=== PATIENT | female | born 1945 | race Caucasian/White ===

== ENCOUNTER 2016-12-31 11:33 | Inpatient (IN) | payer BC, OTHER ==
[2016-12-31] VITALS (7 sets, daily range): BP systolic 145–178; BP diastolic 75–91; PULSE 64–86; TEMP 36.9–37; O2SAT 92–96; Ht 147.3 cm; Wt 50.0 kg
[~2016-12-31] VITALS: Ht 147.3 cm; Wt 50.0 kg
[~2016-12-31 11:33] MED LIST: ACET-1256 PO; ALUMCHW2 PO; ATEN50TA8 PO; CALC-440 PO; CALC1CHW47 PO; CRAN500C2 PO; HYD10 PO; HYDR20TA PO; KRIL1CAP18 PO; LEVO75TA PO; LORA-741 PO; LOSA1TAB38 PO; MOME50SP5; MULT-506 PO; PANT40TA PO; POTA20TA16 PO; PROM12.57 PO; VTMD1000 PO
[2016-12-31 12:16] LABS: HEMATOCRIT 35.1 % (37-47); MEAN CELL VOLUME 89.3 fL (80-100); MEAN CORPUSCULAR HEMOGLOBIN 30.3 pg (25-34); MEAN CORPUSCULAR HGB CONC 33.9 g/dl (32-36); MEAN PLATELET VOLUME 8.6 fL (7.4-10.4); PLATELET COUNT 198 K/uL (130-400); RED BLOOD COUNT 3.93 M/uL (4.2-5.4); WHITE BLOOD COUNT 13.77 K/uL (4.8-10.8)
[2016-12-31 12:37] LABS: BUN/CREATININE RATIO 31.8 (10-20); CALCIUM 8.5 mg/dl (8.5-10.1); CREATININE 0.69 mg/dl (0.60-1.20); POTASSIUM 3.1 mmol/L (3.5-5.1)
[2016-12-31 12:39] LABS: ALB/GLOB RATIO 1.3 (0.9-2); PARTIAL THROMBOPLASTIN RATIO 0.9; PROTHROMBIN TIME (PATIENT) 10.6 SECONDS (9.0-12.0)
[2016-12-31] MEDS ORDERED: POTASSIUM CHLORIDE 10 MEQ / 100ML WTR IV ONE (13:15)
[2016-12-31] MEDS ORDERED: POTASSIUM CHLORIDE 10 MEQ / 100ML WTR IV STA (13:16)
--- NOTE | 2016-12-31 13:37 | EMERGENCY ROOM VISIT NOTE ---
History Report prepared by Juni: Veronica Espinal Under the Supervision of: Dr. Tosha Musa D.O. First contact with patient: 13:07 Chief Complaint: RECTAL BLEEDING Stated Complaint: RECTAL BLEEDING Nursing Triage Summary: Pt reports she woke up early this AM with bright red bloody diarrhea Hx hemorrhoids History of Present Illness The patient is a 71 year old female who presents to the Emergency Room with complaints of persistent rectal bleeding that began this morning. The patient states that at 0300 this morning she woke feeling that she needed to have a bowel movement. She states that she was unable to have a bowel movement and felt constipated for several hours following. The patient states that this morning she finally had a bowel movement and noted a lot of blood. She states that this morning she has had several bowel movements that were bloody and watery in consistency. The patient denies any history of rectal bleeding in the past. She notes that she has had hemorrhoids in the past. The patient states that her last colonoscopy was in 2007 or 2008 and states that she had some polyps removed. She states that she had an endoscopy done at this time as well. The patient states that she is feeling lightheaded at this time, but denies any breathing difficulties. She denies having a pacemaker. The patient states that she has no wishes to be placed on a ventilator or have CPR done. Source of History: patient Onset: this morning Position: other (Rectal) Quality: other (bleeding) Timing: other (persistent) Associated Symptoms: No SOB Note: Associated Symptoms: lightheaded Review of Systems See HPI for pertinent positives & negatives. A total of 10 systems reviewed and were otherwise negative. Past Medical & Surgical Medical Problems: (1) ESOPHAGEAL REFLUX (2) GI bleed (3) HYPERTENSION NOS (4) Thyroidectomy (5) Tonsillectomy (6) V tach and rectal bleeding Family History Diabetes mellitus Hypertension Social History Smoking Status: Never Smoker Alcohol Use: none Drug Use: none Marital Status: single Housing Status: lives with family Occupation Status: unemployed, retired Current/Historical Medications Scheduled Atenolol (Tenormin), 50 MG PO AMPM Calcium & Phosphorus W/ Vitami (Calcium Gummies), 1 TAB PO AMPM Calcium Citrate-Vitamin D (Calcium Citrate + D3), 630 MG PO QAM Cholecalciferol (Vitamin D3), 1 TAB PO QAM Cranberry (Vaccinium Macrocarp (Cranberry), 500 MG PO QAM Hydrocortisone (Cortef), 20 MG PO QAM Hydrocortisone (Cortef), 10 MG PO QPM Krill Oil (M[place]ared [place]-3 Krill Oil 500 mg), 1 CAP PO QAM Levothyroxine Sodium (Synthroid), 75 MCG PO QAM Losartan Potassium (Cozaar), 100 MG PO QAM Multivitamin (Multivitamin), 1 TAB PO DAILY Pantoprazole (Protonix), 40 MG PO QAM Potassium Ext Rel (Klor-Con), 20 MEQ PO AMPM Scheduled PRN Acetaminophen (Tylenol), 500 MG PO UD PRN for Pain Aluminum Hydroxide-Mag Trisil (Gaviscon), 1 TAB PO DAILY PRN for ACID Lorazepam (Ativan), 0.5 TAB PO DAILY PRN for Anxiety Promethazine (Phenergan ), 12.5 MG PO Q4H PRN for Nausea Allergies Coded Allergies: Amoxicillin (Verified Allergy, Mild, ITCHY, 12/31/16) Ondansetron (Verified Allergy, Mild, ITCHY, 12/31/16) Oxycodone (Verified Allergy, Mild, ITCH, 12/31/16) Hydrocodone (Unverified Adverse Reaction, Intermediate, NAUSEA, 12/31/16) Ibuprofen (Unverified Adverse Reaction, Intermediate, NAUSEA, 12/31/16) Quinolones (Verified Adverse Reaction, Intermediate, HEADACHE, 12/31/16) Cephalosporins (Verified Adverse Reaction, Unknown, CEFTIN: ABDOMINAL PAIN /NAUSEA, 12/31/16) Escitalopram (Verified Adverse Reaction, Unknown, ABD PAIN;NAUSEA, 12/31/16) Penicillins (Verified Adverse Reaction, Unknown, ABD PAIN;NAUSEA, 12/31/16) Physical Exam Vital Signs Date Time Temp Pulse Resp B/P Pulse Ox O2 Delivery O2 Flow Rate FiO2 12/31/16 15:20 36.9 86 15 178/84 96 Room Air 12/31/16 14:11 89 18 172/75 12/31/16 13:25 81 18 161/87 96 Room Air 12/31/16 13:15 85 12/31/16 13:12 82 12/31/16 13:12 102 12/31/16 12:20 79 12/31/16 11:37 36.6 79 20 187/73 96 Room Air Physical Exam HEENT: Head - normocephalic and atraumatic Pupils are equal, round, and reactive to light. Extraocular eye muscles are intact, and sclera are anicteric. Nose - moist nasal mucosa without discharge. Mouth - moist buccal mucosa. Oropharynx is nonerythematous and there is no tonsillar exudate or edema noted. Neck: Supple; no JVD, nuchal rigidity, cervical lymphadenopathy, or auscultated bruits. Heart: Regular rate and rhythm. There is a normal S1 and S2 with no murmurs, clicks, or gallops appreciated. Lungs: Clear to auscultation bilaterally with no wheezes, rales, or rhonchi. Abdomen: Soft, completely nontender, nondistended, with good bowel sounds. There are no palpable pulsatile masses or hepatosplenomegaly. There is no guarding, rigidity, or rebound noted. Extremities: No evidence of cyanosis, clubbing, or edema. There are easily palpable peripheral pulses. Skin: warm and dry with good turgor and no rashes. Medical Decision & Procedures ER Provider Diagnostic Interpretation: X-ray results as stated below per interpretation by me and the radiologist: CHEST ONE VIEW PORTABLE CLINICAL HISTORY: Rectal bleeding COMPARISON STUDY: 11/14/2008 FINDINGS: The cardiac images all contours remain stable. There are extensive calcified mediastinal and hilar lymph nodes. There is a left lower lobe calcified granuloma. There is a thoracolumbar scoliosis. There is no overt failure. There are no pleural effusions. There is no lobar consolidation. There are left hemithorax electrode pads. There is a catheter projected over the right neck, possibly representing a right internal jugular central venous line. No pneumothorax is visualized. IMPRESSION: Old granulomatous changes. No active disease in the chest. Electronically signed by: Peyman Barrera M.D. 12/31/2016 3:27 PM Dictated Date/Time: 12/31/2016 3:25 PM Laboratory Results 12/31/16 12:05 12/31/16 14:20 12/31/16 12:05 Test 12/31/16 12:05 12/31/16 14:20 12/31/16 15:30 Red Blood Count 3.93 M/uL (4.2-5.4) Mean Corpuscular Volume 89.3 fL (80-100) Mean Corpuscular Hemoglobin 30.3 pg (25-34) Mean Corpuscular Hemoglobin Concent 33.9 g/dl (32-36) RDW Standard Deviation 47.7 fL (36.4-46.3) RDW Coefficient of Variation 14.4 % (11.5-14.5) Mean Platelet Volume 8.6 fL (7.4-10.4) Prothrombin Time 10.6 SECONDS (9.0-12.0) Prothromb Time International Ratio 1.0 (0.9-1.1) Activated Partial Thromboplast Time 24.5 SECONDS (21.0-31.0) Partial Thromboplastin Ratio 0.9 Anion Gap 9.0 mmol/L (3-11) Est Creatinine Clear Calc Drug Dose 47.6 ml/min Estimated GFR () 100.8 Estimated GFR (Non- 87.0 BUN/Creatinine Ratio 31.8 (10-20) Calcium Level 8.5 mg/dl (8.5-10.1) Magnesium Level 1.9 mg/dl (1.8-2.4) Total Bilirubin 0.9 mg/dl (0.2-1) Aspartate Amino Transf (AST/SGOT) 18 U/L (15-37) Alanine Aminotransferase (ALT/SGPT) 20 U/L (12-78) Alkaline Phosphatase 54 U/L (45-117) Total Creatine Kinase 64 U/L (26-192) Creatine Kinase MB 2.1 ng/ml (0.5-3.6) Creatine Kinase MB Ratio 3.3 (0-3.0) Pro-B-Type Natriuretic Peptide 4051 pg/ml (0-900) Total Protein 6.4 gm/dl (6.4-8.2) Albumin 3.6 gm/dl (3.4-5.0) Globulin 2.8 gm/dl (2.5-4.0) Albumin/Globulin Ratio 1.3 (0.9-2) Thyroid Stimulating Hormone (TSH) 1.510 uIu/ml (0.300-4.500) Random Cortisol 12.42 mcg/dl Phosphorus Level 3.0 mg/dl (2.5-4.9) Troponin I 0.024 ng/ml (0-0.045) Urine Color YELLOW Urine Appearance CLEAR (CLEAR) Urine pH 6.5 (4.5-7.5) Urine Specific [place] 1.007 (1.000-1.030) Urine Protein NEG (NEG) Urine Glucose (UA) NEG (NEG) Urine Ketones NEG (NEG) Urine Occult Blood 1+ (NEG) Urine Nitrite NEG (NEG) Urine Bilirubin NEG (NEG) Urine Urobilinogen NEG (NEG) Urine Leukocyte Esterase NEG (NEG) Urine WBC (Auto) 0 /hpf (0-5) Urine RBC (Auto) 0-4 /hpf (0-4) Urine Hyaline Casts (Auto) 1-5 /lpf (0-5) Urine Epithelial Cells (Auto) 0-5 /lpf (0-5) Urine Bacteria (Auto) NEG (NEG) Date/Time Source Procedure Growth Status 12/31/16 14:38 Nasal MRSA DNA Surveillance Screen - Final Specimen Negative for MRSA by DNA Probe Complete Laboratory results per my review. Medications Administered Medications (Trade) Dose Ordered Sig/Dariusz Route Start Time Stop Time Status Last Admin Dose Admin Potassium Chloride (Kcl 10 Meq / Wtr) 10 meq NOW STAT IV 12/31/16 13:16 12/31/16 13:17 DC 12/31/16 13:16 10 MEQ Magnesium Sulfate (Magnesium Sulfate) 2 gm NOW STAT IV 12/31/16 14:00 12/31/16 14:04 DC 12/31/16 14:11 2 GM Morphine Sulfate 2 mg 2 mg Q2H PRN IV 12/31/16 14:00 01/14/17 13:59 12/31/16 16:37 2 MG Pantoprazole Sodium/Syringe (Protonix Inj/ Syringe) 10 ml @ 5 mls/min NOW ONCE IV 12/31/16 15:00 12/31/16 15:01 DC 12/31/16 15:50 5 MLS/MIN Procedure The patient was treated with Potassium Chloride 10 meq IV and NSS 500 bolus. ECG Indication: other (ventricular tachycardia) Rate (beats per minute): 78 Rhythm: normal sinus Findings: ST depression (Lateral), no ectopy Change: Repeat EKG: Normal Sinus Rhythm, 82 beats per minute, deeper ST segment depressions laterally, no ectopy. ED Course 1310: Past medical records reviewed. The patient was evaluated in room C11B. A complete history and physical exam was performed. A twelve-lead EKG was obtained. A chest x-ray was performed. 1313: The patient had a run of v-tach at this time. The patient stated that she felt somewhat lightheaded during this event. She maintained a radial pulse. 1316: The patient had a second run of V. tach. Ordered Potassium Chloride 10 meq IV and NSS 500 bolus. 1326: I reevaluated the patient and told the patient that her friend is on her way. The patient states that she did not take her blood pressure medications this morning. The patient understands that she will be evaluated for further treatment. 1329: I discussed the patients case with Dr. Lorenzo, Intensive Care. He is going to evaluate the patient in the ICU for further treatment. 1332: I discussed the patients case with SHARA Sidhu. He is going to evaluate the patient for further treatment. Medical Decision The patient is a 71 year old female who presents to the ED with rectal bleeding. Differential diagnosis includes electrolyte imbalance, cardiac dysrhythmia, anemia, lower GI bleed Lab interpretation: white count 13.7, hemoglobin 11.3, potassium 3.1, BUN 22, creatinine 0.69, LFTs and cardiac enzymes are negative, BNP 4,051, total CK 64, CK-MB 3.3, troponin 0.017, coagulation studies were normal, urine was normal The patient presents to the emergency department with new-onset GI bleeding While I was evaluated in the patient, she had a run of V. tach of his proximal he 6 seconds long. She did complain of some lightheadedness. She then had a second run of V. tach which is about 10 seconds long. Her potassium was replaced. She did not have any further episodes while here in the emergency department. She remained hemodynamically stable. I discussed the case with the [facility] hospitalist as well as the liquefaction plant operator. Consults Time Called: 1327 Consulting Physician: Dr. Lorenzo, Intensive Care Returned Call: [phone] I discussed the patients case with Dr. Lorenzo, Intensive Care. He is going to evaluate the patient in the ICU for further treatment. Additional Consults: Time Called: 1327 Consulted Physician: SHARA Sidhu Returned Call: [phone] Additional Comments: I discussed the patients case with SHARA Sidhu. He is going to evaluate the patient for further treatment. Impression Primary Impression: Lower GI bleed Additional Impressions: V-tach Hypokalemia Scribe Attestation The scribe's documentation has been prepared under my direction and personally reviewed by me in its entirety. I confirm that the note above accurately reflects all work, treatment, procedures, and medical decision making performed by me. Departure Information Dispostion Being Evaluated By Hospitalist Referrals Arthur Brown M.D. (PCP) Problem Qualifiers
[2016-12-31 14:00] LABS: CKMB/CK RATIO 3.3 (0-3.0); THYROID STIMULATING HORMONE 1.51 uIu/ml (0.300-4.500)
[2016-12-31] MEDS ORDERED: MAGNESIUM SULFATE 1GM / D5W 1 GM BAG IV STA (14:00)
[2016-12-31 14:32] LABS: HEMATOCRIT 32.3 % (37-47)
--- NOTE | 2016-12-31 14:34 | History and Physical ---
History & Physical Date of Service Dec 31, 2016. History & Physical V tach and rectal bleeding [id number]
[2016-12-31] MEDS ORDERED: HydrALAZINE HCL 20 MG/ML VIAL IV. PRN (14:45)
[2016-12-31] MEDS ORDERED: PANTOprazole INJ 40 MG in SYRINGE 0 ML IV ONE (15:00)
[2016-12-31] MEDS ORDERED: HYDROCORTISONE SOD SUCCINATE 100 MG/2 ML VIAL IM SCH (15:15)
[2016-12-31] MEDS ORDERED: LAVAGE SOLUTION 4000ML PO SCH (15:15)
--- NOTE | 2016-12-31 15:22 | HISTORY & PHYSICAL EXAMINATION ---
DATE OF ADMISSION: 12/31/2016 This is a level 3 inpatient admission, 35 minutes. CHIEF COMPLAINT: Rectal bleeding and V-tach. HISTORY OF PRESENT ILLNESS: The patient is a 71-year-old white female with a significant past medical history of GERD, hypertension, adrenal insufficiency, vitamin D deficiency, hypothyroidism, dyslipidemia, diverticulitis, comes to the hospital Emergency Department because of the above chief complaint. The patient reported she used to be healthy. She taking care of her mom who is 90-year-old. She developed a feeling cramping abdominal pain in the lower abdomen and feeling she needs to have bowel movement. She was feeling constipated for several hours. This morning she finally has bowel movement. She noticed a lot of blood coming out in the stool. The blood was watery in consistency. Report had history of hemorrhoids and history of colonoscopy done many years ago and her son reported to me she has history of diverticulitis. In the Emergency Room, she developed possible V-tach lasting about 10 seconds. There was 3 episodes per report. When I interviewed with her, she was awake, alert and orientated in no acute distress, pleasant, competent and talk. Denied chest pain, palpitation, lower extremity swelling. Denied cough, sputum, shortness of breath. Denied hemoptysis; denied dysuria, urgency and frequencies, denied abdominal pain, diarrhea, constipation for now. Denied facial droop, slurry speeches or local weakness. PAST MEDICAL HISTORY: Like I mentioned in the above include GERD, esophagitis, hypertension, adrenal insufficiency, vitamin D deficiency, hypothyroidism and dyslipidemia. ALLERGIES: ALLERGIC TO ZOFRAN, OXYCODONE, QUINOLONE, CEPHALOSPORINS, CITALOPRAM, AND PENICILLIN. PAST SURGICAL HISTORY: Include thyroidectomy, tonsillectomy. FAMILY HISTORY: Include diabetic, hypertension. SOCIAL HISTORY: Never smoked. Denied alcohol abuse disorder, denied illicit drug abuse. MEDICATIONS: Include atenolol 50 mg p.o. a.m. and p.m., calcium pills 1 tab p.o. b.i.d., calcium citrate, vitamin D 30 mg p.o. q.a.m., vitamin D3 one tab p.o. q.a.m., cranberry 500 mg p.o. q.a.m., Cortef 20 mg p.o. q.a.m. and 10 mg p.o. q.p.m. Krill oil 1 tab p.o. q.a.m., levothyroxine 75 mcg p.o. q.a.m., losartan 100 mg p.o. q.a.m., multiple vitamin 1 tab p.o. daily, Protonix 40 mg p.o. q.a.m., Klor-Con 20 mEq p.o. b.i.d. Scheduled as needed medications include Tylenol, Ativan and Phenergan. PHYSICAL EXAMINATION: VITAL SIGNS: Temperature is 36.6, pulse 79, respiration rate 20, blood pressure was 187/73, pulse ox was 96% in room air. GENERAL: The patient is a white female, awake, alert and orientated, conversational, no acute distress. HEAD: Normocephalic. EYES: Pupils equal, round responds to light. EARS: Ear was normal. NOSE: Normal. NECK: Supple. Thyroid no enlargement. Trachea midline. HEART: Regular rhythm. S1, S2. LUNGS: Decreased breathing sounds. There was no wheezing, rhonchi or crackles. ABDOMEN: Soft, nontender. Bowel sound was positive. There were no pulsatile masses or hepatosplenomegaly. There was no guarding, rigidity or rebound tenderness. LOWER EXTREMITIES: No cyanosis, clubbing. No lower extremity edema. SKIN: Has no rashes. LABORATORY STUDIES: WBC 13, hemoglobin 11, platelet 198. Sodium 134, potassium 3.1, BUN 22, creatinine 0.6. Blood glucose 82. No other imaging studies was done. ASSESSMENT AND PLAN: A 71-year-old white female with the conditions below: 1. Three episodes of possible V-tach lasting about 10 seconds resolved for now. there was no documented EKG 2. Rectal bleeding with history of diverticulitis. 3. History of adrenal insufficiency. 4. History of hypertension. 5. Hypothyroidism. 6. Chronic hypokalemia. 7. Dyslipidemia. Discussed with ED physicians, patient and patient's son. The patient agreed ICU admission, tele monitoring, crash cart in bedside, like I defined the patient okay to cardiac shock/pressor support but DNR, do not intubation. I confirmed this with the patient's son whose name is Mehrdad. Will replace potassium. She got 10 mEq in the Emergency Room. We will give 20 mEq more and magnesium level was normal. V-tach likely because hypokalemic. She has history of hypothyroidism and adrenal insufficiency. TSH level was sent. Will check the random cortisol levels to see. We will continue home dose of Cortef. We will have cardiology consultation. Continue beta blockers, atenolol p.o. b.i.d. at home. We will give GI prophylaxis. Will have GI consultation, hemoglobin and hematocrits q. 8 hours and transfuse if needed. The patient did not have abdominal CT done in the Emergency Room. If she continued to be more stabilized, will need to consider abdominal CT studies to rule out acute disease or malignancy or mass in the colon. I switched levothyroxine to IV. Continue some other IV medication. Gastrointestinal prophylaxis is covered. DVT prophylaxis will be SCD, no heparin product because of contraindicated with current GI bleeding. I called to the patient's son who works in [employer], updated him the patient's conditions and care plan. I answered all the questions. NINFA
--- NOTE | 2016-12-31 15:28 | DIAGNOSTIC IMAGING REPORT ---
CHEST ONE VIEW PORTABLE CLINICAL HISTORY: Rectal bleeding COMPARISON STUDY: 11/14/2008 FINDINGS: The cardiac images all contours remain stable. There are extensive calcified mediastinal and hilar lymph nodes. There is a left lower lobe calcified granuloma. There is a thoracolumbar scoliosis. There is no overt failure. There are no pleural effusions. There is no lobar consolidation. There are left hemithorax electrode pads. There is a catheter projected over the right neck, possibly representing a right internal jugular central venous line. No pneumothorax is visualized. IMPRESSION: Old granulomatous changes. No active disease in the chest. Electronically signed by: Peyman Barrera M.D. 12/31/2016 3:27 PM Dictated Date/Time: 12/31/2016 3:25 PM
[2016-12-31 15:50] LABS: MANUAL MICROSCOPIC REQUIRED? NO; REVIEW REQ? NO; URINE APPEARANCE CLEAR (CLEAR); URINE BILIRUBIN NEG (NEG); URINE COLOR YELLOW; URINE EPITHELIAL CELL AUTO 0-5 /lpf (0-5); URINE NITRITE NEG (NEG); URINE PH 6.5 (4.5-7.5); URINE SPECIFIC GRAVITY 1.007 (1.000-1.030); UROBILINOGEN NEG (NEG)
[2016-12-31] MEDS ORDERED: OPTIRAY 320 IV PRN (16:00)
--- NOTE | 2016-12-31 16:03 | Critical Care Consultation ---
Critical Care Consultation Date of Consultation: Dec 31, 2016. Attending Physician: Dr Ryan Pang Reason for Consultation: arrhythmia in the presence of acute hemorrhage History of Present Illness This is a 71 yo f that is presenting to us after an arrhythmia questionable for VT which occurred in the ED along with acute LGI hemorrhage. The patient is coming to us after an acute episode of bright red blood per rectum which occurred this morning. She came to the ED and after having another BM in the ED of bright red blood she was noted to have an arrhythmia concerning for VT on the monitor. She was asymptomatic during these episodes and spontaneously returned to NSR. ICU was called after these findings. Patient was resting comfortably during the interview. She states she has never had this kind of stool in the past however does have a history of hemorrhoids. She denies any sort of black stool. She does not take any ASA or NSAIDs but does take oral steroids daily for adrenal insufficiency. She has not had any recent antibiotics. She does note some mild epigastric pain which she felt started earlier in the morning. Non radiating and a 4/10. She does have a hgb which ranges from 10.5-12 and has never received a transfusion in the past. She has no history or colon cancer/ polyps. She has no h/o arrhythmia or MO She does note that she takes care of her 95 yo f at home. She also confirmed multiple times that she is a DNR/DNI. Her son is her POA and his name is Mehrdad. He works at [employer] as a physical therapist. After discussing the case with the ED and concern for VT vs Torsades the patient was admitted to the ICU for further monitoring. Past Medical/Surgical History GERD HTN Adrenal insuff Sarcoidosis Hypothyroidism Dyslipidemia Parkinson Family History Diabetes mellitus Hypertension Social History Smoking Status: Never Smoker Smokeless Tobacco Use: No Alcohol Use: none Drug Use: none Marital Status: single Housing Status: lives with family Occupation Status: unemployed, retired Allergies Coded Allergies: Amoxicillin (Verified Allergy, Mild, ITCHY, 12/31/16) Ondansetron (Verified Allergy, Mild, ITCHY, 12/31/16) Oxycodone (Verified Allergy, Mild, ITCH, 12/31/16) Hydrocodone (Unverified Adverse Reaction, Intermediate, NAUSEA, 12/31/16) Ibuprofen (Unverified Adverse Reaction, Intermediate, NAUSEA, 12/31/16) Quinolones (Verified Adverse Reaction, Intermediate, HEADACHE, 3/3/17) Cephalosporins (Verified Adverse Reaction, Unknown, CEFTIN: ABDOMINAL PAIN /NAUSEA, 12/31/16) Escitalopram (Verified Adverse Reaction, Unknown, ABD PAIN;NAUSEA, 12/31/16) Penicillins (Verified Adverse Reaction, Unknown, ABD PAIN;NAUSEA, 12/31/16) Home Medications Scheduled Atenolol (Tenormin), 50 MG PO AMPM Calcium & Phosphorus W/ Vitami (Calcium Gummies), 1 TAB PO AMPM Calcium Citrate-Vitamin D (Calcium Citrate + D3), 630 MG PO QAM Cholecalciferol (Vitamin D3), 1 TAB PO QAM Cranberry (Vaccinium Macrocarp (Cranberry), 500 MG PO QAM Hydrocortisone (Cortef), 20 MG PO QAM Hydrocortisone (Cortef), 10 MG PO QPM Krill Oil ([place]-3 Krill Oil 500 mg), 1 CAP PO QAM Levothyroxine Sodium (Synthroid), 75 MCG PO QAM Losartan Potassium (Cozaar), 100 MG PO QAM Multivitamin (Multivitamin), 1 TAB PO DAILY Pantoprazole (Protonix), 40 MG PO QAM Potassium Ext Rel (Klor-Con), 20 MEQ PO AMPM Scheduled PRN Acetaminophen (Tylenol), 500 MG PO UD PRN for Pain Aluminum Hydroxide-Mag Trisil (Gaviscon), 1 TAB PO DAILY PRN for ACID Lorazepam (Ativan), 0.5 TAB PO DAILY PRN for Anxiety Promethazine (Phenergan ), 12.5 MG PO Q4H PRN for Nausea Current Inpatient Medications Current Inpatient Medications Medications (Trade) Dose Ordered Sig/Dariusz Route Start Time Stop Time Status Last Admin Dose Admin Potassium Chloride 20 meq/ Prmx 100 ml @ 50 mls/hr NOW STAT IV 12/31/16 13:33 12/31/16 15:32 UNV Potassium Chloride/Sodium Chloride (Nss + 20meq KCl 1000ml) 1,000 ml @ 80 mls/hr [id number] IV 12/31/16 13:53 01/30/17 13:52 UNV Acetaminophen (Tylenol Tab) 650 mg Q4H PRN PO 12/31/16 14:00 01/30/17 13:59 Morphine Sulfate (MoRPHine SULFATE INJ) 2 mg Q2H PRN IV 12/31/16 14:00 01/14/17 13:59 Hydrocortisone (Cortef Tab) 10 mg QPM PO 12/31/16 21:00 01/30/17 20:59 Hydrocortisone (Cortef Tab) 20 mg QAM PO 01/01/17 09:00 01/31/17 08:59 Losartan Potassium (coZAAR TAB) 100 mg QAM PO 01/01/17 09:00 01/31/17 08:59 Potassium Chloride (Klor-Con Tab) 20 meq QAM PO 01/01/17 09:00 01/31/17 08:59 Levothyroxine Sodium 37.5 mcg 37.5 mcg QAM IM 01/01/17 09:00 01/31/17 08:59 UNV Pantoprazole Sodium/Syringe (Protonix Inj/ Syringe) 10 ml @ 5 mls/min DAILY@,21 IV 12/31/16 21:00 01/30/17 20:59 UNV Atenolol (Tenormin Tab) 50 mg BID PO 12/31/16 21:00 01/30/17 20:59 Hydralazine HCl (HydrALAZINE INJ) 20 mg Q8 PRN IV. 12/31/16 14:45 01/30/17 14:44 Polyethylene Glycol/ Electrolytes (Golytely Soln) 1 dose UD PO 12/31/16 15:15 01/30/17 15:14 UNV Hydrocortisone Sodium Succinate (Solu-Cortef IV) 50 mg TODAY@1515 IM 12/31/16 15:15 12/31/16 17:00 Ioversol (Optiray 320) 125 ml UD PRN IV 12/31/16 16:00 01/04/17 15:59 UNV Review of Systems Constitutional: No fever Eyes: No worsening of vision ENT: No hearing loss Respiratory: No cough, No shortness of breath, No sputum, No wheezing Cardiovascular: No chest pain Abdomen: + GI bleeding, + diarrhea, + nausea, + pain, No constipation, No vomiting Musculoskeletal: No joint pain, No muscle pain Genitourinary - Female: No dysuria, No hematuria Neurologic: + balance problems, + problem reported (tremor from parkinson), + weakness, No memory loss, No numbness/tingling Endocrine: + fatigue Integumentary: No rash Physical Exam Date Time Temp Pulse Resp B/P Pulse Ox O2 Delivery O2 Flow Rate FiO2 12/31/16 15:20 36.9 86 15 178/84 96 Room Air 12/31/16 14:11 89 18 172/75 12/31/16 13:25 81 18 161/87 96 Room Air 12/31/16 13:15 85 12/31/16 13:12 82 12/31/16 13:12 102 12/31/16 12:20 79 12/31/16 11:37 36.6 79 20 187/73 96 Room Air General Appearance: well-appearing, no apparent distress Head: normocephalic Eyes: sclerae normal, conjunctivae pale ENT: other (inspection WNL) Neck: normal range of motion, no tenderness, trachea midline, supple Respiratory: breath sounds normal, clear to auscultation, clear to percussion, no respiratory distress Cardiovasular: regular rate/rhythm, normal S1S2, no murmur Abdomen: normal bowel sounds, no rebound, other (tender in epigastric region) Back: normal inspection Upper Extremities: no edema, normal ROM Lower Extremities: no edema, normal ROM Neuro: alert, oriented x 3, normal sensation Psychiatric: flat affect Laboratory Results Last 24 Hours Test 12/31/16 12:05 12/31/16 14:20 12/31/16 15:30 White Blood Count 13.77 K/uL Red Blood Count 3.93 M/uL Hemoglobin 11.9 g/dL 11.3 g/dL Hematocrit 35.1 % 32.3 % Mean Corpuscular Volume 89.3 fL Mean Corpuscular Hemoglobin 30.3 pg Mean Corpuscular Hemoglobin Concent 33.9 g/dl RDW Standard Deviation 47.7 fL RDW Coefficient of Variation 14.4 % Platelet Count 198 K/uL Mean Platelet Volume 8.6 fL Prothrombin Time 10.6 SECONDS Prothromb Time International Ratio 1.0 Activated Partial Thromboplast Time 24.5 SECONDS Partial Thromboplastin Ratio 0.9 Sodium Level 134 mmol/L Potassium Level 3.1 mmol/L Chloride Level 95 mmol/L Carbon Dioxide Level 30 mmol/L Anion Gap 9.0 mmol/L Blood Urea Nitrogen 22 mg/dl Creatinine 0.69 mg/dl Est Creatinine Clear Calc Drug Dose 47.6 ml/min Estimated GFR () 100.8 Estimated GFR (Non- 87.0 BUN/Creatinine Ratio 31.8 Random Glucose 82 mg/dl Calcium Level 8.5 mg/dl Magnesium Level 1.9 mg/dl Total Bilirubin 0.9 mg/dl Aspartate Amino Transf (AST/SGOT) 18 U/L Alanine Aminotransferase (ALT/SGPT) 20 U/L Alkaline Phosphatase 54 U/L Total Creatine Kinase 64 U/L Creatine Kinase MB 2.1 ng/ml Creatine Kinase MB Ratio 3.3 Troponin I 0.017 ng/ml 0.024 ng/ml Pro-B-Type Natriuretic Peptide 4051 pg/ml Total Protein 6.4 gm/dl Albumin 3.6 gm/dl Globulin 2.8 gm/dl Albumin/Globulin Ratio 1.3 Thyroid Stimulating Hormone (TSH) 1.510 uIu/ml Random Cortisol 12.42 mcg/dl Phosphorus Level 3.0 mg/dl Urine Color YELLOW Urine Appearance CLEAR Urine pH 6.5 Urine Specific [place] 1.007 Urine Protein NEG Urine Glucose (UA) NEG Urine Ketones NEG Urine Occult Blood 1+ Urine Nitrite NEG Urine Bilirubin NEG Urine Urobilinogen NEG Urine Leukocyte Esterase NEG Urine WBC (Auto) 0 /hpf Urine RBC (Auto) 0-4 /hpf Urine Hyaline Casts (Auto) 1-5 /lpf Urine Epithelial Cells (Auto) 0-5 /lpf Urine Bacteria (Auto) NEG Assessment & Plan 1. Arrhythmia - new onset VT vs Torsades vs artifact 2. Acute lower GI bleed of unknown etiology 3. Hypokalemia; hyponatremia 4. Adrenal insuff 5. HTN 6. GERD 7. Hypothyroidism 8. Dyslipidemia 9. Parkinson NVS - alert and oriented - monitor mentation- at risk for delirium CVS - monitor on tele - central line placement - right IJ - Consult CVS RVS - O2 per nursing protocol GI - Consult GI - protonix 40 mg bid IV - CT abd with Iv contrast as per GI - discussed endoscopy with GI and would prefer to observe instead of urgent scope at this time RENAL - follow I&O - NSS with 20 KCL - 2 Gm of Mg given in ED FEN - repeat BMP in the am - replete K prn ENDO - continue home dose of steroids and thyroid - additional hydrocortisone 50 mg in anticipation of stress response HEME - follow HH q 8 - type and cross- 2 pRBC held - DVT- SCD CODE STATUS: DO NOT RESUSCITATE in event of cardiac arrest, patient wouldn't be amenable to vasoactive medications and electrical therapy. Patient's medical decision maker would be her son, Mehrdad Bennett who is an hop strainer in [place]. Resident Physician Supervision Note: Dr. Bacon was resident physician during care of patient. I separately evaluated patient and did history and exam. I discussed the case with the resident and generally agree with the findings and plan. Trend CBC, right IJ for rapid infusion, patient had 2; 20-gauge IVs upon arrival to the ICU, cardiology and GI both consulted I have personally spent 35 minutes of critical care time in the direct management of this patient. This is a life/limb threatening event. This includes time spent evaluating patient, direct bedside care, chart review, placing orders, interpretation of diagnostic studies, discussion with consultants, patient, and family members, as well as other required patient management activities. This time is exclusive of all separately billable procedures, and teaching time and separate from and in addition to any other critical care service time. Documented By: Iron Lorenzo DO
--- NOTE | 2016-12-31 16:04 | Gastrointestinal Consultation ---
Gastrointestinal Consultation Date of Consultation: Dec 31, 2016 Attending Physician: Tavon Pang Consulting Physician: Wen Chery Reason for Consultation: Rectal bleeding History of Present Illness Patient is a 71 year old female w PMHx of GERD, HTN who presented to ED w c/o rectal bleeding since this AM. Pt report around 3AM, she woke up feeling the urge to defecate. She felt it was hard to strain but finally managed to defecate. When she looked into the commode, she had seen just all bright red blood, and not much stools. She reports for the next few hours till around 6am, she had multiple BMs w mostly just blood. She has associated LLQ abd pain, mild nausea, no vomiting. She denies any fever, chills, recent sick contact, antibx use, ASA or NSAIDs. She does takes Tylenol for back pain, scoliosis. She then went to ED for evaluation. She reports feeling light headed in ED. EKG showed multiple runs of V-tach ? Torsades. She was given Mg and this converted her back on NSR HR of 90s. She is also continued on her Atenolol. H/H was 09/02/32. Leukocytosis WBC 13.7 . Baseline Hgb 12. Mild BUN elevation of 22, normal Cr of 0.69. BNP was 4051. Pt had Hx of diverticulosis, last colonoscopy by Dr. Tejeda on 09/19/2009. Last EGD by Dr. Doss 11/01/2012 gastric polyp, gastritis, intestinal metaplasia but no tumors. Past Medical/Surgical History Medical Problems: (1) Lumbar back pain Status: Acute Past Medical History: See HPI above Past Surgical History: Tonsillectomy, Thyroidectomy Family History Diabetes mellitus Hypertension Social History Smoking Status: Never Smoker Alcohol Use: none Drug Use: none Marital Status: single Housing Status: lives with family Occupation Status: unemployed, retired Allergies Coded Allergies: Amoxicillin (Verified Allergy, Mild, ITCHY, 12/31/16) Ondansetron (Verified Allergy, Mild, ITCHY, 12/31/16) Oxycodone (Verified Allergy, Mild, ITCH, 12/31/16) Hydrocodone (Unverified Adverse Reaction, Intermediate, NAUSEA, 12/31/16) Ibuprofen (Unverified Adverse Reaction, Intermediate, NAUSEA, 12/31/16) Quinolones (Verified Adverse Reaction, Intermediate, HEADACHE, 12/31/16) Cephalosporins (Verified Adverse Reaction, Unknown, CEFTIN: ABDOMINAL PAIN /NAUSEA, 12/31/16) Escitalopram (Verified Adverse Reaction, Unknown, ABD PAIN;NAUSEA, 12/31/16) Penicillins (Verified Adverse Reaction, Unknown, ABD PAIN;NAUSEA, 12/31/16) Current Medications Home Meds and Scripts Medications Dose Route/Sig Max Daily Dose Days Date Category Dose Instructions Phenergan (Promethazine HCl) 12.5 Mg Tab 12.5 Mg PO Q4H PRN 06/13/16 Reported Gaviscon (Aluminum Hydroxide-Mag Trisil) 1 Chw Chw 1 Tab PO DAILY PRN 06/13/16 Reported Tylenol (Acetaminophen) 500 Mg Tab 500 Mg PO UD PRN 06/13/16 Reported UP TO 1,500MG DAILY PER PATIENT LIST. Multivitamin (Multivitamins) Tab 1 Tab PO DAILY 06/13/16 Reported [place]-3 Krill Oil 500 mg (Krill Oil) 1 Cap Cap 1 Cap PO QAM 06/13/16 Reported Vitamin D3 (Cholecalciferol) 1,000 Inter.unit Tab 1 Tab PO QAM 06/13/16 Reported Cranberry (Cranberry (Vaccinium Macrocarp) 500 Mg Cap 500 Mg PO QAM 06/13/16 Reported Calcium Gummies (Calcium & Phosphorus W/ Vitami) 1 Chw Chw 1 Tab PO AMPM 06/13/16 Reported Calcium Citrate + D3 (Calcium Citrate-Vitamin D) 1 Tab Tab 630 Mg PO QAM 06/13/16 Reported Klor-Con (Potassium Chloride) 20 Meq Tabcr 20 Meq PO AMPM 06/13/16 Reported Protonix (Pantoprazole Sodium) 40 Mg Tab 40 Mg PO QAM 06/13/16 Reported Synthroid (Levothyroxine Sodium) 75 Mcg Tab 75 Mcg PO QAM 06/13/16 Reported Cozaar (Losartan Potassium) 100 Mg Tab 100 Mg PO QAM 06/13/16 Reported Ativan (Lorazepam) 0.5 Mg Tab 0.5 Tab PO DAILY PRN 06/13/16 Reported Cortef (Hydrocortisone) 10 Mg Tab 10 Mg PO QPM 06/13/16 Reported Cortef (Hydrocortisone) 20 Mg Tab 20 Mg PO QAM 06/13/16 Reported Tenormin (Atenolol) 50 Mg Tab 50 Mg PO AMPM 07/01/15 Reported Review of Systems Constitutional: No chills, No fever Respiratory: No cough, No shortness of breath Cardiac: No chest pain Abdomen: + GI bleeding, + nausea, + pain (LLQ), + see HPI, No vomiting Musculoskeletal: + problem reported (back pain) Physical Exam Date Time Temp Pulse Resp B/P Pulse Ox O2 Delivery O2 Flow Rate FiO2 12/31/16 15:20 36.9 86 15 178/84 96 Room Air 12/31/16 14:11 89 18 172/75 12/31/16 13:25 81 18 161/87 96 Room Air 12/31/16 13:15 85 12/31/16 13:12 82 12/31/16 13:12 102 12/31/16 12:20 79 12/31/16 11:37 36.6 79 20 187/73 96 Room Air General Appearance: no apparent distress, + thin Eyes: normal inspection, PERRL, EOMI Neck: supple, no JVD, trachea midline, + pertinent finding (Central line to R neck area recently placed) Respiratory/Chest: no respiratory distress, no accessory muscle use, + decreased breath sounds Cardiovascular: regular rate, rhythm, no gallop, no murmur Abdomen: normal bowel sounds, soft, + tenderness Extremities: normal inspection, no pedal edema, no calf tenderness Neurologic/Psych: alert, normal mood/affect, oriented x 3 Skin: normal color, no jaundice, no rash Laboratory Results Last 24 Hours Test 12/31/16 12:05 12/31/16 14:20 12/31/16 15:30 White Blood Count 13.77 K/uL Red Blood Count 3.93 M/uL Hemoglobin 11.9 g/dL 11.3 g/dL Hematocrit 35.1 % 32.3 % Mean Corpuscular Volume 89.3 fL Mean Corpuscular Hemoglobin 30.3 pg Mean Corpuscular Hemoglobin Concent 33.9 g/dl RDW Standard Deviation 47.7 fL RDW Coefficient of Variation 14.4 % Platelet Count 198 K/uL Mean Platelet Volume 8.6 fL Prothrombin Time 10.6 SECONDS Prothromb Time International Ratio 1.0 Activated Partial Thromboplast Time 24.5 SECONDS Partial Thromboplastin Ratio 0.9 Sodium Level 134 mmol/L Potassium Level 3.1 mmol/L Chloride Level 95 mmol/L Carbon Dioxide Level 30 mmol/L Anion Gap 9.0 mmol/L Blood Urea Nitrogen 22 mg/dl Creatinine 0.69 mg/dl Est Creatinine Clear Calc Drug Dose 47.6 ml/min Estimated GFR () 100.8 Estimated GFR (Non- 87.0 BUN/Creatinine Ratio 31.8 Random Glucose 82 mg/dl Calcium Level 8.5 mg/dl Magnesium Level 1.9 mg/dl Total Bilirubin 0.9 mg/dl Aspartate Amino Transf (AST/SGOT) 18 U/L Alanine Aminotransferase (ALT/SGPT) 20 U/L Alkaline Phosphatase 54 U/L Total Creatine Kinase 64 U/L Creatine Kinase MB 2.1 ng/ml Creatine Kinase MB Ratio 3.3 Troponin I 0.017 ng/ml 0.024 ng/ml Pro-B-Type Natriuretic Peptide 4051 pg/ml Total Protein 6.4 gm/dl Albumin 3.6 gm/dl Globulin 2.8 gm/dl Albumin/Globulin Ratio 1.3 Thyroid Stimulating Hormone (TSH) 1.510 uIu/ml Random Cortisol 12.42 mcg/dl Phosphorus Level 3.0 mg/dl Urine Color YELLOW Urine Appearance CLEAR Urine pH 6.5 Urine Specific [place] 1.007 Urine Protein NEG Urine Glucose (UA) NEG Urine Ketones NEG Urine Occult Blood 1+ Urine Nitrite NEG Urine Bilirubin NEG Urine Urobilinogen NEG Urine Leukocyte Esterase NEG Urine WBC (Auto) 0 /hpf Urine RBC (Auto) 0-4 /hpf Urine Hyaline Casts (Auto) 1-5 /lpf Urine Epithelial Cells (Auto) 0-5 /lpf Urine Bacteria (Auto) NEG Impression Patient is a 71 year old female seen for rectal bleeding between 3a-6a. She has associated L sided abd pain on exam, also nausea w/o vomiting. She did report some straining with initial BM, but otherwise stools & blood came out loose. She was found to have runs of Vtach vs Torsades in ED, currently converted to NSR after Mg IV. Differential diagnoses include diverticular/hemorrhoidal bleeding, ischemic colitis, infectious colitis. Plan - Obtain CT abd/pelvis w IV contrast only; pt has nausea, likely won't be able to tolerate PO contrast - OK for CL diet - Protonix 40mg IV BID - Monitor H/H and transfuse prn. - Hgb at baseline, no more signs of bleeding since admission; also getting workup for Vtach. Will defer endoscopic evals for now. Will ask education administrator GI physician to watch over weekend and re-evaluate for need of endoscopic procedures. I saw and evaluated the patient with Ms. Parra. She presented with sudden onset small volume hematochezia and left sided abdominal pain, no recurrence of bleeding since admission. Her admission was complicated by V tach for which she is being monitored in the ICU. PE: elderly appearing female, mild LLQ tenderness. Impression: patient presents with hematochezia and abdominal cramping. given her cardiac history I would wonder about ischemic colitis as the most likely etiology (other possible etiologies include diverticular hemorrhage). Given the recent cardiac issues and her lack of persistent bleeding I would hold on endoscopic evaluation at the present time. I would suggest IV hydration, screening for C diff / stool culture. If rebleeding occurs perhaps a Tagged RBC study would be the best initial option. Recomendations CT abdomen to screen for ischemic colitis Stool for C diff and culture Monitor CBC if rebleeding occurs consider Tagged RBC study Will re-evaluate with regard to need of colonoscopy during this admission.
--- NOTE | 2016-12-31 16:28 | Procedure Note: [facility] Only ---
Procedure Note Date of Service Dec 31, 2016. Procedure The R/B/A of a central line was discussed with the patient. Patient was agreeable to have line placed and consent was signed. The patient was placed in Trendelenburg position and cleansed x2 with chlorhexidine. Patient was draped using sterile technique. 1% lidocaine was administered subcutaneously for local anesthesia. The right IJ was accessed under ultrasound guidance with an 18 gauge thin wall needle. A double lumen was inserted via the seldinger technique. Blood was withdrawn from all lumens and flushed with normal saline. The catheter was sutured in place and a sterile dressing was applied over the site prior to removal of drapes. The patient tolerated the procedure well and there were no complications. Chest x ray is pending at this time. EBL: 1 cc Complication: None I was present during the entire procedure and assisted Dr. Bacon. Postprocedure chest x-ray was reviewed revealing no pneumothorax and line in adequate position. I previously discussed the risks benefits and reasons for the procedure as well as risks of not having the procedure done.
[2016-12-31] MEDS: NSS + 20MEQ KCL 1000ML 1,000 ML IV SCH (16:33)
[2016-12-31] MEDS: MoRPHine SULFATE 2 MG/ML CARP IV PRN (16:37)
[2016-12-31] MEDS ORDERED: HYDROCORTISONE IV 50 MG in SYRINGE 0 ML IV ONE (16:45)
[2016-12-31] MEDS ORDERED: POTASSIUM CHLR 20 MEQ / WTR 20 MEQ in PREMIXED WATER 100 ML IV ONE (17:00)
--- NOTE | 2016-12-31 17:24 | DIAGNOSTIC IMAGING REPORT ---
ABDOMEN AND PELVIS CT WITH IV CONTRAST CT DOSE: 222.62 mGy.cm HISTORY: Pain. Nausea. rectal bleeding LLQ abd pain TECHNIQUE: Multiaxial CT images of the abdomen and pelvis were performed following the use of intravenous contrast. COMPARISON STUDY: 07/01/2015 FINDINGS: Minimal dependent basilar atelectasis. Calcified periesophageal lymph nodes. Fixed lateral hernia. Liver is uniform. Spleen is unremarkable. Imaged kidneys demonstrate mild cortical scarring with several small low density cortical cysts. No evidence for hydronephrosis. There is a rather marked wall edema of components of the transverse, a sending, and proximal descending colonic region. This is also seen to a much lesser extent involving the sigmoid region where chronic diverticulosis is noted. No evidence for pneumatosis at the current time. No free air is identified. Mild pericolonic infiltrative change. IMPRESSION: 1. Marked wall edema of the a sending, transverse, and proximal descending colon. 2. Appearance consistent with a nonspecific colitis and/or ischemic change. 3. Chronic sigmoid diverticulosis. 4. No evidence for pneumatosis or free air. 5. No evidence for abscess collection or obstruction. 6. Hiatal hernia. Electronically signed by: Christopher Kurtz M.D. 12/31/2016 5:23 PM Dictated Date/Time: 12/31/2016 5:18 PM
[2016-12-31] MEDS: PANTOprazole INJ 40 MG in SYRINGE 0 ML IV SCH (20:27)
[2016-12-31] MEDS: HYDROCORTISONE 10 MG TAB PO SCH (20:28)
[2016-12-31 22:33] LABS: CKMB/CK RATIO 2.9 (0-3.0)
[2017-01-01] VITALS (21 sets, daily range): BP systolic 130–186; BP diastolic 64–97; PULSE 64–95; TEMP 36.5–37.2; O2SAT 92–98
[2017-01-01] MEDS: HydrALAZINE HCL 20 MG/ML VIAL IV. PRN ×2 (03:15→22:25)
[2017-01-01] MEDS: MoRPHine SULFATE 2 MG/ML CARP IV PRN ×3 (03:47→22:04)
[2017-01-01] MEDS: PROMETHAZINE HCL INJ 12.5 MG in SODIUM CHLORIDE 0.9% 50ML 50 ML IV PRN (03:48)
[2017-01-01 06:10] LABS: BASO % 0.2 %; BASO ABS # 0.02 K/uL (0-0.2); COMPLETE YES; HEMATOCRIT 33.6 % (37-47); IG% 0.3 %; LYMPH % 4.8 %; LYMPH ABS # 0.61 K/uL (1.2-3.4); MEAN CELL VOLUME 90.3 fL (80-100); MEAN CORPUSCULAR HEMOGLOBIN 30.4 pg (25-34); MEAN CORPUSCULAR HGB CONC 33.6 g/dl (32-36); MONO % 7.4 %; NEUT % 87.3 %; PLATELET COUNT 198 K/uL (130-400); RED BLOOD COUNT 3.72 M/uL (4.2-5.4); WHITE BLOOD COUNT 12.67 K/uL (4.8-10.8)
[2017-01-01 06:20] LABS: INR 1.1 (0.9-1.1); PROTHROMBIN TIME (PATIENT) 11.5 SECONDS (9.0-12.0)
[2017-01-01 07:03] LABS: BUN/CREATININE RATIO 23.4 (10-20); CALCIUM 7.3 mg/dl (8.5-10.1); CKMB/CK RATIO 2.6 (0-3.0); CREATININE 0.56 mg/dl (0.60-1.20); MAGNESIUM 2.2 mg/dl (1.8-2.4); POTASSIUM 3.5 mmol/L (3.5-5.1)
[2017-01-01] MEDS: LEVOTHYROXINE SODIUM INJ 37.5 MCG in SYRINGE 0 ML IV SCH (08:30)
[2017-01-01] MEDS: HYDROCORTISONE 10 MG TAB PO SCH ×2 (08:30→20:13)
[2017-01-01] MEDS: POTASSIUM CHLORIDE 20 MEQ TABCR PO SCH (08:31)
[2017-01-01] MEDS: LOSARTAN POTASSIUM 50 MG TAB PO SCH (08:31)
[2017-01-01] MEDS: PANTOprazole INJ 40 MG in SYRINGE 0 ML IV SCH ×2 (08:34→20:13)
[2017-01-01] MEDS ORDERED: LEVOTHYROXINE SODIUM 20 MCG/1 ML IM SCH (09:00)
[2017-01-01] MEDS ORDERED: HEPARIN SOD 5000 UNIT/0.5 ML CARP SQ STA (09:43)
--- NOTE | 2017-01-01 09:44 | Critical Care Progress Note ---
Critical Care Progress Note Date of Service Jan 01, 2017. ICU Day ICU Day Number: [address] Lorenzo Subjective Patient exhibited a episode of chest heaviness overnight, EKG reviewed unchanged from previous nonspecific T-wave abnormalities. This resolved without intervention. Patient has not had any continued gastrointestinal bleeding overnight. Feel significantly better with introducer removed. Objective General Appearance: well-appearing, no apparent distress Head: normocephalic Eyes: sclerae normal, conjunctivae pale Neck: normal range of motion, no tenderness, trachea midline, supple, bandage over prior Right CVL. Respiratory: breath sounds normal, clear to auscultation, clear to percussion, no respiratory distress Cardiovasular: regular rate/rhythm, normal S1S2, no murmur Abdomen: normal bowel sounds, no rebound, other (tender in epigastric region) Back: normal inspection Upper Extremities: no edema, normal ROM Lower Extremities: no edema, normal ROM Neuro: alert, oriented x 3, normal sensation Assessment & Plan 1. Arrhythmia - new onset VT vs Torsades vs artifact 2. Acute lower GI bleed of unknown etiology 3. Hypokalemia; hyponatremia 4. Adrenal insuff 5. HTN 6. GERD 7. Hypothyroidism 8. Dyslipidemia 9. Parkinson NVS - alert and oriented - monitor mentation CVS - monitor on tele - central line placement - right IJ discontinued today Trop slowly uptrending, continue serial enzymes q8hx2, may need cardiac evaluation RVS - O2 per nursing protocol GI - Consult GI - protonix 40 mg bid IV - CT abd with Iv contrast as per GI H and H stable RENAL - follow I&O - NSS with 20 KCL - 2 Gm of Mg given in ED FEN - repeat BMP in the am - replete K prn ENDO - continue home dose of steroids and thyroid - additional hydrocortisone 50 mg in anticipation of stress response HEME discontinue serial H/H - type and cross- 2 pRBC held - DVT heparin given H/H stable CODE STATUS: DO NOT RESUSCITATE in event of cardiac arrest, patient wouldn't be amenable to vasoactive medications and electrical therapy. Patient's medical decision maker would be her son, Mehrdad Bennett who is an athletic coordinator in [place]. Medically complex, however, improved, stable for downgrade from ICU status Data Medications: Current Inpatient Medications Medications (Trade) Dose Ordered Sig/Dariusz Route Start Time Stop Time Status Last Admin Dose Admin Potassium Chloride/Sodium Chloride (Nss + 20meq KCl 1000ml) 1,000 ml @ 80 mls/hr [id number] IV 12/31/16 16:45 01/30/17 13:52 12/31/16 16:33 80 MLS/HR Acetaminophen (Tylenol Tab) 650 mg Q4H PRN PO 12/31/16 14:00 01/30/17 13:59 Morphine Sulfate (MoRPHine SULFATE INJ) 2 mg Q2H PRN IV 12/31/16 14:00 01/14/17 13:59 01/01/17 09:02 2 MG Hydrocortisone (Cortef Tab) 10 mg QPM PO 12/31/16 21:00 01/30/17 20:59 12/31/16 20:28 10 MG Hydrocortisone (Cortef Tab) 20 mg QAM PO 01/01/17 09:00 01/31/17 08:59 01/01/17 08:30 20 MG Losartan Potassium (coZAAR TAB) 100 mg QAM PO 01/01/17 09:00 01/31/17 08:59 01/01/17 08:31 100 MG Potassium Chloride 20 meq 20 meq QAM PO 01/01/17 09:00 01/31/17 08:59 01/01/17 08:31 20 MEQ Pantoprazole Sodium/Syringe (Protonix Inj/ Syringe) 10 ml @ 5 mls/min BID@0900,2100 IV 12/31/16 21:00 01/30/17 20:59 01/01/17 08:34 5 MLS/MIN Atenolol (Tenormin Tab) 50 mg BID PO 12/31/16 21:00 01/30/17 20:59 01/01/17 08:32 50 MG Ioversol 125 ml 125 ml UD PRN IV 12/31/16 16:00 01/04/17 15:59 Levothyroxine Sodium 37.5 mcg/ Syringe 1.875 ml @ 2 mls/min DAILY@09 IV 01/01/17 09:00 01/31/17 08:59 01/01/17 08:30 2 MLS/MIN Promethazine HCl/ Sodium Chloride (Phenergan Inj/ Nss 50ml) 50.5 ml @ 204 mls/hr Q6H PRN IV 12/31/16 17:30 01/30/17 17:29 3/4/17 03:48 204 MLS/HR Hydralazine HCl (HydrALAZINE INJ) 5 mg Q8H PRN IV. 01/01/17 01:00 01/31/17 00:59 01/01/17 03:15 5 MG I & O: 24-Hour Column 01/01/17 08:00 Intake Total 1650 ml Output Total 1750 ml Balance -100 ml Vital Signs: Date Time Temp Pulse Resp B/P Pulse Ox O2 Delivery O2 Flow Rate FiO2 01/01/17 06:00 77 11 166/70 98 01/01/17 05:00 79 10 146/66 97 01/01/17 04:22 92 Room Air 01/01/17 04:00 36.5 91 14 141/69 98 01/01/17 03:00 65 13 186/79 94 01/01/17 02:00 64 12 168/73 95 01/01/17 00:47 92 Room Air 01/01/17 00:27 73 17 173/86 96 01/01/17 00:00 36.7 74 22 182/82 96 12/31/16 23:00 64 12 145/75 94 12/31/16 22:00 69 18 160/81 95 12/31/16 21:00 69 16 169/91 94 12/31/16 20:00 37.0 76 16 177/81 95 12/31/16 20:00 92 Room Air 12/31/16 19:00 78 16 157/81 94 12/31/16 18:00 36.9 76 12 171/79 92 Room Air 12/31/16 15:20 36.9 86 15 178/84 96 Room Air 12/31/16 14:11 89 18 172/75 12/31/16 13:25 81 18 161/87 96 Room Air 12/31/16 13:15 85 12/31/16 13:12 82 12/31/16 13:12 102 12/31/16 12:20 79 12/31/16 11:37 36.6 79 20 187/73 96 Room Air Laboratory Results: Last 24 Hours Test 12/31/16 12:05 12/31/16 14:20 12/31/16 15:30 12/31/16 22:01 White Blood Count 13.77 K/uL Red Blood Count 3.93 M/uL Hemoglobin 11.9 g/dL 11.3 g/dL 11.1 g/dL Hematocrit 35.1 % 32.3 % 32.0 % Mean Corpuscular Volume 89.3 fL Mean Corpuscular Hemoglobin 30.3 pg Mean Corpuscular Hemoglobin Concent 33.9 g/dl RDW Standard Deviation 47.7 fL RDW Coefficient of Variation 14.4 % Platelet Count 198 K/uL Mean Platelet Volume 8.6 fL Prothrombin Time 10.6 SECONDS Prothromb Time International Ratio 1.0 Activated Partial Thromboplast Time 24.5 SECONDS Partial Thromboplastin Ratio 0.9 Sodium Level 134 mmol/L Potassium Level 3.1 mmol/L Chloride Level 95 mmol/L Carbon Dioxide Level 30 mmol/L Anion Gap 9.0 mmol/L Blood Urea Nitrogen 22 mg/dl Creatinine 0.69 mg/dl Est Creatinine Clear Calc Drug Dose 47.6 ml/min Estimated GFR () 100.8 Estimated GFR (Non- 87.0 BUN/Creatinine Ratio 31.8 Random Glucose 82 mg/dl Calcium Level 8.5 mg/dl Magnesium Level 1.9 mg/dl Total Bilirubin 0.9 mg/dl Aspartate Amino Transf (AST/SGOT) 18 U/L Alanine Aminotransferase (ALT/SGPT) 20 U/L Alkaline Phosphatase 54 U/L Total Creatine Kinase 64 U/L 56 U/L Creatine Kinase MB 2.1 ng/ml 1.6 ng/ml Creatine Kinase MB Ratio 3.3 2.9 Troponin I 0.017 ng/ml 0.024 ng/ml 0.030 ng/ml Pro-B-Type Natriuretic Peptide 4051 pg/ml Total Protein 6.4 gm/dl Albumin 3.6 gm/dl Globulin 2.8 gm/dl Albumin/Globulin Ratio 1.3 Thyroid Stimulating Hormone (TSH) 1.510 uIu/ml Random Cortisol 12.42 mcg/dl Phosphorus Level 3.0 mg/dl Urine Color YELLOW Urine Appearance CLEAR Urine pH 6.5 Urine Specific Saxton 1.007 Urine Protein NEG Urine Glucose (UA) NEG Urine Ketones NEG Urine Occult Blood 1+ Urine Nitrite NEG Urine Bilirubin NEG Urine Urobilinogen NEG Urine Leukocyte Esterase NEG Urine WBC (Auto) 0 /hpf Urine RBC (Auto) 0-4 /hpf Urine Hyaline Casts (Auto) 1-5 /lpf Urine Epithelial Cells (Auto) 0-5 /lpf Urine Bacteria (Auto) NEG Test 01/01/17 05:43 White Blood Count 12.67 K/uL Red Blood Count 3.72 M/uL Hemoglobin 11.3 g/dL Hematocrit 33.6 % Mean Corpuscular Volume 90.3 fL Mean Corpuscular Hemoglobin 30.4 pg Mean Corpuscular Hemoglobin Concent 33.6 g/dl Platelet Count 198 K/uL Mean Platelet Volume 9.0 fL Neutrophils (%) (Auto) 87.3 % Lymphocytes (%) (Auto) 4.8 % Monocytes (%) (Auto) 7.4 % Eosinophils (%) (Auto) 0.0 % Basophils (%) (Auto) 0.2 % Neutrophils # (Auto) 11.06 K/uL Lymphocytes # (Auto) 0.61 K/uL Monocytes # (Auto) 0.94 K/uL Eosinophils # (Auto) 0.00 K/uL Basophils # (Auto) 0.02 K/uL RDW Standard Deviation 48.5 fL RDW Coefficient of Variation 14.7 % Immature Granulocyte % (Auto) 0.3 % Immature Granulocyte # (Auto) 0.04 K/uL Prothrombin Time 11.5 SECONDS Prothromb Time International Ratio 1.1 Sodium Level 137 mmol/L Potassium Level 3.5 mmol/L Chloride Level 101 mmol/L Carbon Dioxide Level 26 mmol/L Anion Gap 10.0 mmol/L Blood Urea Nitrogen 13 mg/dl Creatinine 0.56 mg/dl Est Creatinine Clear Calc Drug Dose 58.6 ml/min Estimated GFR () 108.0 Estimated GFR (Non- 93.2 BUN/Creatinine Ratio 23.4 Random Glucose 93 mg/dl Calcium Level 7.3 mg/dl Phosphorus Level 3.0 mg/dl Magnesium Level 2.2 mg/dl Total Bilirubin 0.8 mg/dl Direct Bilirubin 0.2 mg/dl Aspartate Amino Transf (AST/SGOT) 16 U/L Alanine Aminotransferase (ALT/SGPT) 16 U/L Alkaline Phosphatase 43 U/L Total Creatine Kinase 54 U/L Creatine Kinase MB 1.4 ng/ml Creatine Kinase MB Ratio 2.6 Troponin I 0.046 ng/ml Total Protein 5.7 gm/dl Albumin 2.9 gm/dl
--- NOTE | 2017-01-01 13:36 | ECHOCARDIOGRAM REPORT ---
*NOTICE TO RECEIVING LIBERTARIAN AGENCY This information is strictly Confidential and protected under [place] law. [place] law prohibits you from making any further disclosure of this information unless further disclosure is expressly permitted by the written consent of the person to whom it pertains or is authorized by law. A general authorization for the release of medical or other information is not sufficient for this purpose. Hospital accepts no responsibility if the information is made available to any other person, INCLUDING THE PATIENT. Interpretation Summary * Name: ERNESTINA ALAN Study Date: 01/01/2017 10:55 AM BP: 137/72 mmHg * [facility] HR: 76 * : 1945 (M/d/yyy) Gender: Female Height: 58 in * Age: 71 yrs Ethnicity: [place] Weight: 105 lb * Ordering Physician: Pedro Gonzales * Referring Physician: PEDRO GONZALES MD * Performed By: Veronica Orourke RDCS * * Reason For Study: CHEST PAIN * BSA: 1.4 m2 * History: CHEST PAIN * Hyperdynamic left ventricular systolic function. * Severe left ventricular hypertrophy. * Left ventricular diastolic dysfunction. * Hyperdynamic right ventricular systolic function. * Mild right ventricular hypertrophy. * Mild left atrial dilatation. * Trace - mild mitral and mild tricuspid regurgitation. * Trace pulmonic regurgitation. * Low central venous pressure. * -- Conclusions -- * Aortic valve sclerosis moderate, without significant aortic valvular stenosis. Procedure Details * A complete two-dimensional transthoracic echocardiogram was performed (2D, M-mode, Doppler and color flow Doppler). Left Ventricle * The left ventricular cavity is small. * There is severe concentric left ventricular hypertrophy. * Ejection Fraction = >70 %. * The left ventricle is hyperdynamic. * A full diastolic examination was done with clinical findings of Class I diastolic dysfunction. * Near LV cavity obliteration at end systole. * No regional wall motion abnormalities noted. Right Ventricle * The right ventricle is normal size. * There is mild right ventricular hypertrophy. * The right ventricle is hyperdynamic. Atria * The left atrium is mildly dilated. * Right atrial size is normal. * No ASD detected; PFO is not assessed. Mitral Valve * There is moderate to severe mitral annular calcification. * There is no mitral valve stenosis. * Trace - mild mitral regurgitation. Tricuspid Valve * The tricuspid valve is normal. * There is no tricuspid stenosis. * There is mild tricuspid regurgitation. * Right ventricular systolic pressure is normal. Aortic Valve * The aortic valve is trileaflet. * The aortic valve opens well. * Aortic valve sclerosis moderate, without significant aortic valvular stenosis. * No aortic regurgitation is present. Pulmonic Valve * The pulmonic valve is not well seen, but is grossly normal. * There is no pulmonic valvular stenosis. * Trace pulmonic valvular regurgitation. Great Vessels * The aortic root is normal size. Pericardium/Pleural * There is no pericardial effusion. Right Ventricle * No regional wall motion abnormalities are noted. Great Vessels * Normal inferior vena cava size and collapsability with sniff indicates a normal right atrial pressure of 3 mmHg MMode 2D Measurements and Calculations IVSd 1.8 cm IVSs 2.4 cm LVIDd 3.1 cm LVIDs 1.9 cm LVPWd 1.9 cm LVPWs 2.0 cm IVS/LVPW 0.95 FS 38.3 % EDV(Teich) 36.9 ml ESV(Teich) 11.0 ml EF(Teich) 70.1 % EDV(cubed) 28.8 ml ESV(cubed) 6.8 ml EF(cubed) 76.5 % % IVS thick 36.1 % % LVPW thick 6.9 % LV mass(C)d 225.6 grams LV mass(C)dI 162.9 grams/m\S\2 LV mass(C)s 201.2 grams LV mass(C)sI 145.3 grams/m\S\2 SV(Teich) 25.8 ml SI(Teich) 18.7 ml/m\S\2 SV(cubed) 22.0 ml SI(cubed) 15.9 ml/m\S\2 Ao root diam 2.9 cm Ao root area 6.6 cm\S\2 LA dimension 4.6 cm LA/Ao 1.6 LVAd ap4 23.6 cm\S\2 LVLd ap4 7.1 cm EDV(MOD-sp4) 64.3 ml LVAs ap4 9.0 cm\S\2 LVLs ap4 5.4 cm ESV(MOD-sp4) 14.3 ml EF(MOD-sp4) 77.8 % LVAd ap2 22.7 cm\S\2 LVLd ap2 7.2 cm EDV(MOD-sp2) 59.7 ml LVAs ap2 10.3 cm\S\2 LVLs ap2 5.8 cm ESV(MOD-sp2) 16.6 ml EF(MOD-sp2) 72.2 % SV(MOD-sp4) 50.0 ml SI(MOD-sp4) 36.1 ml/m\S\2 SV(MOD-sp2) 43.1 ml SI(MOD-sp2) 31.1 ml/m\S\2 Doppler Measurements and Calculations MV E max angi 102.2 cm/sec MV A max angi 142.0 cm/sec MV E/A 0.72 MV dec time 0.41 sec Ao V2 max 187.0 cm/sec Ao max PG 14.0 mmHg Ao max PG (full) 7.3 mmHg LV V1 max PG 6.7 mmHg LV V1 max 129.2 cm/sec TR max angi 262.0 cm/sec
--- NOTE | 2017-01-01 13:45 | CARDIOLOGY CONSULTATION ---
DATE OF CONSULTATION: 01/01/2017 DATE OF CONSULTATION: 01/01/2017. REFERRING PHYSICIAN: Tavon Pang M.D. ATTENDING PHYSICIAN: Tavon Pang M.D. PRIMARY PHYSICIAN: Arthur Brown M.D. CONSULTATION: Pedro Henao M.D. HISTORY OF PRESENT ILLNESS: The patient is a 71-year-old white female with a longstanding history of sarcoidosis, adrenal insufficiency secondary to prolonged steroid use, hypertension, esophageal reflux and gastritis, diabetes mellitus, osteoporosis, hypothyroidism status post thyroidectomy, osteoarthritis, diverticulosis and diverticulitis, and Parkinson's disease. She has had multiple admissions to [facility] over the past several years for dehydration as well as diverticulitis. She has also had episodes of lower GI bleeding which has been felt to be secondary to hemorrhoids as well as diverticulosis. She states that her hypertension history is longstanding. It is currently being treated with atenolol and losartan. Other than electrocardiography she denies having had any other type of cardiac testing in the past. Review of all scripts in [facility] showed that she has not had any prior echocardiograms performed in either the hospital or the [facility] offices. On the night prior to the morning of 12/31/2016 she developed a sensation that she needed to defecate. She states she thereafter had at least 7 bowel moments at home of a bloody stool. She also had lower abdominal discomfort. She had no increase in her baseline postural lightheadedness. She states that she frequently gets lightheaded if she arises quickly from a supine or sitting position, also if she bends over. No syncope. At home, she had no complaints of any chest tightness or chest pain. No dyspnea. She does have stable dyspnea with walking approximately 20-30 feet or walking up one flight of stairs. She denies any dyspnea at rest. She does have 2 pillow orthopnea. No PND. Occasional peripheral edema. No complaints of any palpitations. While in the Emergency Department yesterday and while on a monitor, she was felt to have episodes of nonsustained ventricular tachycardia. These monitor strips are available for review on her EHR. I have reviewed them. They show sinus rhythm with artifact. There are clear R-waves marching throughout the artifact. The artifact had been interpreted as showing ventricular tachycardia. This is not ventricular tachycardia. It is clearly artifact. Since admission to the intensive care unit, she has had no arrhythmias noted. She was admitted to the intensive care unit because it was felt that she may have had a significant GI bleed prior to admission. Since admission to the ICU, she has had no further bowel movements. She has had close monitoring of her hemoglobin. Her hemoglobin in the Emergency Department was 11.9. Last evening it was 11.1. This morning it is 11.3. On her initial arrival to the intensive care unit, she did have a right IJ venous central line placed. This has since been removed. The patient states she had difficulty in sleeping last night secondary to pain in her neck from the IJ. Also, she felt that the SCDs on her legs were very tight. Also, she had difficulty sleeping secondary to the blood pressure cuff. She states that she developed a sensation while lying in bed of upper retrosternal tightness. No radiation. She did have associated nausea and dyspnea. The discomfort resolved after receiving intravenous morphine. She states the total episode lasted approximately 1.5 hour. She has had no further such discomfort since then. She denies having had any of this type of discomfort at home at rest or with exertion. PAST MEDICAL HISTORY: 1. Longstanding hypertension. 2. Her problem list states that she has a history of diabetes mellitus. Her highest reported hemoglobin A1c since 2011 was 6.8. Most recently available hemoglobin A1c from December 2015 was 5.7. 3. Hypothyroidism status post thyroidectomy. 4. Adrenal insufficiency secondary to chronic steroid use. 5. Sarcoidosis. 6. Parkinson's disease. 7. Gastroesophageal reflux disease. 8. Diverticulosis and history of diverticulitis. 9. History of bright red blood per rectum. 10. History of rib fracture. 11. History of gastritis. 12. History of renal cyst. 13. History of urinary tract infection. 14. Sciatica. 15. History of microhematuria. 16. Status post fracture of transverse process of lumbar vertebra. 17. Scoliosis. 18. Chronic back pain. PAST SURGICAL HISTORY: 1. Status post thyroidectomy. This was a total thyroidectomy. 2. Status post tonsillectomy with adenoidectomy. 3. Status post tubal ligation. 4. History of colonoscopies. 5. Status post cataract surgery. SOCIAL HISTORY: The patient lives in her house. Her 95-year-old mother lives with her. She does not smoke cigarettes. She does not drink alcohol. She is single. She does have a son. ALLERGIES AND ADVERSE DRUG REACTIONS: AMOXICILLIN, CEPHALOSPORINS, HYDROCODONE, IBUPROFEN, ONDANSETRON, OXYCODONE, PENICILLINS, QUINOLONES, ESCITALOPRAM. CURRENT MEDICATIONS: SubQ heparin 5000 units q. 8 hours, hydrocortisone 20 mg daily, losartan 100 mg daily, potassium 20 mEq daily, levothyroxine 37.5 mcg IV daily (her outpatient oral dose was was 75 mcg daily), hydrocortisone 10 mg q.p.m., pantoprazole 40 mg IV b.i.d., atenolol 50 mg p.o. b.i.d. REVIEW OF SYSTEMS: 1. As above. 2. Lower abdominal cramping pain. 3. No current or recent pulmonary complaints other than her dyspnea on exertion. 4. She complains of a dry mouth since admission. No other HEENT complaints. 5. Chronic low back pain. 6. Occasional dependent lower extremity edema. 7. Resting tremors of left arm and hand. 8. Nocturia 2-3 times at night. 9. Urinary frequency and urgency. No dysuria. 10. No focal motor weakness. 11. No fevers or chills. PHYSICAL EXAMINATION: GENERAL: Monitor history since admission to ICU reviewed by me. No evidence of ventricular arrhythmias. VITAL SIGNS: Intake and output yesterday in the ICU was 362/750. Today 1288/1000. Today's weight 48 kg. Yesterday's weight 48 kg. Vital signs this morning with oral temperature 36.7, pulse 76, blood pressure 137/72, pulse oximetry 95% on room air. Her blood pressure in the Emergency Department on arrival yesterday was 187/73. Until this morning all of her recorded blood pressures on this hospitalization have had elevated systolic readings. Her heart rate yesterday was reported to be as high as 102. Most of her heart rates have been in the 70s. GENERAL APPEARANCE: Showed her to be in no distress. HEAD: Normal. EYES: Pupils equal and round. Anicteric. Conjunctivae normal. No xanthelasma. MOUTH: Dry mucous membranes. NECK: No jugular venous distension. Carotids 2/2 bilaterally. Normal upstroke. No bruits. LUNGS: Normal respiratory effort. Clear. No rales or wheezes. HEART: PMI normal. No lifts or heaves. Regular rate and rhythm. 2/6 systolic murmur second right intercostal space and left sternal border. An S4 is present. No diastolic murmur, S3, or rub. ABDOMEN: Soft. Lower quadrant tenderness. No palpable masses or organomegaly. No bruits. EXTREMITIES: No pretibial edema. No calf tenderness. No cyanosis or clubbing. PULSES: Distal pulses strongly palpable in all extremities. NEUROLOGICAL: Alert and oriented x3. Motor grossly intact. PSYCHIATRIC: Affect is normal. DATA: Monitor strips from the Emergency Department from yesterday reviewed by me. They show sinus rhythm. Artifact with prominent R-waves similar to her sinus beats marching through them. The RR interval of these R-waves marching through the artifact is similar to her baseline sinus rhythm tracings. There is no evidence of ventricular tachycardia. Her electrocardiogram performed in the Emergency Department yesterday revealed sinus rhythm, possible left atrial enlargement, borderline voltage for left ventricular hypertrophy, inferolateral ST depressions consistent with ischemia and/or secondary repolarization abnormalities from LVH. Electrocardiogram performed this morning reveals sinus rhythm, possible left atrial enlargement, voltage for LVH, inferolateral ST and T-wave changes consistent with ischemia and/or LVH. The ST-T wave abnormalities are more prominent on this electrocardiogram compared to the admission electrocardiogram. The electrocardiogram this morning was performed at 3:42 a.m. This was when she had complained of chest discomfort. Her vital signs at 3:00 a.m. were reported to be 186/79 with pulse is 65. At 4 a.m. pulse 91 and blood pressure 141/69. Hemoglobin this morning 11.3. WBC 12.67, hematocrit 33.6, platelet count 198. INR 1.1. PTT yesterday was 24.5. Troponin I at 5:43 a.m. 0.046. Last night at 10:01 p.m. was 0.020. Yesterday afternoon the troponin I was 0.024. CK total this morning 54, MB of 1.4. CK totals during this admission have been 64, 56, and 54 with respective MBs of 2.1, 1.6, and 1.4. Metabolic profile this morning was sodium 137, potassium 3.5, chloride 101, carbon dioxide 26, BUN 13, creatinine 0.56, random glucose 93. Her magnesium yesterday was 1.9. Today 2.2. TSH yesterday 1.510. ProB natriuretic peptide yesterday 4,051. AST today 16. ALT 16. Total bilirubin 0.8. An echocardiogram was performed this morning. I was at the patient's bedside while the echocardiogram was performed. The images were reviewed by me. She has marked concentric left ventricular hypertrophy. She has hyperdynamic LV systolic function with almost near cavity obliteration during systole. Mild left atrial dilatation. Left ventricular diastolic dysfunction. No valvular stenosis noted. No pericardial effusion. ASSESSMENT: 1. Artifact on monitor of her heart rhythm in the Emergency Department yesterday. These strips were reviewed by me. They show sinus rhythm. There is artifact with the R-waves marching through them. This is not a ventricular arrhythmia. 2. No history of ischemic heart disease. 3. Episode of chest discomfort last night. Certainly by her description, cannot exclude myocardial ischemia. The electrocardiogram performed at that time did reveal worsening of her inferolateral ST depressions compared to the admission electrocardiogram. Her troponin I at 5:43 a.m. is mildly increased above normal. She certainly could have underlying obstructive coronary artery disease. She has longstanding hypertension. Her long-term steroid use would also be a risk factor. She does not have a history of dyslipidemia. Lipid profile performed in January 2016 revealed an LDL of 72 and HDL of 104. The total cholesterol was 203. Triglycerides were 133. The patient does take fish oil chronically. This may help her achieved the high HDL. She did not have any anginal type chest discomfort prior to admission. She does have stable dyspnea on exertion, which could be secondary to a combination of her sarcoidosis as well as her hypertensive heart disease with subsequent left ventricular diastolic dysfunction. 4. Her elevated blood pressure and occasional elevated heart rate yesterday could cause increased myocardial oxygen demand. This is in the presence of her significant LVH could cause demand myocardial ischemia. 5. History of recurrent lower GI bleeding. He states that this has usually been attributed to her hemorrhoids. Prompting this admission was more significant GI bleeding. Her hemoglobin, thus far has been stable. On exam today, she does appear hypovolemic. She has dry mucous membranes. Her jugular venous waveform on exam is not observable. Despite clinical evidence of volume depletion her BUN and creatinine and carbon dioxide level should not indicate intravascular volume depletion. RECOMMENDATIONS: 1. Increase atenolol to 75 mg b.i.d. 2. Continue losartan. 3. From a cardiac standpoint, she would benefit from being on Aspirin 81 mg daily. 4. Repeat cardiac enzymes and electrocardiograms. 5. The patient does not have any indication for any urgent cardiac catheterization at this time. She actually stated that she would be very hesitant to have such a procedure performed unless she was having life threatening myocardial ischemia or infarction. If she did have any coronary intervention performed such as a coronary artery stent she would need to be on dual antiplatelet therapy. With her history of diverticulosis and GI bleeding. This could increase her risk of significant bleeding. At this time, would favor treating any presumed underlying coronary artery disease with medical therapy. She concurs with this recommendation. Of note, is that the patient has DNR status through her wishes. She does not want CPR or intubation if it were ever indicated. 6.Keep well hydrated in light of severe LVH and hyperdynamic LV systolic function. Volume depletion could increase LV outflow tract obstruction. 7. Continue to follow hemoglobin. Thank you for asking me to see this patient in cardiology consultation. NINFA
[2017-01-01 14:05] LABS: HEMATOCRIT 31.6 % (37-47)
--- NOTE | 2017-01-01 14:34 | Progress Note ---
Subjective Date of Service: Jan 01, 2017. Subjective Pt evaluation today including: conversation w/ patient, conversation w/ family , physical exam, chart review, lab review, review of studies, conversation w/ strategic consultant (Dr. Gonzales and Dr. Silva), review of inpatient medication list No further BRBPR overnight She reports her last diverticulitis flare was >6 months ago. She also reports a h/o hemorrhoids which she intermittently gets some blood streaks when she wipes herself. However, this time, the blood was more than just streaks. She reports a crampy LLQ abd discomfort especially with palpation. Overnight, she did experience chest pressure/discomfort but currently no chest pain. No sob, no lightheadedness. No urinary symptoms, although she report incontinence which sounds like urge incontinence. Problem List Medical Problems: (1) Hypokalemia Status: Acute (2) Lower GI bleed Status: Acute (3) Lumbar back pain Status: Acute (4) V-tach Status: Acute Review of Systems All Other Systems: Reviewed and Negative Medications Acetaminophen (Tylenol Tab) 650 mg Q4H PRN PO; Start 12/31/16 at 14:00; Stop at 13:59 Atenolol (Tenormin Tab) 50 mg BID PO Last administered on 01/01/17 08:32; Admin Dose 50 MG; Start 12/31/16 at 21:00; Stop 01/30/17 at 20:59 Heparin Sodium (Porcine) (Heparin Sq 5000 Unit/0.5ml) 5,000 unit Q8 SQ; Start at 14:00; Stop 01/31/17 at 13:59 Hydralazine HCl (HydrALAZINE INJ) 5 mg Q8H PRN IV. Last administered on 03:15; Admin Dose 5 MG; Start 01/01/17 at 01:00; Stop 01/31/17 at 00:59 Hydrocortisone (Cortef Tab) 10 mg QPM PO Last administered on 12/31/16 20:28; Admin Dose 10 MG; Start 12/31/16 at 21:00; Stop 01/30/17 at 20:59 Hydrocortisone (Cortef Tab) 20 mg QAM PO Last administered on 01/01/17 08:30; Admin Dose 20 MG; Start 01/01/17 at 09:00; Stop 01/31/17 at 08:59 Ioversol 125 ml 125 ml UD PRN IV; Start 12/31/16 at 16:00; Stop 01/04/17 at 15:59 Levothyroxine Sodium 37.5 mcg/ Syringe 1.875 ml @ 2 mls/min DAILY@09 IV Last administered on 01/01/17 08:30; Admin Dose 2 MLS/MIN; Start 01/01/17 at 09:00; Stop 01/31/17 at 08:59 Losartan Potassium (coZAAR TAB) 100 mg QAM PO Last administered on 01/01/17 08: 31; Admin Dose 100 MG; Start 01/01/17 at 09:00; Stop 01/31/17 at 08:59 Morphine Sulfate (MoRPHine SULFATE INJ) 2 mg Q2H PRN IV Last administered on 09:02; Admin Dose 2 MG; Start 12/31/16 at 14:00; Stop 01/14/17 at 13:59 Pantoprazole Sodium/Syringe (Protonix Inj/ Syringe) 10 ml @ 5 mls/min BID@0900, 2100 IV Last administered on 01/01/17 08:34; Admin Dose 5 MLS/MIN; Start at 21:00; Stop 01/30/17 at 20:59 Potassium Chloride 20 meq 20 meq QAM PO Last administered on 01/01/17 08:31; Admin Dose 20 MEQ; Start 01/01/17 at 09:00; Stop 01/31/17 at 08:59 Potassium Chloride/Sodium Chloride (Nss + 20meq KCl 1000ml) 1,000 ml @ 80 mls/ hr [id number] IV Last administered on 12/31/16 16:33; Admin Dose 80 MLS/HR; Start 12/31/16 at 16:45; Stop 01/30/17 at 13:52 Promethazine HCl/ Sodium Chloride (Phenergan Inj/ Nss 50ml) 50.5 ml @ 204 mls/ hr Q6H PRN IV Last administered on 01/01/17 03:48; Admin Dose 204 MLS/HR; Start 12/31/16 at 17:30; Stop 01/30/17 at 17:29 Objective Vital Signs Date Time Temp Pulse Resp B/P Pulse Ox O2 Delivery O2 Flow Rate FiO2 01/01/17 14:00 76 18 158/77 97 Room Air 01/01/17 12:00 95 Room Air 01/01/17 12:00 36.7 82 16 139/76 95 Room Air 01/01/17 10:00 78 18 143/66 96 Room Air 01/01/17 08:00 36.7 76 16 137/72 95 Room Air 01/01/17 08:00 95 Nasal Cannula 01/01/17 06:00 77 11 166/70 98 01/01/17 05:00 79 10 146/66 97 01/01/17 04:22 92 Room Air 01/01/17 04:00 36.5 91 14 141/69 98 01/01/17 03:00 65 13 186/79 94 01/01/17 02:00 64 12 168/73 95 01/01/17 00:47 92 Room Air 01/01/17 00:27 73 17 173/86 96 01/01/17 00:00 36.7 74 22 182/82 96 12/31/16 23:00 64 12 145/75 94 12/31/16 22:00 69 18 160/81 95 12/31/16 21:00 69 16 169/91 94 12/31/16 20:00 37.0 76 16 177/81 95 12/31/16 20:00 92 Room Air 12/31/16 19:00 78 16 157/81 94 12/31/16 18:00 36.9 76 12 171/79 92 Room Air 12/31/16 15:20 36.9 86 15 178/84 96 Room Air Physical Exam Comments: nad, aox2 eomi, perrl s1 s2 rrr, no 2/6 systolic murmur ctab no w/r/r abd soft, LLQ tend with deep palpation, non-distended, +BS no LE edema cn 2-12 grossly intact without facial drooping Laboratory Results Last 24 Hours Test 12/31/16 15:30 12/31/16 22:01 01/01/17 05:43 01/01/17 13:19 Urine Color YELLOW Urine Appearance CLEAR Urine pH 6.5 Urine Specific Webster 1.007 Urine Protein NEG Urine Glucose (UA) NEG Urine Ketones NEG Urine Occult Blood 1+ Urine Nitrite NEG Urine Bilirubin NEG Urine Urobilinogen NEG Urine Leukocyte Esterase NEG Urine WBC (Auto) 0 /hpf Urine RBC (Auto) 0-4 /hpf Urine Hyaline Casts (Auto) 1-5 /lpf Urine Epithelial Cells (Auto) 0-5 /lpf Urine Bacteria (Auto) NEG Hemoglobin 11.1 g/dL 11.3 g/dL Hematocrit 32.0 % 33.6 % Total Creatine Kinase 56 U/L 54 U/L Creatine Kinase MB 1.6 ng/ml 1.4 ng/ml Creatine Kinase MB Ratio 2.9 2.6 Troponin I 0.030 ng/ml 0.046 ng/ml White Blood Count 12.67 K/uL Red Blood Count 3.72 M/uL Mean Corpuscular Volume 90.3 fL Mean Corpuscular Hemoglobin 30.4 pg Mean Corpuscular Hemoglobin Concent 33.6 g/dl Platelet Count 198 K/uL Mean Platelet Volume 9.0 fL Neutrophils (%) (Auto) 87.3 % Lymphocytes (%) (Auto) 4.8 % Monocytes (%) (Auto) 7.4 % Eosinophils (%) (Auto) 0.0 % Basophils (%) (Auto) 0.2 % Neutrophils # (Auto) 11.06 K/uL Lymphocytes # (Auto) 0.61 K/uL Monocytes # (Auto) 0.94 K/uL Eosinophils # (Auto) 0.00 K/uL Basophils # (Auto) 0.02 K/uL RDW Standard Deviation 48.5 fL RDW Coefficient of Variation 14.7 % Immature Granulocyte % (Auto) 0.3 % Immature Granulocyte # (Auto) 0.04 K/uL Prothrombin Time 11.5 SECONDS Prothromb Time International Ratio 1.1 Sodium Level 137 mmol/L Potassium Level 3.5 mmol/L Chloride Level 101 mmol/L Carbon Dioxide Level 26 mmol/L Anion Gap 10.0 mmol/L Blood Urea Nitrogen 13 mg/dl Creatinine 0.56 mg/dl Est Creatinine Clear Calc Drug Dose 58.6 ml/min Estimated GFR () 108.0 Estimated GFR (Non- 93.2 BUN/Creatinine Ratio 23.4 Random Glucose 93 mg/dl Calcium Level 7.3 mg/dl Phosphorus Level 3.0 mg/dl Magnesium Level 2.2 mg/dl Total Bilirubin 0.8 mg/dl Direct Bilirubin 0.2 mg/dl Aspartate Amino Transf (AST/SGOT) 16 U/L Alanine Aminotransferase (ALT/SGPT) 16 U/L Alkaline Phosphatase 43 U/L Total Protein 5.7 gm/dl Albumin 2.9 gm/dl Bedside Glucose 175 mg/dl Test 01/01/17 14:00 Hemoglobin 10.9 g/dL Hematocrit 31.6 % ABDOMEN AND PELVIS CT WITH IV CONTRAST CT DOSE: 222.62 mGy.cm HISTORY: Pain. Nausea. rectal bleeding LLQ abd pain TECHNIQUE: Multiaxial CT images of the abdomen and pelvis were performed following the use of intravenous contrast. COMPARISON STUDY: 07/01/2015 FINDINGS: Minimal dependent basilar atelectasis. Calcified periesophageal lymph nodes. Fixed lateral hernia. Liver is uniform. Spleen is unremarkable. Imaged kidneys demonstrate mild cortical scarring with several small low density cortical cysts. No evidence for hydronephrosis. There is a rather marked wall edema of components of the transverse, a sending, and proximal descending colonic region. This is also seen to a much lesser extent involving the sigmoid region where chronic diverticulosis is noted. No evidence for pneumatosis at the current time. No free air is identified. Mild pericolonic infiltrative change. IMPRESSION: 1. Marked wall edema of the a sending, transverse, and proximal descending colon. 2. Appearance consistent with a nonspecific colitis and/or ischemic change. 3. Chronic sigmoid diverticulosis. 4. No evidence for pneumatosis or free air. 5. No evidence for abscess collection or obstruction. 6. Hiatal hernia. Electronically signed by: Christopher Kurtz M.D. 12/31/2016 5:23 PM CHEST ONE VIEW PORTABLE CLINICAL HISTORY: Rectal bleeding COMPARISON STUDY: 11/14/2008 FINDINGS: The cardiac images all contours remain stable. There are extensive calcified mediastinal and hilar lymph nodes. There is a left lower lobe calcified granuloma. There is a thoracolumbar scoliosis. There is no overt failure. There are no pleural effusions. There is no lobar consolidation. There are left hemithorax electrode pads. There is a catheter projected over the right neck, possibly representing a right internal jugular central venous line. No pneumothorax is visualized. IMPRESSION: Old granulomatous changes. No active disease in the chest. Electronically signed by: Peyman Barrera M.D. 12/31/2016 3:27 PM Interpretation Summary * Name: ERNESTINA ALAN Study Date: 01/01/2017 10:55 AM BP: 137/72 mmHg * Patient Location: [facility] [place]\S\E103\S\1 HR: 76 * : 1945 (M/d/yyyy) Gender: Female Height: 58 in * Age: 71 yrs Ethnicity: [place] Weight: 105 lb * Ordering Physician: Pedro Gonzales * Referring Physician: PEDRO GONZALES MD * Performed By: Veronica Orourke RDCS * * Reason For Study: CHEST PAIN * BSA: 1.4 m2 * History: CHEST PAIN * Hyperdynamic left ventricular systolic function. * Severe left ventricular hypertrophy. * Left ventricular diastolic dysfunction. * Hyperdynamic right ventricular systolic function. * Mild right ventricular hypertrophy. * Mild left atrial dilatation. * Trace - mild mitral and mild tricuspid regurgitation. * Trace pulmonic regurgitation. * Low central venous pressure. * -- Conclusions -- * Aortic valve sclerosis moderate, without significant aortic valvular stenosis. Procedure Details * A complete two-dimensional transthoracic echocardiogram was performed (2D, M- mode, Doppler and color flow Doppler). Left Ventricle * The left ventricular cavity is small. * There is severe concentric left ventricular hypertrophy. * Ejection Fraction = >70 %. * The left ventricle is hyperdynamic. * A full diastolic examination was done with clinical findings of Class I diastolic dysfunction. * Near LV cavity obliteration at end systole. * No regional wall motion abnormalities noted. * * * ABDOMEN AND PELVIS CT WITH IV CONTRAST CT DOSE: 222.62 mGy.cm HISTORY: Pain. Nausea. rectal bleeding LLQ abd pain TECHNIQUE: Multiaxial CT images of the abdomen and pelvis were performed following the use of intravenous contrast. COMPARISON STUDY: 07/01/2015 FINDINGS: Minimal dependent basilar atelectasis. Calcified periesophageal lymph nodes. Fixed lateral hernia. Liver is uniform. Spleen is unremarkable. Imaged kidneys demonstrate mild cortical scarring with several small low density cortical cysts. No evidence for hydronephrosis. There is a rather marked wall edema of components of the transverse, a sending, and proximal descending colonic region. This is also seen to a much lesser extent involving the sigmoid region where chronic diverticulosis is noted. No evidence for pneumatosis at the current time. No free air is identified. Mild pericolonic infiltrative change. IMPRESSION: 1. Marked wall edema of the a sending, transverse, and proximal descending colon. 2. Appearance consistent with a nonspecific colitis and/or ischemic change. 3. Chronic sigmoid diverticulosis. 4. No evidence for pneumatosis or free air. 5. No evidence for abscess collection or obstruction. 6. Hiatal hernia. Electronically signed by: Christopher Kurtz M.D. 12/31/2016 5:23 PM Assessment and Plan 1. Arrhythmia - on review of strip, appears to be artifact 2. BRBPR - unclear etiology at this point - no e/o acute diverticulitis on CT - possibly ischemic colitis especially with extensive involvement of colon - C diff and stool cultures ordered - awaiting furthe rGI recs - h/h stable 3. CHest pressure - EKG changes noted - cardio on board - aware of slightly elevated tni - cont to trend, however, patient has mentioned she prefers conservative management - will cont to manage medically for now - hold off anticoagulation in light of BRBPR 4. dvt ppx with hsq
[2017-01-01] MEDS: HEPARIN SOD 5000 UNIT/0.5 ML CARP SQ SCH ×2 (18:34→22:53)
[2017-01-01] MEDS: NSS + 20MEQ KCL 1000ML 1,000 ML IV SCH (18:34)
[2017-01-01 22:29] LABS: HEMATOCRIT 30.9 % (37-47)
[2017-01-02] VITALS (18 sets, daily range): BP systolic 123–182; BP diastolic 58–88; PULSE 71–106; TEMP 36.8–37.2; O2SAT 94–99
[2017-01-02 05:43] LABS: BASO % 0.1 %; BASO ABS # 0.02 K/uL (0-0.2); COMPLETE YES; EOS % 0.1 %; IG% 0.2 %; LYMPH % 9.1 %; LYMPH ABS # 1.35 K/uL (1.2-3.4); MEAN CELL VOLUME 92.2 fL (80-100); MEAN CORPUSCULAR HEMOGLOBIN 31.1 pg (25-34); MEAN CORPUSCULAR HGB CONC 33.8 g/dl (32-36); MEAN PLATELET VOLUME 9.1 fL (7.4-10.4); NEUT % 81.5 %; PLATELET COUNT 180 K/uL (130-400); RED BLOOD COUNT 3.47 M/uL (4.2-5.4); WHITE BLOOD COUNT 14.86 K/uL (4.8-10.8)
[2017-01-02] MEDS: HEPARIN SOD 5000 UNIT/0.5 ML CARP SQ SCH ×3 (05:54→21:20)
[2017-01-02 06:01] LABS: INR 1.1 (0.9-1.1); PROTHROMBIN TIME (PATIENT) 11.3 SECONDS (9.0-12.0)
[2017-01-02] MEDS: NSS + 20MEQ KCL 1000ML 1,000 ML IV SCH ×2 (06:09→06:11)
[2017-01-02] MEDS: HydrALAZINE HCL 20 MG/ML VIAL IV. PRN (06:09)
[2017-01-02 06:11] LABS: CREATININE 0.49 mg/dl (0.60-1.20)
[2017-01-02 06:12] LABS: BUN/CREATININE RATIO 25.6 (10-20); CALCIUM 7.1 mg/dl (8.5-10.1); MAGNESIUM 2.1 mg/dl (1.8-2.4); POTASSIUM 3.9 mmol/L (3.5-5.1)
[2017-01-02 06:16] LABS: CKMB/CK RATIO 2.5 (0-3.0)
[2017-01-02] MEDS ORDERED: NITROGLYCERIN 0.4 MG SL PER TAB CHARGE SL STA (08:01)
[2017-01-02] MEDS: LEVOTHYROXINE SODIUM INJ 37.5 MCG in SYRINGE 0 ML IV SCH (09:49)
[2017-01-02] MEDS: HYDROCORTISONE 10 MG TAB PO SCH ×2 (09:50→21:38)
[2017-01-02] MEDS: POTASSIUM CHLORIDE 20 MEQ TABCR PO SCH (09:50)
[2017-01-02] MEDS: LOSARTAN POTASSIUM 50 MG TAB PO SCH (09:51)
[2017-01-02] MEDS: PANTOprazole INJ 40 MG in SYRINGE 0 ML IV SCH ×2 (09:51→21:16)
[2017-01-02] MEDS ORDERED: ASPIRIN 81 MG ECTAB PO STA (10:30)
[2017-01-02] MEDS ORDERED: LABETALOL HCL IV 5 MG/ML 20ML IV STA (10:38)
--- NOTE | 2017-01-02 12:06 | PROGRESS NOTE ---
DATE: 01/02/2017 SUBJECTIVE: The patient was seen in her room in the intensive care unit. She was sleeping overnight. Her blood pressure was noted to be elevated. Reported that she then received intravenous hydralazine. She then awoke thereafter with chest tightness. This lasted for approximately 1 hour. She also had felt short of breath. Currently, no complaints of chest tightness. No dyspnea at rest. She did have dyspnea walking from her bed to the commode. She denies any lightheadedness or palpitations. She does have nausea this morning. No abdominal pain. No leg pain. She does complain of increased tremors in her hands this morning compared to usual. MEDICATIONS: Atenolol had been changed by me to 75 mg b.i.d.; however, the pharmacy apparently was still sending 50 mg b.i.d. SubQ heparin 5000 units q. 8 hours, hydrocortisone 10 mg q.a.m., losartan 100 mg q.a.m., potassium 20 mEq daily, levothyroxine 37.5 mcg IV daily, hydralazine 5 mg IV q. 8 hours as needed for systolic blood pressure greater than 175, pantoprazole 40 mg IV b.i.d., normal saline with potassium chloride 80 mL per hour. PHYSICAL EXAMINATION: GENERAL: The patient is lying in bed. She does not appear to be in any distress. VITAL SIGNS: Current blood pressure 174/83, heart rate in the 90s. Monitor reveals sinus rhythm. Review of monitor history over the past 24 hours shows sinus rhythm, sinus tachycardia. Rare premature ventricular beats. Oxygen saturation 99%. NECK: No jugular venous distention. Jugular venous pressure not elevated. It appears to be less than 7 cm. LUNGS: Clear. Normal respiratory effort. No rales or wheezes. HEART: Regular rate and rhythm. S1, S2 normal. An S4 is present. A 2/6 systolic murmur second right intercostal space and left lower sternal border. No diastolic murmur or rub. ABDOMEN: Soft. Nontender. No palpable masses or organomegaly. No bruits. EXTREMITIES: No pretibial edema. No calf tenderness. NEUROLOGIC: Alert and oriented x3. Motor grossly intact. PSYCHIATRIC: Affect is normal. DATA: Electrocardiogram at 6:18 a.m. this morning shows sinus rhythm, possible left atrial enlargement, ST depressions in leads 2, 3, aVF, V4 through V6. Repeat electrocardiogram at 7:07 a.m. with sinus tachycardia, rate of 101 beats per minute. Increased ST depressions in the inferior and anterolateral leads compared to the earlier electrocardiogram. LABORATORY DATA: Today with WBC 14.86, hemoglobin 10.8, hematocrit 32.0, platelet count 180. INR 1.1. Metabolic profile -- sodium 141, potassium 3.9, chloride 108, carbon dioxide 26, BUN 13, creatinine 0.49, random glucose 95. Magnesium 2.1. Troponin I this morning 0.167. ASSESSMENT: 1. Presentation with complaints of rectal bleeding. Hemoglobin stable. No further bleeding since admission. History of bleeding from diverticulosis. History of diverticulitis. 2. Longstanding history of hypertension. 3. Severe hypertrophic cardiomyopathy. Echocardiogram yesterday revealed severe LVH. Hyperdynamic LV systolic function with almost complete obliteration of the LV cavity and end systole. 4. Chest pain this morning after receiving hydralazine. Hydralazine is a vasodilator. This would increase myocardial contractility. She already has markedly hyperdynamic LV function. This would further increase the contractility. It would cause her to have increased myocardial oxygen demand. This would then cause myocardial ischemia. Suspect that the episode of anginal type chest discomfort this morning was secondary to the administration of the hydralazine. 5. No evidence of congestive heart failure on exam. Good oxygen saturation. PLAN: 1. I have added hydralazine to her adverse medication list. This was a severe reaction. The patient should not receive any pure vasodilator type medications. 2. Intravenous labetalol for control of her blood pressure if it becomes elevated. I have ordered p.r.n. labetalol for hypertension with systolic pressures 160 or greater. We will give a dose of 20 mg intravenous labetalol now. 3. Her atenolol dose was increased by me yesterday from 50 to 75 mg b.i.d. However, it appears that she has only been receiving 50 mg b.i.d. The nursing staff will correct this with the pharmacy. 4. Continue to titrate atenolol dose upwards if necessary. 5. If she continues to have elevations in her blood pressure despite the increase in atenolol dose, would add diltiazem or verapamil to her medical regimen.
--- NOTE | 2017-01-02 12:11 | Progress Note ---
Subjective Date of Service: Jan 02, 2017. Subjective Pt evaluation today including: conversation w/ patient, physical exam, lab review, review of studies, review of inpatient medication list Patient not feeling well today. She report intermittent chest pressure, no SOB associated with it. No abd pain. No further BRBPR. Some nausea but able to tolerate lunch. Problem List Medical Problems: (1) Hypokalemia Status: Acute (2) Lower GI bleed Status: Acute (3) Lumbar back pain Status: Acute (4) V-tach Status: Acute Review of Systems All Other Systems: Reviewed and Negative Medications Acetaminophen (Tylenol Tab) 650 mg Q4H PRN PO; Start 12/31/16 at 14:00; Stop at 13:59 Aspirin (Ecotrin Tab) 81 mg QAM PO; Start 01/03/17 at 09:00; Stop 02/02/17 at 08: 59 Atenolol (Tenormin Tab) 75 mg BID PO; Start 01/02/17 at 21:00; Stop 02/01/17 at 20 :59 Heparin Sodium (Porcine) (Heparin Sq 5000 Unit/0.5ml) 5,000 unit Q8 SQ Last administered on 01/02/17 05:54; Admin Dose 5,000 UNIT; Start 01/01/17 at 14:00; Stop 01/31/17 at 13:59 Hydrocortisone (Cortef Tab) 10 mg QPM PO Last administered on 01/01/17 20:13; Admin Dose 10 MG; Start 12/31/16 at 21:00; Stop 01/30/17 at 20:59 Hydrocortisone (Cortef Tab) 20 mg QAM PO Last administered on 01/02/17 09:50; Admin Dose 20 MG; Start 01/01/17 at 09:00; Stop 01/31/17 at 08:59 Ioversol 125 ml 125 ml UD PRN IV; Start 12/31/16 at 16:00; Stop 01/04/17 at 15:59 Labetalol HCl (Normodyne IV) 20 mg Q4 PRN IV; Start 01/02/17 at 10:45; Stop 02/01 at 10:44 Levothyroxine Sodium 37.5 mcg/ Syringe 1.875 ml @ 2 mls/min DAILY@09 IV Last administered on 01/02/17 09:49; Admin Dose 2 MLS/MIN; Start 01/01/17 at 09:00; Stop 01/31/17 at 08:59 Losartan Potassium (coZAAR TAB) 100 mg QAM PO Last administered on 01/02/17 09: 51; Admin Dose 100 MG; Start 01/01/17 at 09:00; Stop 01/31/17 at 08:59 Morphine Sulfate (MoRPHine SULFATE INJ) 2 mg Q2H PRN IV Last administered on 22:04; Admin Dose 2 MG; Start 12/31/16 at 14:00; Stop 01/14/17 at 13:59 Pantoprazole Sodium/Syringe (Protonix Inj/ Syringe) 10 ml @ 5 mls/min BID@0900, 2100 IV Last administered on 01/02/17 09:51; Admin Dose 5 MLS/MIN; Start at 21:00; Stop 01/30/17 at 20:59 Potassium Chloride 20 meq 20 meq QAM PO Last administered on 01/02/17 09:50; Admin Dose 20 MEQ; Start 01/01/17 at 09:00; Stop 01/31/17 at 08:59 Potassium Chloride/Sodium Chloride (Nss + 20meq KCl 1000ml) 1,000 ml @ 80 mls/ hr [id number] IV Last administered on 01/02/17 06:11; Admin Dose 80 MLS/HR; Start 12/31/16 at 16:45; Stop 01/30/17 at 13:52 Promethazine HCl/ Sodium Chloride (Phenergan Inj/ Nss 50ml) 50.5 ml @ 204 mls/ hr Q6H PRN IV Last administered on 01/01/17 03:48; Admin Dose 204 MLS/HR; Start 12/31/16 at 17:30; Stop 01/30/17 at 17:29 Objective Vital Signs Date Time Temp Pulse Resp B/P Pulse Ox O2 Delivery O2 Flow Rate FiO2 01/02/17 06:18 91 16 182/88 97 01/02/17 04:04 94 Room Air 01/02/17 04:00 71 10 152/64 98 01/02/17 03:00 79 10 150/71 98 01/02/17 02:00 74 14 137/64 98 01/02/17 01:00 82 10 138/58 97 01/02/17 00:09 94 Room Air 01/02/17 00:00 37.0 87 13 139/68 98 01/01/17 23:01 95 21 130/64 94 01/01/17 23:00 94 14 93 01/01/17 22:00 73 16 183/81 95 01/01/17 21:00 71 14 165/82 94 01/01/17 20:00 37.2 71 15 169/97 94 01/01/17 20:00 94 Room Air 01/01/17 19:00 77 15 167/81 96 01/01/17 18:00 82 15 142/79 96 01/01/17 16:00 36.8 88 18 145/81 95 Room Air 01/01/17 16:00 95 Room Air 01/01/17 14:00 76 18 158/77 97 Room Air 01/01/17 12:00 95 Room Air 01/01/17 12:00 36.7 82 16 139/76 95 Room Air Physical Exam Comments: nad, aox3, eomi, perrl, anicteric tachycardic, regular, +systolic murmur ctab no w/r/r abd soft ,nt nd +BS no LE edema cn 2-12 grossly intact without facial drooping Laboratory Results Last 24 Hours Test 01/01/17 13:19 01/01/17 14:00 01/01/17 16:28 01/01/17 21:19 Bedside Glucose 175 mg/dl 109 mg/dl 97 mg/dl Hemoglobin 10.9 g/dL Hematocrit 31.6 % Troponin I 0.097 ng/ml Test 01/01/17 22:20 01/02/17 05:34 Hemoglobin 10.6 g/dL 10.8 g/dL Hematocrit 30.9 % 32.0 % Troponin I 0.094 ng/ml 0.167 ng/ml White Blood Count 14.86 K/uL Red Blood Count 3.47 M/uL Mean Corpuscular Volume 92.2 fL Mean Corpuscular Hemoglobin 31.1 pg Mean Corpuscular Hemoglobin Concent 33.8 g/dl Platelet Count 180 K/uL Mean Platelet Volume 9.1 fL Neutrophils (%) (Auto) 81.5 % Lymphocytes (%) (Auto) 9.1 % Monocytes (%) (Auto) 9.0 % Eosinophils (%) (Auto) 0.1 % Basophils (%) (Auto) 0.1 % Neutrophils # (Auto) 12.11 K/uL Lymphocytes # (Auto) 1.35 K/uL Monocytes # (Auto) 1.34 K/uL Eosinophils # (Auto) 0.01 K/uL Basophils # (Auto) 0.02 K/uL RDW Standard Deviation 50.9 fL RDW Coefficient of Variation 15.0 % Immature Granulocyte % (Auto) 0.2 % Immature Granulocyte # (Auto) 0.03 K/uL Prothrombin Time 11.3 SECONDS Prothromb Time International Ratio 1.1 Sodium Level 141 mmol/L Potassium Level 3.9 mmol/L Chloride Level 108 mmol/L Carbon Dioxide Level 26 mmol/L Anion Gap 7.0 mmol/L Blood Urea Nitrogen 13 mg/dl Creatinine 0.49 mg/dl Est Creatinine Clear Calc Drug Dose 67.0 ml/min Estimated GFR () 112.8 Estimated GFR (Non- 97.3 BUN/Creatinine Ratio 25.6 Random Glucose 95 mg/dl Calcium Level 7.1 mg/dl Phosphorus Level 2.0 mg/dl Magnesium Level 2.1 mg/dl Total Bilirubin 0.7 mg/dl Direct Bilirubin 0.2 mg/dl Aspartate Amino Transf (AST/SGOT) 12 U/L Alanine Aminotransferase (ALT/SGPT) 14 U/L Alkaline Phosphatase 36 U/L Total Creatine Kinase 64 U/L Creatine Kinase MB 1.6 ng/ml Creatine Kinase MB Ratio 2.5 Total Protein 5.1 gm/dl Albumin 2.6 gm/dl Assessment and Plan 1. ELevated tni - cont to trend tni - patient prefers conservative medical management at this point unless life- saving LHC is needed - atenolol increased for optimal BP and HR control - prn labetalol ordered - cont asa, atenolol, losartan 2. BRBPR - unclear etiology at this point - no e/o acute diverticulitis on CT - possibly ischemic colitis especially with extensive involvement of colon - C diff and stool cultures ordered but no further BM after admission - h/h stable - stop ivf, tolerating diet well 3. CHest pressure - EKG changes noted - cardio on board - aware of slightly elevated tni - cont to trend, however, patient has mentioned she prefers conservative management - will cont to manage medically for now - hold off anticoagulation in light of BRBPR 4. HTN - cont losartan, atenolol, prn labetalol 5. dvt ppx with hsq
[2017-01-02] MEDS: PROMETHAZINE HCL INJ 12.5 MG in SODIUM CHLORIDE 0.9% 50ML 50 ML IV PRN (12:22)
[2017-01-02] MEDS: MoRPHine SULFATE 2 MG/ML CARP IV PRN (12:26)
[2017-01-02 14:53] LABS: HEMATOCRIT 31.8 % (37-47)
[2017-01-02 22:41] LABS: HEMATOCRIT 29.5 % (37-47)
[2017-01-03] VITALS (11 sets, daily range): BP systolic 127–213; BP diastolic 65–116; PULSE 62–102; TEMP 36.5–36.9; O2SAT 94–98
[2017-01-03] MEDS: LABETALOL HCL IV 5 MG/ML 20ML IV PRN ×2 (04:50→11:13)
[2017-01-03] MEDS ORDERED: LEVALBUTEROL 1.25MG/3ML NEB INH STA (05:40)
[2017-01-03] MEDS ORDERED: MoRPHine SULFATE 2 MG/ML CARP IV STA (05:46)
--- NOTE | 2017-01-03 06:25 | Progress Note ---
Progress Note Date of Service Jan 03, 2017. Progress Note Messaged by RN regarding patient as having chest tightness and wheezing. EKG stat requested. Patient seen and is visibly short of breath but not having increasing oxygen requirement. She feels like something is sitting on her chest but it is less pain and more tightness. She feels this is similar to what she had the previous night after hydralazine. Objective: A: patent B: RR 22 , sats 98% 2L (stable), wheezing throughout on auscultation, increased respiratory effort using accessory muscles C: T36.8, HR 89, BP 196/82m UO good, peripheral cap refill < 2 s, HS quiet 1+2+ soft systolic murmur, no JVD D: Alert, BS E: No calf pain, chest heaviness not reproducible on examination Assessment: Given previous history and the fact she is describing this as the same with recent troponin rises her wheezing and chest tightness are most likely cardiac in origin. EKG however shows improving T waves in lateral leads from previous ( tremor noted) and she appears to have become worse after labetalol given at 4: 50am (this may be coincidental). Possibly pulmonary component given sarcoid (?mediastinal mass/lung scarring) and worsening with labetalol. No previous Hx of asthma or COPD as per patient. No outpatient inhalers but she has had previous inhaler treatment during PFTs which reportedly have helped her breath better. She has been given heparin 5000 units Q8H making PE less likely. Plan Stat EKG as above Stat CXR Discussed with Dr Frank regarding further treatments given unclear etiology ( see above), hypertrophic cardiomyopathy and need to avoid pure vasodilators as per Dr Henao's last note. Will give levalbuterol neb + morphine 1mg IV and reassess. Dr Frank also separately reviewed and examined the patient. Resident Tracking Resident Involvement: Resident Care Provided Care Provided: Adult [facility]
--- NOTE | 2017-01-03 06:28 | DIAGNOSTIC IMAGING REPORT ---
CHEST ONE VIEW PORTABLE CLINICAL HISTORY: short of breath COMPARISON STUDY: 12/31/2016 FINDINGS: The cardiac and mediastinal contours remain stable. There are extensive calcified mediastinal and hilar lymph nodes. There is a small right pleural effusion. Since the prior study, the patient has developed an asymmetric interstitial edema pattern on the right. There is no lobar consolidation.[ IMPRESSION: Interval development of asymmetric pulmonary edema on the right. Small right pleural effusion. Electronically signed by: Peyman Barrera M.D. 01/03/2017 6:26 AM Dictated Date/Time: 01/03/2017 6:25 AM
[2017-01-03 06:34] LABS: BASO % 0.2 %; BASO ABS # 0.03 K/uL (0-0.2); COMPLETE YES; EOS % 0.6 %; HEMATOCRIT 31.4 % (37-47); IG% 0.2 %; LYMPH % 8.3 %; LYMPH ABS # 1.05 K/uL (1.2-3.4); MEAN CELL VOLUME 91.5 fL (80-100); MEAN CORPUSCULAR HEMOGLOBIN 30.9 pg (25-34); MEAN CORPUSCULAR HGB CONC 33.8 g/dl (32-36); MEAN PLATELET VOLUME 9.1 fL (7.4-10.4); MONO % 7.3 %; NEUT % 83.4 %; PLATELET COUNT 193 K/uL (130-400); RED BLOOD COUNT 3.43 M/uL (4.2-5.4); WHITE BLOOD COUNT 12.72 K/uL (4.8-10.8)
[2017-01-03 06:39] LABS: PROTHROMBIN TIME (PATIENT) 10.7 SECONDS (9.0-12.0)
[2017-01-03 07:07] LABS: ALT/SGPT 15 U/L (12-78); AST/SGOT 19 U/L (15-37); BLOOD UREA NITROGEN 16 mg/dl (7-18); BUN/CREATININE RATIO 24.4 (10-20); CALCIUM 7.6 mg/dl (8.5-10.1); CARBON DIOXIDE 24 mmol/L (21-32); CHLORIDE 107 mmol/L (98-107); CREATININE 0.65 mg/dl (0.60-1.20); GLUCOSE 107 mg/dl (70-99); POTASSIUM 4.1 mmol/L (3.5-5.1); SODIUM 141 mmol/L (136-145)
[2017-01-03 07:14] LABS: ALKALINE PHOSPHATASE 40 U/L (45-117); CKMB/CK RATIO 2.6 (0-3.0); PHOSPHORUS 2.2 mg/dl (2.5-4.9)
[2017-01-03] MEDS ORDERED: DILTIAZEM HCL 30 MG TAB PO ONE (09:30)
[2017-01-03] MEDS: PANTOprazole INJ 40 MG in SYRINGE 0 ML IV SCH (09:38)
[2017-01-03] MEDS: LOSARTAN POTASSIUM 50 MG TAB PO SCH (09:38)
[2017-01-03] MEDS: LEVOTHYROXINE SODIUM INJ 37.5 MCG in SYRINGE 0 ML IV SCH (09:38)
[2017-01-03] MEDS: ASPIRIN 81 MG ECTAB PO SCH (09:39)
[2017-01-03] MEDS: HYDROCORTISONE 10 MG TAB PO SCH (09:39)
[2017-01-03] MEDS: POTASSIUM CHLORIDE 20 MEQ TABCR PO SCH (09:39)
[2017-01-03] MEDS: HEPARIN SOD 5000 UNIT/0.5 ML CARP SQ SCH ×3 (09:40→21:29)
--- NOTE | 2017-01-03 10:31 | CARDIOLOGY PROGRESS NOTE ---
DATE: 01/03/2017 The patient was seen by me this morning in her medical telemetry unit bed. Overnight she again had hypertension. At 4:34 a.m. she was documented to have a blood pressure of 196/82. She was given intravenous labetalol. Associated with the hypertension was sensation of dyspnea and chest tightness. She had wheezing noted on exam. The wheezing improved after a nebulizer treatment. She states that the chest tightness lasted approximately 30-60 minutes. Since the night before she had had no other episodes of chest discomfort. Since I last saw her yesterday morning no episodes of chest discomfort until the episode this morning. She now has no complaints of any chest discomfort. No complaints of dyspnea. She states that when she first arises she can have brief postural lightheadedness. No palpitations. No syncope. She continues to have left lower quadrant abdominal discomfort. She is tolerating clear liquids well. No complaints of any leg pain. Her only neurologic complaint is continued and persistent tremors of both arms and hands. No fevers or chills. No cough. No urinary complaints. She denies any further rectal bleeding. CURRENT MEDICATIONS: Aspirin 81 mg daily, atenolol 75 mg b.i.d., subQ heparin 5000 units q. 8 hours, hydrocortisone 20 mg q.a.m. and 10 mg q.p.m., potassium chloride 20 mEq daily, levothyroxine 37.5 mcg daily, pantoprazole 40 mg IV b.i.d. ALLERGIES AND ADVERSE DRUG REACTIONS: MULTIPLE. Pertinent cardiac type medication adverse reaction is hydralazine. This was administered her 2 nights ago. She did was sleeping. She was given the hydralazine because of an elevate blood pressure. She thereafter awoke with severe chest discomfort. The use of a pure vasodilator in her is contraindicated because of her hypertrophic cardiomyopathy and markedly hyperdynamic LV systolic function. PHYSICAL EXAMINATION: VITAL SIGNS: Pulse is 92 beats per minute. Monitor reveals sinus rhythm. Review of monitor history shows that she has frequent episodes of artifact secondary to her tremors. These type of artifacts have been misinterpreted as representing ventricular tachycardia during this hospital stay. Most recently recorded blood pressure was the reading from 4:34 a.m. this morning when it was 196/82. Pulse oximetry on 2 liters per minute nasal cannula oxygen 98%. Blood pressure last evening was 139/65 and 126/69. GENERAL: She in no distress, sitting in a chair by her bedside. NECK: No jugular venous distention. LUNGS: Normal respiratory effort. Clear. No rales or wheezes. HEART: Regular rate and rhythm. S1, S2 normal. An S4 is present. A 2/6 systolic murmur second intercostal space and left sternal border. ABDOMEN: Soft. Mild left lower quadrant tenderness. Normal bowel sounds. EXTREMITIES: No pretibial edema. No calf tenderness. NEUROLOGIC: Alert and oriented x3. Resting tremors of both hands. She can move all extremities. DATA: Electrocardiogram performed at 5:23 a.m. this morning shows normal sinus rhythm, possible left atrial enlargement, nonspecific inferolateral ST and T wave abnormalities. Compared to yesterday's electrocardiogram the ST segment depression and T-wave inversions in the inferolateral leads has improved. LABS TODAY: WBC 12.72, hemoglobin 10.6, hematocrit 31.4, platelet count 193. INR 1.0. Metabolic profile was sodium 141, potassium 4.1, chloride 107, carbon dioxide 24, BUN 16, creatinine 0.65, random glucose 107. CK totals 119 with MB of 3.1. Troponin I this morning 0.177. Peak troponin I on 5th was 0.167. ASSESSMENT: 1. Hypertrophic cardiomyopathy. Markedly hyperdynamic left ventricular systolic function. 2. Severe hypertension. 3. Acute diastolic heart failure secondary to the hypertrophic cardiomyopathy and hyperdynamic LV systolic function. 4. Anginal symptoms secondary to increased myocardial oxygen demand secondary to her hyperdynamic wall motion and severe LVH. 5. Wheezing overnight, likely secondary to heart failure. No current evidence on exam of congestive heart failure. 6. Troponin I is mildly elevated. Secondary to demand ischemia. 7. Electrocardiogram today actually significantly improved from yesterday's electrocardiogram. RECOMMENDATIONS: 1. Increase atenolol to 100 mg b.i.d. 2. Start calcium channel pratima therapy with diltiazem 60 mg q. 8 hours. Titrate dose upwards to help control blood pressure. At the time of discharge, can switch to a long-acting form of diltiazem. 3. Would switch her intravenous medications to oral forms. She is still receiving intravenous levothyroxine and pantoprazole. She is taking fluids and other oral medications very well. I will be away until 01/10/2017. One of my fellow [facility] colleagues will be seeing the patient in the interim. Please contact the covering physician for [facility] for any urgent cardiology questions or issues.
[2017-01-03] MEDS ORDERED: LEVALBUTEROL/IPRATROPIUM NEB INH PRN (11:00)
[2017-01-03] MEDS ORDERED: OPTIRAY 320 IV PRN (11:45)
[2017-01-03] MEDS: PROMETHAZINE HCL INJ 12.5 MG in SODIUM CHLORIDE 0.9% 50ML 50 ML IV PRN (11:50)
[2017-01-03] MEDS ORDERED: IPRATROPIUM BROMIDE NEB SOLN 0.02% 2.5 ML VIAL INH PRN (12:00)
[2017-01-03] MEDS ORDERED: LEVALBUTEROL 1.25MG/0.5ML NEB INH PRN (12:00)
--- NOTE | 2017-01-03 12:29 | DIAGNOSTIC IMAGING REPORT ---
CT ANGIOGRAM OF THE CHEST CLINICAL HISTORY: Shortness of breath COMPARISON STUDY: Chest x-ray dated 01/03/2017 TECHNIQUE: Following the IV administration of 102 mL of [id number]-320, CT angiogram of the thorax was performed from the thoracic inlet to the lung bases utilizing the pulmonary embolus protocol. Images are reviewed in the axial, sagittal, and coronal planes. IV contrast was administered without complication. MIP imaging was performed. CT DOSE: 294.91 mGycm FINDINGS: There are extensive calcified mediastinal and hilar lymph nodes. There was no evidence of thoracic aortic dilatation. There were no pulmonary artery filling defects to indicate acute pulmonary embolism. There are moderate bilateral pleural effusions There are by basilar compressive atelectatic changes. There are right upper lobe airspace opacities, likely represent focal edema or pneumonia. There is a 3.5 cm lobulated left upper lobe pulmonary mass. Nodular airspace opacities are also visualized within the left upper lobe. There is a 6 mm left lower lobe pulmonary nodule. There is mild septal edema. There is tracheomalacia. The AP diameter of the trachea measures 3.3 mm. IMPRESSION: 1. Densely calcified mediastinal and hilar lymph nodes 2. No CT evidence of acute pulmonary embolism 3. Tracheomalacia. 4. Bilateral ill-defined pulmonary nodular airspace opacities, likely representing focal edema although a bilateral pneumonia could appear similar 5. Bilateral compressive atelectasis 6. Indeterminate lobulated 3.5 cm left upper lobe pulmonary mass. Pulmonary consultation is recommended. 7. 6 mm left lower lobe pulmonary nodule 8. Moderate bilateral pleural effusions Electronically signed by: Peyman Barrera M.D. 01/03/2017 12:28 PM Dictated Date/Time: 01/03/2017 12:15 PM
[2017-01-03] MEDS ORDERED: METHYLPREDNISOLONE IV 125 MG in SYRINGE 0 ML IV SCH (12:30)
[2017-01-03] MEDS ORDERED: LORAZEPAM INJ 0.5 MG in SYRINGE 0.75 ML IV PRN (13:00)
[2017-01-03] MEDS: DILTIAZEM HCL 60 MG TAB PO SCH ×2 (13:05→19:45)
[2017-01-03] MEDS: LORAZEPAM 2 MG/ML 1 ML VIAL IV PRN (13:07)
[2017-01-03] MEDS ORDERED: FUROSEMIDE INJ 80 MG in SYRINGE 0 ML IV ONE (13:30)
[2017-01-03] MEDS: ERTAPENEM IV 1 GM in SODIUM CHLOR 0.9% AD-VAN 50ML 50 ML IV SCH (13:53)
[2017-01-03] MEDS: AZITHROMYCIN IV 500 MG in DEXTROSE 5% 250ML 250 ML IV SCH (13:53)
--- NOTE | 2017-01-03 16:21 | PULMONARY CONSULTATION ---
DATE OF CONSULTATION: 01/03/2017 TIME: 2:05 p.m. HISTORY OF PRESENT ILLNESS: The patient was seen in room 202. She is a 71-year-old female who has a chief complaint of shortness of breath. Her history is that she presented to the emergency room December 31 because of bright red blood per rectum. She has a history of hemorrhoids, but she states this felt different to her. She felt that there was quite a bit of blood that she had passed. Her last colonoscopy was about 2008. When the patient was being evaluated there was suspicion she may have had a run of ventricular tachycardia. Apparently there was some question as to whether that was true V-tach or not. She was admitted. Beginning today she has been much more short of breath than normal. She has been wheezing. She has a dry cough. There has been no sputum production or hemoptysis. She denies any chills or fevers or sweats. She has a history of sarcoidosis. This was diagnosed many years ago, perhaps as long as 15. She has been following up with Dr. Brown. She states she had a skin lesion on her face and the biopsy suggested sarcoid. She then had followup which has shown calcifications in her lymph nodes. She was on prednisone for a long time. Subsequently, she was switched to hydrocortisone. She tells me it was in place of prednisone. Her chart suggests a history of adrenal insufficiency, but the patient did not seem to be aware of that term. I believe she was on prednisone for an extended period of time. Consult in part was ordered because of CAT scan findings. She had a CAT scan of the chest done today. This showed extensive calcified mediastinal and hilar lymph nodes. There was no evidence of pulmonary embolism. Moderate pleural effusions were noted. Bibasilar compressive atelectatic changes were seen. There is some right upper lobe airspace opacities which could suggest focal edema. There was a 3.5 cm lobulated density in the left upper lobe medially. There was other nodular airspace opacities also in the left upper lobe. A 6 mm left lower lobe nodule was seen. The trachea appeared to have some tracheomalacia, although this could be related to having the pleural effusion as well. I attempted to find old x-rays of the chest or CAT scans on the patient. The most recent x-ray of the chest that I could find was back in about 2009. Thus it does not really help much. She did have a lumbar spine CAT scan earlier this year that showed osteoporosis, sigmoid diverticulosis, but no fracture. PAST SURGICAL HISTORY: 1. Thyroidectomy. 2. Tonsillectomy. 3. Tubal ligation. 4. Colonoscopy 2008. PAST MEDICAL HISTORY: 1. Sarcoid 2. Hemorrhoids. 3. Reflux. 4. Hypertension. 5. Hyperlipidemia. 6. Adrenal insufficiency. 7. Parkinson's disease. 8. Diverticulitis. 9. Degenerative joint disease of the spine. 10. Scoliosis. SOCIAL HISTORY: Tobacco never. ETOH -- None. ALLERGIES: LISTED ALLERGIES TO AMOXICILLIN, ONDANSETRON, OXYCODONE, HYDROCODONE, IBUPROFEN, QUINOLONES INCLUDING CIPRO, CEPHALOSPORINS, PENICILLIN, AND ESCITALOPRAM. The patient does not believe any of these reactions were producing hives or acute shortness of breath and none are likely true allergies but rather reflects side effects. FAMILY HISTORY: Mother living, age 95, dementia. Father age 72 of congestive heart failure. 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 REVIEW OF SYSTEMS: GENERAL: The patient's energy level has been low. She lives at home and takes care of her mother. She describes having a lot of stress. NEUROLOGIC: She has some mild tremors. This would be the only manifestation of Parkinson apparently. OPHTHALMIC: Denies visual complaints. She has had cataract surgery. ENT: Denies nasal congestion or coryza. CARDIAC: She is short of breath. She denies palpitations or chest pain. PULMONARY: As noted above. GASTROINTESTINAL: She has not had a bowel movement since she came. Thus, the active bleeding seemed to have stopped. GENITOURINARY: Denies frequency, urgency or dysuria. MUSCULOSKELETAL: She had some degree of chronic pains in the back. DERMATOLOGIC: No rash. ENDOCRINE: No lymphadenopathy. PHYSICAL EXAMINATION: GENERAL: The patient is a 71-year-old female who looks older than her chronologic age. Her son was present during this evaluation. VITAL SIGNS: Temperature is 36.8. HEENT: Eye exam suggested implants. Nares were clear. Mouth exam showed no significant injection or exudate. She has some ecchymosis in the area of the right side of her neck where central line had been placed the other day. Neck veins were faintly distended with the patient sitting upright. CHEST: Normal expansion. Posteriorly, one could visualize her scoliosis. Heart rate is 100 per minute. Blood pressure 161/73. Wheezing could be heard without a stethoscope. She seems quite tight. Respiratory rate was 28 breaths per minute. Saturations were 96% on 2 liters. ABDOMEN: Soft. Bowel sounds were diminished, but present. She was tender in the left upper quadrant and left lower quadrant. No definite mass was palpable. EXTREMITIES: Showed no cyanosis, clubbing or edema. LABORATORY DATA: White count is 12.72. Hemoglobin 10.6. Platelets 193,000. There has not been much change compared with the prior study done yesterday. White count yesterday was 14.86. INR today is 1. Urinalysis on admission showed +1 occult blood. Electrolytes show sodium 141, potassium 4.1, chloride 107, bicarbonate 24. BUN 16 with a creatinine of 0.65. Blood sugar today was 113. Phosphorus was 2.2 and calcium was 7.6. AST, ALT and alkaline phosphatase were within the limits of normal except for a slight decrease in the alkaline phosphatase to 40. Troponins have been mildly elevated. Yesterday was 0.165 and today 0.117. BNP on the 3rd was severely elevated at 4051. Nasal swab was negative for MRSA. Chest x-ray on admission showed old granulomatous changes. One can see visually the left upper lobe mass noted on CAT scan. Scoliosis was noted. CAT scan of the abdomen and pelvis done on December 31 showed marked wall edema of the ascending, transverse, and proximal descending colon consistent with a nonspecific colitis or ischemic change. CT of the chest is as noted. IMPRESSION: 1. Acute respiratory failure. 2. Congestive heart failure. 3. Sarcoidosis. 4. Bilateral pleural effusions. 5. Scoliosis. COMMENTS AND RECOMMENDATIONS: The patient is quite short of breath. She has received a dose of Lasix within the past hour. She also received methylprednisolone 125 mg. She received neb treatment with albuterol and ipratropium. She also received her usual medicines. I believe the most likely diagnosis is that of congestive heart failure. We will have to see if she diureses or not. If she persists with shortness of breath consideration would be given to putting on BiPAP as a therapeutic trial. I will check a repeat BNP to see if that has gone up substantially since she was admitted. She is on azithromycin which thus far she has tolerated. I would assume that the left upper lobe mass is probably part of the sarcoid. I cannot prove that definitively from an old x-ray or CAT scan. Right now the acute process is whatever is causing her to be short of breath and with the wheezing. Thank you for asking me to assist in her care.
[2017-01-03] MEDS: METHYLPREDNISOLONE IV 80 MG in SYRINGE 0 ML IV SCH (19:45)
[2017-01-03] MEDS: PANTOprazole SOD 40 MG TAB PO SCH (19:45)
--- NOTE | 2017-01-03 19:49 | Hospitalist Progress Note ---
Hospitalist Progress Note Date of Service Jan 03, 2017. Subjective Pt evaluation today including: conversation w/ patient, physical exam, chart review, lab review, review of studies, conversation w/ management consultant, review of inpatient medication list Early this am the patient became SOB and had noticeable wheezing. At one point , nursing asked me to evaluate the patient. She was indeed wheezing diffusely and b/l. She had associated nausea as well. I ordered a nebulizer and had the patient acquire a CT chest. This did find that she had b/l pleural effusions, ? pneumonia vs. atelectasis, lymphadenopathy, and mass left upper lobe. I asked pulmonology and CT surgery to evaluate the patient. She did then get relief when I gave her both IV Lasix and IV Solumedrol. Additional Comments: A 10 system review was performed and all were negative. Positives were placed in the subjective section. Objective Vital Signs Date Time Temp Pulse Resp B/P Pulse Ox O2 Delivery O2 Flow Rate FiO2 01/03/17 19:28 36.9 73 20 131/68 96 Nasal Cannula 2.0 01/03/17 16:00 Nasal Cannula 2.0 01/03/17 15:39 36.8 74 20 127/65 95 Nasal Cannula 2.0 01/03/17 13:04 161/73 01/03/17 12:00 Nasal Cannula 2.0 01/03/17 11:36 95 28 96 Nasal Cannula 2.0 01/03/17 11:16 213/116 01/03/17 11:05 36.8 102 20 213/116 94 2.0 01/03/17 08:00 Nasal Cannula 2.0 01/03/17 07:30 36.7 94 20 182/82 97 Nasal Cannula 2.0 01/03/17 06:16 91 22 98 Nasal Cannula 2.0 01/03/17 04:34 36.8 89 22 196/82 98 Nasal Cannula 2.0 01/03/17 04:00 96 Nasal Cannula 2.0 01/02/17 23:59 96 Nasal Cannula 2.0 01/02/17 23:16 37.0 84 16 157/70 98 Nasal Cannula 2.0 01/02/17 20:00 96 Nasal Cannula 2.0 Physical Exam Notes: GEN: Awake, alert, and oriented x 3. Was in moderated distress this am. could barely speak due to air hunger. HEENT: Tm's intact, no inflammation, EOMI, PERRLA, MMM Neck: Soft, supple Lungs: + expiratory wheezes diffuse, b/l. Heart: REG, nrl S1S2 without murmurs, rubs or gallops Abdomen: Soft, NT, ND, + BS EXT: No C/C/E NEURO: CN's II-XII grossly intact, non-focal Skin: warm, dry, no rashes PSYCH: pleasant. Laboratory Results Last 24 Hours Test 01/02/17 22:17 01/03/17 06:14 01/03/17 06:15 01/03/17 14:42 Hemoglobin 10.0 g/dL 10.6 g/dL Hematocrit 29.5 % 31.4 % Bedside Glucose 113 mg/dl White Blood Count 12.72 K/uL Red Blood Count 3.43 M/uL Mean Corpuscular Volume 91.5 fL Mean Corpuscular Hemoglobin 30.9 pg Mean Corpuscular Hemoglobin Concent 33.8 g/dl Platelet Count 193 K/uL Mean Platelet Volume 9.1 fL Neutrophils (%) (Auto) 83.4 % Lymphocytes (%) (Auto) 8.3 % Monocytes (%) (Auto) 7.3 % Eosinophils (%) (Auto) 0.6 % Basophils (%) (Auto) 0.2 % Neutrophils # (Auto) 10.61 K/uL Lymphocytes # (Auto) 1.05 K/uL Monocytes # (Auto) 0.93 K/uL Eosinophils # (Auto) 0.08 K/uL Basophils # (Auto) 0.03 K/uL RDW Standard Deviation 51.1 fL RDW Coefficient of Variation 15.2 % Immature Granulocyte % (Auto) 0.2 % Immature Granulocyte # (Auto) 0.02 K/uL Prothrombin Time 10.7 SECONDS Prothromb Time International Ratio 1.0 Sodium Level 141 mmol/L Potassium Level 4.1 mmol/L Chloride Level 107 mmol/L Carbon Dioxide Level 24 mmol/L Anion Gap 10.0 mmol/L Blood Urea Nitrogen 16 mg/dl Creatinine 0.65 mg/dl Est Creatinine Clear Calc Drug Dose 55.9 ml/min Estimated GFR () 102.8 Estimated GFR (Non- 88.7 BUN/Creatinine Ratio 24.4 Random Glucose 107 mg/dl Calcium Level 7.6 mg/dl Phosphorus Level 2.2 mg/dl Magnesium Level 2.0 mg/dl Total Bilirubin 0.8 mg/dl Direct Bilirubin mg/dl Aspartate Amino Transf (AST/SGOT) 19 U/L Alanine Aminotransferase (ALT/SGPT) 15 U/L Alkaline Phosphatase 40 U/L Total Creatine Kinase 119 U/L Creatine Kinase MB 3.1 ng/ml Creatine Kinase MB Ratio 2.6 Troponin I 0.117 ng/ml Total Protein 5.5 gm/dl Albumin 2.6 gm/dl Chemistry Specimen Hemolysis Pro-B-Type Natriuretic Peptide 5917 pg/ml Test 01/03/17 17:40 Troponin I 0.103 ng/ml Assessment and Plan 1) Bronchospasm - felt to be combination of fluid overload and perhaps degree of asthma exacerbation. 2) Pleural effusions b/l. - Pulmonology and CT surgery consulted. Single dose of IV lasix was given. 3) ? pneumonia vs. atelectasis on CT scan - I covered with Zithromax and Ertapenem respecting her multiple antibiotic allergies. 4) History of Sarcoidosis - which may explain the lymph nodes and the mass. 5) Blood per rectum - H&H stable.
--- NOTE | 2017-01-03 20:21 | SURGICAL CONSULTATION ---
DATE OF CONSULTATION: 01/03/2017 REASON FOR CONSULTATION: Pleural effusions and tracheomalacia. HISTORY OF PRESENT ILLNESS: This is a 71-year-old who is actually fairly feeble, who presented with rectal bleeding. She was short of breath, and when she was brought to the Emergency Room, it was felt that she may have had an episode of ventricular tachycardia. She also had some wheezing, although this is improved. She has had no fevers, no chills, and denies hemoptysis. She does have a history of sarcoidosis and was noted to have mediastinal lymphadenopathy with marked calcifications. She was treated with long-term steroids. The patient does have moderate pleural effusions, right greater than left, and also has a left upper lobe density which may well be a mass. It could also be localized infiltrative process or even fluid. She also has some tracheomalacia. I was asked to evaluate her from a thoracic surgery standpoint. She apparently has responded to Lasix today. Her son, who is s a physical therapist, was at the bedside and stated that he thought her breathing was much improved compared to this morning. PAST MEDICAL HISTORY: 1. Lifetime nonsmoker. 2. Osteoporosis. 3. Apparent sarcoidosis. 4. Gastroesophageal reflux disease. 5. Hemorrhoids. 6. Hypertension. 7. Hyperlipidemia. 8. Parkinson's disease. 9. Apparent adrenal insufficiency. 10. Diverticulitis. 11. Diffuse joint disease. PAST SURGICAL HISTORY: 1. Colonoscopy. 2. Thyroidectomy. 3. Bilateral tubal ligation. 4. 1, para 1. 5. Tonsillectomy. MEDICATIONS (AT HOME): 1. Gaviscon. 2. Tenormin. 3. Calcium supplements. 4. Hydrocortisone. 5. Synthroid. 6. Ativan. 7. Cozaar. 8. Protonix. ALLERGIES: 1. AMOXICILLIN. 2. CEPHALOSPORINS. 3. ZOFRAN. 4. OXYCODONE. 5. IBUPROFEN. 6. HYDROCODONE. 7. HYDRALAZINE. 8. PENICILLIN. SOCIAL HISTORY: The patient actually lives at home with her 95-year-old mother. She lives down in [place]. She suffered some ankle fractures a few years ago and has not done as much physically according to her son. Her son lives near [place]. The patient has never smoked cigarettes, does not use alcohol. She was fairly independent in her activities of daily living until recently. 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 FAMILY MEDICAL HISTORY: The patient has 1 son who is in good health. She has no grandchildren. She had 1 brother who from complications of diabetes. Her father at 72 of congestive heart failure but apparently was quite a heavy smoker and had emphysema. Mother is still alive at age 95 and physically does fairly well but she is demented. REVIEW OF SYSTEMS: The patient lives at home and she and her mother apparently take care of each other. She states she has been more fatigued. She also has some tremors from her Parkinson's disease. She denies any new neurologic or hearing problems. She has no nasal congestion. She is short of breath when she pushes herself. She denies any new changes in this until just a few days prior to admission. She has had no palpitations. She does suffer from constipation. She also had the hematochezia as noted. She denies any urinary symptoms. She has had no new neurologic events. PHYSICAL EXAMINATION: GENERAL: This is an elderly appearing white female who is in bed and difficult to arouse. She stands 4 feet 10 inches tall and weighs 114 pounds. HEENT: Her sclerae are pale but anicteric. She has no nasolabial flattening. Her oral mucosa is quite dry. NECK: Supple. I do not hear carotid bruits. She has some ecchymosis on the right side of her neck and apparently a line was placed. She does not have one now. She has no obvious lymphadenopathy. LUNGS: She has no wheezing, although she apparently was wheezing earlier today. She has rhonchi bilaterally with decreased breath sounds bilaterally and they are about equal. HEART: Her heart rate is about 90 beats per minute. ABDOMEN: Soft. She had some mild tenderness to palpation in both lower quadrants. I was unable to palpate an abdominal aortic aneurysm. EXTREMITIES: Upon evaluation of her lower extremities, she has trace edema with palpable posterior tibialis pulses. NEUROLOGIC: She moves all extremities but is very slow to answer and to move. ASSESSMENT AND PLAN: Acute respiratory insufficiency. I believe that the bilateral pleural effusions and the tracheomalacia play a role. This may be related to her calcified lymph nodes which may play a role and could be due to prior sarcoidosis. I had a long discussion with the patient's son. I think performing a thoracentesis tomorrow if her x-ray is not changed can be reasonable. I do not think I would consider placing a stent or offering her anything more aggressive for her tracheomalacia. Thank you very much.
[2017-01-04] VITALS (7 sets, daily range): BP systolic 125–172; BP diastolic 59–98; PULSE 60–73; TEMP 36.6–36.9; O2SAT 94–97
[2017-01-04] MEDS: METHYLPREDNISOLONE IV 80 MG in SYRINGE 0 ML IV SCH (03:32)
[2017-01-04] MEDS: LABETALOL HCL IV 5 MG/ML 20ML IV PRN (04:26)
[2017-01-04] MEDS: HEPARIN SOD 5000 UNIT/0.5 ML CARP SQ SCH ×3 (05:27→20:58)
[2017-01-04] MEDS: LEVOTHYROXINE 75 MCG TAB PO SCH (05:30)
[2017-01-04 06:20] LABS: COMPLETE YES; HEMATOCRIT 31.8 % (37-47); IG% 0.2 %; LYMPH ABS # 0.26 K/uL (1.2-3.4); MEAN CELL VOLUME 91.9 fL (80-100); MEAN CORPUSCULAR HEMOGLOBIN 30.9 pg (25-34); MEAN CORPUSCULAR HGB CONC 33.6 g/dl (32-36); MEAN PLATELET VOLUME 9.1 fL (7.4-10.4); MONO % 0.8 %; PLATELET COUNT 217 K/uL (130-400); RED BLOOD COUNT 3.46 M/uL (4.2-5.4); WHITE BLOOD COUNT 6.52 K/uL (4.8-10.8)
[2017-01-04 06:44] LABS: PROTHROMBIN TIME (PATIENT) 11.2 SECONDS (9.0-12.0)
[2017-01-04 06:51] LABS: BUN/CREATININE RATIO 22.6 (10-20); CREATININE 0.69 mg/dl (0.60-1.20); MAGNESIUM 1.8 mg/dl (1.8-2.4); PHOSPHORUS 3.2 mg/dl (2.5-4.9); POTASSIUM 3.3 mmol/L (3.5-5.1)
[2017-01-04] MEDS: DILTIAZEM HCL 60 MG TAB PO SCH ×4 (07:47→20:15)
[2017-01-04] MEDS: PANTOprazole SOD 40 MG TAB PO SCH ×2 (07:48→20:15)
[2017-01-04] MEDS: LOSARTAN POTASSIUM 50 MG TAB PO SCH (07:49)
[2017-01-04] MEDS: POTASSIUM CHLORIDE 20 MEQ TABCR PO SCH (07:50)
[2017-01-04] MEDS: ASPIRIN 81 MG ECTAB PO SCH (07:50)
--- NOTE | 2017-01-04 08:42 | DIAGNOSTIC IMAGING REPORT ---
CHEST ONE VIEW PORTABLE CLINICAL HISTORY: pleural effusion COMPARISON STUDY: 01/03/2017 FINDINGS: The cardiac and mediastinal contours remain stable. Multiple calcified mediastinal and hilar lymph nodes are visualized. There is improving pulmonary vascular congestion. There are small bilateral pleural effusions with bibasal airspace opacities.[ IMPRESSION: Improving congestive failure. Persistent bilateral pleural effusions with bibasal airspace opacities Electronically signed by: Peyman Barrera M.D. 01/04/2017 8:40 AM Dictated Date/Time: 01/04/2017 8:39 AM
--- NOTE | 2017-01-04 08:56 | SURGERY PROGRESS NOTE ---
DATE: 01/04/2017 DATE: 01/04/2017. I had a long talk with Ms. Bennett today. She is awake and sitting up in a chair and eating breakfast. Her lungs sound better to me than they did yesterday. She has no wheezing whatsoever. Her x-ray looks a bit better. She is on 2 liters with 95% saturations, but she is not labored at all with her breathing. At this point, I think I would probably hold off tapping this as I do not feel that she would benefit much from this. I will discuss this with Dr. Carcamo.
--- NOTE | 2017-01-04 09:11 | PULMONARY PROGRESS NOTE ---
DATE: 01/04/2017 DATE: 01/04/2017. TIME: 8:40 a.m. SUBJECTIVE: The patient's breathing is much improved. She is significantly less short of breath. She is not coughing. She has not noticed any wheezing. She slept fairly well overnight without difficulty. She is sitting in a chair this morning. OBJECTIVE: GENERAL: The patient appears comfortable. HEAD, EYES, EARS, NOSE, AND THROAT: Eye exam showed implants bilaterally. Mouth exam again showed a large amount of redness related to her having jello. NECK: Palpation of the neck reveals no lymph nodes. Some residual ecchymosis is noted on the right side of the neck. HEART: The heart rate is 78 per minute. The rhythm is regular and appears to be normal sinus on telemetry. Blood pressure this morning elevated at 172/98. LUNGS: Respiratory rate is 16 breaths per minute. Auscultation revealed no wheezes today. Breath sounds are diminished at both bases. Oxygen saturation was 95% on 2 liters. Review of the intake and output from yesterday shows 3600 mL output and she had a negative balance of -2410. ABDOMEN: The abdomen is soft. Bowel sounds were normal. She still has not had a bowel movement since admission. She states she had a little abdominal pain this morning from trying to go. Her abdomen seems less tender this morning. EXTREMITIES: Showed no cyanosis, clubbing or edema. LABORATORY DATA: BNP yesterday was severely elevated at 5,917. Electrolytes today show sodium 138, potassium 3.3, chloride 100, bicarbonate 26. BUN was 16 with a creatinine of 0.69 and this is relatively unchanged. Random blood sugar this morning is 135. She had a portable chest x-ray just done. I reviewed it on the machine used to take the x-rays. She still has what appears to be blunting in both costophrenic angles from some pleural effusions. IMPRESSIONS: 1. Acute respiratory insufficiency likely secondary to congestive heart failure. 2. Bilateral pleural effusions. 3. Sarcoidosis. 4. Scoliosis. 5. Possible tracheomalacia. RECOMMENDATIONS: The patient is clinically much improved. I believe this is because of all of the interventions but most likely because of diuresis. Her BNP is very high. She now has a decreased potassium as a result of the diuresis and will need some potassium replacement. I believe the methylprednisolone can be decreased now that she is clinically much improved and it seems more likely this was related to CHF.
[2017-01-04] MEDS ORDERED: FUROSEMIDE INJ 40 MG in SYRINGE 0 ML IV SCH (10:45)
--- NOTE | 2017-01-04 11:06 | Hospitalist Progress Note ---
Hospitalist Progress Note Date of Service Jan 04, 2017. Subjective Pt evaluation today including: conversation w/ patient, physical exam, chart review, lab review, review of studies, review of inpatient medication list I am pleased that Ms. Bennett is doing much better today. She tells me that she does feel "that heaviness and wheezing" as she had the morning prior. She has received IV steroid, IV antibiotics, and IV Lasix yesterday as a result of her clinical exam and based on the CT scan results. She is concerned that she is constipated as she has not had a bm in a few days. However, she did have diarrhea and lower GI bleeding on admit. Additional Comments: A 10 system review was performed and all were negative. Positives were placed in the subjective section. Objective Vital Signs Date Time Temp Pulse Resp B/P Pulse Ox O2 Delivery O2 Flow Rate FiO2 01/04/17 08:00 Nasal Cannula 2.0 01/04/17 07:58 36.8 71 16 172/98 95 2.0 01/04/17 05:28 155/83 01/04/17 04:26 65 168/85 01/04/17 04:00 Nasal Cannula 2.0 01/04/17 03:16 36.6 73 20 166/74 94 Nasal Cannula 2.0 01/04/17 00:00 Nasal Cannula 2.0 01/03/17 23:38 36.5 62 18 139/66 95 Nasal Cannula 2.0 01/03/17 20:00 Nasal Cannula 2.0 01/03/17 19:28 36.9 73 20 131/68 96 Nasal Cannula 2.0 01/03/17 16:00 Nasal Cannula 2.0 01/03/17 15:39 36.8 74 20 127/65 95 Nasal Cannula 2.0 01/03/17 13:04 161/73 01/03/17 12:00 Nasal Cannula 2.0 01/03/17 11:36 95 28 96 Nasal Cannula 2.0 01/03/17 11:16 213/116 01/03/17 11:05 36.8 102 20 213/116 94 2.0 Physical Exam Notes: GEN: Awake, alert, and oriented x 3. Not in acute distress HEENT: Tm's intact, no inflammation, EOMI, PERRLA, MMM Neck: Soft, supple Lungs: Much improved exam today. I did hear expiratory wheeze in the mid Left lung field. Bases are decreased b/l. Heart: REG, nrl S1S2 without murmurs, rubs or gallops Abdomen: Soft, NT, ND, + BS EXT: No C/C/E NEURO: CN's II-XII grossly intact, non-focal Skin: warm, dry, no rashes PSYCH: pleasant, cooperative. Laboratory Results Last 24 Hours Test 01/03/17 14:42 01/03/17 17:40 01/04/17 05:47 Pro-B-Type Natriuretic Peptide 5917 pg/ml Troponin I 0.103 ng/ml White Blood Count 6.52 K/uL Red Blood Count 3.46 M/uL Hemoglobin 10.7 g/dL Hematocrit 31.8 % Mean Corpuscular Volume 91.9 fL Mean Corpuscular Hemoglobin 30.9 pg Mean Corpuscular Hemoglobin Concent 33.6 g/dl Platelet Count 217 K/uL Mean Platelet Volume 9.1 fL Neutrophils (%) (Auto) 95.0 % Lymphocytes (%) (Auto) 4.0 % Monocytes (%) (Auto) 0.8 % Eosinophils (%) (Auto) 0.0 % Basophils (%) (Auto) 0.0 % Neutrophils # (Auto) 6.20 K/uL Lymphocytes # (Auto) 0.26 K/uL Monocytes # (Auto) 0.05 K/uL Eosinophils # (Auto) 0.00 K/uL Basophils # (Auto) 0.00 K/uL RDW Standard Deviation 50.2 fL RDW Coefficient of Variation 14.8 % Immature Granulocyte % (Auto) 0.2 % Immature Granulocyte # (Auto) 0.01 K/uL Prothrombin Time 11.2 SECONDS Prothromb Time International Ratio 1.0 Sodium Level 138 mmol/L Potassium Level 3.3 mmol/L Chloride Level 100 mmol/L Carbon Dioxide Level 26 mmol/L Anion Gap 12.0 mmol/L Blood Urea Nitrogen 16 mg/dl Creatinine 0.69 mg/dl Est Creatinine Clear Calc Drug Dose 51.9 ml/min Estimated GFR () 100.8 Estimated GFR (Non- 87.0 BUN/Creatinine Ratio 22.6 Random Glucose 135 mg/dl Calcium Level 8.0 mg/dl Phosphorus Level 3.2 mg/dl Magnesium Level 1.8 mg/dl Total Bilirubin 0.6 mg/dl Direct Bilirubin 0.2 mg/dl Aspartate Amino Transf (AST/SGOT) 17 U/L Alanine Aminotransferase (ALT/SGPT) 16 U/L Alkaline Phosphatase 42 U/L Total Protein 6.0 gm/dl Albumin 2.8 gm/dl Assessment and Plan 1) Acute respiratory failure - resolved. Multiple factors contributing. Steroids have been reduced, I plan to give single dose of 40mg Lasix today. She normally does not use oxygen at home - will await to see her need for this in the next 24-48 hours. 2) Pleural effusions b/l. - I read notes by Dr. Gee and Dr. Carcamo. No thoracentesis required at this time. 3) Pneumonia vs. atelectasis on CT scan - At this point, I am favoring atelectasis, however as she is tolerating the IV antibiotics I plan to continue into tomorrow and if she has no further sequela to suggest infectious source I will D/C. 4) History of Sarcoidosis 5) Blood per rectum - H&H stable. No further issues with this. 6) HTN - cardiology increased Cardizem to 60mg QID (could discharge on CD 240mg) 7) Hypertrophic cardiomyopathy. Continued [facility] stay due to: multiple IV medications needed Discharge planning: other (Patient lives with and cares for her mother. PT, OT ordered. disposition pending on further improvements and assessments. )
[2017-01-04] MEDS: METHYLPREDNISOLONE IV 40 MG in SYRINGE 0 ML IV SCH ×2 (11:14→20:13)
[2017-01-04] MEDS ORDERED: POTASSIUM CHLORIDE 20 MEQ TABCR PO ONE (11:30)
--- NOTE | 2017-01-04 11:33 | CARDIOLOGY PROGRESS NOTE ---
DATE: 01/04/2017 DATE: 01/04/2017. SUBJECTIVE: Mrs. Bennett is resting comfortably in bedside chair without complaints of chest pain or dyspnea. OBJECTIVE: VITAL SIGNS: Blood pressure is 170/90 with a regular pulse of 70. Respiratory rate is 16. The patient is afebrile at 36.8 degrees Celsius. Saturation 95% on 2 liters nasal cannula. NECK: Supple with full carotid upstrokes. There are no carotid bruits. Jugular venous pressure is flat at 90 degrees. There is no thyromegaly. CARDIOVASCULAR EXAMINATION: Reveals a regular rhythm with normal S1 and S2. A 2/6 systolic murmur is heard along the left sternal border. An S4 is noted. LUNGS: Clear without rales, rhonchi, or wheezes. ABDOMEN: Soft without bruits. EXTREMITIES: Reveal intact radial artery pulses bilaterally. No pretibial edema. LABORATORY DATA: CBC notes hemoglobin of 10.7, hematocrit 31.8, white count 6.5, platelet count 217,000. Electrolytes note a sodium of 138, potassium 3.3, chloride 100, bicarb 26, BUN 16, creatinine 0.69, glucose 135. quality assurance monitor is benign. EKG this morning notes normal sinus rhythm with an inferolateral ST and T-wave abnormality. This is unchanged from the tracing done yesterday. IMPRESSION AND PLAN: 1. Hypertrophic cardiomyopathy -- patient has been stable over the last 24 hours. Has tolerated the addition of low dose diltiazem. Will increase diltiazem dose hoping to better control her systolic hypertension. 2. Hypertension -- as above, increase Diltiazem. 3. Acute on chronic diastolic congestive heart failure -- compensated at this time. 4. Gastroesophageal reflux disease.
[2017-01-04] MEDS: ERTAPENEM IV 1 GM in SODIUM CHLOR 0.9% AD-VAN 50ML 50 ML IV SCH (14:00)
[2017-01-04] MEDS: AZITHROMYCIN IV 500 MG in DEXTROSE 5% 250ML 250 ML IV SCH (15:32)
[2017-01-04] MEDS: LORAZEPAM 2 MG/ML 1 ML VIAL IV PRN (20:16)
[2017-01-05] VITALS (8 sets, daily range): BP systolic 130–168; BP diastolic 69–82; PULSE 66–80; TEMP 36.4–37; O2SAT 94–98
[2017-01-05] MEDS: METHYLPREDNISOLONE IV 40 MG in SYRINGE 0 ML IV SCH ×2 (04:36→12:51)
[2017-01-05] MEDS: LABETALOL HCL IV 5 MG/ML 20ML IV PRN (04:38)
[2017-01-05] MEDS: LEVOTHYROXINE 75 MCG TAB PO SCH (05:28)
[2017-01-05] MEDS: HEPARIN SOD 5000 UNIT/0.5 ML CARP SQ SCH ×3 (05:30→21:50)
[2017-01-05 06:06] LABS: COMPLETE YES; HEMATOCRIT 30.5 % (37-47); IG% 0.2 %; LYMPH % 2.4 %; LYMPH ABS # 0.25 K/uL (1.2-3.4); MEAN CELL VOLUME 89.2 fL (80-100); MEAN CORPUSCULAR HGB CONC 34.8 g/dl (32-36); MEAN PLATELET VOLUME 9.1 fL (7.4-10.4); MONO % 3.2 %; NEUT % 94.2 %; PLATELET COUNT 245 K/uL (130-400); RED BLOOD COUNT 3.42 M/uL (4.2-5.4); WHITE BLOOD COUNT 10.53 K/uL (4.8-10.8)
[2017-01-05 06:40] LABS: BUN/CREATININE RATIO 22.9 (10-20); CALCIUM 8.2 mg/dl (8.5-10.1); CREATININE 0.85 mg/dl (0.60-1.20); MAGNESIUM 2.1 mg/dl (1.8-2.4); POTASSIUM 3.2 mmol/L (3.5-5.1)
[2017-01-05 06:43] LABS: PHOSPHORUS 2.7 mg/dl (2.5-4.9)
[2017-01-05] MEDS: PANTOprazole SOD 40 MG TAB PO SCH (08:09)
[2017-01-05] MEDS: DILTIAZEM HCL 60 MG TAB PO SCH ×5 (08:10→21:47)
--- NOTE | 2017-01-05 08:35 | SURGERY PROGRESS NOTE ---
DATE: 01/05/2017 Ms. Bennett was seen today. She looks better. She moved her bowels and feels better. Her lungs sound better, although she has decreased breath sounds at the bases. She has no wheezing and no rhonchi. Saturations were 93% after and I have had her off of oxygen for several minutes at rest. At this point, I do not think I would intervene with the fluid. We will continue to follow at a distance.
--- NOTE | 2017-01-05 09:49 | PULMONARY PROGRESS NOTE ---
DATE: 01/05/2017 TIME: 8:40 a.m. SUBJECTIVE: The patient is feeling much better. Her breathing is almost back to normal. She has very little cough. She is not having any chest pains. She has had no chills, fevers or sweats. She is feeling a little more tired than normal. OBJECTIVE: GENERAL: The patient looks well. She was comfortable at rest. Temperature is 37 degrees. ENT: Exam is otherwise unchanged. VITAL SIGNS: Heart rate is 78 per minute. The rhythm is regular. Telemetry shows sinus rhythm. Blood pressure is 144/82. Respiratory rate is 18 breaths per minute. Oxygen saturation on room air done by myself was 96%. LUNGS: Lung morales revealed no wheezing, rales or rhonchi. There are slightly decreased breath sounds at both lung bases. ABDOMEN: Soft. She is nontender. She states that she was given some prune juice and finally had a bowel movement, but it was very watery. She noticed some bright red blood when she was wiping. EXTREMITIES: Showed trace edema of both lower extremities noted mostly at the sock line. LABORATORY DATA: White count today is 10.53. Hemoglobin is 10.6. Platelets are 245,000. IMAGING DATA: The patient's chest x-ray done yesterday showed improving CHF with still persistent effusions. The previously noted density in the left apex seen best on CAT scan can be visualized on the plain x-ray as well in the left upper lobe medially. IMPRESSIONS: 1. Respiratory failure -- improved. 2. Congestive heart failure -- improved. 3. Sarcoidosis. 4. Left upper lobe mass -- likely secondary to the sarcoid, but needs followup. 5. Bilateral pleural effusions. 6. Scoliosis. COMMENTS AND RECOMMENDATIONS: I believe the methylprednisolone can be stopped and given a tapering course of prednisone. I believe the antibiotics likely could be stopped. I do not think she has a lung infection. Whether she would need any antibiotics for her bowel situation, I will defer to the hospitalist team. Following discharge, the patient should follow up with Dr. Brown who she has been seeing. He will likely need to follow up on the left upper lobe masses as time goes on.
[2017-01-05] MEDS: ASPIRIN 81 MG ECTAB PO SCH (10:08)
[2017-01-05] MEDS: LOSARTAN POTASSIUM 50 MG TAB PO SCH (10:08)
[2017-01-05] MEDS: POTASSIUM CHLORIDE 20 MEQ TABCR PO SCH (10:09)
--- NOTE | 2017-01-05 10:21 | CARDIOLOGY PROGRESS NOTE ---
DATE: 01/05/2017 DATE: 01/05/2017. SUBJECTIVE: Mrs. Bennett is resting comfortably in bed without complaints of chest pain, dyspnea, or palpitations. OBJECTIVE: VITAL SIGNS: Blood pressure 140/80 with a regular pulse of 80. Respiratory rate is 18 and the patient is afebrile at 37.0 degrees Celsius. Saturations 94% on 2 liters nasal cannula. NECK: Supple with full carotid upstrokes. There are no carotid bruits. Jugular venous pressure is flat at 90 degrees. There is no thyromegaly. CARDIOVASCULAR EXAMINATION: Reveals a regular rhythm with normal S1 and S2. A 2/6 systolic murmur is heard along the left sternal border and at the base. An S4 is noted. LUNGS: Clear without rales, rhonchi, or wheezes. ABDOMEN: Soft, nontender without bruits. EXTREMITIES: Reveal intact radial artery pulses bilaterally. There is no pretibial edema. LABORATORY DATA: CBC notes a hemoglobin of 10.6, hematocrit 30.5, white count 10.5, platelet count 245,000. Electrolytes note a sodium of 137, potassium 3.2, chloride 100, bicarbonate 29, BUN 19, creatinine 0.5, and a glucose of 138. EKG notes normal sinus rhythm with an inferolateral ST and T-wave abnormality. Voltage criteria for LVH. mixing engineer is benign. IMPRESSION AND PLAN: 1. Hypertrophic cardiomyopathy - the patient now stable. Has tolerated dose increase in diltiazem. Could consider changing to once daily diltiazem CD at 240 mg. 2. Hypertension -- controlled. 3. Acute on chronic diastolic congestive heart failure -- compensated. 4. Gastroesophageal reflux disease. 5. Rectal bleeding.
[2017-01-05] MEDS: ERTAPENEM IV 1 GM in SODIUM CHLOR 0.9% AD-VAN 50ML 50 ML IV SCH (12:51)
[2017-01-05] MEDS: AZITHROMYCIN IV 500 MG in DEXTROSE 5% 250ML 250 ML IV SCH (13:59)
[2017-01-05] MEDS ORDERED: VANCOMYCIN HCL 125 MG/2.5ML SOLN PO ONE (14:22)
[2017-01-05] MEDS ORDERED: RASPBERRY SYRUP 5 ML UDP PO ONE (14:22)
[2017-01-05] MEDS ORDERED: POTASSIUM CHLORIDE 10 MEQ TABCR PO ONE (15:00)
[2017-01-05] MEDS: VANCOMYCIN HCL 125 MG/2.5ML SOLN PO SCH ×2 (17:16→21:45)
[2017-01-05] MEDS: RASPBERRY SYRUP 5 ML UDP PO SCH ×2 (17:16→21:46)
--- NOTE | 2017-01-05 19:41 | Hospitalist Progress Note ---
Hospitalist Progress Note Date of Service Jan 05, 2017. Subjective Pt evaluation today including: conversation w/ patient, conversation w/ family , physical exam, chart review, lab review, review of studies, review of inpatient medication list After not having a bm in days she had loose stools today and from an order placed days ago a C. diff was performed and was positive. I do suspect this is new even from the antibiotic coverage over the past 48 hours. I stopped the antibiotics and ordered oral vanco. She does have a history of C.diff on one other occasion. Her son was present with us today. Additional Comments: A 10 system review was performed and all were negative. Positives were placed in the subjective section. Objective Vital Signs Date Time Temp Pulse Resp B/P Pulse Ox O2 Delivery O2 Flow Rate FiO2 01/05/17 17:28 36.4 72 18 168/78 96 Nasal Cannula 2.0 01/05/17 17:00 Nasal Cannula 2.0 01/05/17 16:30 37.0 68 18 96 2.0 01/05/17 16:00 Nasal Cannula 2.0 01/05/17 15:43 37.0 68 18 130/69 96 01/05/17 12:00 Nasal Cannula 2.0 01/05/17 11:13 75 98 01/05/17 08:00 Nasal Cannula 2.0 01/05/17 07:55 37.0 80 18 144/82 94 Room Air 01/05/17 05:41 148/73 01/05/17 04:38 Nasal Cannula 2.0 01/05/17 04:31 36.6 71 17 167/80 96 Nasal Cannula 2.0 01/05/17 00:13 36.7 66 15 144/70 96 Nasal Cannula 2.0 01/05/17 00:00 Nasal Cannula 2.0 01/04/17 20:15 Nasal Cannula 2.0 01/04/17 19:34 36.7 61 17 125/59 95 Nasal Cannula 2.0 Physical Exam Notes: GEN: Awake, alert, and oriented x 3. Not in acute distress HEENT: Tm's intact, no inflammation, EOMI, PERRLA, MMM Neck: Soft, supple Lungs: CTA b/l no r/r/w Heart: REG, nrl S1S2 without murmurs, rubs or gallops Abdomen: Soft, NT, ND, + BS EXT: No C/C/E NEURO: CN's II-XII grossly intact, non-focal Skin: warm, dry, no rashes PSYCH: pleasant, cooperative. Laboratory Results Last 24 Hours Test 01/05/17 05:50 01/05/17 06:55 White Blood Count 10.53 K/uL Red Blood Count 3.42 M/uL Hemoglobin 10.6 g/dL Hematocrit 30.5 % Mean Corpuscular Volume 89.2 fL Mean Corpuscular Hemoglobin 31.0 pg Mean Corpuscular Hemoglobin Concent 34.8 g/dl Platelet Count 245 K/uL Mean Platelet Volume 9.1 fL Neutrophils (%) (Auto) 94.2 % Lymphocytes (%) (Auto) 2.4 % Monocytes (%) (Auto) 3.2 % Eosinophils (%) (Auto) 0.0 % Basophils (%) (Auto) 0.0 % Neutrophils # (Auto) 9.92 K/uL Lymphocytes # (Auto) 0.25 K/uL Monocytes # (Auto) 0.34 K/uL Eosinophils # (Auto) 0.00 K/uL Basophils # (Auto) 0.00 K/uL RDW Standard Deviation 48.1 fL RDW Coefficient of Variation 14.7 % Immature Granulocyte % (Auto) 0.2 % Immature Granulocyte # (Auto) 0.02 K/uL Sodium Level 137 mmol/L Potassium Level 3.2 mmol/L Chloride Level 100 mmol/L Carbon Dioxide Level 29 mmol/L Anion Gap 8.0 mmol/L Blood Urea Nitrogen 19 mg/dl Creatinine 0.85 mg/dl Est Creatinine Clear Calc Drug Dose 42.1 ml/min Estimated GFR () 79.3 Estimated GFR (Non- 68.5 BUN/Creatinine Ratio 22.9 Random Glucose 138 mg/dl Calcium Level 8.2 mg/dl Phosphorus Level 2.7 mg/dl Magnesium Level 2.1 mg/dl Total Bilirubin 0.6 mg/dl Direct Bilirubin 0.2 mg/dl Aspartate Amino Transf (AST/SGOT) 18 U/L Alanine Aminotransferase (ALT/SGPT) 21 U/L Alkaline Phosphatase 42 U/L Total Protein 6.1 gm/dl Albumin 3.1 gm/dl Stool Occult Blood POSITIVE Assessment and Plan 1) Acute respiratory failure - resolved. 2) Pleural effusions b/l. - stable. 3) C. diff colitis - I feel this is inadvertently a very early diagnosis to which I feel she will do well without the usual debilitating course of this disease. Oral vanco started today with my recommendation for treatment to be 10 -14 days. 4) History of Sarcoidosis 5) Blood per rectum - no further although she is heme pos. 6) HTN - changed to Cardizem CD 240mg daily 7) Hypertrophic cardiomyopathy. DVT prophylaxis - sub-q heparin. May transition to medical floor. PT/OT is already ordered.
[2017-01-06] VITALS: O2SAT 94
[2017-01-06 00:24] VITALS: BP 149/62; PULSE 66; TEMP 36.6; O2SAT 94
[2017-01-06] MEDS: ACETAMINOPHEN 325 MG TAB PO PRN (06:04)
[2017-01-06] MEDS: LEVOTHYROXINE 75 MCG TAB PO SCH (06:04)
[2017-01-06] MEDS: HEPARIN SOD 5000 UNIT/0.5 ML CARP SQ SCH ×3 (06:14→21:25)
[2017-01-06 07:29] VITALS: BP 186/78; PULSE 73; TEMP 36.8; O2SAT 90
[2017-01-06 07:32] LABS: BUN/CREATININE RATIO 23.8 (10-20); CALCIUM 8.4 mg/dl (8.5-10.1); CREATININE 0.78 mg/dl (0.60-1.20); POTASSIUM 4.3 mmol/L (3.5-5.1)
[2017-01-06] MEDS: DILTIAZEM HCL 240 MG CAPCR PO SCH (08:26)
[2017-01-06] MEDS: RASPBERRY SYRUP 5 ML UDP PO SCH ×4 (08:26→21:21)
[2017-01-06] MEDS: PANTOprazole SOD 40 MG TAB PO SCH (08:26)
[2017-01-06] MEDS: ASPIRIN 81 MG ECTAB PO SCH (08:26)
[2017-01-06] MEDS: VANCOMYCIN HCL 125 MG/2.5ML SOLN PO SCH ×4 (08:26→21:21)
[2017-01-06] MEDS: LOSARTAN POTASSIUM 50 MG TAB PO SCH (08:27)
[2017-01-06] MEDS: POTASSIUM CHLORIDE 20 MEQ TABCR PO SCH (08:27)
--- NOTE | 2017-01-06 09:17 | Hospitalist Progress Note ---
Hospitalist Progress Note Date of Service Jan 06, 2017. Subjective Pt evaluation today including: conversation w/ patient, physical exam, chart review, lab review, review of studies, review of inpatient medication list Patient is doing well. She just got finished with physical therapy treatment and is a bit "shaky" but she does not feel SOB. She had 1 or 2 bms overnight and 1 loose stool this am. I told her that I felt the C.Diff was caught earlier than usual such that I hope she will not have to deal with symptoms for more than few days. She feels that, if going to a rehab situation, she is ok with discharge tomorrow. Additional Comments: A 10 system review was performed and all were negative. Positives were placed in the subjective section. Objective Vital Signs Date Time Temp Pulse Resp B/P Pulse Ox O2 Delivery O2 Flow Rate FiO2 01/06/17 07:29 36.8 73 18 186/78 90 Room Air 01/06/17 00:24 36.6 66 18 149/62 94 Nasal Cannula 2.0 01/06/17 00:00 94 Nasal Cannula 2.0 01/05/17 20:00 Nasal Cannula 2.0 01/05/17 17:28 36.4 72 18 168/78 96 Nasal Cannula 2.0 01/05/17 17:00 Nasal Cannula 2.0 01/05/17 16:30 37.0 68 18 96 2.0 01/05/17 16:00 Nasal Cannula 2.0 01/05/17 15:43 37.0 68 18 130/69 96 01/05/17 12:00 Nasal Cannula 2.0 01/05/17 11:13 75 98 Physical Exam Notes: GEN: Awake, alert, and oriented x 3. Not in acute distress HEENT: Tm's intact, no inflammation, EOMI, PERRLA, MMM Neck: Soft, supple Lungs: CTA b/l, no r/r/w Heart: REG, nrl S1S2 without murmurs, rubs or gallops Abdomen: Soft, NT, ND, + BS EXT: No C/C/E NEURO: CN's II-XII grossly intact, non-focal Skin: warm, dry, no rashes PSYCH: pleasant, cooperative. Laboratory Results Last 24 Hours Test 01/06/17 06:34 01/06/17 07:39 Sodium Level 137 mmol/L Potassium Level 4.3 mmol/L Chloride Level 100 mmol/L Carbon Dioxide Level 28 mmol/L Anion Gap 9.0 mmol/L Blood Urea Nitrogen 19 mg/dl Creatinine 0.78 mg/dl Est Creatinine Clear Calc Drug Dose 45.8 ml/min Estimated GFR () 88.0 Estimated GFR (Non- 76.0 BUN/Creatinine Ratio 23.8 Random Glucose 112 mg/dl Calcium Level 8.4 mg/dl Bedside Glucose 115 mg/dl Assessment and Plan 1) Acute respiratory failure - resolved. 2) Pleural effusions b/l. - As we are considering discharge by tomorrow, I will check a PA and LAT chest to confirm stability. 3) C. diff colitis - roughly 3 loose bms since last evening. She would have had just 1 dose of oral vanco last night so I will consider today as day 1 of 10 days to treatment. 4) History of Sarcoidosis 5) Blood per rectum - This was her admitting issue, which had resolved. I did not feel that she had an active C.Diff on admission. It is reasonable that she had carrier state which became opportunistic when I ordered antibiotics to cover for pneumonia based on lung CT. 6) HTN - Was elevated this am, but this was prior to cardizem dosing. 7) Hypertrophic cardiomyopathy. DVT prophylaxis - sub-q heparin. Possible discharge for tomorrow. Will ask discharge planning to look into rehab options. She will eventually want to return home where she lives with her mother. Alda told me that her 92y/o mother is in better health than she.
--- NOTE | 2017-01-06 09:50 | DIAGNOSTIC IMAGING REPORT ---
CHEST 2 VIEWS ROUTINE CLINICAL HISTORY: pleural effusions dyspnea COMPARISON STUDY: 01/04/2017 FINDINGS: Improved bilateral pleural effusions. Minimal residual. Small fixed lateral hernia. Improved aeration both lung bases. Diminished prominence of the pulmonary vasculature. Unchanging chronic granulomatous change of the hilar and mediastinal regions. IMPRESSION: Improving congestive heart failure. Improving bilateral pleural effusions with minimal residual Electronically signed by: Christopher Kurtz M.D. 01/06/2017 9:49 AM Dictated Date/Time: 01/06/2017 9:47 AM
--- NOTE | 2017-01-06 11:22 | PULMONARY PROGRESS NOTE ---
DATE: 01/06/2017 DATE: 01/06/2017. TIME: 10:50 a.m. SUBJECTIVE: The patient is not complaining of any significant shortness of breath. Her oxygen saturations have been very good even on room air. She is having frequent bowel movements. She is C. diff positive as of yesterday. She states she has had 5 bowel movements today. She is not coughing to any substantial degree. OBJECTIVE: GENERAL: The patient appears comfortable. VITAL SIGNS: Temperature is 36.8. Blood pressure is 186/78. Heart rate is 73 per minute. The rhythm is regular. CHEST: Respiratory rate was 18 breaths per minute. Good breath sounds were heard bilaterally. No wheezing was heard. Oxygen saturation on room air was 90%. ABDOMEN: Soft. Bowel sounds were present. She has less tenderness than prior. EXTREMITIES: Showed no cyanosis, clubbing or edema. She does have tremors. Electrolytes show sodium 137, potassium 4.3, chloride 100, bicarbonate 28. BUN was 19 with a creatinine of 0.78. Blood sugar was 115. The patient had a chest x-ray done today. This suggests improving effusions and improving congestive heart failure. I reviewed the x-ray myself and I agree with this. She has numerous calcified lymph nodes. The density in the left upper lobe medially can be seen. IMPRESSIONS: 1. Respiratory failure -- resolved. 2. Congestive heart failure. 3. Sarcoidosis. 4. Bilateral pleural effusions. 5. Scoliosis. 6. Left upper lobe mass -- questionably related to sarcoid versus neoplastic. COMMENTS AND RECOMMENDATIONS: The patient seems stable from a respiratory perspective. Her issue now is more the C. diff. I told the patient she should follow up with Dr. Brown after discharge with regard to both her breathing and the abnormal CAT scan findings. I will sign off for now, but will be happy to see her again if requested.
--- NOTE | 2017-01-06 12:01 | CARDIOLOGY PROGRESS NOTE ---
DATE: 01/06/2017 SUBJECTIVE: Mrs. Bennett is resting comfortably in the bedside chair without complaints of chest pain or dyspnea. OBJECTIVE: VITAL SIGNS: Blood pressure is 150/60 with a regular pulse of 72. Respiratory rate is 18. The patient is afebrile at 36.8 degrees Celsius. Saturation is 90% on 2 liters nasal cannula. NECK: Supple with full carotid upstrokes. There are no obvious bruits. Jugular venous pressure is flat at 90 degrees. There is no thyromegaly. CARDIOVASCULAR: Reveals a regular rhythm with normal S1 and S2. A 2/6 systolic murmur is noted along the left sternal border. LUNGS: Clear without rales, rhonchi, or wheezes. ABDOMEN: Soft and nontender without bruits. EXTREMITIES: Reveal intact radial artery pulses bilaterally. There is no peripheral edema. DATA: CBC notes hemoglobin of 10.6, hematocrit 30.5, white count 10.5, platelet count 245,000. Electrolytes note a sodium of 137, potassium 4.3, chloride 100, bicarb 28, BUN 19, creatinine 0.7, glucose 112. IMPRESSION AND PLAN: 1. Hypertrophic cardiomyopathy -- stable on diltiazem and atenolol. 2. Hypertension -- adequately controlled, occasionally notes some elevated pressures. We could increase the dose of diltiazem to 300 mg daily if necessary. 3. Acute on chronic diastolic congestive heart failure -- compensated. 4. Gastroesophageal reflux disease. 5. Rectal bleeding.
[2017-01-06 15:20] VITALS: BP 183/85; PULSE 69; TEMP 36.9; O2SAT 99
[2017-01-06] MEDS ORDERED: AMLODIPINE BESYLATE 5 MG TAB PO ONE (16:45)
[2017-01-06 21:19] VITALS: BP 167/74; PULSE 71
[2017-01-06 23:37] VITALS: BP 172/78; PULSE 73; TEMP 36.4; O2SAT 98
[2017-01-07] VITALS (8 sets, daily range): BP systolic 156–186; BP diastolic 67–82; PULSE 57–64; TEMP 36.7–37.1; O2SAT 93–100
[2017-01-07] MEDS: HEPARIN SOD 5000 UNIT/0.5 ML CARP SQ SCH ×3 (06:12→22:02)
[2017-01-07] MEDS: LEVOTHYROXINE 75 MCG TAB PO SCH (06:13)
[2017-01-07] MEDS: PANTOprazole SOD 40 MG TAB PO SCH (09:02)
[2017-01-07] MEDS: LOSARTAN POTASSIUM 50 MG TAB PO SCH (09:02)
[2017-01-07] MEDS: ASPIRIN 81 MG ECTAB PO SCH (09:02)
[2017-01-07] MEDS: DILTIAZEM HCL 240 MG CAPCR PO SCH (09:02)
[2017-01-07] MEDS: RASPBERRY SYRUP 5 ML UDP PO SCH ×4 (09:03→20:46)
[2017-01-07] MEDS: VANCOMYCIN HCL 125 MG/2.5ML SOLN PO SCH ×4 (09:03→20:46)
[2017-01-07] MEDS: POTASSIUM CHLORIDE 20 MEQ TABCR PO SCH (09:03)
[2017-01-07] MEDS: ACETAMINOPHEN 325 MG TAB PO PRN (11:13)
--- NOTE | 2017-01-07 17:46 | Hospitalist Progress Note ---
Hospitalist Progress Note Date of Service Jan 07, 2017. Subjective Pt evaluation today including: conversation w/ patient, physical exam, chart review, lab review, review of studies, review of inpatient medication list Patient noted swelling in her legs below the knee today. She had 2 bms today - loose, but is forming up. No chest pain or SOB. Additional Comments: A 10 system review was performed and all were negative. Positives were placed in the subjective section. Objective Vital Signs Date Time Temp Pulse Resp B/P Pulse Ox O2 Delivery O2 Flow Rate FiO2 01/07/17 16:00 Room Air 01/07/17 14:54 37.1 59 17 156/80 95 Room Air 01/07/17 14:50 63 95 01/07/17 10:36 36.7 64 17 157/82 100 Nasal Cannula 2.0 01/07/17 09:27 99 2.0 01/07/17 08:00 99 Nasal Cannula 2.0 01/07/17 07:58 36.7 62 20 186/74 99 Nasal Cannula 2.0 01/07/17 00:00 Room Air 01/06/17 23:37 36.4 73 18 172/78 98 Nasal Cannula 2.0 01/06/17 21:19 71 167/74 Physical Exam Notes: GEN: Awake, alert, and oriented x 3. Not in acute distress HEENT: Tm's intact, no inflammation, EOMI, PERRLA, MMM Neck: Soft, supple Lungs: CTA b/l, no r/r/w Heart: REG, nrl S1S2 without murmurs, rubs or gallops Abdomen: Soft, NT, ND, + BS EXT: No C/C +1 pitting edema ankles to mid calf b/l. NEURO: CN's II-XII grossly intact, non-focal Skin: warm, dry, no rashes PSYCH: pleasant, cooperative. Laboratory Results Last 24 Hours Test 01/07/17 07:48 01/07/17 11:34 Bedside Glucose 89 mg/dl 90 mg/dl Assessment and Plan 1) Acute respiratory failure - resolved. 2) Pleural effusions b/l. - Stable. 3) C. diff colitis - symptoms improving. Day 2 of 10 oral Vancomycin. 4) History of Sarcoidosis 5) Blood per rectum - This was her admitting issue, which had resolved. 6) HTN - continue antihypertensives. 7) Hypertrophic cardiomyopathy. 8) Lower extremity edema - no calf tenderness. Will order compressive stockings. DVT prophylaxis - sub-q heparin. I spoke with physician for peer to peer review for SNF. I was unsuccessful to get approval. The patient is doing too well.
[2017-01-08] MEDS: LEVOTHYROXINE 75 MCG TAB PO SCH (06:05)
[2017-01-08] MEDS: HEPARIN SOD 5000 UNIT/0.5 ML CARP SQ SCH ×2 (06:07→12:47)
[2017-01-08 07:30] VITALS: BP_SYST 186; BP_SYST 192; BP_DIAS 76; BP_DIAS 82; PULSE 60; TEMP 36.7; O2SAT 92
[2017-01-08 08:00] VITALS: O2SAT 92
[2017-01-08] MEDS: DILTIAZEM HCL 240 MG CAPCR PO SCH (08:02)
[2017-01-08] MEDS: ASPIRIN 81 MG ECTAB PO SCH (08:03)
[2017-01-08] MEDS: RASPBERRY SYRUP 5 ML UDP PO SCH ×2 (08:03→12:56)
[2017-01-08] MEDS: VANCOMYCIN HCL 125 MG/2.5ML SOLN PO SCH ×2 (08:03→12:56)
[2017-01-08] MEDS: LOSARTAN POTASSIUM 50 MG TAB PO SCH (08:03)
[2017-01-08] MEDS: PANTOprazole SOD 40 MG TAB PO SCH (08:03)
[2017-01-08] MEDS: POTASSIUM CHLORIDE 20 MEQ TABCR PO SCH (08:03)
[2017-01-08 08:18] LABS: BASO % 0.1 %; BASO ABS # 0.01 K/uL (0-0.2); COMPLETE YES; EOS % 1.2 %; HEMATOCRIT 35.7 % (37-47); IG% 0.9 %; LYMPH % 9.7 %; LYMPH ABS # 1.08 K/uL (1.2-3.4); MEAN CELL VOLUME 89.3 fL (80-100); MEAN CORPUSCULAR HEMOGLOBIN 29.8 pg (25-34); MEAN CORPUSCULAR HGB CONC 33.3 g/dl (32-36); MEAN PLATELET VOLUME 9.1 fL (7.4-10.4); MONO % 8.3 %; NEUT % 79.8 %; PLATELET COUNT 308 K/uL (130-400); WHITE BLOOD COUNT 11.16 K/uL (4.8-10.8)
[2017-01-08 08:45] LABS: BUN/CREATININE RATIO 21.3 (10-20); CALCIUM 8.2 mg/dl (8.5-10.1); CREATININE 0.6 mg/dl (0.60-1.20); POTASSIUM 3.2 mmol/L (3.5-5.1)
[2017-01-08 09:00] VITALS: BP 186/82; PULSE 60; TEMP 36.7; O2SAT 92
[2017-01-08] MEDS ORDERED: NURSING VERBAL MED ORDER ONE ×3 (09:15→11:50)
[2017-01-08] MEDS ORDERED: POTASSIUM CHLORIDE 20 MEQ TABCR PO ONE (09:30)
[2017-01-08 10:00] VITALS: BP 189/79
[2017-01-08] MEDS ORDERED: CRDCD240 PO (10:07)
[2017-01-08] MEDS ORDERED: ASPEC81 PO (10:07)
[2017-01-08] MEDS ORDERED: VANC5CAP PO (10:16)
--- NOTE | 2017-01-08 10:23 | Discharge Instructions ---
Discharge Instructions Date of Service Jan 08, 2017. Admission Reason for Admission: Rectal Bleeding Discharge Discharge Diagnosis / Problem: rectal bleed, and cdiff coliltis Discharge Goals Goal(s): Improve function, Improve disease control Activity Recommendations Activity Level: Ambulates in room Therapies: Physical Therapy Lifting Limitations: none Exercise/Sports Limitations: as tolerated Shower/Bathe: no limitations . Additional Information Patient informed of condition: Yes Advance Directives: Yes DNR: Yes Level of Care: Skilled Communicable Disease: No Prognosis: Improving Belcher Catheter: No Instructions / Follow-Up Instructions / Follow-Up follow up with physician at [facility] Diet Patient's current hospital diet: AHA Diet (Heart Healthy) Discharge Diet Recommended Diet: AHA Diet (Heart Healthy) Pending Studies Studies pending at discharge: no Physician Orders On Transfer [facility] Discussion: Not Applicable Medical Emergencies . Who to Call and When: Medical Emergencies: If at any time you feel your situation is an emergency, please call 911 immediately. . Non-Emergent Contact Non-Emergency issues call your: Primary Care Provider Call Non-Emergent contact if: you have a fever . . "Provider Documentation" section prepared by Morgan Rasmussen. Core Measure Problem Core Measures: None [place] Drug Monitoring Program Search Results: no issues identified
[2017-01-08] MEDS ORDERED: DILTIAZEM HCL 60 MG TAB PO ONE (10:30)
[2017-01-08 10:49] VITALS: O2SAT 92
[2017-01-08 11:40] VITALS: BP_SYST 170; BP_SYST 176; BP_DIAS 75; BP_DIAS 78; PULSE 62; TEMP 37; O2SAT 96
[2017-01-08] MEDS ORDERED: LORAZEPAM 0.5 MG TAB ONE (11:50)
--- NOTE | 2017-01-08 18:53 | DISCHARGE SUMMARY ---
This is a 71-year-old female with past medical history of GERD, hypertension, adrenal insufficiency, vitamin D deficiency, hypothyroidism, dyslipidemia, diverticulitis comes to the hospital because of rectal bleed and V -tach. The patient developed feeling cramping abdominal pain in the lower abdomen. Patient was feeling constipated for several hours before she arrived at the ED. The patient noticed a lot of blood in the stool. During hospitalization, the patient has a GI consult obtained. Per GI recommendation CT scan need to be done, which showed marked wall edema of ascending, transverse, and proximal descending colon, appearance consistent with nonspecific colitis or ischemic changes and chronic sigmoid diverticulosis. There was no air and pneumatosis or free air. stool for C-diff was ordered and came back positive.Because of pt can not tolerate the Flagyl vancomycin was initiated in oral doses.Pt diarrhea improved and no rectal bleed improved. The patient's hemoglobin trended down during the hospital stay and received packed red blood cells. The patient H/H was stable at the time of discharge 11.9 with hematocrit of 3.7. The patient also has a CT of the chest, which shows densely calcified mediastinal and hilar lymph nodes, no CT evidence of acute pulmonary embolism, bilateral ill-defined pulmonary nodular opacity, likely representing focal edema , although bilateral pneumonia could appear similar, indeterminate lobulated 3.5 cm left upper lobe pulmonary mass, and 6 mm left lower lobe pulmonary nodule. The pt also has respiratory failure multifactorial because of bilateral pleural effusions, left upper lobe mass as seen in CT chest questionably related to sarcoid versus neoplastic. per pulmonary should follow with Dr. Brown after discharge with regard to both her breathing and the abnormal CAT scan findings.Pt also has Pleural effusion which was followed by thoracic surgery, w/o any intervention.The patient has a hypertrophic cardiomyopathy, which is stable, continue on diltiazem and atenolol. Hypertension, well controlled; however, the patient was switched on Cardizem 300 mg daily along with Cozaar. The patient's blood pressure was slightly elevated at the time of discharge; however, that could be secondary to being anxious. The patient was discharged to [facility] facility. Rectal bleeding resolved completely at time of discharge , follow up with GI as out patient. pt was given Rx for vancomycin for 2 week for on going C-diff treatment. Thank you for allowing me to participate in patient care, We have seen pt for a weekend coverage. NINFA
[2017-03-03] MEDS ORDERED: CRDCD300 PO (10:33)
[2017-03-12] MEDS ORDERED: SDMC1 PO (12:40)
[2017-03-12] MEDS ORDERED: LSX20 PO (12:40)
== END 2017-01-08 13:35 | DRG 371 ==
LOC: ENRESERVTM → ENRESERVDT → EDBD 11:33 → C.EDC 11:34 → C.MSICU 13:57 → UNDOADMIN 13:57 → C.MSICU 16:09 → UNDOADMIN 16:09 → C.2E 01-02 14:27 → C.MSICU 01-02 14:27 → C.MS2W 01-05 16:46 → C.2E 01-05 16:46
PROVIDERS: ADMIT Hospitalist; ATTEND Hospitalist
DX: A04.7 Enterocolitis due to Clostridium difficile (principal); I47.2 Ventricular tachycardia; Z83.3 Family history of diabetes mellitus; J96.00 Acute respiratory failure, unspecified whether with hypoxia or hypercapnia; Z88.0 Allergy status to penicillin; J90 Pleural effusion, not elsewhere classified; E27.40 Unspecified adrenocortical insufficiency; I42.2 Other hypertrophic cardiomyopathy; E27.3 Drug-induced adrenocortical insufficiency; E78.5 Hyperlipidemia, unspecified; I10 Essential (primary) hypertension; E03.9 Hypothyroidism, unspecified; E87.6 Hypokalemia; Z66 Do not resuscitate; E55.9 Vitamin D deficiency, unspecified; K21.9 Gastro-esophageal reflux disease without esophagitis; G20 Parkinson's disease; D86.9 Sarcoidosis, unspecified; T38.0X5A Adverse effect of glucocorticoids and synthetic analogues, initial encounter; Y92.009 Unspecified place in unspecified non-institutional (private) residence as the place of occurrence of the external cause; E11.9 Type 2 diabetes mellitus without complications; M81.0 Age-related osteoporosis without current pathological fracture; I50.9 Heart failure, unspecified; M41.9 Scoliosis, unspecified; J39.8 Other specified diseases of upper respiratory tract; R91.8 Other nonspecific abnormal finding of lung field

== ENCOUNTER → 2017-01-28 | Outpatient (CLI) | payer BC ==
[~2017-01-28] MED LIST changes: +ASPEC81 PO; +ASPI81TA28 PO; +CRDCD240 PO; +DILT300C64 PO; +LSX20 PO; -MOME50SP5; +SDMC1 PO; +SPIR25TA PO; +TRAM-10 PO; +VANC5CAP PO
[2017-01-28 13:23] LABS: BLOOD UREA NITROGEN 16 mg/dl (7-18); BUN/CREATININE RATIO 23.6 (10-20); CALCIUM 9.1 mg/dl (8.5-10.1); CARBON DIOXIDE 28 mmol/L (21-32); CHLORIDE 96 mmol/L (98-107); CREATININE 0.67 mg/dl (0.60-1.20); GLUCOSE 102 mg/dl (70-99); SODIUM 133 mmol/L (136-145)
== END | disposition home or self-care (01) ==
LOC: C.LAB1850 11:47
PROVIDERS: ATTEND Physician Assistant Medical
DX: E27.40 Unspecified adrenocortical insufficiency (principal)

== ENCOUNTER → 2017-02-28 | Outpatient (CLI) | payer BC ==
--- NOTE | 2017-03-01 13:08 | MAMMOGRAPHY REPORT ---
BILATERAL DIGITAL SCREENING MAMMOGRAM WITH CAD: 02/28/2017 CLINICAL HISTORY: Routine screening. TECHNIQUE: Bilateral CC, MLO, repeat right MLO and right XCCL views were obtained. Current study w as also evaluated with a Computer Aided Detection (CAD) system. COMPARISON: Comparison is made to exams dated: 03/01/2016 mammogram, 03/01/2016 ultrasound, 02/23/2016 m ammogram, 02/19/2015 mammogram, 02/18/2014 mammogram, and 02/16/2013 mammogram - [facility]. BREAST COMPOSITION: There are scattered areas of fibroglandular density in both breasts. FINDINGS: There is a 5 mm asymmetry in the lateral, middle to anterior right breast on the exaggera anay lateral cc view. Although this could represent normal overlapping fibrolinear glandular tissue, as it is not seen on the standard right cc view, additional spot compression tomosynthesis views an d possibly ultrasound are recommended. There are benign rim calcifications in the breasts. No other suspicious mass, architectural distorti on or cluster of microcalcifications is seen. IMPRESSION: ACR BI-RADS CATEGORY 0: INCOMPLETE EVALUATION: NEED ADDITIONAL IMAGING EVALUATION The 5 mm asymmetry in the lateral right breast needs additional evaluation. The patient will be called to schedule an appointment. Approximately 10% of breast cancers are not detected with mammography. A negative mammographic repor t should not delay biopsy if a clinically suggestive mass is present. Genie Parkinson M.D. ay/:02/28/2017 16:14:30 Folder Stitcher Operator: Jalil TALLEY(Sue)(Alison), [facility] letter sent: Addl Imaging 0 BI-RADS Code: ACR BI-RADS Category 0: Incomplete Evaluation: Need Additional Imaging Evaluation
== END | disposition home or self-care (01) ==
LOC: C.MAMM 11:05
PROVIDERS: ATTEND Internal Medicine Pulmonary Disease
DX: Z12.31 Encounter for screening mammogram for malignant neoplasm of breast (principal); N64.89 Other specified disorders of breast

== ENCOUNTER 2017-03-03 09:14 | Inpatient (IN) | payer BC, OTHER ==
[2017-03-03] VITALS (7 sets, daily range): BP systolic 154–186; BP diastolic 70–83; PULSE 55–71; TEMP 36.4–36.6; O2SAT 95–97; Ht 147.3 cm; Wt 47.5 kg
[~2017-03-03] VITALS: Ht 147.3 cm; Wt 47.5 kg
[~2017-03-03 09:14] MED LIST changes: -ASPI81TA28 PO; -DILT300C64 PO; -LSX20 PO; -SDMC1 PO; -SPIR25TA PO; -TRAM-10 PO
[2017-03-03] MEDS ORDERED: TRAMADOL HCL 50 MG TAB PO STA (09:27)
[2017-03-03 10:07] LABS: BASO % 0.3 %; BASO ABS # 0.02 K/uL (0-0.2); COMPLETE YES; EOS % 0.4 %; HEMATOCRIT 32.1 % (37-47); IG% 0.3 %; LYMPH % 13.3 %; LYMPH ABS # 1.05 K/uL (1.2-3.4); MEAN CELL VOLUME 90.7 fL (80-100); MEAN CORPUSCULAR HEMOGLOBIN 31.4 pg (25-34); MEAN CORPUSCULAR HGB CONC 34.6 g/dl (32-36); MEAN PLATELET VOLUME 8.3 fL (7.4-10.4); MONO % 13.5 %; NEUT % 72.2 %; PLATELET COUNT 244 K/uL (130-400); RED BLOOD COUNT 3.54 M/uL (4.2-5.4); WHITE BLOOD COUNT 7.92 K/uL (4.8-10.8)
[2017-03-03 10:24] LABS: BUN/CREATININE RATIO 19.1 (10-20); CREATININE 0.7 mg/dl (0.60-1.20); POTASSIUM 4.1 mmol/L (3.5-5.1)
[2017-03-03 10:27] LABS: ALB/GLOB RATIO 1.2 (0.9-2)
[2017-03-03] MEDS ORDERED: ASPI81TA28 PO (10:33)
[2017-03-03] MEDS ORDERED: DILT300C64 PO (10:33)
[2017-03-03 10:38] LABS: URINE APPEARANCE CLEAR (CLEAR); URINE BILIRUBIN NEG (NEG); URINE COLOR YELLOW; URINE NITRITE NEG (NEG); URINE SPECIFIC GRAVITY 1.009 (1.000-1.030); UROBILINOGEN NEG (NEG)
[2017-03-03] MEDS ORDERED: SPIR25TA PO (10:38)
[2017-03-03 10:40] LABS: MANUAL MICROSCOPIC REQUIRED? NO; REVIEW REQ? NO
--- NOTE | 2017-03-03 11:12 | DIAGNOSTIC IMAGING REPORT ---
CT SCAN OF THE LUMBAR SPINE WITHOUT IV CONTRAST CLINICAL HISTORY: Acute on chronic low back pain. COMPARISON STUDY: CT scans of lumbar spine dated 06/13/2016 and 07/01/2015. TECHNIQUE: CT scan of lumbar spine is performed from the lower thoracic spine to the sacrum. Images are reviewed in the axial, sagittal, and coronal planes. IV contrast was not administered for this examination. CT DOSE: 305.57 mGycm FINDINGS: The skeletal structures are osteopenic. There is a mild acute superior endplate compression fracture of L2. This is new from the 06/13/2016 examination. No retropulsed fragments are identified. There is also an acute right transverse process fracture of L1 seen on image #44. No additional acute fracture is suggested. Vertebral body height is otherwise maintained throughout the lumbar spine. There is 7 mm anterolisthesis at L5-S1. Alignment is otherwise preserved throughout the lumbar spine. There is moderate to severe lumbar levoscoliosis centered at L3-L4. There are anterior and lateral marginal osteophytes. No spondylolysis is seen. There is a healed fractures of the left L1-L3 transverse processes, as well as the left posterior 12th rib. The spinous processes are intact. There is moderate to advanced degenerative disc space narrowing seen at L3-L4, L4-L5, and L5-S1. Mild degenerative narrowing seen at the remaining lumbar levels. Large posterior disc osteophyte complexes at L2-L3, L3-L4, and L4-L5 likely contribute to acquired compromise of the central canal. Significant facet arthropathy is seen lower lumbar region. The visualized sacrum and bony pelvis appear intact. Degenerative changes are seen involving the sacroiliac joints. No lytic or blastic bony lesions are suspected. There is fatty atrophy of the paraspinous musculature, asymmetrically greater on the right. Advanced sigmoid diverticulosis is partially visualized. Mild atherosclerotic calcification is noted in the abdominal aorta. Calcified lymph nodes are present in the right retroperitoneal region, similar in appearance to previous. IMPRESSION: 1. There is a mild acute superior endplate compression fracture of L2. No retropulsed fragments are identified. 2. There is an acute fracture of the right transverse process of L1. 3. Osteopenia with advanced lumbosacral spondylosis and scoliosis as detailed above. These findings are similar to prior examinations. Electronically signed by: Hemal Meza M.D. 03/03/2017 11:10 AM Dictated Date/Time: 03/03/2017 11:03 AM
[2017-03-03] MEDS ORDERED: CALCITONIN SALMON NA 200 IU/AC 3.7 ML BTL ONE (13:20)
[2017-03-03] MEDS ORDERED: LIDODERM (LIDOCAINE) PATCH 5% TD ONE (13:20)
[2017-03-03] MEDS ORDERED: CALCITONIN SALMON NA 200 IU/AC 3.7 ML BTL SCH (13:30)
[2017-03-03] MEDS ORDERED: POLYETHYLENE (MIRALAX) 17 GM PACK PO PRN (13:30)
[2017-03-03] MEDS ORDERED: MAGNESIUM HYDROXIDE SUSP 30 ML UDC PO PRN (13:30)
[2017-03-03] MEDS ORDERED: ALUMINUM/MAGNESIUM/SIMETH (MAALOX MAX) 30 ML UDC PO PRN (13:30)
[2017-03-03] MEDS ORDERED: IV FLUIDS COMPLETED PRN (14:15)
[2017-03-03] MEDS ORDERED: MoRPHine SULFATE 4 MG/ML 1 ML CARP\\VIAL IV PRN (14:45)
--- NOTE | 2017-03-03 14:45 | History and Physical ---
History & Physical Date & Time of Service: March 03, 2017 at 14:44 Chief Complaint: Back Pain Primary Care Physician: Arthur Brown M.D. Past Medical/Surgical History Medical Problems: (1) Diverticulitis Status: Resolved (2) ESOPHAGEAL REFLUX Status: Resolved (3) HYPERTENSION NOS Status: Resolved (4) Sarcoidosis Status: Chronic (5) Thyroidectomy Status: Chronic (6) V tach and rectal bleeding Status: Resolved Surgical Problems: (1) Hx of tonsillectomy Status: Resolved Family History Diabetes mellitus Hypertension Social History Smoking Status: Never Smoker Drug Use: none Marital Status: single Occupational Status: unemployed, retired Immunizations History of Influenza Vaccine: Yes Influenza Vaccine Date: Jan 15, 2013 History of Tetanus Vaccine?: Unknown History of Pneumococcal: Yes Pneumococcal Date: Jan 15, 2013 History of Hepatitis B Vaccine: Unknown Multi-Drug Resistant Organisms History of MDRO: No Allergies Coded Allergies: Amoxicillin (Verified Allergy, Mild, ITCHY, 03/03/17) Ondansetron (Verified Allergy, Mild, ITCHY, 03/03/17) Oxycodone (Verified Allergy, Mild, ITCH, 03/03/17) Hydralazine (Verified Adverse Reaction, Severe, Severe angina, 03/03/17) Patient has a severe hypertrophic cardiomyopathy. Hydralazine is contraindicated. Hydrocodone (Unverified Adverse Reaction, Intermediate, NAUSEA, 03/03/17) Ibuprofen (Unverified Adverse Reaction, Intermediate, NAUSEA, 03/03/17) Quinolones (Verified Adverse Reaction, Intermediate, HEADACHE, 03/03/17) Cephalosporins (Verified Adverse Reaction, Unknown, CEFTIN: ABDOMINAL PAIN /NAUSEA, 03/03/17) Escitalopram (Verified Adverse Reaction, Unknown, ABD PAIN;NAUSEA, 03/03/17) Penicillins (Verified Adverse Reaction, Unknown, ABD PAIN;NAUSEA, 03/03/17) Home Medications Scheduled Aspirin (Aspirin Ec), 81 MG PO DAILY Atenolol (Tenormin), 50 MG PO AMPM Calcium & Phosphorus W/ Vitami (Calcium Gummies), 2 TAB PO DAILY Cholecalciferol (Vitamin D3), 1 TAB PO QAM Cranberry (Vaccinium Macrocarp (Cranberry), 500 MG PO QAM Diltiazem HCl (Diltiazem Cd), 300 MG PO QAM Hydrocortisone (Cortef), 20 MG PO QAM Hydrocortisone (Cortef), 10 MG PO QPM Krill Oil (Megared [place]-3 Krill Oil 500 mg), 1 CAP PO QAM Levothyroxine Sodium (Synthroid), 75 MCG PO QAM Losartan Potassium (Cozaar), 100 MG PO QAM Multivitamin (Multivitamin), 1 TAB PO DAILY Pantoprazole (Protonix), 40 MG PO QAM Potassium Ext Rel (Klor-Con), 20 MEQ PO AMPM Spironolactone (Aldactone), 12.5 MG PO QAM Scheduled PRN Lorazepam (Ativan), 0.5 TAB PO DAILY PRN for Anxiety Physical Exam Vital Signs Date Time Temp Pulse Resp B/P Pulse Ox O2 Delivery O2 Flow Rate FiO2 03/03/17 13:30 Room Air 03/03/17 12:43 67 18 172/71 98 Room Air 03/03/17 11:08 66 18 161/78 96 Room Air 03/03/17 10:30 62 03/03/17 09:23 36.6 61 12 183/97 98 Room Air Diagnostics Laboratory Results Results Past 24 Hours Test 03/03/17 09:48 03/03/17 10:21 03/03/17 14:26 03/03/17 14:29 Range/Units White Blood Count 7.92 4.8-10.8 K/uL Red Blood Count 3.54 4.2-5.4 M/uL Hemoglobin 11.1 12.0-16.0 g/dL Hematocrit 32.1 37-47 % Mean Corpuscular Volume 90.7 80-100 fL Mean Corpuscular Hemoglobin 31.4 25-34 pg Mean Corpuscular Hemoglobin Concent 34.6 32-36 g/dl Platelet Count 244 130-400 K/uL Mean Platelet Volume 8.3 7.4-10.4 fL Neutrophils (%) (Auto) 72.2 % Lymphocytes (%) (Auto) 13.3 % Monocytes (%) (Auto) 13.5 % Eosinophils (%) (Auto) 0.4 % Basophils (%) (Auto) 0.3 % Neutrophils # (Auto) 5.73 1.4-6.5 K/uL Lymphocytes # (Auto) 1.05 1.2-3.4 K/uL Monocytes # (Auto) 1.07 0.11-0.59 K/uL Eosinophils # (Auto) 0.03 0-0.5 K/uL Basophils # (Auto) 0.02 0-0.2 K/uL RDW Standard Deviation 48.4 36.4-46.3 fL RDW Coefficient of Variation 14.5 11.5-14.5 % Immature Granulocyte % (Auto) 0.3 % Immature Granulocyte # (Auto) 0.02 0.00-0.02 K/uL Sodium Level 124 136-145 mmol/L Potassium Level 4.1 3.5-5.1 mmol/L Chloride Level 90 98-107 mmol/L Carbon Dioxide Level 26 21-32 mmol/L Anion Gap 8.0 3-11 mmol/L Blood Urea Nitrogen 13 7-18 mg/dl Creatinine 0.70 0.60-1.20 mg/dl Est Creatinine Clear Calc Drug Dose 46.9 ml/min Estimated GFR () 100.3 Estimated GFR (Non- 86.6 BUN/Creatinine Ratio 19.1 10-20 Random Glucose 85 70-99 mg/dl Calcium Level 9.0 8.5-10.1 mg/dl Total Bilirubin 0.7 0.2-1 mg/dl Aspartate Amino Transf (AST/SGOT) 17 15-37 U/L Alanine Aminotransferase (ALT/SGPT) 16 12-78 U/L Alkaline Phosphatase 64 45-117 U/L Total Protein 7.1 6.4-8.2 gm/dl Albumin 3.9 3.4-5.0 gm/dl Globulin 3.2 2.5-4.0 gm/dl Albumin/Globulin Ratio 1.2 0.9-2 Urine Color YELLOW Urine Appearance CLEAR CLEAR Urine pH 7.0 4.5-7.5 Urine Specific [place] 1.009 1.000-1.030 Urine Protein NEG NEG Urine Glucose (UA) NEG NEG Urine Ketones NEG NEG Urine Occult Blood TRACE NEG Urine Nitrite NEG NEG Urine Bilirubin NEG NEG Urine Urobilinogen NEG NEG Urine Leukocyte Esterase NEG NEG Urine WBC (Auto) 0 0-5 /hpf Urine RBC (Auto) 0-4 0-4 /hpf Urine Hyaline Casts (Auto) 0 0-5 /lpf Urine Epithelial Cells (Auto) 5-10 0-5 /lpf Urine Bacteria (Auto) NEG NEG Impression Assessment and Plan obs #[id number] in addition to dictation somatic dysfunction [facility] region - OMT as above directed at alleviating the muscle spasticity surrounding her fractures Advanced Directives Existing Living Will: Yes Existing Power of Rope Tier: Yes VTE Prophylaxis VTE Risk Assessment Done? Y/N: Yes Risk Level: Moderate Given or contraindicated: Unfractionated heparin SQ
--- NOTE | 2017-03-03 15:11 | HISTORY & PHYSICAL EXAMINATION ---
DATE OF ADMISSION: 03/03/2017 ADMISSION HISTORY AND PHYSICAL CHIEF COMPLAINT: Back pain. HISTORY OF PRESENT ILLNESS: The patient is a very pleasant 71-year-old female who notes about 5 days of worsening back pain, it is kind of in the upper part of her lower back. She does not really remember anything that caused that, but she is hurting so much she cannot really get up and around much, she has not really been able to get up to have much to eat and really just has been fairly immobile. She has no bowel or bladder issues, no saddle anesthesia. The pain does not radiate, but it is very severe. Because of this, she came to the ER for further evaluation. Incidentally, she was noted to be fairly hyponatremic. She does note that she has not been eating very well, but has still been trying to take her medications. REVIEW OF SYSTEMS: Otherwise negative, except for as above. PAST MEDICAL HISTORY: Includes osteoporosis, for which she is on calcium and D and had been on a longstanding course of a bisphosphonate until being taken off it for a very appropriate bisphosphonate holiday; chronic adrenal insufficiency, on hydrocortisone; depression, diabetes, GERD, hypertension, hypertrophic cardiomyopathy, hypothyroidism, sarcoidosis and scoliosis. MEDICATIONS: Aspirin 81 mg daily, atenolol 50 mg 1 tab b.i.d., calcium plus D 2 tabs daily, cranberry 500 mg daily, diltiazem CD 300 mg daily, hydrocortisone 20 mg in the morning and 10 in the afternoon, potassium chloride 20 mEq b.i.d., Synthroid 75 mcg daily, losartan 100 mg daily, Krill oil tabs daily, Protonix 40 mg daily, promethazine 12.5 q. 4-6 hours p.r.n. nausea, Zoloft 50 mg daily, spironolactone 12.5 mg daily. PAST SURGICAL HISTORY: Includes cataracts, colonoscopy, cystoscopy, thyroid surgery, tonsillectomy, adenoidectomy, tubal. FAMILY HISTORY: Includes CHF and diabetes. SOCIAL HISTORY: She is a never smoker. She is retired and lives alone seems to normally gets around pretty well, but recently has not been able to obviously since the pain. PHYSICAL EXAMINATION: VITAL SIGNS: Temp 36.6, pulse 61, respiratory rate 12, blood pressure 183/97, 98% on room air. GENERAL: She is awake, alert, oriented x3, pleasant, but appears fatigued and in mild distress with movement, appears to be in pain. HEENT: Normocephalic, atraumatic. Mucous membranes are moist. CARDIOVASCULAR: Regular without rubs, murmurs, or gallops. LUNGS: Clear to auscultation bilaterally. No rales, rhonchi, or wheezes. Good effort. ABDOMEN: Soft, nondistended, nontender, no masses or organomegaly. EXTREMITIES: Without cyanosis, clubbing or edema. No calf tenderness. SKIN: Shows no rashes, no pallor or icterus. NEUROLOGIC: Shows cranial nerves II-XII to be grossly intact. Gross motor and sensory are intact. She has a left hand pill-rolling type tremor. MUSCULOSKELETAL: Shows tenderness on the vertebral bodies and also on the paraspinals in her upper lumbar region. The right-sided paraspinals are more hypertonic, tender and decreased range of motion compared to the left. Gentle direct myofascial was done bilaterally with some improvement in the tissue texture and the patient tolerated well. MENTAL STATUS: Shows good recent and remote recall. Normal mood and affect. Good judgment and insight. LABORATORIES AND DIAGNOSTICS: CBC shows a white count of 7.92, hemoglobin 11.1, platelets 244. Complete metabolic panel with sodium 124, potassium 4.1, chloride 90, CO2 26, BUN 13, creatinine 0.7. Calcium 9, glucose 85, total bilirubin 0.7, AST 17, ALT 16, alkaline phosphatase 64, total protein 7.1, albumin 3.9. Urinalysis - yellow, clear, specific gravity 1.09, trace blood with 5-10 epithelial cells, 0-[address] shows mild acute superior endplate compression fracture of L2, acute fracture of the right transverse process of L1, osteopenia with advanced lumbosacral spondylosis and scoliosis, similar to prior but the fractures obviously are new. ASSESSMENT AND PLAN: 1. Intractable back pain. This appears to be due to her osteoporotic fractures. Will start a lidocaine patch, Miacalcin nasal spray as well as Tylenol, tramadol and morphine for mild, moderate and severe pain respectively, have physical therapy, occupational therapy evaluate and treat and she may need rehabilitation stay. 2. Osteoporosis with compression fractures. It appears that she has been adequately treated in the past, she is on calcium vitamin and D. Her last vitamin D level a year ago was in the mid 50s, will repeat a level now to ensure she is maintaining adequate levels. She had been on a bisphosphonate, it is not entirely clear when it was discontinued, but talking with her, she was on it for years and years and so it sounds like she has been treated appropriately according to guidelines. Given this, certainly we want to get her in with endocrinology, after discharge for next level osteoporosis treatments. 3. Hyponatremia. She shows essentially on the dry side of euvolemia, certainly not dry enough to look like she warrants IV fluids currently, but given that she looks a little dry to euvolemic given that she has not been eating or drinking well and while spironolactone is not notoriously for sodium wasting, she is on a diuretic with potassium supplements. It seems most probable the hyponatremia is really just an acute issue from poor p.o. intake combined with her home medications. Certainly on review of old labs, it appears to be relatively acute too. If it does not correct just with p.o. intake, then certainly a workup towards syndrome of inappropriate antidiuretic hormone secretion would be warranted. 4. Hypertension. Continue her home medications, but more marked elevation is probably from pain, treat pain. If her blood pressure does not improve, then will need to make adjustments. 5. Hypothyroidism. Her most recent TSH about 2 months ago was 1.5. 6. Adrenal insufficiency. Continue her hydrocortisone. 7. Deep venous thrombosis prophylaxis, heparin subQ. MTDD
--- NOTE | 2017-03-03 15:52 | EMERGENCY ROOM VISIT NOTE ---
History Report prepared by Juni: Krupa Norton Under the Supervision of: Dr. Arthur Shay M.D. First contact with patient: 09:20 Chief Complaint: BACK PAIN Stated Complaint: BACK PAIN History of Present Illness The patient is a 71 year old female who presents to the Emergency Room with complaints of constant lower back pain that worsened a few days ago. The patient came to the ED via ambulance from home. The patient has a history of chronic back pain due to scoliosis and arthritis. She rates her discomfort as a 10/10 in severity when it is there. The patient did not experience any relief of her pain when she took 1000 mg of Tylenol over the last few days. She has not taken any Tylenol today. The patient states that it is hard to find a comfortable sleeping position at night secondary to the pain. She also states that the pain is worse with movement, especially when getting up from bed. The patient adds that she has been experiencing a decreased appetite recently. Pt denies LOC, headache, fevers, chills, diaphoresis, visual changes, neck pain, chest pain, breathing difficulties, nausea, vomiting, abdominal pain, melena, hematochezia, urinary symptoms including urinary incontinence, trouble moving her bowels or bowel incontinence, numbness, weakness, lymphadenopathy, rash, or other complaints. The patient also denies any recent injuries to her back. The patient states that she last saw her PCP in January and was not experiencing any significant problems with her back at that time so she did not discuss her symptoms with them. The patient states that she has followed with orthopedics for her back problems, but they told her that she is not a candidate for surgery. The patient adds that Dr. Anna - Orthopedic Surgery gave her a shot of something in her back last May or July, which relieved her pain. She states that her pain today feels similar in severity to when she got that shot. The patient states that she was diagnosed with C. Diff when she was in the hospital 2 months ago. The patient adds that she was supposed to have a CT scan done of her heart today. She also adds that she has not eaten breakfast yet this morning, so she is hesitant about taking any pain medicine until after she eats. Source of History: patient Onset: a few days ago Position: back (lower) Symptom Intensity: 10/10 Quality: other (back pain) Timing: worsening Modifying Factors (Worsening): movement Modifying Factors (Relieving): other (None) Note: decreased appetite Review of Systems See HPI for pertinent positives and negatives. A total of ten systems were reviewed and were otherwise negative. Past Medical & Surgical Medical Problems: (1) Diverticulitis (2) ESOPHAGEAL REFLUX (3) GI bleed (4) HYPERTENSION NOS (5) Osteoporotic compression fracture of spine (6) Sarcoidosis (7) Thyroidectomy (8) Tonsillectomy (9) V tach and rectal bleeding Surgical Problems: (1) Hx of tonsillectomy Family History Diabetes mellitus Hypertension Social History Smoking Status: Never Smoker Alcohol Use: none Drug Use: none Marital Status: single Housing Status: lives with family Occupation Status: unemployed, retired Current/Historical Medications Scheduled Aspirin (Aspirin Ec), 81 MG PO DAILY Atenolol (Tenormin), 50 MG PO AMPM Calcium & Phosphorus W/ Vitami (Calcium Gummies), 2 TAB PO DAILY Cholecalciferol (Vitamin D3), 1 TAB PO QAM Cranberry (Vaccinium Macrocarp (Cranberry), 500 MG PO QAM Diltiazem HCl (Diltiazem Cd), 300 MG PO QAM Hydrocortisone (Cortef), 20 MG PO QAM Hydrocortisone (Cortef), 10 MG PO QPM Krill Oil ([place]-3 Krill Oil 500 mg), 1 CAP PO QAM Levothyroxine Sodium (Synthroid), 75 MCG PO QAM Losartan Potassium (Cozaar), 100 MG PO QAM Multivitamin (Multivitamin), 1 TAB PO DAILY Pantoprazole (Protonix), 40 MG PO QAM Potassium Ext Rel (Klor-Con), 20 MEQ PO AMPM Spironolactone (Aldactone), 12.5 MG PO QAM Scheduled PRN Lorazepam (Ativan), 0.5 TAB PO DAILY PRN for Anxiety Allergies Coded Allergies: Amoxicillin (Verified Allergy, Mild, ITCHY, 03/03/17) Ondansetron (Verified Allergy, Mild, ITCHY, 03/03/17) Oxycodone (Verified Allergy, Mild, ITCH, 03/03/17) Hydralazine (Verified Adverse Reaction, Severe, Severe angina, 03/03/17) Patient has a severe hypertrophic cardiomyopathy. Hydralazine is contraindicated. Hydrocodone (Unverified Adverse Reaction, Intermediate, NAUSEA, 03/03/17) Ibuprofen (Unverified Adverse Reaction, Intermediate, NAUSEA, 03/03/17) Quinolones (Verified Adverse Reaction, Intermediate, HEADACHE, 03/03/17) Cephalosporins (Verified Adverse Reaction, Unknown, CEFTIN: ABDOMINAL PAIN /NAUSEA, 03/03/17) Escitalopram (Verified Adverse Reaction, Unknown, ABD PAIN;NAUSEA, 03/03/17) Penicillins (Verified Adverse Reaction, Unknown, ABD PAIN;NAUSEA, 03/03/17) Physical Exam Vital Signs Date Time Temp Pulse Resp B/P Pulse Ox O2 Delivery O2 Flow Rate FiO2 03/03/17 13:30 Room Air 03/03/17 12:43 67 18 172/71 98 Room Air 03/03/17 11:08 66 18 161/78 96 Room Air 03/03/17 10:30 62 03/03/17 09:23 36.6 61 12 183/97 98 Room Air Physical Exam GENERAL: Awake, alert, uncomfortable-appearing, in no distress, baseline resting tremor. HENT: Normocephalic, atraumatic. Oropharynx unremarkable. EYES: Normal conjunctiva. Sclera non-icteric. NECK: Supple. No nuchal rigidity. FROM. No JVD. RESPIRATORY: Clear to auscultation. CARDIAC: Regular rate, normal rhythm. Extremities warm and well perfused. Pulses equal. ABDOMEN: Soft, non-distended. No tenderness to palpation. No rebound or guarding. No masses. RECTAL: Deferred. MUSCULOSKELETAL: Chest examination reveals no tenderness. The back is scoliotic on inspection. Mild midline lumbar tenderness. There is no CVA tenderness to palpation. No joint edema. LOWER EXTREMITIES: Calves are equal size bilaterally and non-tender. No edema. No discoloration. NEURO: Normal sensorium. No sensory or motor deficits noted. SKIN: No rash or jaundice noted. Medical Decision & Procedures ER Provider Diagnostic Interpretation: Radiology results as stated below per my review and radiologist interpretation CT SCAN OF THE LUMBAR SPINE WITHOUT IV CONTRAST FINDINGS: The skeletal structures are osteopenic. There is a mild acute superior endplate compression fracture of L2. This is new from the 06/13/2016 examination. No retropulsed fragments are identified. There is also an acute right transverse process fracture of L1 seen on image #44. No additional acute fracture is suggested. Vertebral body height is otherwise maintained throughout the lumbar spine. There is 7 mm anterolisthesis at L5-S1. Alignment is otherwise preserved throughout the lumbar spine. There is moderate to severe lumbar levoscoliosis centered at L3-L4. There are anterior and lateral marginal osteophytes. No spondylolysis is seen. There is a healed fractures of the left L1-L3 transverse processes, as well as the left posterior 12th rib. The spinous processes are intact. There is moderate to advanced degenerative disc space narrowing seen at L3-L4, L4-L5, and L5-S1. Mild degenerative narrowing seen at the remaining lumbar levels. Large posterior disc osteophyte complexes at L2-L3, L3-L4, and L4-L5 likely contribute to acquired compromise of the central canal. Significant facet arthropathy is seen lower lumbar region. The visualized sacrum and bony pelvis appear intact. Degenerative changes are seen involving the sacroiliac joints. No lytic or blastic bony lesions are suspected. There is fatty atrophy of the paraspinous musculature, asymmetrically greater on the right. Advanced sigmoid diverticulosis is partially visualized. Mild atherosclerotic calcification is noted in the abdominal aorta. Calcified lymph nodes are present in the right retroperitoneal region, similar in appearance to previous. IMPRESSION: 1. There is a mild acute superior endplate compression fracture of L2. No retropulsed fragments are identified. 2. There is an acute fracture of the right transverse process of L1. 3. Osteopenia with advanced lumbosacral spondylosis and scoliosis as detailed above. These findings are similar to prior examinations. Electronically signed by: Hemal Meza M.D. 03/03/2017 11:10 AM Dictated Date/Time: 03/03/2017 11:03 AM Laboratory Results 03/03/17 09:48 Red Blood Count 3.54, Mean Corpuscular Volume 90.7, Mean Corpuscular Hemoglobin 31.4, Mean Corpuscular Hemoglobin Concent 34.6, Mean Platelet Volume 8.3, Neutrophils (%) (Auto) 72.2, Lymphocytes (%) (Auto) 13.3, Monocytes (%) (Auto) 13.5, Eosinophils (%) (Auto) 0.4, Basophils (%) (Auto) 0.3, Neutrophils # (Auto ) 5.73, Lymphocytes # (Auto) 1.05, Monocytes # (Auto) 1.07, Eosinophils # (Auto ) 0.03, Basophils # (Auto) 0.02 03/03/17 09:48 Test 03/03/17 09:48 03/03/17 10:21 White Blood Count 7.92 K/uL (4.8-10.8) Red Blood Count 3.54 M/uL (4.2-5.4) Hemoglobin 11.1 g/dL (12.0-16.0) Hematocrit 32.1 % (37-47) Mean Corpuscular Volume 90.7 fL (80-100) Mean Corpuscular Hemoglobin 31.4 pg (25-34) Mean Corpuscular Hemoglobin Concent 34.6 g/dl (32-36) Platelet Count 244 K/uL (130-400) Mean Platelet Volume 8.3 fL (7.4-10.4) Neutrophils (%) (Auto) 72.2 % Lymphocytes (%) (Auto) 13.3 % Monocytes (%) (Auto) 13.5 % Eosinophils (%) (Auto) 0.4 % Basophils (%) (Auto) 0.3 % Neutrophils # (Auto) 5.73 K/uL (1.4-6.5) Lymphocytes # (Auto) 1.05 K/uL (1.2-3.4) Monocytes # (Auto) 1.07 K/uL (0.11-0.59) Eosinophils # (Auto) 0.03 K/uL (0-0.5) Basophils # (Auto) 0.02 K/uL (0-0.2) RDW Standard Deviation 48.4 fL (36.4-46.3) RDW Coefficient of Variation 14.5 % (11.5-14.5) Immature Granulocyte % (Auto) 0.3 % Immature Granulocyte # (Auto) 0.02 K/uL (0.00-0.02) Anion Gap 8.0 mmol/L (3-11) Est Creatinine Clear Calc Drug Dose 46.9 ml/min Estimated GFR () 100.3 Estimated GFR (Non- 86.6 BUN/Creatinine Ratio 19.1 (10-20) Calcium Level 9.0 mg/dl (8.5-10.1) Total Bilirubin 0.7 mg/dl (0.2-1) Aspartate Amino Transf (AST/SGOT) 17 U/L (15-37) Alanine Aminotransferase (ALT/SGPT) 16 U/L (12-78) Alkaline Phosphatase 64 U/L (45-117) Total Protein 7.1 gm/dl (6.4-8.2) Albumin 3.9 gm/dl (3.4-5.0) Globulin 3.2 gm/dl (2.5-4.0) Albumin/Globulin Ratio 1.2 (0.9-2) Urine Color YELLOW Urine Appearance CLEAR (CLEAR) Urine pH 7.0 (4.5-7.5) Urine Specific [place] 1.009 (1.000-1.030) Urine Protein NEG (NEG) Urine Glucose (UA) NEG (NEG) Urine Ketones NEG (NEG) Urine Occult Blood TRACE (NEG) Urine Nitrite NEG (NEG) Urine Bilirubin NEG (NEG) Urine Urobilinogen NEG (NEG) Urine Leukocyte Esterase NEG (NEG) Urine WBC (Auto) 0 /hpf (0-5) Urine RBC (Auto) 0-4 /hpf (0-4) Urine Hyaline Casts (Auto) 0 /lpf (0-5) Urine Epithelial Cells (Auto) 5-10 /lpf (0-5) Urine Bacteria (Auto) NEG (NEG) Laboratory results reviewed by me Medications Administered Medications (Trade) Dose Ordered Sig/Dariusz Route Start Time Stop Time Status Last Admin Dose Admin Tramadol HCl (Ultram Tab) 50 mg NOW STAT PO 03/03/17 09:27 03/03/17 09:32 DC 03/03/17 11:07 50 MG Lidocaine (Lidoderm Patch 5%) 1 patch 1320 ONCE TD 03/03/17 13:20 03/03/17 14:08 DC 03/03/17 14:27 1 PATCH ECG Indication: back/shoulder pain Rate (beats per minute): 57 Rhythm: sinus bradycardia Findings: no acute ischemic change, no ectopy ED Course 0925: The patient was evaluated in room B7. A complete history and physical exam was performed. 0927: Ordered Ultram Tab 50 mg PO 1242: Discussed the patient's case with Edwina OLMEDO. The patient will be evaluated for further treatment and disposition. 1245: Upon reexamination, the patient was resting comfortably. I discussed the test results and treatment plan with her. The patient will be evaluated for further management. Medical Decision Triage Nursing notes reviewed. The patient's presentation and history were concerning for back pain. Etiologies such as lumbago, sciatica, cauda equina, epidural abscess, osteomyelitis, fracture, aortic disease, metastatic disease, infection, renal colic, gastrointestinal, as well as others were entertained. Patient was evaluated. She was uncomfortable. She was somewhat reluctant to take medication as she has had nausea with oxycodone and hydrocodone in the past. She did try tramadol. She did not have any neurologic findings in the lower extremities. The remainder of physical examination was unremarkable. She underwent imaging and blood work. The patient was found to be hyponatremic. Remainder of her blood work was unremarkable. The patient was found to have a transverse process fracture as well as a compression fracture of L1 and L2 respectively. The patient was reevaluated. Given her pain, fractures, hyponatremia and feeling generally weak further evaluation and management in the hospital was felt to be appropriate. Internal medicine was consulted. The patient was evaluated in the Emergency Room for further management. The chart was completed utilizing [employer] Speech voice recognition software. Grammatical errors, random word insertions, pronoun errors, and incomplete sentences are an occasional consequence of this system due to software limitations, ambient noise, and hardware issues. Any formal questions or concerns about the content, text, or information contained within the body of this dictation should be directly addressed to the physician for clarification. Consults Time Called: -- Consulting Physician: Edwina OLMEDO Returned Call: [phone] Discussed the patient's case with Edwina OLMEDO. The patient will be evaluated for further treatment and disposition. Impression Primary Impression: Lumbar compression fracture Additional Impressions: Lumbar transverse process fracture Hyponatremia Scribe Attestation The scribe's documentation has been prepared under my direction and personally reviewed by me in its entirety. I confirm that the note above accurately reflects all work, treatment, procedures, and medical decision making performed by me. Departure Information Dispostion Being Evaluated By Hospitalist Arthur Parr M.D. (PCP) Patient Instructions My [facility] Problem Qualifiers Primary Impression: Lumbar compression fracture Encounter type: initial encounter Fracture type: closed Qualified Codes: S32.000A - Wedge compression fracture of unspecified lumbar vertebra, initial encounter for closed fracture Additional Impressions: Lumbar transverse process fracture Encounter type: initial encounter Fracture type: closed Qualified Codes: S32.008A - Other fracture of unspecified lumbar vertebra, initial encounter for closed fracture
[2017-03-03 16:04] LABS: PARTIAL THROMBOPLASTIN RATIO 1.1; PROTHROMBIN TIME (PATIENT) 10.4 SECONDS (9.0-12.0)
[2017-03-03] MEDS ORDERED: DILTIAZEM HCL 300 MG CAPCR PO ONE (17:01)
[2017-03-03] MEDS ORDERED: LOSARTAN POTASSIUM 50 MG TAB PO ONE (17:01)
[2017-03-03] MEDS: TRAMADOL HCL 50 MG TAB PO PRN (17:36)
[2017-03-03] MEDS: HYDROCORTISONE 10 MG TAB PO SCH (20:53)
[2017-03-03] MEDS: POTASSIUM CHLORIDE 20 MEQ TABCR PO SCH (20:54)
[2017-03-03] MEDS: HEPARIN SOD 5000 UNIT/0.5 ML CARP SQ SCH (20:57)
[2017-03-04] MEDS: TRAMADOL HCL 50 MG TAB PO PRN ×3 (01:06→15:26)
[2017-03-04] MEDS: LEVOTHYROXINE 75 MCG TAB PO SCH (07:12)
[2017-03-04 07:20] LABS: BASO % 0.4 %; BASO ABS # 0.02 K/uL (0-0.2); COMPLETE YES; EOS % 0.7 %; HEMATOCRIT 33.5 % (37-47); IG% 0.4 %; LYMPH % 18.6 %; LYMPH ABS # 1.03 K/uL (1.2-3.4); MEAN CELL VOLUME 91.3 fL (80-100); MEAN CORPUSCULAR HEMOGLOBIN 31.1 pg (25-34); MEAN PLATELET VOLUME 7.9 fL (7.4-10.4); MONO % 10.3 %; NEUT % 69.6 %; PLATELET COUNT 236 K/uL (130-400); RED BLOOD COUNT 3.67 M/uL (4.2-5.4); WHITE BLOOD COUNT 5.54 K/uL (4.8-10.8)
[2017-03-04 07:52] LABS: BUN/CREATININE RATIO 16.3 (10-20); CALCIUM 8.9 mg/dl (8.5-10.1); CREATININE 0.77 mg/dl (0.60-1.20); POTASSIUM 4.5 mmol/L (3.5-5.1)
[2017-03-04 07:59] VITALS: BP 188/82; PULSE 56; TEMP 36.6; O2SAT 98
[2017-03-04] MEDS: PANTOprazole SOD 40 MG TAB PO SCH (08:32)
[2017-03-04] MEDS: MULTIVITAMIN TAB PO SCH (08:32)
[2017-03-04] MEDS: CHOLECALCIFEROL 1000 INTER.UNIT TAB PO SCH (08:33)
[2017-03-04] MEDS: LIDODERM (LIDOCAINE) PATCH 5% TD SCH (08:34)
[2017-03-04] MEDS: HYDROCORTISONE 10 MG TAB PO SCH ×2 (08:34→21:20)
[2017-03-04] MEDS: POTASSIUM CHLORIDE 20 MEQ TABCR PO SCH ×2 (08:36→21:20)
[2017-03-04] MEDS: ASPIRIN 81 MG ECTAB PO SCH (08:36)
[2017-03-04 08:37] VITALS: BP 177/68; PULSE 62
[2017-03-04] MEDS: SPIRONOLACTONE 25 MG TAB PO SCH (08:41)
[2017-03-04] MEDS: LOSARTAN POTASSIUM 50 MG TAB PO SCH (08:42)
[2017-03-04] MEDS: DILTIAZEM HCL 300 MG CAPCR PO SCH (08:42)
[2017-03-04] MEDS: HEPARIN SOD 5000 UNIT/0.5 ML CARP SQ SCH ×2 (08:46→21:21)
[2017-03-04] MEDS ORDERED: NON-FORMULARY MEDICATION (Cranberry (Vaccinium Macrocarp (Cranberry) 500 MG) PO SCH (09:00)
[2017-03-04] MEDS ORDERED: VITAMI PO SCH (09:00)
[2017-03-04] MEDS ORDERED: PHOSPHORUS PO SCH (09:00)
[2017-03-04] MEDS ORDERED: CALCIUM PO SCH (09:00)
[2017-03-04] MEDS ORDERED: KRILL OIL PO SCH (09:00)
[2017-03-04 10:30] VITALS: BP 159/68; PULSE 65; O2SAT 99
[2017-03-04 12:21] VITALS: BP 162/70
[2017-03-04 15:20] VITALS: BP 116/64; PULSE 48; TEMP 36.6; O2SAT 97
--- NOTE | 2017-03-04 16:14 | Progress Note ---
Subjective Date of Service: March 04, 2017. Subjective Pt evaluation today including: conversation w/ patient, physical exam, lab review, review of studies, review of inpatient medication list Pain: controlled with Ultram PO Intake: adequate Voiding: no voiding problems discussed plan for rehab, she is agreeable pain is better today discussed hyponatremia, improving slowly, urine osmolality low which is appropriate, trying to lose free water talked with Dr. Brown over the phone, requests that Dr. Gee see patient while in the hospital due to 3.5cm left sided mass on CT chest in December Problem List Medical Problems: (1) Hypokalemia Status: Acute (2) Hyponatremia Status: Acute (3) Lower GI bleed Status: Acute (4) Lumbar back pain Status: Acute (5) Lumbar compression fracture Status: Acute (6) Lumbar transverse process fracture Status: Acute (7) V-tach Status: Acute Review of Systems Constitutional: + fatigue, + weakness Musculoskeletal: + joint pain (back pain) All Other Systems: Reviewed and Negative Medications Current Inpatient Medications Medications (Trade) Dose Ordered Sig/Dariusz Route Start Time Stop Time Status Last Admin Dose Admin Acetaminophen (Tylenol Tab) 650 mg Q4H PRN PO 03/03/17 13:30 04/02/17 13:29 Al Hydrox/Mg Hydrox/Simethicone (Maalox Max Susp) 15 ml Q4H PRN PO 03/03/17 13:30 04/02/17 13:29 Magnesium Hydroxide (Milk Of Magnesia Susp) 30 ml Q6H PRN PO 03/03/17 13:30 04/02/17 13:29 Polyethylene (Miralax Powder Packet) 17 gm DAILY PRN PO 03/03/17 13:30 04/02/17 13:29 Ondansetron HCl (Zofran Inj) 4 mg Q6H PRN IV 03/03/17 13:30 04/02/17 13:29 Heparin Sodium (Porcine) (Heparin Sq 5000 Unit/0.5ml) 5,000 unit Q12 SQ 03/03/17 21:00 04/02/17 20:59 03/04/17 08:46 5,000 UNIT Lidocaine (Lidoderm Patch 5%) 1 patch QAM TD 03/04/17 09:00 04/03/17 08:59 03/04/17 08:34 1 PATCH Miscellaneous (Remove Lidoderm Patch) 1 ea DAILY@21 N/A 03/03/17 21:00 04/02/17 20:59 Calcitonin [place] (Fortical Nasal [place]) 1 spray UD NA 03/03/17 13:30 04/02/17 13:29 Aspirin (Ecotrin Tab) 81 mg DAILY PO 03/04/17 09:00 04/03/17 08:59 03/04/17 08:36 81 MG Atenolol (Tenormin Tab) 50 mg BID PO 03/03/17 21:00 04/02/17 20:59 03/04/17 08:43 50 MG Cholecalciferol (Vitamin D Tab) 1,000 inter.unit QAM PO 03/04/17 09:00 04/03/17 08:59 03/04/17 08:33 1,000 INTER.UNIT Diltiazem HCl (Cardizem Cd Cap) 300 mg QAM PO 03/04/17 09:00 04/02/17 08:59 03/04/17 08:42 300 MG Hydrocortisone (Cortef Tab) 10 mg QPM PO 03/03/17 21:00 04/02/17 20:59 03/03/17 20:53 10 MG Hydrocortisone (Cortef Tab) 20 mg QAM PO 03/04/17 09:00 04/03/17 08:59 03/04/17 08:34 20 MG Levothyroxine Sodium (Synthroid Tab) 75 mcg DAILYBB PO 03/04/17 06:00 04/03/17 06:59 03/04/17 07:12 75 MCG Lorazepam (Ativan Tab) 0.25 mg DAILY PRN PO 03/03/17 13:30 04/02/17 13:29 Losartan Potassium (coZAAR TAB) 100 mg QAM PO 03/04/17 09:00 04/02/17 08:59 03/04/17 08:42 100 MG Multivitamins (Multivitamin Tab) 1 tab DAILY PO 03/04/17 09:00 04/03/17 08:59 03/04/17 08:32 1 TAB Pantoprazole Sodium (Protonix Tab) 40 mg QAM PO 03/04/17 09:00 04/03/17 08:59 03/04/17 08:32 40 MG Potassium Chloride (Klor-Con Tab) 20 meq BID PO 03/03/17 21:00 04/02/17 20:59 03/04/17 08:36 20 MEQ Spironolactone (Aldactone Tab) 12.5 mg QAM PO 03/04/17 09:00 04/03/17 08:59 03/04/17 08:41 12.5 MG Miscellaneous (Iv Fluids Completed) 1 ea PRN PRN N/A 03/03/17 14:15 03/03/18 14:14 Miscellaneous Information (Order Awaiting Action) 1 ea QS N/A 03/03/17 16:00 04/02/17 15:59 Tramadol HCl (Ultram Tab) 50 mg Q6 PRN PO 03/03/17 14:45 04/02/17 14:44 03/04/17 15:26 50 MG Morphine Sulfate (MoRPHine SULFATE INJ) 4 mg Q4 PRN IV 03/03/17 14:45 03/17/17 14:44 Objective Vital Signs Date Time Temp Pulse Resp B/P Pulse Ox O2 Delivery O2 Flow Rate FiO2 03/04/17 15:20 36.6 48 18 116/64 97 Room Air 03/04/17 12:21 162/70 03/04/17 10:30 65 99 03/04/17 08:37 62 177/68 03/04/17 07:59 36.6 56 16 188/82 98 Room Air 03/04/17 07:15 Room Air 03/03/17 23:05 36.6 55 16 167/79 97 Room Air 03/03/17 20:51 60 154/78 03/03/17 20:50 175/78 03/03/17 19:30 Room Air 03/03/17 19:29 36.6 65 18 154/83 96 Room Air 03/03/17 18:45 71 160/71 03/03/17 16:26 62 172/74 Physical Exam General Appearance: no apparent distress, + thin Eyes: normal inspection, EOMI, sclerae normal ENT: normal ENT inspection, hearing grossly normal, pharynx normal Neck: supple, no adenopathy, no JVD, trachea midline Respiratory/Chest: chest non-tender, lungs clear, normal breath sounds, no respiratory distress, no accessory muscle use Cardiovascular: regular rate, rhythm, no edema, no gallop, no JVD, no murmur Abdomen: normal bowel sounds, non tender, soft, no organomegaly Extremities: normal range of motion, non-tender, normal inspection, no pedal edema, no calf tenderness Neurologic/Psychiatric: psychological examiner II-XII nml as tested, alert, normal mood/affect, oriented x 3, + motor weakness Skin: normal color, warm/dry, no rash Laboratory Results Last 24 Hours Test 03/04/17 00:55 03/04/17 01:29 03/04/17 07:09 Urine Osmolality 123 mOms/kg Osmolality 252 mOsm/kg White Blood Count 5.54 K/uL Red Blood Count 3.67 M/uL Hemoglobin 11.4 g/dL Hematocrit 33.5 % Mean Corpuscular Volume 91.3 fL Mean Corpuscular Hemoglobin 31.1 pg Mean Corpuscular Hemoglobin Concent 34.0 g/dl Platelet Count 236 K/uL Mean Platelet Volume 7.9 fL Neutrophils (%) (Auto) 69.6 % Lymphocytes (%) (Auto) 18.6 % Monocytes (%) (Auto) 10.3 % Eosinophils (%) (Auto) 0.7 % Basophils (%) (Auto) 0.4 % Neutrophils # (Auto) 3.86 K/uL Lymphocytes # (Auto) 1.03 K/uL Monocytes # (Auto) 0.57 K/uL Eosinophils # (Auto) 0.04 K/uL Basophils # (Auto) 0.02 K/uL RDW Standard Deviation 49.4 fL RDW Coefficient of Variation 14.7 % Immature Granulocyte % (Auto) 0.4 % Immature Granulocyte # (Auto) 0.02 K/uL Sodium Level 126 mmol/L Potassium Level 4.5 mmol/L Chloride Level 89 mmol/L Carbon Dioxide Level 29 mmol/L Anion Gap 8.0 mmol/L Blood Urea Nitrogen 13 mg/dl Creatinine 0.77 mg/dl Est Creatinine Clear Calc Drug Dose 42.6 ml/min Estimated GFR () 89.4 Estimated GFR (Non- 77.1 BUN/Creatinine Ratio 16.3 Random Glucose 94 mg/dl Calcium Level 8.9 mg/dl Assessment and Plan 71 yo female with h/o osteoporosis, scoliosis, sarcoidosis, adrenal insufficiency who presents with several days of back pain after a fall found to have compression fx of L2 and transverse process fracture at L1 - Compression fracture: pain control with Lidoderm, Tylenol, Ultram, adequate thus far plan to go to rehab, likely here over the weekend - Osteoporosis, Vitamin D deficiency: Vitamin D low at 34, give supplementation set up for endocrinology follow up on bisphosphonates for years but taken off appropriately - Hyponatremia: low serum osmolality, however, also with lower urine osmolality suggesting appropriate ADH levels Na slowly trending up, repeat labs tomorrow encourage PO intake and solutes - Left 3.5 cm lobulated lung lesion: will ask Dr. Gee to evaluate, can wait until Tuesday, not urgent seen on CT chest in December - HTN: stable - Hypothyroidism: stable - Adrenal insufficiency: stable - DVT prophylaxis: heparin
[2017-03-04 22:57] VITALS: BP 149/72; PULSE 58; TEMP 36.6; O2SAT 97
[2017-03-05] VITALS (7 sets, daily range): BP systolic 152–204; BP diastolic 73–89; PULSE 57–68; TEMP 36.5–36.7; O2SAT 97–99
[2017-03-05] MEDS: TRAMADOL HCL 50 MG TAB PO PRN ×2 (04:41→14:22)
[2017-03-05] MEDS: LEVOTHYROXINE 75 MCG TAB PO SCH (05:48)
[2017-03-05] MEDS: SPIRONOLACTONE 25 MG TAB PO SCH (08:42)
[2017-03-05] MEDS: DILTIAZEM HCL 300 MG CAPCR PO SCH (08:46)
[2017-03-05] MEDS: HYDROCORTISONE 10 MG TAB PO SCH ×2 (08:48→21:09)
[2017-03-05] MEDS: LOSARTAN POTASSIUM 50 MG TAB PO SCH (08:54)
[2017-03-05] MEDS: ASPIRIN 81 MG ECTAB PO SCH (08:55)
[2017-03-05] MEDS: POTASSIUM CHLORIDE 20 MEQ TABCR PO SCH ×2 (08:57→21:09)
[2017-03-05] MEDS: MULTIVITAMIN TAB PO SCH (08:59)
[2017-03-05] MEDS: PANTOprazole SOD 40 MG TAB PO SCH (09:00)
[2017-03-05] MEDS: CHOLECALCIFEROL 1000 INTER.UNIT TAB PO SCH (09:02)
[2017-03-05] MEDS: LIDODERM (LIDOCAINE) PATCH 5% TD SCH (09:07)
[2017-03-05] MEDS: CALCITONIN SALMON NA 200 IU/AC 3.7 ML BTL SCH (09:11)
[2017-03-05] MEDS: HEPARIN SOD 5000 UNIT/0.5 ML CARP SQ SCH ×2 (09:17→21:11)
[2017-03-05] MEDS ORDERED: SERTRALINE HCL 50 MG TAB PO ONE (10:00)
[2017-03-05] MEDS ORDERED: ERGOCALCIFEROL 50,000 INTER.UNIT CAP PO ONE (11:00)
[2017-03-05 12:18] LABS: BUN/CREATININE RATIO 25.1 (10-20); CALCIUM 8.6 mg/dl (8.5-10.1); CREATININE 0.87 mg/dl (0.60-1.20); POTASSIUM 4.3 mmol/L (3.5-5.1)
--- NOTE | 2017-03-05 13:50 | Progress Note ---
Subjective Date of Service: March 05, 2017. Subjective Pt evaluation today including: conversation w/ patient, physical exam, lab review, review of inpatient medication list Pain: intermittent back pain, not severe PO Intake: adequate Voiding: no voiding problems discussed the results of the CT chest on 01/03, she was not aware of the left upper lobe 3.5cm mass discussed that we would ask Dr. Gee to evaluate overall she is stable, waiting for rehab her Na continues to improve no other issues Problem List Medical Problems: (1) Hypokalemia Status: Acute (2) Hyponatremia Status: Acute (3) Lower GI bleed Status: Acute (4) Lumbar back pain Status: Acute (5) Lumbar compression fracture Status: Acute (6) Lumbar transverse process fracture Status: Acute (7) V-tach Status: Acute Review of Systems Constitutional: + fatigue, + weakness Musculoskeletal: + joint pain (back) All Other Systems: Reviewed and Negative Medications Current Inpatient Medications Medications (Trade) Dose Ordered Sig/Dariusz Route Start Time Stop Time Status Last Admin Dose Admin Acetaminophen (Tylenol Tab) 650 mg Q4H PRN PO 03/03/17 13:30 04/02/17 13:29 Al Hydrox/Mg Hydrox/Simethicone (Maalox Max Susp) 15 ml Q4H PRN PO 03/03/17 13:30 04/02/17 13:29 Magnesium Hydroxide (Milk Of Magnesia Susp) 30 ml Q6H PRN PO 03/03/17 13:30 04/02/17 13:29 Polyethylene (Miralax Powder Packet) 17 gm DAILY PRN PO 03/03/17 13:30 04/02/17 13:29 Ondansetron HCl (Zofran Inj) 4 mg Q6H PRN IV 03/03/17 13:30 04/02/17 13:29 Heparin Sodium (Porcine) (Heparin Sq 5000 Unit/0.5ml) 5,000 unit Q12 SQ 03/03/17 21:00 04/02/17 20:59 03/05/17 09:17 5,000 UNIT Lidocaine (Lidoderm Patch 5%) 1 patch QAM TD 03/04/17 09:00 04/03/17 08:59 03/05/17 09:07 1 PATCH Miscellaneous (Remove Lidoderm Patch) 1 ea DAILY@21 N/A 03/03/17 21:00 04/02/17 20:59 03/04/17 21:19 1 EA Aspirin (Ecotrin Tab) 81 mg DAILY PO 03/04/17 09:00 04/03/17 08:59 03/05/17 08:55 81 MG Atenolol (Tenormin Tab) 50 mg BID PO 03/03/17 21:00 04/02/17 20:59 03/04/17 21:20 50 MG Cholecalciferol (Vitamin D Tab) 1,000 inter.unit QAM PO 03/04/17 09:00 04/03/17 08:59 03/05/17 09:02 1,000 INTER.UNIT Diltiazem HCl (Cardizem Cd Cap) 300 mg QAM PO 03/04/17 09:00 04/02/17 08:59 03/04/17 08:42 300 MG Hydrocortisone (Cortef Tab) 10 mg QPM PO 03/03/17 21:00 04/02/17 20:59 03/04/17 21:20 10 MG Hydrocortisone (Cortef Tab) 20 mg QAM PO 03/04/17 09:00 04/03/17 08:59 03/05/17 08:48 20 MG Levothyroxine Sodium (Synthroid Tab) 75 mcg DAILYBB PO 03/04/17 06:00 04/03/17 06:59 03/05/17 05:48 75 MCG Lorazepam (Ativan Tab) 0.25 mg DAILY PRN PO 03/03/17 13:30 04/02/17 13:29 Losartan Potassium (coZAAR TAB) 100 mg QAM PO 03/04/17 09:00 04/02/17 08:59 03/05/17 08:54 100 MG Multivitamins (Multivitamin Tab) 1 tab DAILY PO 03/04/17 09:00 04/03/17 08:59 03/05/17 08:59 1 TAB Pantoprazole Sodium (Protonix Tab) 40 mg QAM PO 03/04/17 09:00 04/03/17 08:59 03/05/17 09:00 40 MG Potassium Chloride (Klor-Con Tab) 20 meq BID PO 03/03/17 21:00 04/02/17 20:59 03/05/17 08:57 20 MEQ Spironolactone (Aldactone Tab) 12.5 mg QAM PO 03/04/17 09:00 04/03/17 08:59 03/05/17 08:42 12.5 MG Miscellaneous (Iv Fluids Completed) 1 ea PRN PRN N/A 03/03/17 14:15 03/03/18 14:14 Miscellaneous Information (Order Awaiting Action) 1 ea QS N/A 03/03/17 16:00 04/02/17 15:59 Tramadol HCl (Ultram Tab) 50 mg Q6 PRN PO 03/03/17 14:45 04/02/17 14:44 03/05/17 04:41 50 MG Morphine Sulfate (MoRPHine SULFATE INJ) 4 mg Q4 PRN IV 03/03/17 14:45 03/17/17 14:44 Calcitonin [place] (Fortical Nasal [place]) 1 spray DAILY NA 03/05/17 09:00 04/02/17 13:29 03/05/17 09:11 1 SPRAY Sertraline HCl (Zoloft Tab) 50 mg QAM PO 03/06/17 09:00 04/05/17 08:59 Objective Vital Signs Date Time Temp Pulse Resp B/P Pulse Ox O2 Delivery O2 Flow Rate FiO2 03/05/17 11:50 36.6 63 99 Room Air 03/05/17 08:00 97 Room Air 03/05/17 07:55 36.5 57 13 173/73 97 Room Air 03/05/17 07:10 Room Air 03/05/17 00:04 Room Air 03/04/17 22:57 36.6 58 16 149/72 97 Room Air 03/04/17 15:20 36.6 48 18 116/64 97 Room Air 03/04/17 15:20 Room Air Physical Exam General Appearance: no apparent distress, + thin Eyes: normal inspection, EOMI, sclerae normal Neck: supple, no adenopathy, no JVD, trachea midline Respiratory/Chest: chest non-tender, lungs clear, normal breath sounds, no respiratory distress, no accessory muscle use Cardiovascular: regular rate, rhythm, no edema, no gallop, no JVD, no murmur Abdomen: normal bowel sounds, non tender, soft, no organomegaly Extremities: normal inspection, no pedal edema, no calf tenderness, pelvis stable, + pertinent finding (back pain, tender, decreased ROM) Neurologic/Psychiatric: teacher advisor II-XII nml as tested, alert, normal mood/affect, oriented x 3, + motor weakness (generalized) Skin: normal color, warm/dry, no rash Lymphatic: no adenopathy Laboratory Results Last 24 Hours Test 03/05/17 11:06 Sodium Level 127 mmol/L Potassium Level 4.3 mmol/L Chloride Level 91 mmol/L Carbon Dioxide Level 29 mmol/L Anion Gap 7.0 mmol/L Creatinine 0.87 mg/dl Est Creatinine Clear Calc Drug Dose 37.7 ml/min Estimated GFR () 77.1 Estimated GFR (Non- 66.6 BUN/Creatinine Ratio 25.1 Random Glucose 135 mg/dl Calcium Level 8.6 mg/dl Assessment and Plan 71 yo female with h/o osteoporosis, scoliosis, sarcoidosis, adrenal insufficiency who presents with several days of back pain after a fall found to have compression fx of L2 and transverse process fracture at L1 - Compression fracture: pain control with Lidoderm, Tylenol, Ultram, adequate thus far plan to go to rehab, likely here over the weekend - Osteoporosis, Vitamin D deficiency: Vitamin D low at 34, give supplementation , 50,000 units weekly x 6 weeks set up for endocrinology follow up on bisphosphonates for years but taken off appropriately - Hyponatremia: low serum osmolality, however, also with lower urine osmolality suggesting appropriate ADH levels Na slowly trending up to 127 today, repeat labs tomorrow encourage PO intake and solutes - Left 3.5 cm lobulated lung lesion: will ask Dr. Gee to evaluate, can wait until Tuesday, not urgent seen on CT chest in December discussed these results with the patient, she was previously not aware, answered her questions - HTN: stable - Hypothyroidism: stable - Adrenal insufficiency: stable - DVT prophylaxis: heparin
[2017-03-05] MEDS ORDERED: NURSING VERBAL MED ORDER ONE (23:15)
[2017-03-06] VITALS (7 sets, daily range): BP systolic 148–177; BP diastolic 73–94; PULSE 58–83; TEMP 36.5–36.7; O2SAT 97
[2017-03-06] MEDS: HydrALAZINE HCL 20 MG/ML VIAL IV. PRN (00:34)
[2017-03-06] MEDS: TRAMADOL HCL 50 MG TAB PO PRN ×2 (01:24→15:23)
[2017-03-06] MEDS: LORAZEPAM 0.5 MG TAB PO PRN ×2 (01:37→23:37)
[2017-03-06] MEDS: LEVOTHYROXINE 75 MCG TAB PO SCH (05:32)
[2017-03-06 06:54] LABS: HEMATOCRIT 30.6 % (37-47); MEAN CELL VOLUME 90.8 fL (80-100); MEAN CORPUSCULAR HEMOGLOBIN 30.6 pg (25-34); MEAN CORPUSCULAR HGB CONC 33.7 g/dl (32-36); MEAN PLATELET VOLUME 7.7 fL (7.4-10.4); PLATELET COUNT 241 K/uL (130-400); RED BLOOD COUNT 3.37 M/uL (4.2-5.4); WHITE BLOOD COUNT 6.73 K/uL (4.8-10.8)
[2017-03-06 07:23] LABS: BUN/CREATININE RATIO 29.2 (10-20); CALCIUM 8.4 mg/dl (8.5-10.1); CREATININE 0.62 mg/dl (0.60-1.20); POTASSIUM 4.4 mmol/L (3.5-5.1)
[2017-03-06] MEDS: PANTOprazole SOD 40 MG TAB PO SCH (08:40)
[2017-03-06] MEDS: CALCITONIN SALMON NA 200 IU/AC 3.7 ML BTL SCH (08:40)
[2017-03-06] MEDS: MULTIVITAMIN TAB PO SCH (08:41)
[2017-03-06] MEDS: POTASSIUM CHLORIDE 20 MEQ TABCR PO SCH ×2 (08:41→21:18)
[2017-03-06] MEDS: ASPIRIN 81 MG ECTAB PO SCH (08:41)
[2017-03-06] MEDS: DILTIAZEM HCL 300 MG CAPCR PO SCH (08:41)
[2017-03-06] MEDS: SPIRONOLACTONE 25 MG TAB PO SCH (08:42)
[2017-03-06] MEDS: SERTRALINE HCL 50 MG TAB PO SCH (08:43)
[2017-03-06] MEDS: LOSARTAN POTASSIUM 50 MG TAB PO SCH (08:43)
[2017-03-06] MEDS: CHOLECALCIFEROL 1000 INTER.UNIT TAB PO SCH (08:43)
[2017-03-06] MEDS: HYDROCORTISONE 10 MG TAB PO SCH ×2 (08:44→21:18)
[2017-03-06] MEDS: LIDODERM (LIDOCAINE) PATCH 5% TD SCH (08:45)
[2017-03-06] MEDS: HEPARIN SOD 5000 UNIT/0.5 ML CARP SQ SCH ×2 (08:46→21:21)
[2017-03-06] MEDS ORDERED: SODIUM CHLORIDE 1 GM TAB PO ONE (09:45)
[2017-03-06] MEDS: ACETAMINOPHEN 325 MG TAB PO PRN (13:19)
--- NOTE | 2017-03-06 13:35 | Progress Note ---
Subjective Date of Service: March 06, 2017. Subjective Pt evaluation today including: conversation w/ patient, physical exam, lab review, review of inpatient medication list Pain: intermittent back pain PO Intake: adequate Voiding: no voiding problems patient doing well, no serious events over night still with pain but controlled eating well requests to take chewable calcium once family brings in Problem List Medical Problems: (1) Hypokalemia Status: Acute (2) Hyponatremia Status: Acute (3) Lower GI bleed Status: Acute (4) Lumbar back pain Status: Acute (5) Lumbar compression fracture Status: Acute (6) Lumbar transverse process fracture Status: Acute (7) V-tach Status: Acute Review of Systems Constitutional: + fatigue, + weakness Musculoskeletal: + joint pain (back pain) All Other Systems: Reviewed and Negative Medications Current Inpatient Medications Medications (Trade) Dose Ordered Sig/Dariusz Route Start Time Stop Time Status Last Admin Dose Admin Acetaminophen (Tylenol Tab) 650 mg Q4H PRN PO 03/03/17 13:30 04/02/17 13:29 03/06/17 13:19 650 MG Al Hydrox/Mg Hydrox/Simethicone (Maalox Max Susp) 15 ml Q4H PRN PO 03/03/17 13:30 04/02/17 13:29 Magnesium Hydroxide (Milk Of Magnesia Susp) 30 ml Q6H PRN PO 03/03/17 13:30 04/02/17 13:29 Polyethylene (Miralax Powder Packet) 17 gm DAILY PRN PO 03/03/17 13:30 04/02/17 13:29 Ondansetron HCl (Zofran Inj) 4 mg Q6H PRN IV 03/03/17 13:30 04/02/17 13:29 Heparin Sodium (Porcine) (Heparin Sq 5000 Unit/0.5ml) 5,000 unit Q12 SQ 03/03/17 21:00 04/02/17 20:59 03/06/17 08:46 5,000 UNIT Lidocaine (Lidoderm Patch 5%) 1 patch QAM TD 03/04/17 09:00 04/03/17 08:59 03/06/17 08:45 1 PATCH Miscellaneous (Remove Lidoderm Patch) 1 ea DAILY@21 N/A 03/03/17 21:00 04/02/17 20:59 03/05/17 21:13 1 EA Aspirin (Ecotrin Tab) 81 mg DAILY PO 03/04/17 09:00 04/03/17 08:59 03/06/17 08:41 81 MG Atenolol (Tenormin Tab) 50 mg BID PO 03/03/17 21:00 04/02/17 20:59 03/06/17 08:43 50 MG Cholecalciferol (Vitamin D Tab) 1,000 inter.unit QAM PO 03/04/17 09:00 04/03/17 08:59 03/06/17 08:43 1,000 INTER.UNIT Diltiazem HCl (Cardizem Cd Cap) 300 mg QAM PO 03/04/17 09:00 04/02/17 08:59 03/06/17 08:41 300 MG Hydrocortisone (Cortef Tab) 10 mg QPM PO 03/03/17 21:00 04/02/17 20:59 03/05/17 21:09 10 MG Hydrocortisone (Cortef Tab) 20 mg QAM PO 03/04/17 09:00 04/03/17 08:59 03/06/17 08:44 20 MG Levothyroxine Sodium (Synthroid Tab) 75 mcg DAILYBB PO 03/04/17 06:00 04/03/17 06:59 03/06/17 05:32 75 MCG Lorazepam (Ativan Tab) 0.25 mg DAILY PRN PO 03/03/17 13:30 04/02/17 13:29 03/06/17 01:37 0.25 MG Losartan Potassium (coZAAR TAB) 100 mg QAM PO 03/04/17 09:00 04/02/17 08:59 03/06/17 08:43 100 MG Multivitamins (Multivitamin Tab) 1 tab DAILY PO 03/04/17 09:00 04/03/17 08:59 03/06/17 08:41 1 TAB Pantoprazole Sodium (Protonix Tab) 40 mg QAM PO 03/04/17 09:00 04/03/17 08:59 03/06/17 08:40 40 MG Potassium Chloride (Klor-Con Tab) 20 meq BID PO 03/03/17 21:00 04/02/17 20:59 03/06/17 08:41 20 MEQ Spironolactone (Aldactone Tab) 12.5 mg QAM PO 03/04/17 09:00 04/03/17 08:59 03/06/17 08:42 12.5 MG Miscellaneous (Iv Fluids Completed) 1 ea PRN PRN N/A 03/03/17 14:15 03/03/18 14:14 Miscellaneous Information (Order Awaiting Action) 1 ea QS N/A 03/03/17 16:00 04/02/17 15:59 Tramadol HCl (Ultram Tab) 50 mg Q6 PRN PO 03/03/17 14:45 04/02/17 14:44 03/06/17 01:24 50 MG Morphine Sulfate (MoRPHine SULFATE INJ) 4 mg Q4 PRN IV 03/03/17 14:45 03/17/17 14:44 Calcitonin [place] (Fortical Nasal [place]) 1 spray DAILY NA 03/05/17 09:00 04/02/17 13:29 03/06/17 08:40 1 SPRAY Sertraline HCl (Zoloft Tab) 50 mg QAM PO 03/06/17 09:00 04/05/17 08:59 03/06/17 08:43 50 MG Hydralazine HCl (HydrALAZINE INJ) 10 mg Q4H PRN IV. 03/05/17 23:45 04/04/17 23:44 03/06/17 00:34 10 MG Sodium Chloride (Sodium Chloride Tab) 1 gm DAILY PO 03/07/17 09:00 04/06/17 08:59 Objective Vital Signs Date Time Temp Pulse Resp B/P Pulse Ox O2 Delivery O2 Flow Rate FiO2 03/06/17 13:16 148/73 03/06/17 08:32 73 166/94 03/06/17 07:10 Room Air 03/06/17 07:01 36.5 67 16 164/76 97 Room Air 03/06/17 01:13 83 160/76 03/05/17 23:55 Room Air 03/05/17 23:01 195/80 185/82 03/05/17 23:00 64 204/80 03/05/17 22:52 36.5 66 12 189/89 99 Room Air 03/05/17 15:29 36.7 68 13 183/80 97 Room Air 03/05/17 15:15 Room Air Physical Exam General Appearance: no apparent distress, + thin Eyes: normal inspection, EOMI, sclerae normal Neck: supple, no adenopathy, no JVD, trachea midline Respiratory/Chest: chest non-tender, lungs clear, normal breath sounds, no respiratory distress, no accessory muscle use Cardiovascular: regular rate, rhythm, no edema, no gallop, no JVD, no murmur Abdomen: normal bowel sounds, non tender, soft, no organomegaly Extremities: normal inspection, no pedal edema, no calf tenderness, + pertinent finding (lumbar spine tender, decreased ROM) Neurologic/Psychiatric: 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 II-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 nml as tested, no motor/sensory deficits, alert, normal mood/affect, oriented x 3 Skin: normal color, warm/dry, no rash Laboratory Results Last 24 Hours Test 03/06/17 06:33 White Blood Count 6.73 K/uL Red Blood Count 3.37 M/uL Hemoglobin 10.3 g/dL Hematocrit 30.6 % Mean Corpuscular Volume 90.8 fL Mean Corpuscular Hemoglobin 30.6 pg Mean Corpuscular Hemoglobin Concent 33.7 g/dl RDW Standard Deviation 48.5 fL RDW Coefficient of Variation 14.6 % Platelet Count 241 K/uL Mean Platelet Volume 7.7 fL Sodium Level 125 mmol/L Potassium Level 4.4 mmol/L Chloride Level 91 mmol/L Carbon Dioxide Level 27 mmol/L Anion Gap 7.0 mmol/L Blood Urea Nitrogen 18 mg/dl Creatinine 0.62 mg/dl Est Creatinine Clear Calc Drug Dose 52.9 ml/min Estimated GFR () 104.4 Estimated GFR (Non- 90.1 BUN/Creatinine Ratio 29.2 Random Glucose 94 mg/dl Calcium Level 8.4 mg/dl Assessment and Plan 71 yo female with h/o osteoporosis, scoliosis, sarcoidosis, adrenal insufficiency who presents with several days of back pain after a fall found to have compression fx of L2 and transverse process fracture at L1 - Compression fracture: pain control with Lidoderm, Tylenol, Ultram, adequate thus far plan to go to rehab at [facility] in [facility] sent referral on Tuesday - Osteoporosis, Vitamin D deficiency: Vitamin D low at 34, give supplementation , 50,000 units weekly x 6 weeks set up for endocrinology follow up on April [address] Sandee Trinidad on bisphosphonates for years but taken off appropriately - Hyponatremia: low serum osmolality, however, also with lower urine osmolality suggesting appropriate ADH levels Na was slowly trending up to 127 but today at 125, will repeat urine osmolality to make sure it was accurate start NaCl 1gm PO daily, follow sodium level encourage PO intake and solutes - Left 3.5 cm lobulated lung lesion: will ask Dr. Gee to evaluate, can wait until Tuesday, not urgent seen on CT chest in December discussed these results with the patient, she was previously not aware, answered her questions - HTN: stable - Hypothyroidism: stable - Adrenal insufficiency: stable - DVT prophylaxis: heparin
[2017-03-07] MEDS: LEVOTHYROXINE 75 MCG TAB PO SCH (06:05)
[2017-03-07 08:20] VITALS: BP 148/72; PULSE 65; TEMP 36.5; O2SAT 98
[2017-03-07] MEDS: CALCITONIN SALMON NA 200 IU/AC 3.7 ML BTL SCH (08:22)
[2017-03-07] MEDS: [UNRECOGNIZED DRUG - OTHER] PO SCH (08:23)
[2017-03-07] MEDS: DILTIAZEM HCL 300 MG CAPCR PO SCH (08:23)
[2017-03-07] MEDS: POTASSIUM CHLORIDE 20 MEQ TABCR PO SCH ×2 (08:24→21:54)
[2017-03-07] MEDS: MULTIVITAMIN TAB PO SCH (08:25)
[2017-03-07] MEDS: LOSARTAN POTASSIUM 50 MG TAB PO SCH (08:25)
[2017-03-07] MEDS: SPIRONOLACTONE 25 MG TAB PO SCH (08:26)
[2017-03-07] MEDS: SERTRALINE HCL 50 MG TAB PO SCH (08:26)
[2017-03-07] MEDS: SODIUM CHLORIDE 1 GM TAB PO SCH (08:27)
[2017-03-07] MEDS: HYDROCORTISONE 10 MG TAB PO SCH ×2 (08:28→21:54)
[2017-03-07] MEDS: ASPIRIN 81 MG ECTAB PO SCH (08:29)
[2017-03-07] MEDS: PANTOprazole SOD 40 MG TAB PO SCH (08:29)
[2017-03-07] MEDS: CHOLECALCIFEROL 1000 INTER.UNIT TAB PO SCH (08:30)
[2017-03-07] MEDS: LIDODERM (LIDOCAINE) PATCH 5% TD SCH (08:30)
[2017-03-07] MEDS: HEPARIN SOD 5000 UNIT/0.5 ML CARP SQ SCH ×2 (08:36→21:59)
--- NOTE | 2017-03-07 12:00 | Surgery Consultation ---
Consultation Date of Consultation: March 07, 2017. Attending Physician: Robert Trinidad D.O. Reason for Consultation: Abnormal mammogram (Vale De La Cruz PA-C) History of Present Illness Alda is a pleasant 71 year-old female who presented to emergency department on 03/03/2017 with complaint of worsening back pain for 5 days. Alda was found to have compression fractures of the spine on further evaluation. Alda also recently was admitted to the hospital in December and was found to have a 3.5 cm left upper lobe lung mass on CT scan of the chest. Apparently she was unaware of that finding during her last admission. She was just evaluated by Dr. Gee this morning in regards to the lung mass. Our services were consulted for an abnormal mammogram which she had a screening bilateral mammogram on 2016 which showed a BIRADS category 0 for a 5 mm asymmetry of the lateral right anterior breast. Alda states she was supposed to have further imagining for her breast but cancelled due to being admitted to hospital. States she had a similar finding last year on her mammogram in which they did 3D imaging and it was nothing significant. Denies of any breast pain, lumps, bumps, skin changes , or nipple discharge. States she has lost weight in the past year. (Vale De La Cruz PA-C) Past Medical/Surgical History Medical Problems: (1) Hypokalemia Status: Acute (2) Hyponatremia Status: Acute (3) Lower GI bleed Status: Acute (4) Lumbar back pain Status: Acute (5) Lumbar compression fracture Status: Acute (6) Lumbar transverse process fracture Status: Acute (7) V-tach Status: Acute (Vale De La Cruz PA-C) Family History Diabetes mellitus Hypertension (Vale De La Cruz PA-C) Diabetes mellitus Hypertension (Santos Cardenas MD) Social History Smoking Status: Never Smoker Drug Use: none Marital Status: single Housing Status: lives with family Occupation Status: unemployed, retired (Vale De La Cruz PA-C) Allergies Coded Allergies: Amoxicillin (Verified Allergy, Mild, ITCHY, 03/03/17) Ondansetron (Verified Allergy, Mild, ITCHY, 03/03/17) Oxycodone (Verified Allergy, Mild, ITCH, 03/03/17) Hydralazine (Verified Adverse Reaction, Severe, Severe angina, 03/03/17) Patient has a severe hypertrophic cardiomyopathy. Hydralazine is contraindicated. Hydrocodone (Unverified Adverse Reaction, Intermediate, NAUSEA, 03/03/17) Ibuprofen (Unverified Adverse Reaction, Intermediate, NAUSEA, 03/03/17) Quinolones (Verified Adverse Reaction, Intermediate, HEADACHE, 03/03/17) Cephalosporins (Verified Adverse Reaction, Unknown, CEFTIN: ABDOMINAL PAIN /NAUSEA, 03/03/17) Escitalopram (Verified Adverse Reaction, Unknown, ABD PAIN;NAUSEA, 03/03/17) Penicillins (Verified Adverse Reaction, Unknown, ABD PAIN;NAUSEA, 03/03/17) Home Medications Scheduled Aspirin (Aspirin Ec), 81 MG PO DAILY Atenolol (Tenormin), 50 MG PO AMPM Calcium & Phosphorus W/ Vitami (Calcium Gummies), 2 TAB PO DAILY Cholecalciferol (Vitamin D3), 1 TAB PO QAM Cranberry (Vaccinium Macrocarp (Cranberry), 500 MG PO QAM Diltiazem HCl (Diltiazem Cd), 300 MG PO QAM Hydrocortisone (Cortef), 20 MG PO QAM Hydrocortisone (Cortef), 10 MG PO QPM Krill Oil (Megared [place]-3 Krill Oil 500 mg), 1 CAP PO QAM Levothyroxine Sodium (Synthroid), 75 MCG PO QAM Losartan Potassium (Cozaar), 100 MG PO QAM Multivitamin (Multivitamin), 1 TAB PO DAILY Pantoprazole (Protonix), 40 MG PO QAM Potassium Ext Rel (Klor-Con), 20 MEQ PO AMPM Spironolactone (Aldactone), 12.5 MG PO QAM Scheduled PRN Lorazepam (Ativan), 0.5 TAB PO DAILY PRN for Anxiety Current Inpatient Medications Current Inpatient Medications Medications (Trade) Dose Ordered Sig/Dariusz Route Start Time Stop Time Status Last Admin Dose Admin Acetaminophen (Tylenol Tab) 650 mg Q4H PRN PO 03/03/17 13:30 04/02/17 13:29 03/06/17 13:19 650 MG Al Hydrox/Mg Hydrox/Simethicone (Maalox Max Susp) 15 ml Q4H PRN PO 03/03/17 13:30 04/02/17 13:29 Magnesium Hydroxide (Milk Of Magnesia Susp) 30 ml Q6H PRN PO 03/03/17 13:30 04/02/17 13:29 Polyethylene (Miralax Powder Packet) 17 gm DAILY PRN PO 03/03/17 13:30 04/02/17 13:29 Ondansetron HCl (Zofran Inj) 4 mg Q6H PRN IV 03/03/17 13:30 04/02/17 13:29 Heparin Sodium (Porcine) (Heparin Sq 5000 Unit/0.5ml) 5,000 unit Q12 SQ 03/03/17 21:00 04/02/17 20:59 03/07/17 08:36 5,000 UNIT Lidocaine (Lidoderm Patch 5%) 1 patch QAM TD 03/04/17 09:00 04/03/17 08:59 03/07/17 08:30 1 PATCH Miscellaneous (Remove Lidoderm Patch) 1 ea DAILY@21 N/A 03/03/17 21:00 04/02/17 20:59 03/06/17 21:18 1 EA Aspirin (Ecotrin Tab) 81 mg DAILY PO 03/04/17 09:00 04/03/17 08:59 03/07/17 08:29 81 MG Atenolol (Tenormin Tab) 50 mg BID PO 03/03/17 21:00 04/02/17 20:59 03/07/17 08:27 50 MG Cholecalciferol (Vitamin D Tab) 1,000 inter.unit QAM PO 03/04/17 09:00 04/03/17 08:59 03/07/17 08:30 1,000 INTER.UNIT Diltiazem HCl (Cardizem Cd Cap) 300 mg QAM PO 03/04/17 09:00 04/02/17 08:59 03/07/17 08:23 300 MG Hydrocortisone (Cortef Tab) 10 mg QPM PO 03/03/17 21:00 04/02/17 20:59 03/06/17 21:18 10 MG Hydrocortisone (Cortef Tab) 20 mg QAM PO 03/04/17 09:00 04/03/17 08:59 03/07/17 08:28 20 MG Levothyroxine Sodium (Synthroid Tab) 75 mcg DAILYBB PO 03/04/17 06:00 04/03/17 06:59 03/07/17 06:05 75 MCG Lorazepam (Ativan Tab) 0.25 mg DAILY PRN PO 03/03/17 13:30 04/02/17 13:29 03/06/17 23:37 0.25 MG Losartan Potassium (coZAAR TAB) 100 mg QAM PO 03/04/17 09:00 04/02/17 08:59 03/07/17 08:25 100 MG Multivitamins (Multivitamin Tab) 1 tab DAILY PO 03/04/17 09:00 04/03/17 08:59 03/07/17 08:25 1 TAB Pantoprazole Sodium (Protonix Tab) 40 mg QAM PO 03/04/17 09:00 04/03/17 08:59 03/07/17 08:29 40 MG Potassium Chloride (Klor-Con Tab) 20 meq BID PO 03/03/17 21:00 04/02/17 20:59 03/07/17 08:24 20 MEQ Spironolactone (Aldactone Tab) 12.5 mg QAM PO 03/04/17 09:00 04/03/17 08:59 03/07/17 08:26 12.5 MG Miscellaneous (Iv Fluids Completed) 1 ea PRN PRN N/A 03/03/17 14:15 03/03/18 14:14 Tramadol HCl (Ultram Tab) 50 mg Q6 PRN PO 03/03/17 14:45 04/02/17 14:44 03/06/17 15:23 50 MG Morphine Sulfate (MoRPHine SULFATE INJ) 4 mg Q4 PRN IV 03/03/17 14:45 03/17/17 14:44 Calcitonin [place] (Fortical Nasal [place]) 1 spray DAILY NA 03/05/17 09:00 04/02/17 13:29 03/07/17 08:22 1 SPRAY Sertraline HCl (Zoloft Tab) 50 mg QAM PO 03/06/17 09:00 04/05/17 08:59 03/07/17 08:26 50 MG Hydralazine HCl (HydrALAZINE INJ) 10 mg Q4H PRN IV. 03/05/17 23:45 04/04/17 23:44 03/06/17 00:34 10 MG Sodium Chloride (Sodium Chloride Tab) 1 gm DAILY PO 03/07/17 09:00 04/06/17 08:59 03/07/17 08:27 1 GM Non-Formulary Medication (Non-Formulary Patient'S Own Med) 2 ea DAILY PO 03/07/17 09:00 04/06/17 08:59 03/07/17 08:23 2 EA (Vale De La Cruz, SAMINAC) Review of Systems Constitutional: No chills, No fever, No sweats Respiratory: No shortness of breath Cardiovascular: No chest pain Musculoskeletal: + problem reported (back pain) (Vale De La Cruz, CASSANDRA-C) Physical Exam Date Time Temp Pulse Resp B/P Pulse Ox O2 Delivery O2 Flow Rate FiO2 03/07/17 08:20 36.5 65 18 148/72 98 Room Air 03/07/17 07:15 Room Air 03/06/17 23:40 Room Air 03/06/17 23:15 36.7 58 16 177/74 97 Room Air 03/06/17 16:30 97 Room Air 03/06/17 15:25 36.5 64 16 154/74 97 Room Air 03/06/17 13:16 148/73 Breast: Right Breast: no skin retraction, dimpling, peau d'orange, nipple discharge or palpable lumps or bumps. Left Breast: no skin retraction, dimpling, peau d'orange, nipple discharge, nipple inversion, palpable lumps or bumps. General Appearance: WD/WN, no apparent distress Head: normocephalic, atraumatic Eyes: sclerae normal Respiratory/Chest: no respiratory distress, no accessory muscle use Neurologic/Psych: alert, oriented x 3 Skin: normal color, warm/dry, no rash (Vale De La rCuz ., PA-C) Laboratory Results Last 24 Hours Test 03/06/17 23:05 Urine Osmolality 272 mOms/kg (Vale De La Cruz PA-C) Assessment & Plan Abnormal Mammogram: - Screening Mammogram on 02/28/2017 showed a 5 mm asymmetry in the lateral right anterior breast BIRADS category 0: need for further imaging - no breast symptoms or mass felt on examination bilaterally - History of similar abnormal finding on Mammogram last year in which she had 3D imaging (per patient) Plan: Would recommend outpatient follow-up with Dr. Cardenas once patient has recovered from her compression fractures and is home from rehabilitation. She should reschedule her follow-up imagining with the breast center and then Dr. Cardenas can review the findings and if there is any further need for biopsy or further imaging. Continue current management established by hospitalist service Thank you for the consultation Dr. Cardenas has seen patient and agrees with above stated findings and treatment plan. (Vale De La Cruz ., PA-C)
[2017-03-07] MEDS: TRAMADOL HCL 50 MG TAB PO PRN (12:32)
--- NOTE | 2017-03-07 13:05 | Hospitalist Progress Note ---
Hospitalist Progress Note Date of Service March 07, 2017. Subjective Pt evaluation today including: conversation w/ patient, physical exam, chart review Seen by Pulmonary and for possible bronchoscopy tomorrow. Medications Medications (Trade) Dose Ordered Sig/Dariusz Route Start Time Stop Time Status Last Admin Dose Admin Sodium Chloride (Sodium Chloride Tab) 1 gm DAILY PO 03/07/17 09:00 04/06/17 08:59 03/07/17 08:27 1 GM Non-Formulary Medication (Non-Formulary Patient'S Own Med) 2 ea DAILY PO 03/07/17 09:00 04/06/17 08:59 03/07/17 08:23 2 EA Objective Vital Signs Date Time Temp Pulse Resp B/P Pulse Ox O2 Delivery O2 Flow Rate FiO2 03/07/17 08:20 36.5 65 18 148/72 98 Room Air 03/07/17 07:15 Room Air 03/06/17 23:40 Room Air 03/06/17 23:15 36.7 58 16 177/74 97 Room Air 03/06/17 16:30 97 Room Air 03/06/17 15:25 36.5 64 16 154/74 97 Room Air 03/06/17 13:16 148/73 Physical Exam General Appearance: WD/WN Eyes: normal inspection, PERRL ENT: normal ENT inspection Neck: supple Respiratory/Chest: chest non-tender, + decreased breath sounds Cardiovascular: regular rate, rhythm, no edema, + systolic murmur Abdomen: normal bowel sounds, non tender, soft Extremities: normal range of motion, + pertinent finding (kyphoscoliosis thoracic spine) Neurologic/Psychiatric: + pertinent finding (resting tremor) Skin: normal color Lymphatic: no adenopathy Laboratory Results 03/06/17 06:33 03/06/17 06:33 Test 03/03/17 09:48 03/03/17 10:21 03/03/17 14:29 03/03/17 15:42 Total Bilirubin 0.7 mg/dl (0.2-1) Aspartate Amino Transf (AST/SGOT) 17 U/L (15-37) Alanine Aminotransferase (ALT/SGPT) 16 U/L (12-78) Alkaline Phosphatase 64 U/L (45-117) Total Protein 7.1 gm/dl (6.4-8.2) Albumin 3.9 gm/dl (3.4-5.0) Globulin 3.2 gm/dl (2.5-4.0) Albumin/Globulin Ratio 1.2 (0.9-2) Urine Color YELLOW Urine Appearance CLEAR (CLEAR) Urine pH 7.0 (4.5-7.5) Urine Specific [place] 1.009 (1.000-1.030) Urine Protein NEG (NEG) Urine Glucose (UA) NEG (NEG) Urine Ketones NEG (NEG) Urine Occult Blood TRACE (NEG) Urine Nitrite NEG (NEG) Urine Bilirubin NEG (NEG) Urine Urobilinogen NEG (NEG) Urine Leukocyte Esterase NEG (NEG) Urine WBC (Auto) 0 /hpf (0-5) Urine RBC (Auto) 0-4 /hpf (0-4) Urine Hyaline Casts (Auto) 0 /lpf (0-5) Urine Epithelial Cells (Auto) 5-10 /lpf (0-5) Urine Bacteria (Auto) NEG (NEG) 25-Hydroxy Vitamin D Total 34.6 ng/ml (30-100) Prothrombin Time 10.4 SECONDS (9.0-12.0) Prothromb Time International Ratio 1.0 (0.9-1.1) Activated Partial Thromboplast Time 28.4 SECONDS (21.0-31.0) Partial Thromboplastin Ratio 1.1 Parathyroid Hormone (Intact) 53.7 pg/mL (11.1-79.5) Test 03/04/17 01:29 03/04/17 07:09 03/06/17 06:33 03/06/17 23:05 Osmolality 252 mOsm/kg (280-300) Immature Granulocyte % (Auto) 0.4 % White Blood Count 5.54 K/uL (4.8-10.8) Red Blood Count 3.67 M/uL (4.2-5.4) 3.37 M/uL (4.2-5.4) Hemoglobin 11.4 g/dL (12.0-16.0) Hematocrit 33.5 % (37-47) Mean Corpuscular Volume 91.3 fL (80-100) 90.8 fL (80-100) Mean Corpuscular Hemoglobin 31.1 pg (25-34) 30.6 pg (25-34) Mean Corpuscular Hemoglobin Concent 34.0 g/dl (32-36) 33.7 g/dl (32-36) Platelet Count 236 K/uL (130-400) Mean Platelet Volume 7.9 fL (7.4-10.4) 7.7 fL (7.4-10.4) Neutrophils (%) (Auto) 69.6 % Lymphocytes (%) (Auto) 18.6 % Monocytes (%) (Auto) 10.3 % Eosinophils (%) (Auto) 0.7 % Basophils (%) (Auto) 0.4 % Neutrophils # (Auto) 3.86 K/uL (1.4-6.5) Lymphocytes # (Auto) 1.03 K/uL (1.2-3.4) Monocytes # (Auto) 0.57 K/uL (0.11-0.59) Eosinophils # (Auto) 0.04 K/uL (0-0.5) Basophils # (Auto) 0.02 K/uL (0-0.2) Immature Granulocyte # (Auto) 0.02 K/uL (0.00-0.02) RDW Standard Deviation 48.5 fL (36.4-46.3) RDW Coefficient of Variation 14.6 % (11.5-14.5) Anion Gap 7.0 mmol/L (3-11) Est Creatinine Clear Calc Drug Dose 52.9 ml/min Estimated GFR () 104.4 Estimated GFR (Non- 90.1 BUN/Creatinine Ratio 29.2 (10-20) Calcium Level 8.4 mg/dl (8.5-10.1) Urine Osmolality 272 mOms/kg (500-800) Last 24 Hours Test 03/06/17 23:05 Urine Osmolality 272 mOms/kg Diagnostic Results CT ANGIOGRAM OF THE CHEST CLINICAL HISTORY: Shortness of breath COMPARISON STUDY: Chest x-ray dated 01/03/2017 TECHNIQUE: Following the IV administration of 102 mL of [id number]-320, CT angiogram of the thorax was performed from the thoracic inlet to the lung bases utilizing the pulmonary embolus protocol. Images are reviewed in the axial, sagittal, and coronal planes. IV contrast was administered without complication. MIP imaging was performed. CT DOSE: 294.91 mGycm FINDINGS: There are extensive calcified mediastinal and hilar lymph nodes. There was no evidence of thoracic aortic dilatation. There were no pulmonary artery filling defects to indicate acute pulmonary embolism. There are moderate bilateral pleural effusions There are by basilar compressive atelectatic changes. There are right upper lobe airspace opacities, likely represent focal edema or pneumonia. There is a 3.5 cm lobulated left upper lobe pulmonary mass. Nodular airspace opacities are also visualized within the left upper lobe. There is a 6 mm left lower lobe pulmonary nodule. There is mild septal edema. There is tracheomalacia. The AP diameter of the trachea measures 3.3 mm. IMPRESSION: 1. Densely calcified mediastinal and hilar lymph nodes 2. No CT evidence of acute pulmonary embolism 3. Tracheomalacia. 4. Bilateral ill-defined pulmonary nodular airspace opacities, likely representing focal edema although a bilateral pneumonia could appear similar 5. Bilateral compressive atelectasis 6. Indeterminate lobulated 3.5 cm left upper lobe pulmonary mass. Pulmonary consultation is recommended. 7. 6 mm left lower lobe pulmonary nodule 8. Moderate bilateral pleural effusions Electronically signed by: Peyman Barrera M.D. 01/03/2017 12:28 PM Dictated Date/Time: 01/03/2017 12:15 PM [~ rep ct add3]] CT SCAN OF THE LUMBAR SPINE WITHOUT IV CONTRAST CLINICAL HISTORY: Acute on chronic low back pain. COMPARISON STUDY: CT scans of lumbar spine dated 06/13/2016 and 07/01/2015. TECHNIQUE: CT scan of lumbar spine is performed from the lower thoracic spine to the sacrum. Images are reviewed in the axial, sagittal, and coronal planes. IV contrast was not administered for this examination. CT DOSE: 305.57 mGycm FINDINGS: The skeletal structures are osteopenic. There is a mild acute superior endplate compression fracture of L2. This is new from the 06/13/2016 examination. No retropulsed fragments are identified. There is also an acute right transverse process fracture of L1 seen on image #44. No additional acute fracture is suggested. Vertebral body height is otherwise maintained throughout the lumbar spine. There is 7 mm anterolisthesis at L5-S1. Alignment is otherwise preserved throughout the lumbar spine. There is moderate to severe lumbar levoscoliosis centered at L3-L4. There are anterior and lateral marginal osteophytes. No spondylolysis is seen. There is a healed fractures of the left L1-L3 transverse processes, as well as the left posterior 12th rib. The spinous processes are intact. There is moderate to advanced degenerative disc space narrowing seen at L3-L4, L4-L5, and L5-S1. Mild degenerative narrowing seen at the remaining lumbar levels. Large posterior disc osteophyte complexes at L2-L3, L3-L4, and L4-L5 likely contribute to acquired compromise of the central canal. Significant facet arthropathy is seen lower lumbar region. The visualized sacrum and bony pelvis appear intact. Degenerative changes are seen involving the sacroiliac joints. No lytic or blastic bony lesions are suspected. There is fatty atrophy of the paraspinous musculature, asymmetrically greater on the right. Advanced sigmoid diverticulosis is partially visualized. Mild atherosclerotic calcification is noted in the abdominal aorta. Calcified lymph nodes are present in the right retroperitoneal region, similar in appearance to previous. IMPRESSION: 1. There is a mild acute superior endplate compression fracture of L2. No retropulsed fragments are identified. 2. There is an acute fracture of the right transverse process of L1. 3. Osteopenia with advanced lumbosacral spondylosis and scoliosis as detailed above. These findings are similar to prior examinations. Electronically signed by: Hemal Meza M.D. 03/03/2017 11:10 AM Dictated Date/Time: 03/03/2017 11:03 AM Assessment and Plan 71 yo female with h/o osteoporosis, scoliosis, sarcoidosis, adrenal insufficiency who presents with several days of back pain after a fall found to have compression fx of L2 and transverse process fracture at L1 - Compression fracture: pain control with Lidoderm, Tylenol, Ultram, adequate thus far plan to go to rehab at [facility] in [place], sent referral on Tuesday - Osteoporosis, Vitamin D deficiency: Vitamin D low at 34, give supplementation , 50,000 units weekly x 6 weeks set up for endocrinology follow up on April [address] Sandee Trinidad on bisphosphonates for years but taken off appropriately - Hyponatremia: low serum osmolality, however, also with lower urine osmolality suggesting appropriate ADH levels Na was slowly trending up. start NaCl 1gm PO daily, follow sodium level. will check serum cortisol and S.TSH. encourage PO intake and solutes - Left 3.5 cm lobulated lung lesion: seen on CT chest in December seen by Pulmonary, . Await further input reg. investigations. - HTN: stable - Hypothyroidism: stable - Adrenal insufficiency: stable. on Solucortef. - Abnormal mammogram: Appreciate Surgery input. OP follow up - DVT prophylaxis: heparin
[2017-03-07 15:26] VITALS: BP 143/66; PULSE 58; TEMP 36.7; O2SAT 96
--- NOTE | 2017-03-07 17:50 | SURGICAL CONSULTATION ---
DATE OF CONSULTATION: 03/07/2017 REASON FOR CONSULTATION: Left upper lobe mass. HISTORY OF PRESENT ILLNESS: This 71-year-old female who has a history of sarcoidosis diagnosed via biopsy of a facial skin lesion who presents to [facility] on 03/03/2017 with terrible pain in her back due to a probable compression fracture. She has a history of sarcoidosis and underwent a CT scan of her chest and has marked calcified lymph nodes which are very large in her mediastinum, but she also has a mass in her left apex. This is a soft tissue mass without calcifications. The patient has never smoked cigarettes. She has been followed by [facility] for her sarcoidosis for many years. I have been asked to comment on this left upper lobe mass from a thoracic surgery standpoint. PAST MEDICAL HISTORY: 1. Sarcoidosis. 2. History of ventricular tachycardia in the past. 3. Questionable diverticular bleed. 4. Hypertension. 5. Gastroesophageal reflux disease. 6. Mediastinal adenopathy. 7. Scoliosis. 8. Hypertrophic cardiomyopathy. 9. Chronic renal insufficiency. PAST SURGICAL HISTORY: 1. Tonsillectomy. 2. 1, para 1, abortus 0. MEDICATIONS (AT HOME): 1. Spironolactone. 2. Protonix. 3. Potassium. 4. Aspirin. 5. Atenolol. 6. Hydrocortisone (Cortef) b.i.d. 7. Diltiazem. 8. Synthroid. 9. Losartan. 10. Multivitamins. ALLERGIES: 1. AMOXICILLIN. 2. ONDANSETRON. 3. OXYCODONE. 4. HYDRALAZINE. 5. HYDROCODONE. 6. IBUPROFEN. 7. QUINOLONES. 8. CEPHALOSPORINS. 9. PENICILLIN. 10. ESCITALOPRAM. SOCIAL HISTORY: The patient has never smoked cigarettes. She has never . She does not use drugs or alcohol. She is currently retired. Her son is a professor of physical education in [place]. FAMILY HISTORY: History of hypertension, diabetes. Her son is healthy. She has no grandchildren. REVIEW OF SYSTEMS: The patient states she has lost 40 pounds in the last 6 months. She denies nausea or vomiting. She is just complaining of some mild abdominal pain that sometimes occurs when she has not had a bowel movement. She does get short of breath if she exerts herself. She has no new skin lesions. She had no decrease in visual or hearing acuity. She does wear glasses. She denies any neurologic symptoms such as amaurosis fugax. PHYSICAL EXAMINATION: GENERAL: Sickly appearing 71-year-old female who wears glasses. She is awake and alert x3. HEENT: Her extraocular movements are intact. Sclerae are pale but anicteric. She has no nasolabial flattening. Her oral mucosa is moist. Her tongue is midline. LUNGS: Upon auscultation of her lungs, she actually has clear lungs without wheezing or rales. HEART: She has a regular rhythm of the heart without a significant rub. ABDOMEN: Soft, mild tenderness. She has good bowel sounds. I do not detect evidence of abdominal aortic aneurysm. EXTREMITIES: She does have palpable pulses. NEUROLOGIC: She has no obvious cranial nerve deficits. Neurologically, she is awake, alert and oriented. ASSESSMENT AND PLAN: 1. Left upper lobe mass. I believe we should evaluate this further. I am going to offer her navigational bronchoscopy. I would like to let her settle down a bit and I may do this as an outpatient. I reviewed her CT scan several months ago and to now it really has not changed much. In addition, I do not think a PET scan is going to be helpful because it will light up all of her nodes. 2. Sarcoidosis.
[2017-03-07 21:46] VITALS: BP 168/70; PULSE 57; PULSE 60
[2017-03-07] MEDS: HydrALAZINE HCL 20 MG/ML VIAL IV. PRN (21:54)
[2017-03-07 23:05] VITALS: BP 145/63; PULSE 70; TEMP 36.5; O2SAT 97
[2017-03-07] MEDS: ONDANSETRON INJ 2 MG/ML 2 ML VIAL IV PRN (23:23)
[2017-03-07] MEDS: LORAZEPAM 0.5 MG TAB PO PRN (23:23)
[2017-03-08] MEDS: ACETAMINOPHEN 325 MG TAB PO PRN ×2 (05:25→09:44)
[2017-03-08] MEDS: LEVOTHYROXINE 75 MCG TAB PO SCH (05:26)
[2017-03-08 07:15] VITALS: BP 165/62; PULSE 62; TEMP 36.4; O2SAT 97
[2017-03-08] MEDS: ONDANSETRON INJ 2 MG/ML 2 ML VIAL IV PRN ×2 (08:11→15:12)
[2017-03-08] MEDS: ASPIRIN 81 MG ECTAB PO SCH (09:21)
[2017-03-08] MEDS: SERTRALINE HCL 50 MG TAB PO SCH (09:21)
[2017-03-08] MEDS: MULTIVITAMIN TAB PO SCH (09:22)
[2017-03-08] MEDS: SPIRONOLACTONE 25 MG TAB PO SCH (09:22)
[2017-03-08] MEDS: HYDROCORTISONE 10 MG TAB PO SCH ×2 (09:23→21:03)
[2017-03-08] MEDS: POTASSIUM CHLORIDE 20 MEQ TABCR PO SCH ×2 (09:24→21:03)
[2017-03-08] MEDS: LOSARTAN POTASSIUM 50 MG TAB PO SCH (09:24)
[2017-03-08] MEDS: CHOLECALCIFEROL 1000 INTER.UNIT TAB PO SCH (09:24)
[2017-03-08] MEDS: PANTOprazole SOD 40 MG TAB PO SCH (09:25)
[2017-03-08] MEDS: [UNRECOGNIZED DRUG - OTHER] PO SCH (09:25)
[2017-03-08] MEDS: SODIUM CHLORIDE 1 GM TAB PO SCH (09:25)
[2017-03-08] MEDS: CALCITONIN SALMON NA 200 IU/AC 3.7 ML BTL SCH (09:25)
[2017-03-08] MEDS: LIDODERM (LIDOCAINE) PATCH 5% TD SCH (09:26)
[2017-03-08] MEDS: HEPARIN SOD 5000 UNIT/0.5 ML CARP SQ SCH ×2 (09:30→21:04)
[2017-03-08] MEDS: DILTIAZEM HCL 300 MG CAPCR PO SCH (09:47)
[2017-03-08 11:42] LABS: BASO % 0.3 %; BASO ABS # 0.02 K/uL (0-0.2); COMPLETE YES; EOS % 0.7 %; HEMATOCRIT 29.2 % (37-47); IG% 0.3 %; LYMPH % 11.8 %; LYMPH ABS # 0.82 K/uL (1.2-3.4); MEAN CELL VOLUME 89.8 fL (80-100); MEAN CORPUSCULAR HEMOGLOBIN 30.8 pg (25-34); MEAN CORPUSCULAR HGB CONC 34.2 g/dl (32-36); MEAN PLATELET VOLUME 7.8 fL (7.4-10.4); NEUT % 72.9 %; PLATELET COUNT 249 K/uL (130-400); RED BLOOD COUNT 3.25 M/uL (4.2-5.4); WHITE BLOOD COUNT 6.92 K/uL (4.8-10.8)
[2017-03-08 12:00] LABS: BUN/CREATININE RATIO 25.5 (10-20); CALCIUM 8.4 mg/dl (8.5-10.1); CREATININE 0.69 mg/dl (0.60-1.20); POTASSIUM 4.7 mmol/L (3.5-5.1)
[2017-03-08 12:22] VITALS: BP 173/73; PULSE 69; O2SAT 97
[2017-03-08] MEDS: HydrALAZINE HCL 20 MG/ML VIAL IV. PRN (12:27)
[2017-03-08] MEDS ORDERED: NURSING VERBAL MED ORDER ONE ×2 (14:45→16:15)
[2017-03-08] MEDS: TRAMADOL HCL 50 MG TAB PO PRN (15:12)
[2017-03-08 15:17] VITALS: BP 137/64; PULSE 75; TEMP 36.4; O2SAT 97
[2017-03-08 16:09] LABS: MAGNESIUM 1.8 mg/dl (1.8-2.4)
[2017-03-08] MEDS ORDERED: NITROGLYCERIN 0.4 MG SL PER TAB CHARGE SL ONE (16:45)
--- NOTE | 2017-03-08 17:30 | Nephrology Consultation ---
Nephrology Consultation Date & Providers Date of Consultation: March 08, 2017. Primary Care Provider: Arthur Brown M.D. Referring Provider: Reason for Consultation Evaluation of hyponatremia History of Present Illness Miss Bennett is a 71 year old white female who is seen at the request of Dr. Trinidad for evaluation of hyponatremia. Medical records in the hospital EMR were reviewed and are summarized as follows: The patient has a > 20 year h/o sarcoidosis. She has required halfway steroid therapy. She has adrenal insufficiency and requires continued steroid replacement. 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 Miss Bennett was admitted to the hospital for evaluation of intractable back pain. She was found to have an L2 compression fracture. Her serum sodium has been 135 - 145 as an outpatient. Since admission her serum sodium has dropped from 125 to 121 despite oral NaCl 1 g per day. Laboratory studies revealed Sosm 252, Uosm 272. Chest CT films reviewed today. Patient has calcified mediastinal lymph nodes and a 3.[address] lung mass. CT surgery has been consulted and is considering a navigational bronchoscopy. Past Medical/Surgical History Medical: # Sarcoidosis # Adrenal insufficiency # HTN # Osteoporosis # Surgical hypothyroidism # Diverticulosis # Clostridium Difficile colitis 01/14 Surgical: # Thyroidectomy Allergies Coded Allergies: Amoxicillin (Verified Allergy, Mild, ITCHY, 03/03/17) Ondansetron (Verified Allergy, Mild, ITCHY, 03/03/17) Oxycodone (Verified Allergy, Mild, ITCH, 03/03/17) Hydralazine (Verified Adverse Reaction, Severe, Severe angina, 03/03/17) Patient has a severe hypertrophic cardiomyopathy. Hydralazine is contraindicated. Hydrocodone (Unverified Adverse Reaction, Intermediate, NAUSEA, 03/03/17) Ibuprofen (Unverified Adverse Reaction, Intermediate, NAUSEA, 03/03/17) Quinolones (Verified Adverse Reaction, Intermediate, HEADACHE, 03/03/17) Cephalosporins (Verified Adverse Reaction, Unknown, CEFTIN: ABDOMINAL PAIN /NAUSEA, 03/03/17) Escitalopram (Verified Adverse Reaction, Unknown, ABD PAIN;NAUSEA, 03/03/17) Penicillins (Verified Adverse Reaction, Unknown, ABD PAIN;NAUSEA, 03/03/17) Inpatient Medications Current Inpatient Medications Medications (Trade) Dose Ordered Sig/Dariusz Route Start Time Stop Time Status Last Admin Dose Admin Acetaminophen (Tylenol Tab) 650 mg Q4H PRN PO 03/03/17 13:30 04/02/17 13:29 03/08/17 09:44 650 MG Al Hydrox/Mg Hydrox/Simethicone (Maalox Max Susp) 15 ml Q4H PRN PO 03/03/17 13:30 04/02/17 13:29 Magnesium Hydroxide (Milk Of Magnesia Susp) 30 ml Q6H PRN PO 03/03/17 13:30 04/02/17 13:29 Polyethylene (Miralax Powder Packet) 17 gm DAILY PRN PO 03/03/17 13:30 04/02/17 13:29 Ondansetron HCl (Zofran Inj) 4 mg Q6H PRN IV 03/03/17 13:30 04/02/17 13:29 03/08/17 15:12 4 MG Heparin Sodium (Porcine) (Heparin Sq 5000 Unit/0.5ml) 5,000 unit Q12 SQ 03/03/17 21:00 04/02/17 20:59 03/08/17 09:30 5,000 UNIT Lidocaine (Lidoderm Patch 5%) 1 patch QAM TD 03/04/17 09:00 04/03/17 08:59 03/08/17 09:26 1 PATCH Miscellaneous (Remove Lidoderm Patch) 1 ea DAILY@21 N/A 03/03/17 21:00 04/02/17 20:59 03/07/17 21:00 1 EA Aspirin (Ecotrin Tab) 81 mg DAILY PO 03/04/17 09:00 04/03/17 08:59 03/08/17 09:21 81 MG Atenolol (Tenormin Tab) 50 mg BID PO 03/03/17 21:00 04/02/17 20:59 03/08/17 09:21 50 MG Cholecalciferol (Vitamin D Tab) 1,000 inter.unit QAM PO 03/04/17 09:00 04/03/17 08:59 03/08/17 09:24 1,000 INTER.UNIT Diltiazem HCl (Cardizem Cd Cap) 300 mg QAM PO 03/04/17 09:00 04/02/17 08:59 5/9/17 09:47 300 MG Hydrocortisone (Cortef Tab) 10 mg QPM PO 03/03/17 21:00 04/02/17 20:59 03/07/17 21:54 10 MG Hydrocortisone (Cortef Tab) 20 mg QAM PO 03/04/17 09:00 04/03/17 08:59 03/08/17 09:23 20 MG Levothyroxine Sodium (Synthroid Tab) 75 mcg DAILYBB PO 03/04/17 06:00 04/03/17 06:59 03/08/17 05:26 75 MCG Lorazepam (Ativan Tab) 0.25 mg DAILY PRN PO 03/03/17 13:30 04/02/17 13:29 03/07/17 23:23 0.25 MG Losartan Potassium (coZAAR TAB) 100 mg QAM PO 03/04/17 09:00 04/02/17 08:59 03/08/17 09:24 100 MG Multivitamins (Multivitamin Tab) 1 tab DAILY PO 03/04/17 09:00 04/03/17 08:59 03/08/17 09:22 1 TAB Pantoprazole Sodium (Protonix Tab) 40 mg QAM PO 03/04/17 09:00 04/03/17 08:59 03/08/17 09:25 40 MG Potassium Chloride (Klor-Con Tab) 20 meq BID PO 03/03/17 21:00 04/02/17 20:59 03/08/17 09:24 20 MEQ Miscellaneous (Iv Fluids Completed) 1 ea PRN PRN N/A 03/03/17 14:15 03/03/18 14:14 Tramadol HCl (Ultram Tab) 50 mg Q6 PRN PO 03/03/17 14:45 04/02/17 14:44 03/08/17 15:12 50 MG Morphine Sulfate (MoRPHine SULFATE INJ) 4 mg Q4 PRN IV 03/03/17 14:45 03/17/17 14:44 Calcitonin [place] (Fortical Nasal [place]) 1 spray DAILY NA 03/05/17 09:00 04/02/17 13:29 03/08/17 09:25 1 SPRAY Sertraline HCl (Zoloft Tab) 50 mg QAM PO 03/06/17 09:00 04/05/17 08:59 03/08/17 09:21 50 MG Hydralazine HCl (HydrALAZINE INJ) 10 mg Q4H PRN IV. 03/05/17 23:45 04/04/17 23:44 03/08/17 12:27 10 MG Non-Formulary Medication (Non-Formulary Patient'S Own Med) 2 ea DAILY PO 03/07/17 09:00 04/06/17 08:59 03/08/17 09:25 2 EA Tolvaptan ([place] Tab) 15 mg NOW PO 03/08/17 17:00 04/07/17 16:59 UNV Family History Diabetes mellitus Hypertension Negative for CKD / ESRD / hyponatremia Social History Smoking Status: Never Smoker Drug Use: none Marital Status: single Occupation: unemployed, retired Single. One son in good health. 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 Remote history of tobacco use Review of Systems Constitutional: No fever Respiratory: No cough, No hemoptysis, No shortness of breath Cardiovascular: No chest pain Abdomen: No nausea, No pain, No vomiting A complete review of systems was performed. Pertinent positives are noted above. All other systems are negative. Physical Exam Date Time Temp Pulse Resp B/P Pulse Ox O2 Delivery O2 Flow Rate FiO2 03/08/17 15:17 36.4 75 16 137/64 97 Room Air 03/08/17 12:22 69 16 173/73 97 Room Air 03/08/17 08:15 Room Air 03/08/17 07:15 36.4 62 18 165/62 97 Room Air 03/07/17 23:05 36.5 70 16 145/63 97 Room Air 03/07/17 21:46 57 168/70 General Appearance: + mild distress (due to back discomfort), + thin (frail appearing) Head: atraumatic (temporal muscle wasting) Eyes: PERRL, EOMI ENT: + pertinent finding (dry mucous membranes) Neck: supple, no JVD Respiratory/Chest: lungs clear Cardiovascular: regular rate, rhythm Abdomen/GI: normal bowel sounds, non tender, soft Extremities/Musculoskelatal: no calf tenderness, no pedal edema Neurologic/Psych: alert, oriented x 3 (follows commands appropriately) Skin: warm/dry Laboratory Results Last 24 Hours Test 03/08/17 11:25 03/08/17 15:42 03/08/17 16:55 White Blood Count 6.92 K/uL Red Blood Count 3.25 M/uL Hemoglobin 10.0 g/dL Hematocrit 29.2 % Mean Corpuscular Volume 89.8 fL Mean Corpuscular Hemoglobin 30.8 pg Mean Corpuscular Hemoglobin Concent 34.2 g/dl Platelet Count 249 K/uL Mean Platelet Volume 7.8 fL Neutrophils (%) (Auto) 72.9 % Lymphocytes (%) (Auto) 11.8 % Monocytes (%) (Auto) 14.0 % Eosinophils (%) (Auto) 0.7 % Basophils (%) (Auto) 0.3 % Neutrophils # (Auto) 5.04 K/uL Lymphocytes # (Auto) 0.82 K/uL Monocytes # (Auto) 0.97 K/uL Eosinophils # (Auto) 0.05 K/uL Basophils # (Auto) 0.02 K/uL RDW Standard Deviation 48.1 fL RDW Coefficient of Variation 14.5 % Immature Granulocyte % (Auto) 0.3 % Immature Granulocyte # (Auto) 0.02 K/uL Sodium Level 121 mmol/L Potassium Level 4.7 mmol/L Chloride Level 87 mmol/L Carbon Dioxide Level 26 mmol/L Anion Gap 8.0 mmol/L Blood Urea Nitrogen 18 mg/dl Creatinine 0.69 mg/dl Est Creatinine Clear Calc Drug Dose 47.6 ml/min Estimated GFR () 100.8 Estimated GFR (Non- 87.0 BUN/Creatinine Ratio 25.5 Random Glucose 107 mg/dl Calcium Level 8.4 mg/dl Magnesium Level 1.8 mg/dl Troponin I < 0.015 ng/ml Impression (1) Hyponatremia (2) Sarcoidosis (3) Osteoporotic compression fracture of spine (4) History of steroid therapy (5) Lung nodule (6) Adrenal insufficiency (7) Thyroidectomy Hypoosmolar hyponatremia in an elderly female admitted w/ intractable back pain associated w/ lumbar compression fracture. Uosm should be < 100 in the setting of hyponatremia. Elevated Uosm is indicative of ADH effect. This could be related to pain or possibly patient's BLAIRE lung mass. She appears clinically euvolemic at this time. She is on thyroid and adrenal replacement therapy. There is no clinical evidence of hypothyroidism or adrenal insufficiency at this time. Recommendations HYPONATREMIA: -- Stop NaCl supplement -- Allow access to free water -- Will provide one dose Tolvaptan this evening and monitor serum sodium and urine osmolality LUNG MASS: -- Await results of navigational bronchoscopy COMPRESSION FRACTURE: -- Await orthopedic input
[2017-03-08 18:00] LABS: BUN/CREATININE RATIO 23.4 (10-20); CALCIUM 8.4 mg/dl (8.5-10.1); CREATININE 0.8 mg/dl (0.60-1.20); POTASSIUM 4.9 mmol/L (3.5-5.1)
[2017-03-08] MEDS ORDERED: TOLVAPTAN TAB 15 MG TAB PO ONE (18:00)
--- NOTE | 2017-03-08 19:36 | Hospitalist Progress Note ---
Hospitalist Progress Note Date of Service March 08, 2017. Subjective Pt evaluation today including: conversation w/ patient, chart review, lab review No new symptoms to report in am. This pm she had chest tightness , non radiating, no associated cardio resp symptoms. Stat ekg showed no ischemic changes, NSR. Stat troponin was negative Medications Medications (Trade) Dose Ordered Sig/Dariusz Route Start Time Stop Time Status Last Admin Dose Admin Tolvaptan (Sam[place] Tab) 15 mg NOW ONCE PO 03/08/17 18:00 03/08/17 18:01 DC 03/08/17 17:50 15 MG Objective Vital Signs Date Time Temp Pulse Resp B/P Pulse Ox O2 Delivery O2 Flow Rate FiO2 03/08/17 15: 36.4 75 16 137/64 97 Room Air 03/08/17 12:22 69 16 173/73 97 Room Air 03/08/17 08:15 Room Air 03/08/17 07:15 36.4 62 18 165/62 97 Room Air 03/07/17 23:05 36.5 70 16 145/63 97 Room Air 03/07/17 21:46 57 168/70 Physical Exam General Appearance: WD/WN Eyes: normal inspection ENT: normal ENT inspection Neck: supple, no adenopathy Respiratory/Chest: chest non-tender, lungs clear Cardiovascular: regular rate, rhythm, no edema Abdomen: normal bowel sounds, non tender Extremities: normal range of motion, normal inspection Neurologic/Psychiatric: 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 II-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 nml as tested, alert, oriented x 3 Skin: normal color Lymphatic: no adenopathy Laboratory Results Last 24 Hours Test 03/08/17 11:25 03/08/17 15:42 03/08/17 17:20 White Blood Count 6.92 K/uL Red Blood Count 3.25 M/uL Hemoglobin 10.0 g/dL Hematocrit 29.2 % Mean Corpuscular Volume 89.8 fL Mean Corpuscular Hemoglobin 30.8 pg Mean Corpuscular Hemoglobin Concent 34.2 g/dl Platelet Count 249 K/uL Mean Platelet Volume 7.8 fL Neutrophils (%) (Auto) 72.9 % Lymphocytes (%) (Auto) 11.8 % Monocytes (%) (Auto) 14.0 % Eosinophils (%) (Auto) 0.7 % Basophils (%) (Auto) 0.3 % Neutrophils # (Auto) 5.04 K/uL Lymphocytes # (Auto) 0.82 K/uL Monocytes # (Auto) 0.97 K/uL Eosinophils # (Auto) 0.05 K/uL Basophils # (Auto) 0.02 K/uL RDW Standard Deviation 48.1 fL RDW Coefficient of Variation 14.5 % Immature Granulocyte % (Auto) 0.3 % Immature Granulocyte # (Auto) 0.02 K/uL Sodium Level 121 mmol/L 119 mmol/L Potassium Level 4.7 mmol/L 4.9 mmol/L Chloride Level 87 mmol/L 85 mmol/L Carbon Dioxide Level 26 mmol/L 27 mmol/L Anion Gap 8.0 mmol/L 7.0 mmol/L Blood Urea Nitrogen 18 mg/dl 19 mg/dl Creatinine 0.69 mg/dl 0.80 mg/dl Est Creatinine Clear Calc Drug Dose 47.6 ml/min 41.0 ml/min Estimated GFR () 100.8 85.4 Estimated GFR (Non- 87.0 73.7 BUN/Creatinine Ratio 25.5 23.4 Random Glucose 107 mg/dl 112 mg/dl Calcium Level 8.4 mg/dl 8.4 mg/dl Magnesium Level 1.8 mg/dl Troponin I < 0.015 ng/ml Assessment and Plan 71 yo female with h/o osteoporosis, scoliosis, sarcoidosis, adrenal insufficiency who presents with several days of back pain after a fall found to have compression fx of L2 and transverse process fracture at L1 - Compression fracture: pain control with Lidoderm, Tylenol, Ultram, adequate thus far plan to go to rehab at [facility] in [place], sent referral on Tuesday - Osteoporosis, Vitamin D deficiency: Vitamin D low at 34, give supplementation , 50,000 units weekly x 6 weeks set up for endocrinology follow up on April [address] Sandee Trinidad on bisphosphonates for years but taken off appropriately - Hyponatremia: low serum osmolality, however, also with lower urine osmolality suggesting appropriate ADH levels Serum sodium low at 119. Will ask for Renal input reg. therapy. start NaCl 1gm PO daily, follow sodium level. will check serum cortisol and S.TSH. encourage PO intake and solutes - Left 3.5 cm lobulated lung lesion: seen on CT chest in December seen by Pulmonary, . Bronchoscopy as OP. - Chest pain Atypical. Will trend troponins. EkG with no ischemic changes. - HTN: stable - Hypothyroidism: stable - Adrenal insufficiency: stable. on Solucortef. - Abnormal mammogram: Appreciate Surgery input. OP follow up - DVT prophylaxis: heparin
[2017-03-08 20:51] VITALS: BP 150/66; PULSE 62
[2017-03-08 20:55] LABS: BUN/CREATININE RATIO 22.5 (10-20); CALCIUM 8.6 mg/dl (8.5-10.1); CREATININE 0.79 mg/dl (0.60-1.20); POTASSIUM 4.6 mmol/L (3.5-5.1)
--- NOTE | 2017-03-08 21:34 | SURGERY PROGRESS NOTE ---
DATE: 03/08/2017 SUBJECTIVE: Ms. Bennett was seen today on 03/08/2017. We discussed the possible electromagnetic navigational bronchoscopy; however, she has some other issues. Besides the fact that she has a compression fracture which is causing her quite a bit of pain, she also has some GI issues with nausea. This left upper lobe mass has not really changed much in the last couple of months. I think it needs to be investigated, I would prefer to have the patient settled down some from her other issues. I would plan on seeing her back in the office to schedule this electively in the future as an outpatient.
[2017-03-08 23:30] VITALS: BP 153/72; PULSE 60; TEMP 36.8; O2SAT 98
[2017-03-09 01:09] LABS: BUN/CREATININE RATIO 19.5 (10-20); CALCIUM 8.9 mg/dl (8.5-10.1); CREATININE 0.78 mg/dl (0.60-1.20); POTASSIUM 4.9 mmol/L (3.5-5.1)
[2017-03-09] MEDS: LEVOTHYROXINE 75 MCG TAB PO SCH (05:48)
[2017-03-09 07:37] VITALS: BP 132/68; PULSE 60; TEMP 36.9; O2SAT 96
[2017-03-09 07:52] LABS: HEMATOCRIT 34.6 % (37-47); MEAN CELL VOLUME 90.8 fL (80-100); MEAN CORPUSCULAR HEMOGLOBIN 30.4 pg (25-34); MEAN CORPUSCULAR HGB CONC 33.5 g/dl (32-36); PLATELET COUNT 290 K/uL (130-400); RED BLOOD COUNT 3.81 M/uL (4.2-5.4); WHITE BLOOD COUNT 5.19 K/uL (4.8-10.8)
[2017-03-09 08:28] LABS: BUN/CREATININE RATIO 14.8 (10-20); CREATININE 0.95 mg/dl (0.60-1.20); POTASSIUM 4.5 mmol/L (3.5-5.1)
[2017-03-09 08:38] LABS: THYROID STIMULATING HORMONE 4.51 uIu/ml (0.300-4.500)
[2017-03-09 08:39] LABS: CALCIUM 9.7 mg/dl (8.5-10.1)
[2017-03-09] MEDS: CALCITONIN SALMON NA 200 IU/AC 3.7 ML BTL SCH (08:46)
[2017-03-09] MEDS: DILTIAZEM HCL 300 MG CAPCR PO SCH (08:46)
[2017-03-09] MEDS: POTASSIUM CHLORIDE 20 MEQ TABCR PO SCH ×2 (08:46→20:42)
[2017-03-09] MEDS: HYDROCORTISONE 10 MG TAB PO SCH ×2 (08:47→20:42)
[2017-03-09] MEDS: SERTRALINE HCL 50 MG TAB PO SCH (08:47)
[2017-03-09] MEDS: ASPIRIN 81 MG ECTAB PO SCH (08:47)
[2017-03-09] MEDS: MULTIVITAMIN TAB PO SCH (08:48)
[2017-03-09] MEDS: CHOLECALCIFEROL 1000 INTER.UNIT TAB PO SCH (08:48)
[2017-03-09] MEDS: LOSARTAN POTASSIUM 50 MG TAB PO SCH (08:48)
[2017-03-09] MEDS: PANTOprazole SOD 40 MG TAB PO SCH (08:49)
[2017-03-09] MEDS: LIDODERM (LIDOCAINE) PATCH 5% TD SCH (08:50)
[2017-03-09] MEDS: [UNRECOGNIZED DRUG - OTHER] PO SCH (08:50)
[2017-03-09] MEDS: HEPARIN SOD 5000 UNIT/0.5 ML CARP SQ SCH ×2 (08:53→20:47)
--- NOTE | 2017-03-09 09:08 | Nephrology Progress Note ---
Nephrology Progress Note Date of Service March 09, 2017. Chief Complaint Evaluation of hyponatremia Subjective Miss Bennett was seen & examined in her hospital room this morning. She was sitting up in a chair eating breakfast. She was alert & oriented to self, place and time. She denied JACOBO or focal weakness. She reported brisk urine output. She still has significant back discomfort related to her lumbar compression fracture. Review of Systems Constitutional: No fever Cardiovascular: No chest pain Respiratory: No dyspnea at rest Abdomen: No nausea, No pain, No vomiting Genitourinary - Female: No dysuria Extremities: No leg edema Neurologic: No weakness A complete review of systems was performed. Pertinent positives are noted above. All other systems are negative. Vital Signs Last 8 Hrs Date Time Temp Pulse Resp B/P Pulse Ox O2 Delivery O2 Flow Rate FiO2 03/09/17 07:58 Room Air 03/09/17 07:37 36.9 60 17 132/68 96 Room Air I & O 24-Hour Column 03/09/17 08:00 Intake Total 810 ml Output Total 3400 ml Balance -2590 ml Last Recorded Weight Weight (Kilograms): 47.500 Physical Exam General Appearance: + thin (frail appearing) Head: normocephalic (temporal muscle wasting), atraumatic Eyes: PERRL, EOMI Neck: no adenopathy, no JVD Respiratory/Chest: lungs clear, no respiratory distress Cardiovascular: regular rate, rhythm Back: + pertinent finding (back pain related to compression fracture) Abdomen/GI: normal bowel sounds, non tender, soft Extremities/Musculoskelatal: no calf tenderness, no pedal edema Neurologic/Psych: alert, oriented x 3 Family History Diabetes mellitus Hypertension Negative for CKD / ESRD / hyponatremia Social History Smoking Status: Never smoker Drug Use: none Marital Status: single Occupation: unemployed, retired Single. One son in good health. 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 Remote history of tobacco use Laboratory Results Past 24 Hours 03/08/17 11:25 Red Blood Count 3.25, Mean Corpuscular Volume 89.8, Mean Corpuscular Hemoglobin 30.8, Mean Corpuscular Hemoglobin Concent 34.2, Mean Platelet Volume 7.8, Neutrophils (%) (Auto) 72.9, Lymphocytes (%) (Auto) 11.8, Monocytes (%) (Auto) 14.0, Eosinophils (%) (Auto) 0.7, Basophils (%) (Auto) 0.3, Neutrophils # (Auto ) 5.04, Lymphocytes # (Auto) 0.82, Monocytes # (Auto) 0.97, Eosinophils # (Auto ) 0.05, Basophils # (Auto) 0.02 03/09/17 07:40 03/08/17 11:25 03/08/17 17:20 03/08/17 20:17 03/09/17 00:38 03/09/17 07:40 Test 03/08/17 11:25 03/08/17 15:42 03/08/17 17:20 03/08/17 19:25 White Blood Count 6.92 K/uL (4.8-10.8) Red Blood Count 3.25 M/uL (4.2-5.4) Hemoglobin 10.0 g/dL (12.0-16.0) Hematocrit 29.2 % (37-47) Mean Corpuscular Volume 89.8 fL (80-100) Mean Corpuscular Hemoglobin 30.8 pg (25-34) Mean Corpuscular Hemoglobin Concent 34.2 g/dl (32-36) Platelet Count 249 K/uL (130-400) Mean Platelet Volume 7.8 fL (7.4-10.4) Neutrophils (%) (Auto) 72.9 % Lymphocytes (%) (Auto) 11.8 % Monocytes (%) (Auto) 14.0 % Eosinophils (%) (Auto) 0.7 % Basophils (%) (Auto) 0.3 % Neutrophils # (Auto) 5.04 K/uL (1.4-6.5) Lymphocytes # (Auto) 0.82 K/uL (1.2-3.4) Monocytes # (Auto) 0.97 K/uL (0.11-0.59) Eosinophils # (Auto) 0.05 K/uL (0-0.5) Basophils # (Auto) 0.02 K/uL (0-0.2) RDW Standard Deviation 48.1 fL (36.4-46.3) RDW Coefficient of Variation 14.5 % (11.5-14.5) Immature Granulocyte % (Auto) 0.3 % Immature Granulocyte # (Auto) 0.02 K/uL (0.00-0.02) Anion Gap 8.0 mmol/L (3-11) 7.0 mmol/L (3-11) Est Creatinine Clear Calc Drug Dose 47.6 ml/min 41.0 ml/min Estimated GFR () 100.8 85.4 Estimated GFR (Non- 87.0 73.7 BUN/Creatinine Ratio 25.5 (10-20) 23.4 (10-20) Calcium Level 8.4 mg/dl (8.5-10.1) 8.4 mg/dl (8.5-10.1) Magnesium Level 1.8 mg/dl (1.8-2.4) Troponin I < 0.015 ng/ml (0-0.045) Urine Osmolality 359 mOms/kg (500-800) Test 03/08/17 20:17 03/09/17 00:38 03/09/17 07:40 Anion Gap 7.0 mmol/L (3-11) 4.0 mmol/L (3-11) 11.0 mmol/L (3-11) Est Creatinine Clear Calc Drug Dose 41.5 ml/min 42.1 ml/min 34.5 ml/min Estimated GFR () 86.7 88.0 69.4 Estimated GFR (Non- 74.8 76.0 59.8 BUN/Creatinine Ratio 22.5 (10-20) 19.5 (10-20) 14.8 (10-20) Calcium Level 8.6 mg/dl (8.5-10.1) 8.9 mg/dl (8.5-10.1) 9.7 mg/dl (8.5-10.1) Red Blood Count 3.81 M/uL (4.2-5.4) Mean Corpuscular Volume 90.8 fL (80-100) Mean Corpuscular Hemoglobin 30.4 pg (25-34) Mean Corpuscular Hemoglobin Concent 33.5 g/dl (32-36) RDW Standard Deviation 49.4 fL (36.4-46.3) RDW Coefficient of Variation 14.8 % (11.5-14.5) Mean Platelet Volume 8.0 fL (7.4-10.4) Thyroid Stimulating Hormone (TSH) 4.510 uIu/ml (0.300-4.500) Cortisol AM Sample 24.97 mcg/dl (4.30-22.40) Allergies Coded Allergies: Amoxicillin (Verified Allergy, Mild, ITCHY, 03/03/17) Ondansetron (Verified Allergy, Mild, ITCHY, 03/03/17) Oxycodone (Verified Allergy, Mild, ITCH, 03/03/17) Hydralazine (Verified Adverse Reaction, Severe, Severe angina, 03/03/17) Patient has a severe hypertrophic cardiomyopathy. Hydralazine is contraindicated. Hydrocodone (Unverified Adverse Reaction, Intermediate, NAUSEA, 03/03/17) Ibuprofen (Unverified Adverse Reaction, Intermediate, NAUSEA, 03/03/17) Quinolones (Verified Adverse Reaction, Intermediate, HEADACHE, 03/03/17) Cephalosporins (Verified Adverse Reaction, Unknown, CEFTIN: ABDOMINAL PAIN /NAUSEA, 03/03/17) Escitalopram (Verified Adverse Reaction, Unknown, ABD PAIN;NAUSEA, 03/03/17) Penicillins (Verified Adverse Reaction, Unknown, ABD PAIN;NAUSEA, 03/03/17) Medications Current Inpatient Medications Medications (Trade) Dose Ordered Sig/Dariusz Route Start Time Stop Time Status Last Admin Dose Admin Acetaminophen (Tylenol Tab) 650 mg Q4H PRN PO 03/03/17 13:30 04/02/17 13:29 03/08/17 09:44 650 MG Al Hydrox/Mg Hydrox/Simethicone (Maalox Max Susp) 15 ml Q4H PRN PO 03/03/17 13:30 04/02/17 13:29 Magnesium Hydroxide (Milk Of Magnesia Susp) 30 ml Q6H PRN PO 03/03/17 13:30 04/02/17 13:29 Polyethylene (Miralax Powder Packet) 17 gm DAILY PRN PO 03/03/17 13:30 04/02/17 13:29 Ondansetron HCl (Zofran Inj) 4 mg Q6H PRN IV 03/03/17 13:30 04/02/17 13:29 03/08/17 15:12 4 MG Heparin Sodium (Porcine) (Heparin Sq 5000 Unit/0.5ml) 5,000 unit Q12 SQ 03/03/17 21:00 04/02/17 20:59 03/09/17 08:53 5,000 UNIT Lidocaine (Lidoderm Patch 5%) 1 patch QAM TD 03/04/17 09:00 04/03/17 08:59 03/09/17 08:50 1 PATCH Miscellaneous (Remove Lidoderm Patch) 1 ea DAILY@21 N/A 03/03/17 21:00 04/02/17 20:59 03/08/17 21:09 1 EA Aspirin (Ecotrin Tab) 81 mg DAILY PO 03/04/17 09:00 04/03/17 08:59 03/09/17 08:47 81 MG Atenolol (Tenormin Tab) 50 mg BID PO 03/03/17 21:00 04/02/17 20:59 03/09/17 08:47 50 MG Cholecalciferol (Vitamin D Tab) 1,000 inter.unit QAM PO 03/04/17 09:00 04/03/17 08:59 03/09/17 08:48 1,000 INTER.UNIT Diltiazem HCl (Cardizem Cd Cap) 300 mg QAM PO 03/04/17 09:00 04/02/17 08:59 03/09/17 08:46 300 MG Hydrocortisone (Cortef Tab) 10 mg QPM PO 03/03/17 21:00 04/02/17 20:59 03/08/17 21:03 10 MG Hydrocortisone (Cortef Tab) 20 mg QAM PO 03/04/17 09:00 04/03/17 08:59 03/09/17 08:47 20 MG Levothyroxine Sodium (Synthroid Tab) 75 mcg DAILYBB PO 03/04/17 06:00 04/03/17 06:59 03/09/17 05:48 75 MCG Lorazepam (Ativan Tab) 0.25 mg DAILY PRN PO 03/03/17 13:30 04/02/17 13:29 03/07/17 23:23 0.25 MG Losartan Potassium (coZAAR TAB) 100 mg QAM PO 03/04/17 09:00 04/02/17 08:59 03/09/17 08:48 100 MG Multivitamins (Multivitamin Tab) 1 tab DAILY PO 03/04/17 09:00 04/03/17 08:59 03/09/17 08:48 1 TAB Pantoprazole Sodium (Protonix Tab) 40 mg QAM PO 03/04/17 09:00 04/03/17 08:59 03/09/17 08:49 40 MG Potassium Chloride (Klor-Con Tab) 20 meq BID PO 03/03/17 21:00 04/02/17 20:59 03/09/17 08:46 20 MEQ Miscellaneous (Iv Fluids Completed) 1 ea PRN PRN N/A 03/03/17 14:15 03/03/18 14:14 Tramadol HCl (Ultram Tab) 50 mg Q6 PRN PO 03/03/17 14:45 04/02/17 14:44 03/08/17 15:12 50 MG Morphine Sulfate (MoRPHine SULFATE INJ) 4 mg Q4 PRN IV 03/03/17 14:45 03/17/17 14:44 Calcitonin [place] (Fortical Nasal [place]) 1 spray DAILY NA 03/05/17 09:00 04/02/17 13:29 03/09/17 08:46 1 SPRAY Sertraline HCl (Zoloft Tab) 50 mg QAM PO 03/06/17 09:00 04/05/17 08:59 03/09/17 08:47 50 MG Hydralazine HCl (HydrALAZINE INJ) 10 mg Q4H PRN IV. 03/05/17 23:45 04/04/17 23:44 03/08/17 12:27 10 MG Non-Formulary Medication (Non-Formulary Patient'S Own Med) 2 ea DAILY PO 03/07/17 09:00 04/06/17 08:59 03/09/17 08:50 2 EA Impression (1) Hyponatremia (2) Sarcoidosis (3) Osteoporotic compression fracture of spine (4) History of steroid therapy (5) Lung nodule (6) Adrenal insufficiency (7) Thyroidectomy Hypoosmolar hyponatremia in an elderly female admitted w/ intractable back pain associated w/ lumbar compression fracture. Uosm should be < 100 in the setting of hyponatremia. Elevated Uosm is indicative of ADH effect. This could be related to pain or possibly patient's BLAIRE lung mass. She appears clinically euvolemic at this time. She is on thyroid and adrenal replacement therapy. There is no clinical evidence of hypothyroidism or adrenal insufficiency at this time. Recommendations HYPONATREMIA: -- Serum sodium has improved with Tolvaptan therapy -- Hold Tolvaptan this am and monitor serum sodium -- Urine osmolality remains inappropriately elevated. This is suggestive of ADH effect. Potential causes include ongoing discomfort from lumbar compression fracture and possibly BLAIRE lung nodule. -- Although clinically euthyroid, TSH is elevated. Consider titration of Synthroid LUNG MASS: -- Await results of navigational bronchoscopy COMPRESSION FRACTURE: -- Await orthopedic input
[2017-03-09] MEDS: ACETAMINOPHEN 325 MG TAB PO PRN (10:53)
[2017-03-09 15:04] LABS: BUN/CREATININE RATIO 15.2 (10-20); CALCIUM 9.2 mg/dl (8.5-10.1); CREATININE 1.1 mg/dl (0.60-1.20); POTASSIUM 4.7 mmol/L (3.5-5.1)
--- NOTE | 2017-03-09 15:31 | Hospitalist Progress Note ---
Hospitalist Progress Note Date of Service March 09, 2017. Subjective Pt evaluation today including: conversation w/ patient, physical exam, chart review Feels better today. No further CP. Medications Medications (Trade) Dose Ordered Sig/Dariusz Route Start Time Stop Time Status Last Admin Dose Admin Tolvaptan (Samsca Tab) 15 mg NOW ONCE PO 03/08/17 18:00 03/08/17 18:01 DC 03/08/17 17:50 15 MG Objective Vital Signs Date Time Temp Pulse Resp B/P Pulse Ox O2 Delivery O2 Flow Rate FiO2 03/09/17 07:58 Room Air 03/09/17 07:37 36.9 60 17 132/68 96 Room Air 03/08/17 23:30 36.8 60 16 153/72 98 Room Air 03/08/17 20:51 62 150/66 03/08/17 19:45 Room Air Physical Exam General Appearance: WD/WN Eyes: normal inspection Neck: supple, no adenopathy Respiratory/Chest: chest non-tender, lungs clear Cardiovascular: regular rate, rhythm, no edema, no gallop, + systolic murmur Abdomen: normal bowel sounds, non tender, no organomegaly Extremities: normal range of motion, non-tender 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, no motor/sensory deficits, alert, oriented x 3 Skin: normal color Laboratory Results Last 24 Hours Test 03/08/17 15:42 03/08/17 17:20 03/08/17 19:25 03/08/17 20:17 Magnesium Level 1.8 mg/dl Troponin I < 0.015 ng/ml Sodium Level 119 mmol/L 119 mmol/L Potassium Level 4.9 mmol/L 4.6 mmol/L Chloride Level 85 mmol/L 84 mmol/L Carbon Dioxide Level 27 mmol/L 27 mmol/L Anion Gap 7.0 mmol/L 7.0 mmol/L Blood Urea Nitrogen 19 mg/dl 18 mg/dl Creatinine 0.80 mg/dl 0.79 mg/dl Est Creatinine Clear Calc Drug Dose 41.0 ml/min 41.5 ml/min Estimated GFR () 85.4 86.7 Estimated GFR (Non- 73.7 74.8 BUN/Creatinine Ratio 23.4 22.5 Random Glucose 112 mg/dl 121 mg/dl Calcium Level 8.4 mg/dl 8.6 mg/dl Urine Osmolality 359 mOms/kg Test 03/09/17 00:38 03/09/17 07:40 03/09/17 14:26 Sodium Level 124 mmol/L 127 mmol/L 125 mmol/L Potassium Level 4.9 mmol/L 4.5 mmol/L 4.7 mmol/L Chloride Level 89 mmol/L 91 mmol/L 91 mmol/L Carbon Dioxide Level 31 mmol/L 25 mmol/L 26 mmol/L Anion Gap 4.0 mmol/L 11.0 mmol/L 8.0 mmol/L Blood Urea Nitrogen 15 mg/dl 14 mg/dl 17 mg/dl Creatinine 0.78 mg/dl 0.95 mg/dl 1.10 mg/dl Est Creatinine Clear Calc Drug Dose 42.1 ml/min 34.5 ml/min 29.8 ml/min Estimated GFR () 88.0 69.4 58.1 Estimated GFR (Non- 76.0 59.8 50.1 BUN/Creatinine Ratio 19.5 14.8 15.2 Random Glucose 109 mg/dl 125 mg/dl 115 mg/dl Calcium Level 8.9 mg/dl 9.7 mg/dl 9.2 mg/dl White Blood Count 5.19 K/uL Red Blood Count 3.81 M/uL Hemoglobin 11.6 g/dL Hematocrit 34.6 % Mean Corpuscular Volume 90.8 fL Mean Corpuscular Hemoglobin 30.4 pg Mean Corpuscular Hemoglobin Concent 33.5 g/dl RDW Standard Deviation 49.4 fL RDW Coefficient of Variation 14.8 % Platelet Count 290 K/uL Mean Platelet Volume 8.0 fL Thyroid Stimulating Hormone (TSH) 4.510 uIu/ml Cortisol AM Sample 24.97 mcg/dl Assessment and Plan 71 yo female with h/o osteoporosis, scoliosis, sarcoidosis, adrenal insufficiency who presents with several days of back pain after a fall found to have compression fx of L2 and transverse process fracture at L1 - Compression fracture: pain control with Lidoderm, Tylenol, Ultram, adequate thus far plan to go to rehab at [facility] in [place], sent referral on Tuesday - Osteoporosis, Vitamin D deficiency: Vitamin D low at 34, give supplementation , 50,000 units weekly x 6 weeks set up for endocrinology follow up on April [address] Sandee Trinidad on bisphosphonates for years but taken off appropriately - Hyponatremia: low serum osmolality, however, also with lower urine osmolality suggesting appropriate ADH levels Serum sodium improved to 127 following a single dose of Tolvaptan. Appreciate Renal input encourage PO intake and solutes - Left 3.5 cm lobulated lung lesion: seen on CT chest in December seen by Pulmonary, . Bronchoscopy as OP. - Chest pain Atypical. Non trending troponins. EkG with no ischemic changes. - HTN: stable - Hypothyroidism: stable - Adrenal insufficiency: stable. on Solucortef. - Abnormal mammogram: Appreciate Surgery input. OP follow up - DVT prophylaxis: heparin
[2017-03-09 15:53] VITALS: BP 118/62; PULSE 55; TEMP 36.6; O2SAT 97
--- NOTE | 2017-03-09 16:40 | SURGERY PROGRESS NOTE ---
DATE: 03/09/2017 SUBJECTIVE: Ms. Bennett was seen today. She feels better today. Her pain is better. Her abdominal complaints are also better. She is having some issues with her hyponatremia. Her TSH is also high. She needs to settle down a bit from a medical standpoint. We will electively perform a navigational bronchoscopy with probably an EBUS, endobronchial ultrasound with biopsy, in the future. I will follow along while she is here and set her up for an outpatient appointment. I would like to see her get over her current difficulties. Having said that, she does look better to me today.
[2017-03-09] MEDS: SODIUM CHLORIDE 1 GM TAB PO SCH (19:09)
[2017-03-09] MEDS: FUROSEMIDE INJ 20 MG in SYRINGE 0 ML IV SCH (19:09)
[2017-03-09 20:36] VITALS: BP 121/65; PULSE 59
[2017-03-09 23:35] VITALS: BP 128/65; PULSE 59; TEMP 36.9; O2SAT 96
[2017-03-09] MEDS: LORAZEPAM 0.5 MG TAB PO PRN (23:39)
[2017-03-10] MEDS: LEVOTHYROXINE 88 MCG TAB PO SCH (05:41)
[2017-03-10 07:24] VITALS: BP 153/75; PULSE 68; TEMP 36.8; O2SAT 96
[2017-03-10 07:49] LABS: CALCIUM 8.8 mg/dl (8.5-10.1); POTASSIUM 4.7 mmol/L (3.5-5.1)
[2017-03-10] MEDS: HEPARIN SOD 5000 UNIT/0.5 ML CARP SQ SCH ×2 (08:39→20:43)
[2017-03-10] MEDS: LORAZEPAM 0.5 MG TAB PO PRN (08:40)
[2017-03-10] MEDS: ASPIRIN 81 MG ECTAB PO SCH (08:41)
[2017-03-10] MEDS: LOSARTAN POTASSIUM 50 MG TAB PO SCH (08:42)
[2017-03-10] MEDS: CHOLECALCIFEROL 1000 INTER.UNIT TAB PO SCH (08:42)
[2017-03-10] MEDS: HYDROCORTISONE 10 MG TAB PO SCH ×2 (08:42→20:37)
[2017-03-10] MEDS: MULTIVITAMIN TAB PO SCH (08:43)
[2017-03-10] MEDS: PANTOprazole SOD 40 MG TAB PO SCH (08:43)
[2017-03-10] MEDS: DILTIAZEM HCL 300 MG CAPCR PO SCH (08:43)
[2017-03-10] MEDS: SODIUM CHLORIDE 1 GM TAB PO SCH (08:43)
[2017-03-10] MEDS: POTASSIUM CHLORIDE 20 MEQ TABCR PO SCH ×2 (08:43→20:37)
[2017-03-10] MEDS: SERTRALINE HCL 50 MG TAB PO SCH (08:43)
[2017-03-10] MEDS: CALCITONIN SALMON NA 200 IU/AC 3.7 ML BTL SCH (08:44)
[2017-03-10] MEDS: FUROSEMIDE INJ 20 MG in SYRINGE 0 ML IV SCH (08:44)
[2017-03-10] MEDS: [UNRECOGNIZED DRUG - OTHER] PO SCH (08:45)
[2017-03-10] MEDS: LIDODERM (LIDOCAINE) PATCH 5% TD SCH (08:45)
[2017-03-10] MEDS ORDERED: TOLVAPTAN TAB 15 MG TAB PO ONE (09:45)
--- NOTE | 2017-03-10 09:48 | Nephrology Progress Note ---
Nephrology Progress Note Date of Service March 10, 2017. Chief Complaint Evaluation of hyponatremia Subjective Miss Bennett was seen & examined in her hospital room this morning. She was sitting up in a chair eating breakfast. She was alert & oriented to self, place and time. She denied JACOBO or focal weakness. She reported brisk urine output. She still has significant back discomfort related to her lumbar compression fracture. She voices no new medical concerns. Miss Bennett states that she is scheduled for a bronchoscopy tomorrow afternoon. Review of Systems Constitutional: No fever Cardiovascular: No chest pain Respiratory: No dyspnea at rest Abdomen: No nausea, No pain, No vomiting Genitourinary - Female: No dysuria Extremities: No leg edema A complete review of systems was performed. Pertinent positives are noted above. All other systems are negative. Vital Signs Last 8 Hrs Date Time Temp Pulse Resp B/P Pulse Ox O2 Delivery O2 Flow Rate FiO2 03/10/17 07:24 36.8 68 20 153/75 96 Room Air I & O 24-Hour Column 03/10/17 07:59 Intake Total 525 ml Output Total 2350 ml Balance -1825 ml Last Recorded Weight Weight (Kilograms): 47.500 Physical Exam General Appearance: no apparent distress Head: normocephalic, atraumatic Eyes: PERRL, EOMI Neck: no adenopathy Respiratory/Chest: lungs clear, no respiratory distress Cardiovascular: regular rate, rhythm Abdomen/GI: normal bowel sounds, non tender, soft Extremities/Musculoskelatal: no calf tenderness, no pedal edema Neurologic/Psych: alert, oriented x 3 Family History Diabetes mellitus Hypertension Negative for CKD / ESRD / hyponatremia Social History Smoking Status: Never smoker Drug Use: none Marital Status: single Occupation: unemployed, retired Single. One son in good health. 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 Remote history of tobacco use Laboratory Results Past 24 Hours 03/09/17 14:26 03/10/17 06:48 Test 03/09/17 14:26 03/09/17 21:15 03/10/17 06:48 Anion Gap 8.0 mmol/L (3-11) 5.0 mmol/L (3-11) Est Creatinine Clear Calc Drug Dose 29.8 ml/min 32.8 ml/min Estimated GFR () 58.1 65.2 Estimated GFR (Non- 50.1 56.2 BUN/Creatinine Ratio 15.2 (10-20) 22.0 (10-20) Calcium Level 9.2 mg/dl (8.5-10.1) 8.8 mg/dl (8.5-10.1) Urine Osmolality 246 mOms/kg (500-800) Allergies Coded Allergies: Amoxicillin (Verified Allergy, Mild, ITCHY, 03/03/17) Ondansetron (Verified Allergy, Mild, ITCHY, 03/03/17) Oxycodone (Verified Allergy, Mild, ITCH, 03/03/17) Hydralazine (Verified Adverse Reaction, Severe, Severe angina, 03/03/17) Patient has a severe hypertrophic cardiomyopathy. Hydralazine is contraindicated. Hydrocodone (Unverified Adverse Reaction, Intermediate, NAUSEA, 03/03/17) Ibuprofen (Unverified Adverse Reaction, Intermediate, NAUSEA, 03/03/17) Quinolones (Verified Adverse Reaction, Intermediate, HEADACHE, 03/03/17) Cephalosporins (Verified Adverse Reaction, Unknown, CEFTIN: ABDOMINAL PAIN /NAUSEA, 03/03/17) Escitalopram (Verified Adverse Reaction, Unknown, ABD PAIN;NAUSEA, 03/03/17) Penicillins (Verified Adverse Reaction, Unknown, ABD PAIN;NAUSEA, 03/03/17) Medications Current Inpatient Medications Medications (Trade) Dose Ordered Sig/Dariusz Route Start Time Stop Time Status Last Admin Dose Admin Acetaminophen (Tylenol Tab) 650 mg Q4H PRN PO 03/03/17 13:30 04/02/17 13:29 03/09/17 10:53 325 MG Al Hydrox/Mg Hydrox/Simethicone (Maalox Max Susp) 15 ml Q4H PRN PO 03/03/17 13:30 04/02/17 13:29 Magnesium Hydroxide (Milk Of Magnesia Susp) 30 ml Q6H PRN PO 03/03/17 13:30 04/02/17 13:29 Polyethylene (Miralax Powder Packet) 17 gm DAILY PRN PO 03/03/17 13:30 04/02/17 13:29 Ondansetron HCl (Zofran Inj) 4 mg Q6H PRN IV 03/03/17 13:30 04/02/17 13:29 03/08/17 15:12 4 MG Heparin Sodium (Porcine) (Heparin Sq 5000 Unit/0.5ml) 5,000 unit Q12 SQ 03/03/17 21:00 04/02/17 20:59 03/10/17 08:39 5,000 UNIT Lidocaine (Lidoderm Patch 5%) 1 patch QAM TD 03/04/17 09:00 04/03/17 08:59 03/10/17 08:45 1 PATCH Miscellaneous (Remove Lidoderm Patch) 1 ea DAILY@21 N/A 03/03/17 21:00 04/02/17 20:59 03/09/17 20:43 1 EA Aspirin (Ecotrin Tab) 81 mg DAILY PO 03/04/17 09:00 04/03/17 08:59 03/10/17 08:41 81 MG Atenolol (Tenormin Tab) 50 mg BID PO 03/03/17 21:00 04/02/17 20:59 03/10/17 08:41 50 MG Cholecalciferol (Vitamin D Tab) 1,000 inter.unit QAM PO 03/04/17 09:00 04/03/17 08:59 03/10/17 08:42 1,000 INTER.UNIT Diltiazem HCl (Cardizem Cd Cap) 300 mg QAM PO 03/04/17 09:00 04/02/17 08:59 03/10/17 08:43 300 MG Hydrocortisone (Cortef Tab) 10 mg QPM PO 03/03/17 21:00 04/02/17 20:59 03/09/17 20:42 10 MG Hydrocortisone (Cortef Tab) 20 mg QAM PO 03/04/17 09:00 04/03/17 08:59 03/10/17 08:42 20 MG Lorazepam (Ativan Tab) 0.25 mg DAILY PRN PO 03/03/17 13:30 04/02/17 13:29 03/10/17 08:40 0.25 MG Losartan Potassium (coZAAR TAB) 100 mg QAM PO 03/04/17 09:00 04/02/17 08:59 03/10/17 08:42 100 MG Multivitamins (Multivitamin Tab) 1 tab DAILY PO 03/04/17 09:00 04/03/17 08:59 03/10/17 08:43 1 TAB Pantoprazole Sodium (Protonix Tab) 40 mg QAM PO 03/04/17 09:00 04/03/17 08:59 03/10/17 08:43 40 MG Potassium Chloride (Klor-Con Tab) 20 meq BID PO 03/03/17 21:00 04/02/17 20:59 03/10/17 08:43 20 MEQ Miscellaneous (Iv Fluids Completed) 1 ea PRN PRN N/A 03/03/17 14:15 03/03/18 14:14 Tramadol HCl (Ultram Tab) 50 mg Q6 PRN PO 03/03/17 14:45 04/02/17 14:44 03/08/17 15:12 50 MG Morphine Sulfate (MoRPHine SULFATE INJ) 4 mg Q4 PRN IV 03/03/17 14:45 03/17/17 14:44 Calcitonin [place] (Fortical Nasal [place]) 1 spray DAILY NA 03/05/17 09:00 04/02/17 13:29 03/10/17 08:44 1 SPRAY Sertraline HCl (Zoloft Tab) 50 mg QAM PO 03/06/17 09:00 04/05/17 08:59 03/10/17 08:43 50 MG Hydralazine HCl (HydrALAZINE INJ) 10 mg Q4H PRN IV. 03/05/17 23:45 04/04/17 23:44 03/08/17 12:27 10 MG Non-Formulary Medication (Non-Formulary Patient'S Own Med) 2 ea DAILY PO 03/07/17 09:00 04/06/17 08:59 03/10/17 08:45 2 EA Levothyroxine Sodium (Synthroid Tab) 88 mcg DAILYBB PO 03/10/17 06:00 04/09/17 05:59 03/10/17 05:41 88 MCG Sodium Chloride 2 gm 2 gm DAILY PO 03/09/17 17:15 04/08/17 17:14 03/10/17 08:43 2 GM Furosemide/Syringe (Lasix Inj/ Syringe) 2 ml @ 4 mls/min DAILY IV 03/09/17 18:30 04/08/17 18:29 03/10/17 08:44 4 MLS/MIN Tolvaptan (Samsca Tab) 15 mg 0945 ONCE PO 03/10/17 09:45 03/10/17 09:46 Impression (1) Hyponatremia (2) Sarcoidosis (3) Osteoporotic compression fracture of spine (4) History of steroid therapy (5) Lung nodule (6) Adrenal insufficiency (7) Thyroidectomy Hypoosmolar hyponatremia in an elderly female admitted w/ intractable back pain associated w/ lumbar compression fracture. Uosm should be < 100 in the setting of hyponatremia. Elevated Uosm is indicative of ADH effect. This could be related to pain or possibly patient's BLAIRE lung mass. She appears clinically euvolemic at this time. She is on thyroid and adrenal replacement therapy. There is no clinical evidence of hypothyroidism or adrenal insufficiency at this time. Recommendations HYPONATREMIA: -- Serum sodium has stabilized at 127. Will provide one dose of Tolvaptan today and monitor response. -- Urine osmolality remains inappropriately elevated. This is suggestive of ADH effect. Potential causes include ongoing discomfort from lumbar compression fracture and possibly BLAIRE lung nodule. -- Although clinically euthyroid, TSH is elevated. Levothyroxine dose has been increased. LUNG MASS: -- Await results of navigational bronchoscopy COMPRESSION FRACTURE: -- Continue conservative management
--- NOTE | 2017-03-10 13:18 | SURGERY PROGRESS NOTE ---
DATE: 03/10/2017 SUBJECTIVE: Ms. Bennett was seen today. I discussed this case with Dr. Elkin Cruz from nephrology today. Unclear why she is hyponatremic, but there is a possibility we were dealing with a perineoplastic syndrome. She also still has significant pain. Her cough is better and her GI complaints are better. I have tentatively scheduled her for a bronchoscopy tomorrow but due to the staffing problems, this will not be able to be done. From my standpoint, the patient can be discharged and I will set her up as an outpatient. If we keep her in the hospital, I will attempt to get her on the schedule for Tuesday. NINFA
[2017-03-10] MEDS ORDERED: NURSING VERBAL MED ORDER ONE (14:45)
[2017-03-10] MEDS ORDERED: LORAZEPAM 0.5 MG TAB PO ONE (15:00)
[2017-03-10 15:09] VITALS: BP 101/57; PULSE 59; TEMP 36.9; O2SAT 96
--- NOTE | 2017-03-10 15:23 | Hospitalist Progress Note ---
Hospitalist Progress Note Date of Service March 10, 2017. Subjective Pt evaluation today including: conversation w/ patient, physical exam, chart review Medications Medications (Trade) Dose Ordered Sig/Dariusz Route Start Time Stop Time Status Last Admin Dose Admin Levothyroxine Sodium (Synthroid Tab) 88 mcg DAILYBB PO 03/10/17 06:00 04/09/17 05:59 03/10/17 05:41 88 MCG Sodium Chloride 2 gm 2 gm DAILY PO 03/09/17 17:15 04/08/17 17:14 03/10/17 08:43 2 GM Furosemide/Syringe (Lasix Inj/ Syringe) 2 ml @ 4 mls/min DAILY IV 03/09/17 18:30 04/08/17 18:29 03/10/17 08:44 4 MLS/MIN Tolvaptan (Samsca Tab) 15 mg 0945 ONCE PO 03/10/17 09:45 03/10/17 09:46 DC 03/10/17 10:13 15 MG Objective Vital Signs Date Time Temp Pulse Resp B/P Pulse Ox O2 Delivery O2 Flow Rate FiO2 03/10/17 15:09 36.9 59 16 101/57 96 Room Air 03/10/17 08:00 Room Air 03/10/17 07:24 36.8 68 20 153/75 96 Room Air 03/09/17 23:35 36.9 59 16 128/65 96 Room Air 03/09/17 20:36 59 121/65 03/09/17 19:20 Room Air 03/09/17 15:53 36.6 55 16 118/62 97 Room Air Physical Exam General Appearance: WD/WN Eyes: normal inspection ENT: normal ENT inspection Neck: supple Respiratory/Chest: chest non-tender, lungs clear Cardiovascular: regular rate, rhythm, no edema, + systolic murmur Abdomen: normal bowel sounds, non tender, soft 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, alert, oriented x 3 Skin: normal color Laboratory Results Last 24 Hours Test 03/09/17 21:15 03/10/17 00:00 03/10/17 06:48 03/10/17 15:00 Urine Osmolality 246 mOms/kg 302 mOms/kg Sodium Level 127 mmol/L Potassium Level 4.7 mmol/L Chloride Level 94 mmol/L Carbon Dioxide Level 28 mmol/L Anion Gap 5.0 mmol/L Blood Urea Nitrogen 22 mg/dl Creatinine 1.00 mg/dl Est Creatinine Clear Calc Drug Dose 32.8 ml/min Estimated GFR () 65.2 Estimated GFR (Non- 56.2 BUN/Creatinine Ratio 22.0 Random Glucose 95 mg/dl Calcium Level 8.8 mg/dl Assessment and Plan 71 yo female with h/o osteoporosis, scoliosis, sarcoidosis, adrenal insufficiency who presents with several days of back pain after a fall found to have compression fx of L2 and transverse process fracture at L1 - Compression fracture: pain control with Lidoderm, Tylenol, Ultram, adequate thus far plan to go to rehab at [facility] in [place], sent referral on Tuesday - Osteoporosis, Vitamin D deficiency: Vitamin D low at 34, give supplementation , 50,000 units weekly x 6 weeks set up for endocrinology follow up on April [address] Sandee Trinidad on bisphosphonates for years but taken off appropriately - Hyponatremia: low serum osmolality, however, also with lower urine osmolality suggesting appropriate ADH levels Serum sodium improved. Tolvaptan x 1 dose today along with lasix. encourage PO intake and solutes - Left 3.5 cm lobulated lung lesion: seen on CT chest in December seen by Pulmonary, . Bronchoscopy as OP. Unable to schedule for tomorrow. - Chest pain Atypical. Non trending troponins. EkG with no ischemic changes. - HTN: stable - Hypothyroidism: stable - Adrenal insufficiency: stable. on Solucortef. - Abnormal mammogram: Appreciate Surgery input. OP follow up - DVT prophylaxis: heparin
[2017-03-10 15:33] LABS: CALCIUM 8.7 mg/dl (8.5-10.1); CREATININE 1.4 mg/dl (0.60-1.20); POTASSIUM 4.7 mmol/L (3.5-5.1)
[2017-03-10 20:35] VITALS: BP 118/63; PULSE 62
[2017-03-10 23:00] VITALS: BP 145/72; PULSE 63; TEMP 36.4; O2SAT 97
[2017-03-11] MEDS: LEVOTHYROXINE 88 MCG TAB PO SCH (05:49)
[2017-03-11 07:06] VITALS: BP 154/75; PULSE 65; TEMP 36.6; O2SAT 97
[2017-03-11] MEDS: LIDODERM (LIDOCAINE) PATCH 5% TD SCH (07:59)
[2017-03-11] MEDS: ASPIRIN 81 MG ECTAB PO SCH (09:29)
[2017-03-11] MEDS: PANTOprazole SOD 40 MG TAB PO SCH (09:30)
[2017-03-11] MEDS: FUROSEMIDE INJ 20 MG in SYRINGE 0 ML IV SCH (09:30)
[2017-03-11] MEDS: CALCITONIN SALMON NA 200 IU/AC 3.7 ML BTL SCH (09:30)
[2017-03-11] MEDS: [UNRECOGNIZED DRUG - OTHER] PO SCH (09:31)
[2017-03-11] MEDS: LOSARTAN POTASSIUM 50 MG TAB PO SCH (09:32)
[2017-03-11] MEDS: DILTIAZEM HCL 300 MG CAPCR PO SCH (09:32)
[2017-03-11] MEDS: SODIUM CHLORIDE 1 GM TAB PO SCH (09:33)
[2017-03-11] MEDS: SERTRALINE HCL 50 MG TAB PO SCH (09:33)
[2017-03-11] MEDS: CHOLECALCIFEROL 1000 INTER.UNIT TAB PO SCH (09:33)
[2017-03-11] MEDS: POTASSIUM CHLORIDE 20 MEQ TABCR PO SCH ×2 (09:34→21:07)
[2017-03-11] MEDS: MULTIVITAMIN TAB PO SCH (09:34)
[2017-03-11] MEDS: HYDROCORTISONE 10 MG TAB PO SCH ×2 (09:35→21:06)
[2017-03-11] MEDS: HEPARIN SOD 5000 UNIT/0.5 ML CARP SQ SCH ×2 (09:38→21:10)
[2017-03-11 09:47] LABS: BUN/CREATININE RATIO 23.8 (10-20); POTASSIUM 4.2 mmol/L (3.5-5.1)
[2017-03-11 10:04] LABS: CALCIUM 9.5 mg/dl (8.5-10.1)
--- NOTE | 2017-03-11 10:39 | Nephrology Progress Note ---
Nephrology Progress Note Date of Service March 11, 2017. Chief Complaint Evaluation of hyponatremia Subjective Miss Bennett was seen & examined in her hospital room this morning. Her bronchoscopy has been delayed. She complains of persistent weakness and back discomfort. She has started strengthening exercises w/ PT. She has been able to ambulate short distances with the use of a walker. Review of Systems Constitutional: No fever Cardiovascular: No chest pain Respiratory: No dyspnea at rest Abdomen: No nausea, No pain Extremities: No leg edema A complete review of systems was performed. Pertinent positives are noted above. All other systems are negative. Vital Signs Last 8 Hrs Date Time Temp Pulse Resp B/P Pulse Ox O2 Delivery O2 Flow Rate FiO2 03/11/17 08:00 Room Air 03/11/17 07:06 36.6 65 15 154/75 97 Room Air I & O 24-Hour Column 03/11/17 07:59 Intake Total 320 ml Output Total 1900 ml Balance -1580 ml Last Recorded Weight Weight (Kilograms): 47.500 Physical Exam General Appearance: no apparent distress Head: normocephalic, atraumatic Eyes: PERRL, EOMI Neck: no adenopathy Respiratory/Chest: lungs clear Cardiovascular: regular rate, rhythm Abdomen/GI: normal bowel sounds, non tender, soft Extremities/Musculoskelatal: no calf tenderness, no pedal edema Neurologic/Psych: alert, oriented x 3 Family History Diabetes mellitus Hypertension Negative for CKD / ESRD / hyponatremia Social History Smoking Status: Never smoker Drug Use: none Marital Status: single Occupation: unemployed, retired Single. One son in good health. 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 Remote history of tobacco use Laboratory Results Past 24 Hours 03/10/17 15:00 03/11/17 08:23 Test 03/10/17 15:00 03/11/17 08:23 Anion Gap 8.0 mmol/L (3-11) 8.0 mmol/L (3-11) Est Creatinine Clear Calc Drug Dose 23.4 ml/min 32.8 ml/min Estimated GFR () 43.4 65.2 Estimated GFR (Non- 37.4 56.2 BUN/Creatinine Ratio 18.0 (10-20) 23.8 (10-20) Calcium Level 8.7 mg/dl (8.5-10.1) 9.5 mg/dl (8.5-10.1) Allergies Coded Allergies: Amoxicillin (Verified Allergy, Mild, ITCHY, 03/03/17) Ondansetron (Verified Allergy, Mild, ITCHY, 03/03/17) Oxycodone (Verified Allergy, Mild, ITCH, 03/03/17) Hydralazine (Verified Adverse Reaction, Severe, Severe angina, 03/03/17) Patient has a severe hypertrophic cardiomyopathy. Hydralazine is contraindicated. Hydrocodone (Unverified Adverse Reaction, Intermediate, NAUSEA, 03/03/17) Ibuprofen (Unverified Adverse Reaction, Intermediate, NAUSEA, 03/03/17) Quinolones (Verified Adverse Reaction, Intermediate, HEADACHE, 03/03/17) Cephalosporins (Verified Adverse Reaction, Unknown, CEFTIN: ABDOMINAL PAIN /NAUSEA, 03/03/17) Escitalopram (Verified Adverse Reaction, Unknown, ABD PAIN;NAUSEA, 03/03/17) Penicillins (Verified Adverse Reaction, Unknown, ABD PAIN;NAUSEA, 03/03/17) Medications Current Inpatient Medications Medications (Trade) Dose Ordered Sig/Dariusz Route Start Time Stop Time Status Last Admin Dose Admin Acetaminophen (Tylenol Tab) 650 mg Q4H PRN PO 03/03/17 13:30 04/02/17 13:29 03/09/17 10:53 325 MG Al Hydrox/Mg Hydrox/Simethicone (Maalox Max Susp) 15 ml Q4H PRN PO 03/03/17 13:30 04/02/17 13:29 Magnesium Hydroxide (Milk Of Magnesia Susp) 30 ml Q6H PRN PO 03/03/17 13:30 04/02/17 13:29 Polyethylene (Miralax Powder Packet) 17 gm DAILY PRN PO 03/03/17 13:30 04/02/17 13:29 Ondansetron HCl (Zofran Inj) 4 mg Q6H PRN IV 03/03/17 13:30 04/02/17 13:29 03/08/17 15:12 4 MG Heparin Sodium (Porcine) (Heparin Sq 5000 Unit/0.5ml) 5,000 unit Q12 SQ 03/03/17 21:00 04/02/17 20:59 03/11/17 09:38 5,000 UNIT Lidocaine (Lidoderm Patch 5%) 1 patch QAM TD 03/04/17 09:00 04/03/17 08:59 5/12/17 07:59 1 PATCH Miscellaneous (Remove Lidoderm Patch) 1 ea DAILY@21 N/A 03/03/17 21:00 04/02/17 20:59 03/10/17 20:38 1 EA Aspirin (Ecotrin Tab) 81 mg DAILY PO 03/04/17 09:00 04/03/17 08:59 03/11/17 09:29 81 MG Atenolol (Tenormin Tab) 50 mg BID PO 03/03/17 21:00 04/02/17 20:59 03/11/17 09:31 50 MG Cholecalciferol (Vitamin D Tab) 1,000 inter.unit QAM PO 03/04/17 09:00 04/03/17 08:59 03/11/17 09:33 1,000 INTER.UNIT Diltiazem HCl (Cardizem Cd Cap) 300 mg QAM PO 03/04/17 09:00 04/02/17 08:59 03/11/17 09:32 300 MG Hydrocortisone (Cortef Tab) 10 mg QPM PO 03/03/17 21:00 04/02/17 20:59 03/10/17 20:37 10 MG Hydrocortisone (Cortef Tab) 20 mg QAM PO 03/04/17 09:00 04/03/17 08:59 03/11/17 09:35 20 MG Lorazepam (Ativan Tab) 0.25 mg DAILY PRN PO 03/03/17 13:30 04/02/17 13:29 03/10/17 08:40 0.25 MG Losartan Potassium (coZAAR TAB) 100 mg QAM PO 03/04/17 09:00 04/02/17 08:59 03/11/17 09:32 100 MG Multivitamins (Multivitamin Tab) 1 tab DAILY PO 03/04/17 09:00 04/03/17 08:59 03/11/17 09:34 1 TAB Pantoprazole Sodium (Protonix Tab) 40 mg QAM PO 03/04/17 09:00 04/03/17 08:59 03/11/17 09:30 40 MG Potassium Chloride (Klor-Con Tab) 20 meq BID PO 03/03/17 21:00 04/02/17 20:59 03/11/17 09:34 20 MEQ Miscellaneous (Iv Fluids Completed) 1 ea PRN PRN N/A 03/03/17 14:15 03/03/18 14:14 Tramadol HCl (Ultram Tab) 50 mg Q6 PRN PO 03/03/17 14:45 04/02/17 14:44 03/08/17 15:12 50 MG Morphine Sulfate (MoRPHine SULFATE INJ) 4 mg Q4 PRN IV 03/03/17 14:45 03/17/17 14:44 Calcitonin [place] (Fortical Nasal [place]) 1 spray DAILY NA 03/05/17 09:00 04/02/17 13:29 03/11/17 09:30 1 SPRAY Sertraline HCl (Zoloft Tab) 50 mg QAM PO 03/06/17 09:00 04/05/17 08:59 03/11/17 09:33 50 MG Hydralazine HCl (HydrALAZINE INJ) 10 mg Q4H PRN IV. 03/05/17 23:45 04/04/17 23:44 03/08/17 12:27 10 MG Non-Formulary Medication (Non-Formulary Patient'S Own Med) 2 ea DAILY PO 03/07/17 09:00 04/06/17 08:59 03/11/17 09:31 2 EA Levothyroxine Sodium (Synthroid Tab) 88 mcg DAILYBB PO 03/10/17 06:00 04/09/17 05:59 03/11/17 05:49 88 MCG Sodium Chloride 2 gm 2 gm DAILY PO 03/09/17 17:15 04/08/17 17:14 03/11/17 09:33 2 GM Furosemide/Syringe (Lasix Inj/ Syringe) 2 ml @ 4 mls/min DAILY IV 03/09/17 18:30 04/08/17 18:29 03/11/17 09:30 4 MLS/MIN Impression (1) Hyponatremia (2) Sarcoidosis (3) Osteoporotic compression fracture of spine (4) History of steroid therapy (5) Lung nodule (6) Adrenal insufficiency (7) Thyroidectomy Hypoosmolar hyponatremia in an elderly female admitted w/ intractable back pain associated w/ lumbar compression fracture. Uosm should be < 100 in the setting of hyponatremia. Elevated Uosm is indicative of ADH effect. This could be related to pain or possibly patient's BLAIRE lung mass. She appears clinically euvolemic at this time. She is on thyroid and adrenal replacement therapy. There is no evidence of adrenal insufficiency at this time. Cortisol was normal. Thyroid supplement has recently been adjusted. Recommendations HYPONATREMIA: -- Serum sodium has improved to 132. Will stop Tolvaptan and convert to NaCl 1 g daily with Furosemide 20 mg each morning -- Recommend that serum sodium remain stable at ~ 135 for 24 - 48 hours prior to discharge from hospital -- Urine osmolality remains inappropriately elevated. This is suggestive of ADH effect. Potential causes include ongoing discomfort from lumbar compression fracture and possibly BLAIRE lung nodule. -- Although clinically euthyroid, TSH is elevated. Levothyroxine dose has been increased. LUNG MASS: -- Await results of navigational bronchoscopy COMPRESSION FRACTURE: -- Continue conservative management
--- NOTE | 2017-03-11 12:33 | Hospitalist Progress Note ---
Hospitalist Progress Note Date of Service March 11, 2017. Subjective Pt evaluation today including: conversation w/ patient, physical exam, chart review Medications Medications (Trade) Dose Ordered Sig/Dariusz Route Start Time Stop Time Status Last Admin Dose Admin Lorazepam (Ativan Tab) 0.25 mg ONE ONCE PO 03/10/17 15:00 03/10/17 15:01 DC 03/10/17 15:26 0.25 MG Objective Vital Signs Date Time Temp Pulse Resp B/P Pulse Ox O2 Delivery O2 Flow Rate FiO2 03/11/17 08:00 Room Air 03/11/17 07:06 36.6 65 15 154/75 97 Room Air 03/10/17 23:20 Room Air 03/10/17 23:00 36.4 63 16 145/72 97 Room Air 03/10/17 20:35 62 118/63 03/10/17 15:23 Room Air 03/10/17 15:09 36.9 59 16 101/57 96 Room Air Physical Exam General Appearance: WD/WN Eyes: normal inspection ENT: normal ENT inspection Neck: supple, no adenopathy, no JVD Respiratory/Chest: chest non-tender, + decreased breath sounds Cardiovascular: regular rate, rhythm, + systolic murmur Abdomen: normal bowel sounds, non tender, soft 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 nml as tested, oriented x 3 Skin: + pallor Laboratory Results Last 24 Hours Test 03/10/17 15:00 03/11/17 08:23 Sodium Level 128 mmol/L 131 mmol/L Potassium Level 4.7 mmol/L 4.2 mmol/L Chloride Level 93 mmol/L 95 mmol/L Carbon Dioxide Level 27 mmol/L 28 mmol/L Anion Gap 8.0 mmol/L 8.0 mmol/L Blood Urea Nitrogen 25 mg/dl 24 mg/dl Creatinine 1.40 mg/dl 1.00 mg/dl Est Creatinine Clear Calc Drug Dose 23.4 ml/min 32.8 ml/min Estimated GFR () 43.4 65.2 Estimated GFR (Non- 37.4 56.2 BUN/Creatinine Ratio 18.0 23.8 Random Glucose 128 mg/dl 112 mg/dl Calcium Level 8.7 mg/dl 9.5 mg/dl Assessment and Plan 71 yo female with h/o osteoporosis, scoliosis, sarcoidosis, adrenal insufficiency who presents with several days of back pain after a fall found to have compression fx of L2 and transverse process fracture at L1 - Compression fracture: pain control with Lidoderm, Tylenol, Ultram, adequate thus far plan to go to rehab at [facility] in [place], sent referral on Tuesday - Osteoporosis, Vitamin D deficiency: Vitamin D low at 34, give supplementation , 50,000 units weekly x 6 weeks set up for endocrinology follow up on April [address] 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 Received Tolvaptan. Continue with lasix and Nacl tabs as per Renal recommendations encourage PO intake and solutes - Left 3.5 cm lobulated lung lesion: seen on CT chest in December seen by Pulmonary, . Bronchoscopy as OP. Unable to schedule for tomorrow. - Chest pain Atypical. Non trending troponins. EkG with no ischemic changes. - HTN: stable - Hypothyroidism: stable - Adrenal insufficiency: stable. on Solucortef. - Abnormal mammogram: Appreciate Surgery input. OP follow up - DVT prophylaxis: heparin Continued [facility] stay due to: other (abn. labs) Discharge planning: retirement facility
[2017-03-11 15:02] VITALS: BP 115/61; PULSE 67; TEMP 36.6; O2SAT 99
--- NOTE | 2017-03-11 17:13 | SURGERY PROGRESS NOTE ---
DATE: 03/11/2017 SUBJECTIVE: Ms. Bennett looks better today. She is ambulating in the hallway. Her sodium remains low but is still only 131. She has been as low as 119. I have discussed this with Dr. Cruz on several occasions. Unfortunately, due to staffing issues, I am unable to get her on the schedule for today. I am going to try and get her on the schedule for Tuesday, or we could do this as an outpatient; however, after talking to Dr. Cruz I would feel better if we did get a diagnosis of this mass. [facility]
[2017-03-11] MEDS: LORAZEPAM 0.5 MG TAB PO PRN (22:03)
[2017-03-11 23:53] VITALS: BP 135/70; PULSE 68; TEMP 36.7; O2SAT 96
[2017-03-12] MEDS: TRAMADOL HCL 50 MG TAB PO PRN ×2 (00:27→15:28)
[2017-03-12] MEDS: LEVOTHYROXINE 88 MCG TAB PO SCH (05:32)
[2017-03-12 07:12] LABS: HEMATOCRIT 27.1 % (37-47); MEAN CELL VOLUME 91.6 fL (80-100); MEAN CORPUSCULAR HEMOGLOBIN 31.4 pg (25-34); MEAN CORPUSCULAR HGB CONC 34.3 g/dl (32-36); MEAN PLATELET VOLUME 7.7 fL (7.4-10.4); PLATELET COUNT 191 K/uL (130-400); RED BLOOD COUNT 2.96 M/uL (4.2-5.4); WHITE BLOOD COUNT 5.65 K/uL (4.8-10.8)
[2017-03-12 07:30] VITALS: BP 169/76; PULSE 65; TEMP 36.6; O2SAT 95
[2017-03-12 07:43] LABS: BUN/CREATININE RATIO 30.7 (10-20); CALCIUM 8.6 mg/dl (8.5-10.1); CREATININE 0.86 mg/dl (0.60-1.20); POTASSIUM 4.5 mmol/L (3.5-5.1)
[2017-03-12] MEDS: ASPIRIN 81 MG ECTAB PO SCH (08:01)
[2017-03-12] MEDS: CHOLECALCIFEROL 1000 INTER.UNIT TAB PO SCH (08:01)
[2017-03-12] MEDS: HYDROCORTISONE 10 MG TAB PO SCH ×2 (08:01→20:33)
[2017-03-12] MEDS: SERTRALINE HCL 50 MG TAB PO SCH (08:01)
[2017-03-12] MEDS: FUROSEMIDE 20 MG TAB PO SCH (08:02)
[2017-03-12] MEDS: MULTIVITAMIN TAB PO SCH (08:02)
[2017-03-12] MEDS: POTASSIUM CHLORIDE 20 MEQ TABCR PO SCH ×2 (08:02→20:32)
[2017-03-12] MEDS: DILTIAZEM HCL 300 MG CAPCR PO SCH (08:02)
[2017-03-12] MEDS: PANTOprazole SOD 40 MG TAB PO SCH (08:02)
[2017-03-12] MEDS: CALCITONIN SALMON NA 200 IU/AC 3.7 ML BTL SCH (08:03)
[2017-03-12] MEDS: LIDODERM (LIDOCAINE) PATCH 5% TD SCH (08:03)
[2017-03-12] MEDS: LOSARTAN POTASSIUM 50 MG TAB PO SCH (08:03)
[2017-03-12] MEDS: SODIUM CHLORIDE 1 GM TAB PO SCH (08:04)
[2017-03-12] MEDS: [UNRECOGNIZED DRUG - OTHER] PO SCH (08:04)
[2017-03-12] MEDS: HEPARIN SOD 5000 UNIT/0.5 ML CARP SQ SCH ×2 (08:08→20:38)
[2017-03-12 11:30] VITALS: O2SAT 95
--- NOTE | 2017-03-12 11:38 | SURGERY PROGRESS NOTE ---
DATE: 03/12/2017 DATE: 03/12/2017. Ms. Bennett was seen today. She is better. She still has a low sodium at 130. I have her on the schedule for a navigational bronchoscopy and endobronchial ultrasound on Tuesday03/14/2017. It is possible that her hypernatremia is due to her perineoplastic syndrome. We will find out on our biopsies Tuesday hopefully.
[2017-03-12] MEDS ORDERED: LSX20 PO (12:40)
[2017-03-12] MEDS ORDERED: SDMC1 PO (12:40)
--- NOTE | 2017-03-12 12:41 | Nephrology Progress Note ---
Nephrology Progress Note Date of Service March 12, 2017. Chief Complaint Follow-up for hyponatremia Subjective Alda was seen and examined in her room this morning. she is otherwise feeling fine but feels anxious. Serum sodium slightly dropped to 130 this morning urine osmolality continues to be electively high at 281. Other electrolyte acceptable. Blood pressure stable. Review of Systems A complete review of systems was performed. Pertinent positives are noted above. All other systems are negative. Vital Signs Last 8 Hrs Date Time Temp Pulse Resp B/P Pulse Ox O2 Delivery O2 Flow Rate FiO2 03/12/17 11:30 95 Room Air 03/12/17 08:50 Room Air 03/12/17 07:30 36.6 65 16 169/76 95 Room Air I & O 24-Hour Column 03/12/17 08:00 Intake Total 1420 ml Output Total 850 ml Balance 570 ml Last Recorded Weight Weight (Kilograms): 47.500 Physical Exam GENERAL: Elderly female, AAA x 3, pleasant, healthy-appearing, not in any distress. NECK: Supple, no JVD. RESPIRATORY: Normal breathing efforts, no accessory muscle use, clear to auscultation bilaterally, no wheezes or rales. CARDIOVASCULAR: S1, S2 normal, rate rhythm regular. EXTREMITY: No lower extremity edema NEURO: speech fluent. PSYCHIATRY: Normal mood and judgment Family History Diabetes mellitus Hypertension Negative for CKD / ESRD / hyponatremia Social History Smoking Status: Never smoker Drug Use: none Marital Status: single Occupation: unemployed, retired Single. One son in good health. 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 Remote history of tobacco use Laboratory Results Past 24 Hours 03/12/17 07:04 03/12/17 07:07 Test 03/11/17 13:36 03/12/17 07:04 03/12/17 07:07 Urine Osmolality 281 mOms/kg (500-800) Red Blood Count 2.96 M/uL (4.2-5.4) Mean Corpuscular Volume 91.6 fL (80-100) Mean Corpuscular Hemoglobin 31.4 pg (25-34) Mean Corpuscular Hemoglobin Concent 34.3 g/dl (32-36) RDW Standard Deviation 50.3 fL (36.4-46.3) RDW Coefficient of Variation 14.9 % (11.5-14.5) Mean Platelet Volume 7.7 fL (7.4-10.4) Anion Gap 6.0 mmol/L (3-11) Est Creatinine Clear Calc Drug Dose 38.2 ml/min Estimated GFR () 78.2 Estimated GFR (Non- 67.5 BUN/Creatinine Ratio 30.7 (10-20) Calcium Level 8.6 mg/dl (8.5-10.1) Allergies Coded Allergies: Amoxicillin (Verified Allergy, Mild, ITCHY, 03/03/17) Ondansetron (Verified Allergy, Mild, ITCHY, 03/03/17) Oxycodone (Verified Allergy, Mild, ITCH, 03/03/17) Hydralazine (Verified Adverse Reaction, Severe, Severe angina, 03/03/17) Patient has a severe hypertrophic cardiomyopathy. Hydralazine is contraindicated. Hydrocodone (Unverified Adverse Reaction, Intermediate, NAUSEA, 03/03/17) Ibuprofen (Unverified Adverse Reaction, Intermediate, NAUSEA, 03/03/17) Quinolones (Verified Adverse Reaction, Intermediate, HEADACHE, 03/03/17) Cephalosporins (Verified Adverse Reaction, Unknown, CEFTIN: ABDOMINAL PAIN /NAUSEA, 03/03/17) Escitalopram (Verified Adverse Reaction, Unknown, ABD PAIN;NAUSEA, 03/03/17) Penicillins (Verified Adverse Reaction, Unknown, ABD PAIN;NAUSEA, 03/03/17) Medications Current Inpatient Medications Medications (Trade) Dose Ordered Sig/Dariusz Route Start Time Stop Time Status Last Admin Dose Admin Acetaminophen (Tylenol Tab) 650 mg Q4H PRN PO 03/03/17 13:30 04/02/17 13:29 03/09/17 10:53 325 MG Al Hydrox/Mg Hydrox/Simethicone (Maalox Max Susp) 15 ml Q4H PRN PO 03/03/17 13:30 04/02/17 13:29 Magnesium Hydroxide (Milk Of Magnesia Susp) 30 ml Q6H PRN PO 03/03/17 13:30 04/02/17 13:29 Polyethylene (Miralax Powder Packet) 17 gm DAILY PRN PO 03/03/17 13:30 04/02/17 13:29 Ondansetron HCl (Zofran Inj) 4 mg Q6H PRN IV 03/03/17 13:30 04/02/17 13:29 03/08/17 15:12 4 MG Heparin Sodium (Porcine) (Heparin Sq 5000 Unit/0.5ml) 5,000 unit Q12 SQ 03/03/17 21:00 04/02/17 20:59 03/12/17 08:08 5,000 UNIT Lidocaine (Lidoderm Patch 5%) 1 patch QAM TD 03/04/17 09:00 04/03/17 08:59 03/12/17 08:03 1 PATCH Miscellaneous (Remove Lidoderm Patch) 1 ea DAILY@21 N/A 03/03/17 21:00 04/02/17 20:59 03/11/17 21:04 1 EA Aspirin (Ecotrin Tab) 81 mg DAILY PO 03/04/17 09:00 04/03/17 08:59 03/12/17 08:01 81 MG Atenolol (Tenormin Tab) 50 mg BID PO 03/03/17 21:00 04/02/17 20:59 03/12/17 08:01 50 MG Cholecalciferol (Vitamin D Tab) 1,000 inter.unit QAM PO 03/04/17 09:00 04/03/17 08:59 03/12/17 08:01 1,000 INTER.UNIT Diltiazem HCl (Cardizem Cd Cap) 300 mg QAM PO 03/04/17 09:00 04/02/17 08:59 03/12/17 08:02 300 MG Hydrocortisone (Cortef Tab) 10 mg QPM PO 03/03/17 21:00 04/02/17 20:59 03/11/17 21:06 10 MG Hydrocortisone (Cortef Tab) 20 mg QAM PO 03/04/17 09:00 04/03/17 08:59 03/12/17 08:01 20 MG Lorazepam (Ativan Tab) 0.25 mg DAILY PRN PO 03/03/17 13:30 04/02/17 13:29 03/11/17 22:03 0.25 MG Losartan Potassium (coZAAR TAB) 100 mg QAM PO 03/04/17 09:00 04/02/17 08:59 03/12/17 08:03 100 MG Multivitamins (Multivitamin Tab) 1 tab DAILY PO 03/04/17 09:00 04/03/17 08:59 03/12/17 08:02 1 TAB Pantoprazole Sodium (Protonix Tab) 40 mg QAM PO 03/04/17 09:00 04/03/17 08:59 03/12/17 08:02 40 MG Potassium Chloride (Klor-Con Tab) 20 meq BID PO 03/03/17 21:00 04/02/17 20:59 03/12/17 08:02 20 MEQ Miscellaneous (Iv Fluids Completed) 1 ea PRN PRN N/A 03/03/17 14:15 03/03/18 14:14 Tramadol HCl (Ultram Tab) 50 mg Q6 PRN PO 03/03/17 14:45 04/02/17 14:44 03/12/17 00:27 50 MG Morphine Sulfate (MoRPHine SULFATE INJ) 4 mg Q4 PRN IV 03/03/17 14:45 03/17/17 14:44 Calcitonin Warrior (Fortical Nasal [place]) 1 spray DAILY NA 03/05/17 09:00 04/02/17 13:29 03/12/17 08:03 1 SPRAY Sertraline HCl (Zoloft Tab) 50 mg QAM PO 03/06/17 09:00 04/05/17 08:59 03/12/17 08:01 50 MG Hydralazine HCl (HydrALAZINE INJ) 10 mg Q4H PRN IV. 03/05/17 23:45 04/04/17 23:44 03/08/17 12:27 10 MG Non-Formulary Medication (Non-Formulary Patient'S Own Med) 2 ea DAILY PO 03/07/17 09:00 04/06/17 08:59 03/12/17 08:04 2 EA Levothyroxine Sodium (Synthroid Tab) 88 mcg DAILYBB PO 03/10/17 06:00 04/09/17 05:59 03/12/17 05:32 88 MCG Sodium Chloride (Sodium Chloride Tab) 2 gm DAILY PO 03/09/17 17:15 04/08/17 17:14 03/12/17 08:04 2 GM Furosemide (Lasix Tab) 20 mg QAM PO 03/12/17 09:00 04/11/17 08:59 03/12/17 08:02 20 MG Impression (1) Hyponatremia (2) Sarcoidosis (3) Osteoporotic compression fracture of spine (4) History of steroid therapy (5) Lung nodule (6) Adrenal insufficiency (7) Thyroidectomy Hypoosmolar hyponatremia in an elderly female admitted w/ intractable back pain associated w/ lumbar compression fracture. Uosm should be < 100 in the setting of hyponatremia. Elevated Uosm is indicative of ADH effect. This could be related to pain or possibly patient's BLAIRE lung mass. She appears clinically euvolemic at this time. She is on thyroid and adrenal replacement therapy. There is no evidence of adrenal insufficiency at this time. Cortisol was normal. Thyroid supplement has recently been adjusted. Recommendations HYPONATREMIA: -- Serum sodium again dropped slightly to 130 this morning --start on fluid restriction 1200 mL per day, continue on oral salt tablet and restart on Lasix 20 milligram p.o. daily -- okay to be discharged to rehab --Please arrange for repeat renal panel on Tuesday03/14/2017 and send report to Dr. Cruz and then weekly until serum sodium totally normalize -- please schedule for follow-up appointment with Dr. Cruz in next 1-2 weeks as an outpatient. LUNG MASS: -- Await results of navigational bronchoscopy COMPRESSION FRACTURE: -- Continue conservative management
--- NOTE | 2017-03-12 12:43 | Discharge Instructions ---
Discharge Instructions Date of Service March 12, 2017. Admission Reason for Admission: Osteoporotic Compression Fracture Of Spine Discharge Discharge Diagnosis / Problem: Hyponatremia, Lung mass Discharge Goals Goal(s): Decrease discomfort, Improve function Activity Recommendations Activity Limitations: as noted below Lifting Limitations: gradually increase as tolerated Shower/Bathe: no limitations . Instructions / Follow-Up Instructions / Follow-Up Follow up with for bronchoscopy Follow up with for evaluation and treatment of hyponatremia Current Hospital Diet Patient's current hospital diet: Regular Diet Discharge Diet Recommended Diet: AHA Diet (Heart Healthy) Fluid Restriction: 1200 ml (5 cups) Pending Studies Studies pending at discharge: yes List of pending studies: Bronchoscopy Laboratory Results 03/12/17 07:04 03/12/17 07:07 Test 03/03/17 09:48 03/03/17 10:21 03/03/17 14:29 03/03/17 15:42 Total Bilirubin 0.7 mg/dl (0.2-1) Aspartate Amino Transf (AST/SGOT) 17 U/L (15-37) Alanine Aminotransferase (ALT/SGPT) 16 U/L (12-78) Alkaline Phosphatase 64 U/L (45-117) Total Protein 7.1 gm/dl (6.4-8.2) Albumin 3.9 gm/dl (3.4-5.0) Globulin 3.2 gm/dl (2.5-4.0) Albumin/Globulin Ratio 1.2 (0.9-2) Urine Color YELLOW Urine Appearance CLEAR (CLEAR) Urine pH 7.0 (4.5-7.5) Urine Specific [place] 1.009 (1.000-1.030) Urine Protein NEG (NEG) Urine Glucose (UA) NEG (NEG) Urine Ketones NEG (NEG) Urine Occult Blood TRACE (NEG) Urine Nitrite NEG (NEG) Urine Bilirubin NEG (NEG) Urine Urobilinogen NEG (NEG) Urine Leukocyte Esterase NEG (NEG) Urine WBC (Auto) 0 /hpf (0-5) Urine RBC (Auto) 0-4 /hpf (0-4) Urine Hyaline Casts (Auto) 0 /lpf (0-5) Urine Epithelial Cells (Auto) 5-10 /lpf (0-5) Urine Bacteria (Auto) NEG (NEG) 25-Hydroxy Vitamin D Total 34.6 ng/ml (30-100) Prothrombin Time 10.4 SECONDS (9.0-12.0) Prothromb Time International Ratio 1.0 (0.9-1.1) Activated Partial Thromboplast Time 28.4 SECONDS (21.0-31.0) Partial Thromboplastin Ratio 1.1 Parathyroid Hormone (Intact) 53.7 pg/mL (11.1-79.5) Test 03/04/17 01:29 03/08/17 11:25 03/08/17 15:42 03/09/17 07:40 Osmolality 252 mOsm/kg (280-300) Immature Granulocyte % (Auto) 0.3 % White Blood Count 6.92 K/uL (4.8-10.8) Red Blood Count 3.25 M/uL (4.2-5.4) Hemoglobin 10.0 g/dL (12.0-16.0) Hematocrit 29.2 % (37-47) Mean Corpuscular Volume 89.8 fL (80-100) Mean Corpuscular Hemoglobin 30.8 pg (25-34) Mean Corpuscular Hemoglobin Concent 34.2 g/dl (32-36) Platelet Count 249 K/uL (130-400) Mean Platelet Volume 7.8 fL (7.4-10.4) Neutrophils (%) (Auto) 72.9 % Lymphocytes (%) (Auto) 11.8 % Monocytes (%) (Auto) 14.0 % Eosinophils (%) (Auto) 0.7 % Basophils (%) (Auto) 0.3 % Neutrophils # (Auto) 5.04 K/uL (1.4-6.5) Lymphocytes # (Auto) 0.82 K/uL (1.2-3.4) Monocytes # (Auto) 0.97 K/uL (0.11-0.59) Eosinophils # (Auto) 0.05 K/uL (0-0.5) Basophils # (Auto) 0.02 K/uL (0-0.2) Immature Granulocyte # (Auto) 0.02 K/uL (0.00-0.02) Magnesium Level 1.8 mg/dl (1.8-2.4) Troponin I < 0.015 ng/ml (0-0.045) Thyroid Stimulating Hormone (TSH) 4.510 uIu/ml (0.300-4.500) Cortisol AM Sample 24.97 mcg/dl (4.30-22.40) Test 03/11/17 13:36 03/12/17 07:04 03/12/17 07:07 Urine Osmolality 281 mOms/kg (500-800) Red Blood Count 2.96 M/uL (4.2-5.4) Mean Corpuscular Volume 91.6 fL (80-100) Mean Corpuscular Hemoglobin 31.4 pg (25-34) Mean Corpuscular Hemoglobin Concent 34.3 g/dl (32-36) RDW Standard Deviation 50.3 fL (36.4-46.3) RDW Coefficient of Variation 14.9 % (11.5-14.5) Mean Platelet Volume 7.7 fL (7.4-10.4) Anion Gap 6.0 mmol/L (3-11) Est Creatinine Clear Calc Drug Dose 38.2 ml/min Estimated GFR () 78.2 Estimated GFR (Non- 67.5 BUN/Creatinine Ratio 30.7 (10-20) Calcium Level 8.6 mg/dl (8.5-10.1) Medical Emergencies . Who to Call and When: Medical Emergencies: If at any time you feel your situation is an emergency, please call 911 immediately. . Non-Emergent Contact Non-Emergency issues call your: Primary Care Provider Call Non-Emergent contact if: you have a fever . Past History Medical & Surgical History: (1) Hypertension (2) Adrenal insufficiency (3) Lumbar compression fracture (4) Hyponatremia (5) Back pain (6) Sarcoidosis . "Provider Documentation" section prepared by Deacon Sandoval. . VTE Core Measure Inpt VTE Proph given/why not?: Unfractionated heparin SQ
[2017-03-12 12:53] VITALS: BP 126/72; PULSE 66; O2SAT 96
[2017-03-12 15:52] VITALS: BP 127/71; PULSE 59; TEMP 36.6; O2SAT 97
--- NOTE | 2017-03-12 17:10 | Discharge Summary ---
Discharge Summary Date of Service March 12, 2017. Discharge Summary Admission Date: March 04, 2017 at 16:14 Discharge Date: March 12, 2017 Discharge Disposition: half-way facility Principal Diagnosis: Hyponatremia, Compression fx of L2 and transverse process fracture at L1 Problems/Secondary Diagnoses: Lung mass, Hypothyroid, HTN, Adrenal insufficiency, Sarcoidosis, Osteoporosis, Vit D deficiency, Abnormal mammogram Immunizations: Have You Had Influenza Vaccine: Yes Influenza Vaccine Date: Jan 15, 2013 History of Tetanus Vaccine?: Unknown History of Pneumococcal: Yes Pneumococcal Date: Jan 15, 2013 History of Hepatitis B Vaccine: Unknown Procedures: [~ rep ct add3]] CT SCAN OF THE LUMBAR SPINE WITHOUT IV CONTRAST CLINICAL HISTORY: Acute on chronic low back pain. COMPARISON STUDY: CT scans of lumbar spine dated 06/13/2016 and 07/01/2015. TECHNIQUE: CT scan of lumbar spine is performed from the lower thoracic spine to the sacrum. Images are reviewed in the axial, sagittal, and coronal planes. IV contrast was not administered for this examination. CT DOSE: 305.57 mGycm FINDINGS: The skeletal structures are osteopenic. There is a mild acute superior endplate compression fracture of L2. This is new from the 06/13/2016 examination. No retropulsed fragments are identified. There is also an acute right transverse process fracture of L1 seen on image #44. No additional acute fracture is suggested. Vertebral body height is otherwise maintained throughout the lumbar spine. There is 7 mm anterolisthesis at L5-S1. Alignment is otherwise preserved throughout the lumbar spine. There is moderate to severe lumbar levoscoliosis centered at L3-L4. There are anterior and lateral marginal osteophytes. No spondylolysis is seen. There is a healed fractures of the left L1-L3 transverse processes, as well as the left posterior 12th rib. The spinous processes are intact. There is moderate to advanced degenerative disc space narrowing seen at L3-L4, L4-L5, and L5-S1. Mild degenerative narrowing seen at the remaining lumbar levels. Large posterior disc osteophyte complexes at L2-L3, L3-L4, and L4-L5 likely contribute to acquired compromise of the central canal. Significant facet arthropathy is seen lower lumbar region. The visualized sacrum and bony pelvis appear intact. Degenerative changes are seen involving the sacroiliac joints. No lytic or blastic bony lesions are suspected. There is fatty atrophy of the paraspinous musculature, asymmetrically greater on the right. Advanced sigmoid diverticulosis is partially visualized. Mild atherosclerotic calcification is noted in the abdominal aorta. Calcified lymph nodes are present in the right retroperitoneal region, similar in appearance to previous. IMPRESSION: 1. There is a mild acute superior endplate compression fracture of L2. No retropulsed fragments are identified. 2. There is an acute fracture of the right transverse process of L1. 3. Osteopenia with advanced lumbosacral spondylosis and scoliosis as detailed above. These findings are similar to prior examinations. Electronically signed by: Hemal Meza M.D. 03/03/2017 11:10 AM Consultations: Thoracic Surgery, Nephrology, General surgery Medication Reconciliation New Medications: Furosemide (Furosemide) 20 Mg Tab 20 MG PO QAM for 30 Days, #30 TAB Sodium Chloride (Sodium Chloride) 1 Gm Tab 2 GM PO DAILY for 30 Days, #60 TAB Continued Medications: Aspirin (Aspirin Ec) 81 Mg Tab 81 MG PO DAILY Atenolol (Tenormin) 50 Mg Tab 50 MG PO AMPM Calcium & Phosphorus W/ Vitami (Calcium Gummies) 1 Chw Chw 2 TAB PO DAILY Cholecalciferol (Vitamin D3) 1,000 Inter.unit Tab 1 TAB PO QAM Cranberry (Vaccinium Macrocarp (Cranberry) 500 Mg Cap 500 MG PO QAM Diltiazem HCl (Diltiazem Cd) 300 Mg Capcr 300 MG PO QAM, #30 Hydrocortisone (Cortef) 20 Mg Tab 20 MG PO QAM Hydrocortisone (Cortef) 10 Mg Tab 10 MG PO QPM @ 4PM Krill Oil (Megared [place]-3 Krill Oil 500 mg) 1 Cap Cap 1 CAP PO QAM Levothyroxine Sodium (Synthroid) 75 Mcg Tab 75 MCG PO QAM Lorazepam (Ativan) 0.5 Mg Tab 0.5 TAB PO DAILY PRN for Anxiety Losartan Potassium (Cozaar) 100 Mg Tab 100 MG PO QAM Multivitamin (Multivitamin) Tab 1 TAB PO DAILY Pantoprazole (Protonix) 40 Mg Tab 40 MG PO QAM Potassium Ext Rel (Klor-Con) 20 Meq Tabcr 20 MEQ PO AMPM Spironolactone (Aldactone) 25 Mg Tab 12.5 MG PO QAM, TAB Discharge Exam Physical Exam: General Appearance: WD/WN Eyes: normal inspection, PERRL ENT: normal ENT inspection Neck: supple, no adenopathy Respiratory/Chest: chest non-tender, lungs clear Cardiovascular: regular rate, rhythm, no edema, + systolic murmur Abdomen / GI: normal bowel sounds, non tender Extremities: normal inspection, + pertinent finding (scoliosis) Neurologic/Psychiatric: closing specialist II-XII nml as tested, no motor/sensory deficits , alert, oriented x 3 Skin: normal color Hospital Course 71 yo female with h/o osteoporosis, scoliosis, sarcoidosis, adrenal insufficiency who presents with several days of back pain after a fall found to have compression fx of L2 and transverse process fracture at L1 - Compression fracture: pain control with Lidoderm, Tylenol, Ultram, adequate thus far plan to go to rehab at [facility] in [place], sent referral on Tuesday - Osteoporosis, Vitamin D deficiency: Vitamin D low at 34, give supplementation , 50,000 units weekly x 6 weeks set up for endocrinology follow up on April [address] 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 Received Tolvaptan. Continue with lasix and Nacl tabs as per Renal recommendations Fluid restrict to 1200 ml per day. - Left 3.5 cm lobulated lung lesion: seen on CT chest in December seen by Pulmonary, . Bronchoscopy as OP. - Chest pain Atypical. Non trending troponins. EkG with no ischemic changes. - HTN: stable - Hypothyroidism: stable - Adrenal insufficiency: stable. on Solucortef. - Abnormal mammogram: Appreciate Surgery input. OP follow up - DVT prophylaxis: heparin Total Time Spent: Greater than 30 minutes This includes examination of the patient, discharge planning, medication reconciliation, and communication with other providers. Discharge Instructions Please refer to the electronic Patient Visit Report (Discharge Instructions) for additional information. Follow-Up Nephrology in one week. Thoracic Surgery in one to two weeks Endocrine in two weeks General Surgery in two weeks
[2017-03-12 23:17] VITALS: BP 147/73; PULSE 65; TEMP 36.3; O2SAT 95
[2017-03-13] MEDS: LORAZEPAM 0.5 MG TAB PO PRN (00:04)
[2017-03-13] MEDS: LEVOTHYROXINE 88 MCG TAB PO SCH (06:10)
[2017-03-13 07:31] LABS: BUN/CREATININE RATIO 30.9 (10-20); CALCIUM 8.7 mg/dl (8.5-10.1); CREATININE 0.82 mg/dl (0.60-1.20); POTASSIUM 4.6 mmol/L (3.5-5.1)
[2017-03-13 07:36] VITALS: BP 163/80; PULSE 60; TEMP 36.4; O2SAT 96
[2017-03-13] MEDS ORDERED: FUROSEMIDE 20 MG TAB PO SCH (09:00)
[2017-03-13] MEDS: [UNRECOGNIZED DRUG - OTHER] PO SCH (09:00)
[2017-03-13] MEDS: CALCITONIN SALMON NA 200 IU/AC 3.7 ML BTL SCH (09:29)
[2017-03-13] MEDS: SERTRALINE HCL 50 MG TAB PO SCH (09:29)
[2017-03-13] MEDS: ASPIRIN 81 MG ECTAB PO SCH (09:30)
[2017-03-13] MEDS: FUROSEMIDE 20 MG TAB PO SCH (09:31)
[2017-03-13] MEDS: MULTIVITAMIN TAB PO SCH (09:32)
[2017-03-13] MEDS: LOSARTAN POTASSIUM 50 MG TAB PO SCH (09:32)
[2017-03-13] MEDS: DILTIAZEM HCL 300 MG CAPCR PO SCH (09:33)
[2017-03-13] MEDS: POTASSIUM CHLORIDE 20 MEQ TABCR PO SCH (09:33)
[2017-03-13] MEDS: PANTOprazole SOD 40 MG TAB PO SCH (09:34)
[2017-03-13] MEDS: LIDODERM (LIDOCAINE) PATCH 5% TD SCH (09:35)
[2017-03-13] MEDS: HYDROCORTISONE 10 MG TAB PO SCH (09:38)
[2017-03-13] MEDS: CHOLECALCIFEROL 1000 INTER.UNIT TAB PO SCH (09:38)
--- NOTE | 2017-03-13 09:40 | Nephrology Progress Note ---
Nephrology Progress Note Date of Service March 13, 2017. Chief Complaint Follow-up for hyponatremia Subjective Alda was seen and examined in her room this morning. she is otherwise feeling fine but feels anxious. Serum sodium stable at 130 this morning. Other electrolyte acceptable. Blood pressure stable. Review of Systems A complete review of systems was performed. Pertinent positives are noted above. All other systems are negative. Vital Signs Last 8 Hrs Date Time Temp Pulse Resp B/P Pulse Ox O2 Delivery O2 Flow Rate FiO2 03/13/17 07:36 36.4 60 16 163/80 96 Room Air 03/12/17 23:55 Room Air I & O 24-Hour Column 03/13/17 08:00 Intake Total 660 ml Output Total 2150 ml Balance -1490 ml Last Recorded Weight Weight (Kilograms): 47.500 Physical Exam GENERAL: Elderly female, AAA x 3, pleasant, healthy-appearing, not in any distress. NECK: Supple, no JVD. RESPIRATORY: Normal breathing efforts, no accessory muscle use, clear to auscultation bilaterally, no wheezes or rales. CARDIOVASCULAR: S1, S2 normal, rate rhythm regular. EXTREMITY: No lower extremity edema NEURO: speech fluent. PSYCHIATRY: Normal mood and judgment Family History Diabetes mellitus Hypertension Negative for CKD / ESRD / hyponatremia Social History Smoking Status: Never smoker Drug Use: none Marital Status: single Occupation: unemployed, retired Single. One son in good health. 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 Remote history of tobacco use Laboratory Results Past 24 Hours 03/13/17 06:32 Test 03/13/17 06:32 Anion Gap 6.0 mmol/L (3-11) Est Creatinine Clear Calc Drug Dose 40.0 ml/min Estimated GFR () 82.9 Estimated GFR (Non- 71.5 BUN/Creatinine Ratio 30.9 (10-20) Calcium Level 8.7 mg/dl (8.5-10.1) Allergies Coded Allergies: Amoxicillin (Verified Allergy, Mild, ITCHY, 03/03/17) Ondansetron (Verified Allergy, Mild, ITCHY, 03/03/17) Oxycodone (Verified Allergy, Mild, ITCH, 03/03/17) Hydralazine (Verified Adverse Reaction, Severe, Severe angina, 03/03/17) Patient has a severe hypertrophic cardiomyopathy. Hydralazine is contraindicated. Hydrocodone (Unverified Adverse Reaction, Intermediate, NAUSEA, 03/03/17) Ibuprofen (Unverified Adverse Reaction, Intermediate, NAUSEA, 03/03/17) Quinolones (Verified Adverse Reaction, Intermediate, HEADACHE, 03/03/17) Cephalosporins (Verified Adverse Reaction, Unknown, CEFTIN: ABDOMINAL PAIN /NAUSEA, 03/03/17) Escitalopram (Verified Adverse Reaction, Unknown, ABD PAIN;NAUSEA, 03/03/17) Penicillins (Verified Adverse Reaction, Unknown, ABD PAIN;NAUSEA, 03/03/17) Medications Current Inpatient Medications Medications (Trade) Dose Ordered Sig/Dariusz Route Start Time Stop Time Status Last Admin Dose Admin Acetaminophen (Tylenol Tab) 650 mg Q4H PRN PO 03/03/17 13:30 04/02/17 13:29 03/09/17 10:53 325 MG Al Hydrox/Mg Hydrox/Simethicone (Maalox Max Susp) 15 ml Q4H PRN PO 03/03/17 13:30 04/02/17 13:29 Magnesium Hydroxide (Milk Of Magnesia Susp) 30 ml Q6H PRN PO 03/03/17 13:30 04/02/17 13:29 Polyethylene (Miralax Powder Packet) 17 gm DAILY PRN PO 03/03/17 13:30 04/02/17 13:29 Ondansetron HCl (Zofran Inj) 4 mg Q6H PRN IV 03/03/17 13:30 04/02/17 13:29 03/08/17 15:12 4 MG Heparin Sodium (Porcine) (Heparin Sq 5000 Unit/0.5ml) 5,000 unit Q12 SQ 03/03/17 21:00 04/02/17 20:59 03/12/17 20:38 5,000 UNIT Lidocaine (Lidoderm Patch 5%) 1 patch QAM TD 03/04/17 09:00 04/03/17 08:59 03/12/17 08:03 1 PATCH Miscellaneous (Remove Lidoderm Patch) 1 ea DAILY@21 N/A 03/03/17 21:00 04/02/17 20:59 03/12/17 00:05 1 EA Aspirin (Ecotrin Tab) 81 mg DAILY PO 03/04/17 09:00 04/03/17 08:59 03/12/17 08:01 81 MG Atenolol (Tenormin Tab) 50 mg BID PO 03/03/17 21:00 04/02/17 20:59 03/12/17 20:34 50 MG Cholecalciferol (Vitamin D Tab) 1,000 inter.unit QAM PO 03/04/17 09:00 04/03/17 08:59 03/12/17 08:01 1,000 INTER.UNIT Diltiazem HCl (Cardizem Cd Cap) 300 mg QAM PO 03/04/17 09:00 04/02/17 08:59 03/12/17 08:02 300 MG Hydrocortisone (Cortef Tab) 10 mg QPM PO 03/03/17 21:00 04/02/17 20:59 03/12/17 20:33 10 MG Hydrocortisone (Cortef Tab) 20 mg QAM PO 03/04/17 09:00 04/03/17 08:59 03/12/17 08:01 20 MG Lorazepam (Ativan Tab) 0.25 mg DAILY PRN PO 03/03/17 13:30 04/02/17 13:29 03/13/17 00:04 0.25 MG Losartan Potassium (coZAAR TAB) 100 mg QAM PO 03/04/17 09:00 04/02/17 08:59 03/12/17 08:03 100 MG Multivitamins (Multivitamin Tab) 1 tab DAILY PO 03/04/17 09:00 04/03/17 08:59 03/12/17 08:02 1 TAB Pantoprazole Sodium (Protonix Tab) 40 mg QAM PO 03/04/17 09:00 04/03/17 08:59 03/12/17 08:02 40 MG Potassium Chloride (Klor-Con Tab) 20 meq BID PO 03/03/17 21:00 04/02/17 20:59 03/12/17 20:32 20 MEQ Miscellaneous (Iv Fluids Completed) 1 ea PRN PRN N/A 03/03/17 14:15 03/03/18 14:14 Tramadol HCl (Ultram Tab) 50 mg Q6 PRN PO 03/03/17 14:45 04/02/17 14:44 03/12/17 15:28 50 MG Morphine Sulfate (MoRPHine SULFATE INJ) 4 mg Q4 PRN IV 03/03/17 14:45 03/17/17 14:44 Calcitonin [place] (Fortical Nasal [place]) 1 spray DAILY NA 03/05/17 09:00 04/02/17 13:29 03/12/17 08:03 1 SPRAY Sertraline HCl (Zoloft Tab) 50 mg QAM PO 03/06/17 09:00 04/05/17 08:59 03/12/17 08:01 50 MG Hydralazine HCl (HydrALAZINE INJ) 10 mg Q4H PRN IV. 03/05/17 23:45 04/04/17 23:44 03/08/17 12:27 10 MG Non-Formulary Medication (Non-Formulary Patient'S Own Med) 2 ea DAILY PO 03/07/17 09:00 04/06/17 08:59 03/12/17 08:04 2 EA Levothyroxine Sodium (Synthroid Tab) 88 mcg DAILYBB PO 03/10/17 06:00 04/09/17 05:59 03/13/17 06:10 88 MCG Sodium Chloride (Sodium Chloride Tab) 2 gm DAILY PO 03/09/17 17:15 04/08/17 17:14 03/12/17 08:04 2 GM Furosemide (Lasix Tab) 20 mg QAM PO 03/12/17 09:00 04/11/17 08:59 03/12/17 08:02 20 MG Impression (1) Hyponatremia (2) Sarcoidosis (3) Osteoporotic compression fracture of spine (4) History of steroid therapy (5) Lung nodule (6) Adrenal insufficiency (7) Thyroidectomy Hypoosmolar hyponatremia in an elderly female admitted w/ intractable back pain associated w/ lumbar compression fracture. Uosm should be < 100 in the setting of hyponatremia. Elevated Uosm is indicative of ADH effect. This could be related to pain or possibly patient's BLAIRE lung mass. She appears clinically euvolemic at this time. She is on thyroid and adrenal replacement therapy. There is no evidence of adrenal insufficiency at this time. Cortisol was normal. Thyroid supplement has recently been adjusted. Recommendations HYPONATREMIA: -- Serum sodium stable at 130 --continue on fluid restriction 1200 mL per day, increase salt tablet to 2 gm BID and continue on Lasix 20 milligram p.o. daily -- okay to be discharged to rehab --Please arrange for repeat renal panel 2/3 days after discharge and send report to Dr. Cruz and then weekly until serum sodium totally normalize -- please schedule for follow-up appointment with Dr. Cruz in next 2 /3 weeks as an outpatient. LUNG MASS: -- Await results of navigational bronchoscopy COMPRESSION FRACTURE: -- Continue conservative management
[2017-03-13] MEDS: HEPARIN SOD 5000 UNIT/0.5 ML CARP SQ SCH (09:47)
--- NOTE | 2017-03-13 10:31 | SURGERY PROGRESS NOTE ---
DATE: 03/13/2017 SUBJECTIVE: Mrs. Bennett was not discharged yesterday. She is being discharged today. We had a long talk about this. We will hold off on the navigational bronchoscopy and let her go home and recover a bit. I will see her in the office and will discuss this. We will see her within the next week.
--- NOTE | 2017-03-13 11:01 | Hospitalist Progress Note ---
Hospitalist Progress Note Date of Service March 13, 2017. Subjective Pt evaluation today including: conversation w/ patient, physical exam Medications Medications (Trade) Dose Ordered Sig/Dariusz Route Start Time Stop Time Status Last Admin Dose Admin Sodium Chloride (Sodium Chloride Tab) 2 gm BID PO 03/13/17 21:00 04/12/17 20:59 03/13/17 09:38 2 GM Objective Vital Signs Date Time Temp Pulse Resp B/P Pulse Ox O2 Delivery O2 Flow Rate FiO2 03/13/17 07:36 36.4 60 16 163/80 96 Room Air 03/12/17 23:55 Room Air 03/12/17 23:17 36.3 65 16 147/73 95 Room Air 03/12/17 15:52 36.6 59 16 127/71 97 Room Air 03/12/17 12:53 66 20 126/72 96 Room Air 03/12/17 12:51 36.6 65 16 95 Room Air 03/12/17 11:30 95 Room Air Physical Exam General Appearance: WD/WN Eyes: normal inspection ENT: normal ENT inspection Neck: supple Respiratory/Chest: chest non-tender, lungs clear Cardiovascular: regular rate, rhythm, no JVD, + systolic murmur Abdomen: normal bowel sounds, non tender, soft Extremities: normal range of motion Neurologic/Psychiatric: no motor/sensory deficits, alert, oriented x 3 Skin: normal color Laboratory Results Last 24 Hours Test 03/13/17 06:32 Sodium Level 130 mmol/L Potassium Level 4.6 mmol/L Chloride Level 95 mmol/L Carbon Dioxide Level 29 mmol/L Anion Gap 6.0 mmol/L Blood Urea Nitrogen 25 mg/dl Creatinine 0.82 mg/dl Est Creatinine Clear Calc Drug Dose 40.0 ml/min Estimated GFR () 82.9 Estimated GFR (Non- 71.5 BUN/Creatinine Ratio 30.9 Random Glucose 92 mg/dl Calcium Level 8.7 mg/dl Assessment and Plan 71 yo female with h/o osteoporosis, scoliosis, sarcoidosis, adrenal insufficiency who presents with several days of back pain after a fall found to have compression fx of L2 and transverse process fracture at L1 - Compression fracture: pain control with Lidoderm, Tylenol, Ultram, adequate thus far plan to go to rehab at [facility] in [place] today. - Osteoporosis, Vitamin D deficiency: Vitamin D low at 34, give supplementation , 50,000 units weekly x 6 weeks set up for endocrinology follow up on April [address] 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 Received Tolvaptan. Continue with lasix and Nacl tabs as per Renal recommendations Fluid restrict to 1200 ml per day. Recheck BmP tomorrow. - Left 3.5 cm lobulated lung lesion: seen on CT chest in December seen by Pulmonary, . Bronchoscopy as OP. - Chest pain Atypical. Non trending troponins. EkG with no ischemic changes. - HTN: stable - Hypothyroidism: stable - Adrenal insufficiency: stable. on Solucortef. - Abnormal mammogram: Appreciate Surgery input. OP follow up - DVT prophylaxis: heparin
[2017-03-13] MEDS: TRAMADOL HCL 50 MG TAB PO PRN (11:41)
[2017-03-13] MEDS ORDERED: SODIUM CHLORIDE 1 GM TAB PO SCH (21:00)
== END 2017-03-13 11:54 | DRG 543 ==
LOC: ENRESERVDT → ENRESERVTM → EDBD 09:14 → C.EDB 09:18 → C.MSN 13:57 → OBSVTOIN 03-04 16:14
PROVIDERS: ADMIT Family Medicine; ATTEND Internal Medicine
DX: M84.48XA Pathological fracture, other site, initial encounter for fracture (principal); E87.1 Hypo-osmolality and hyponatremia; E27.40 Unspecified adrenocortical insufficiency; D86.9 Sarcoidosis, unspecified; R07.89 Other chest pain; Z83.3 Family history of diabetes mellitus; Z82.49 Family history of ischemic heart disease and other diseases of the circulatory system; Z79.82 Long term (current) use of aspirin; M81.0 Age-related osteoporosis without current pathological fracture; F32.9 Major depressive disorder, single episode, unspecified; E11.9 Type 2 diabetes mellitus without complications; K21.9 Gastro-esophageal reflux disease without esophagitis; E03.9 Hypothyroidism, unspecified; M41.9 Scoliosis, unspecified; E55.9 Vitamin D deficiency, unspecified; R91.1 Solitary pulmonary nodule; M54.9 Dorsalgia, unspecified; R93.8 Abnormal findings on diagnostic imaging of other specified body structures; R91.8 Other nonspecific abnormal finding of lung field; I89.8 Other specified noninfective disorders of lymphatic vessels and lymph nodes

== ENCOUNTER → 2017-03-24 | Outpatient (CLI) | payer BC, OTHER ==
[~2017-03-24] MED LIST changes: -ACET-1256 PO; -ALUMCHW2 PO; -ASPEC81 PO; +ASPI81TA28 PO; -CALC-440 PO; -CRDCD240 PO; +DILT300C64 PO; +LSX20 PO; -PROM12.57 PO; +SDMC1 PO; +SPIR25TA PO; +TRAM-10 PO; -VANC5CAP PO
[2017-03-24 13:02] LABS: HEMATOCRIT 32.2 % (37-47); MEAN CELL VOLUME 94.4 fL (80-100); MEAN CORPUSCULAR HEMOGLOBIN 31.4 pg (25-34); MEAN CORPUSCULAR HGB CONC 33.2 g/dl (32-36); MEAN PLATELET VOLUME 8.9 fL (7.4-10.4); PLATELET COUNT 334 K/uL (130-400); RED BLOOD COUNT 3.41 M/uL (4.2-5.4); WHITE BLOOD COUNT 8.64 K/uL (4.8-10.8)
[2017-03-24 13:07] LABS: URINE APPEARANCE CLEAR (CLEAR); URINE BILIRUBIN NEG (NEG); URINE COLOR YELLOW; URINE NITRITE NEG (NEG); URINE PH 6.5 (4.5-7.5); URINE SPECIFIC GRAVITY 1.015 (1.000-1.030); UROBILINOGEN NEG (NEG)
[2017-03-24 13:12] LABS: MANUAL MICROSCOPIC REQUIRED? NO; REVIEW REQ? NO
[2017-03-24 13:30] LABS: CALCIUM 8.9 mg/dl (8.5-10.1); URINE PROTIEN/CREAT RATIO 0.2 (0-0.2); URINE TOTAL PROTEIN 12.3 mg/dl (0-11.9)
[2017-03-24 13:33] LABS: BLOOD UREA NITROGEN 26 mg/dl (7-18); BUN/CREATININE RATIO 23.2 (10-20); CARBON DIOXIDE 31 mmol/L (21-32); CHLORIDE 99 mmol/L (98-107); GLUCOSE 96 mg/dl (70-99); POTASSIUM 3.8 mmol/L (3.5-5.1); SODIUM 137 mmol/L (136-145)
[2017-03-24 13:35] LABS: PHOSPHORUS 3.8 mg/dl (2.5-4.9)
== END | disposition home or self-care (01) ==
LOC: C.LAB1850 11:17
PROVIDERS: ATTEND Internal Medicine Nephrology
DX: D86.9 Sarcoidosis, unspecified (principal); I10 Essential (primary) hypertension; S32.009D Unspecified fracture of unspecified lumbar vertebra, subsequent encounter for fracture with routine healing; X58.XXXD Exposure to other specified factors, subsequent encounter; R53.1 Weakness; E87.1 Hypo-osmolality and hyponatremia

== ENCOUNTER 2017-04-01 04:55 | Inpatient (IN) | payer BC, OTHER ==
[2017-04-01] VITALS (17 sets, daily range): BP systolic 123–190; BP diastolic 62–83; PULSE 68–100; TEMP 36.4–37; O2SAT 89–100; Ht 147.3 cm; Wt 45.0 kg
[~2017-04-01] VITALS: Ht 147.3 cm; Wt 45.0 kg
[~2017-04-01 04:55] MED LIST changes: -TRAM-10 PO
[2017-04-01] MEDS ORDERED: TRAM-10 PO (05:52)
[2017-04-01] MEDS ORDERED: LACTATED RINGER'S 1000ML 1,000 ML IV SCH (06:00)
[2017-04-01 06:42] LABS: BUN/CREATININE RATIO 22.2 (10-20); CALCIUM 8.6 mg/dl (8.5-10.1); CREATININE 0.88 mg/dl (0.60-1.20)
[2017-04-01] MEDS ORDERED: DEXAMETHASONE SOD INJ 4 MG/ML VIAL ONE (06:43)
[2017-04-01] MEDS ORDERED: SUCCINYLCHOLINE CHLORIDE 20 MG/ML 10 ML VIAL IV ONE (06:43)
[2017-04-01] MEDS ORDERED: PROPOFOL IV EMULSION 10 MG/ML 20 ML VIAL IV ONE (06:43)
[2017-04-01] MEDS ORDERED: FENTANYL CITRATE INJ 50 MCG/1 ML 2 ML VIAL ONE (06:43)
[2017-04-01] MEDS ORDERED: MIDAZOLAM HCL 1 MG/ML 2ML VIAL ONE (06:43)
[2017-04-01] MEDS ORDERED: NEOSTIGMINE METHYLSULFATE 5 MG/5 ML SYR ONE (06:43)
[2017-04-01] MEDS ORDERED: GLYCOPYRROLATE INJ 0.2 MG/ML VIAL ONE (06:43)
[2017-04-01] MEDS ORDERED: ONDANSETRON INJ 2 MG/ML 2 ML VIAL ONE (06:43)
[2017-04-01] MEDS ORDERED: LIDOCAINE HCL 2% 2 ML VIAL (20MG/ML) ONE (06:43)
[2017-04-01] MEDS ORDERED: PHENYLEPHRINE HCL INJ 10 MG/ML VIAL ONE (06:43)
[2017-04-01] MEDS ORDERED: EpHEDrine SULFATE INJ 50 MG/ML AMP ONE (06:43)
[2017-04-01] MEDS ORDERED: ROCURONIUM BROMIDE 10 MG/ML 5 ML VIAL ONE (06:43)
--- NOTE | 2017-04-01 07:10 | History & Physical Bridge Note ---
H&P Re-Evaluation Bridge Note: I have examined the patient, reviewed the History & Physical and in the interval since the performance of the History & Physical I have noted the following changes of clinical significance: No changes noted
--- NOTE | 2017-04-01 07:46 | Discharge Instructions ---
Discharge Instructions Date of Service Apr 01, 2017. Visit Reason for Visit: Left Lung Mass Discharge Discharge Diagnosis / Problem: Left Lung Mass Discharge Goals Goal(s): Learn about illness Activity Recommendations Activity Limitations: resume your previous activity (in 24 hours) Anesthesia . Post Anesthesia Instructions: If you have had General Anesthesia or IV Sedation: * Do not drive today. * Resume driving when surgeon permits. * Do not make important decisions or sign legal documents today. * Call surgeon for: 1. Temperature elevations greater than 101 degrees F. 2. Uncontrollable pain. 3. Excessive bleeding. 4. Persistent nausea and vomiting. 5. Medication intolerance (nausea, vomiting or rash). * For nausea and vomiting use only clear liquids such as: tea, soda, bouillon until nausea subsides, then gradually increase diet as tolerated. * If you have any concerns or questions, call your surgeon's office. If physician is unavailable and it is an emergency, call 911 or go to the nearest emergency room. . Instructions / Follow-Up Instructions / Follow-Up 1. You may cough up some blood. Call physician if excessive amount noted. 2. Keep your scheduled appointment with Dr. Gee on April 11, 2017 @ 11:45. Diet Recommendations Recommended Home Diet: resume previous diet Procedures Procedures Performed: Endo-Bronchial Ultrasound (EBUS), navigational bronchoscopy with biopsies Pending Studies Studies pending at discharge: no Medical Emergencies . Who to Call and When: Medical Emergencies: If at any time you feel your situation is an emergency, please call 911 immediately. . Non-Emergent Contact Non-Emergency issues call your: Surgeon Call Non-Emergent contact if: you have a fever, your pain is not controlled . . "Provider Documentation" section prepared by Connor Feldman. .
[2017-04-01] MEDS ORDERED: ETOMIDATE 2 MG/ML 20 ML VIAL IV ONE (07:49)
[2017-04-01] MEDS ORDERED: LARYING-O-JET KIT (LTA) ONE ×2 (07:49)
[2017-04-01] MEDS ORDERED: EpHEDrine SULFATE INJ 50 MG/ML AMP IV PRN (08:30)
[2017-04-01] MEDS ORDERED: ATROPINE SULFATE 0.1 MG/ML 5ML SYR IV PRN (08:30)
--- NOTE | 2017-04-01 09:36 | DIAGNOSTIC IMAGING REPORT ---
INTRAPROCEDURAL FLUOROSCOPIC SPOT IMAGE OF THE CHEST CLINICAL HISTORY: NAVIGATIONAL BRONCH LT SIDE COMPARISON STUDY: Checks x-ray dated 01/06/2017 FINDINGS: 36 seconds of fluoroscopic time was utilized. A single fluoroscopic spot image demonstrates a bronchoscopic catheter within the left upper lobe. There are extensive calcified mediastinal and hilar lymph nodes. IMPRESSION: Bronchoscopic catheter positioned within the left upper lobe. Electronically signed by: Peyman Barrera M.D. 04/01/2017 9:34 AM Dictated Date/Time: 04/01/2017 9:33 AM
[2017-04-01] MEDS ORDERED: ALBUTEROL 0.083% NEBU SOLN 3 ML VIAL INH STA (09:38)
--- NOTE | 2017-04-01 09:41 | DIAGNOSTIC IMAGING REPORT ---
CHEST ONE VIEW PORTABLE CLINICAL HISTORY: Status post fiber optic bronchoscopy COMPARISON STUDY: 01/06/2017 FINDINGS: The cardiac images so contours remain stable. There are extensive calcified mediastinal and hilar lymph nodes. There is no pneumothorax. Since the prior study the patient developed left mid and upper lung zone airspace opacities. Given history this may represent post bronchoscopic hemorrhage.[ IMPRESSION: 1. No evidence of pneumothorax 2. Interval development of left mid and upper lung zone airspace opacities. Given the history, this may represent post bronchoscopic hemorrhage. Radiographic follow-up is recommended. Electronically signed by: Peyman Barrera M.D. 04/01/2017 9:40 AM Dictated Date/Time: 04/01/2017 9:39 AM
--- NOTE | 2017-04-01 10:04 | OPERATIVE REPORT ---
DATE OF OPERATION: 04/01/2017 PREOPERATIVE DIAGNOSES: 1. Left upper lobe mass. 2. Mediastinal calcifications. 3. History of sarcoidosis. POSTOPERATIVE DIAGNOSIS: Same. PROCEDURES: 1. Endobronchial ultrasound with biopsy. 2. Navigational bronchoscopy with brushings and washings of left upper lobe lesion. SURGEON: Dr. Gee. LITHOPONE MILL WORKER: Abdullahi Feldman PA-C. ANESTHESIA: General anesthesia endotracheal intubation. INDICATIONS FOR PROCEDURE AND FINDINGS: Alda Bennett is a frail 71-year-old female who has recently diagnosed Parkinson's disease as well as a history of sarcoidosis with calcifications of her lymph nodes in her mediastinum. She was admitted last month and was found to have a mass in her left upper lobe. She has compression fracture of her back and so I went in to see her and after CT scan of her chest revealed this mass I saw her in the office and we set her up for a navigational bronchoscopy. It is in the medial aspect of her left upper lobe and I explained it may be difficult to get to this. She really did not have much in the way of mediastinal adenopathy, but had mediastinal calcifications and these nodes were a bit enlarged. I fell while we were there we would do an endobronchial ultrasound with biopsy. On 04/01/2017 the patient was brought to the operating room and underwent endobronchial ultrasound. The nodes were indeed calcified, in fact they moved in trying to put the needle in. I did get some lymphocytes in the level 7 area but the right level 4 and left level 10 areas were difficult to access. I was not happy with our biopsy result but I did not think we would do better by persisting. I then did a navigational bronchoscopy and again I was not happy as it was difficult to get into this area. I did do some brushes and there were a few abnormal cells. I also did washings, however we did not get directly into the mass. She tolerated it well. PROCEDURE: The patient was brought to the operating room and placed in supine position. General anesthesia induced and endotracheal intubation was performed with single lumen tube. After appropriate time out had been called and antibiotics given, the endobronchial ultrasound scope was placed. The patient had no endobronchial lesions. You could see some of the calcifications but they were not eroding through the mucosa. Using endobronchial ultrasound lymph nodes at the right level 4 area and biopsied these several times with fine needle aspirations. I also did a level 7 node and I did a left level 10 nodes. After biopsying these multiple times we did get some lymphocytes in the level 7 area; however, left level 10 and right level 4 really did not have much in the way of lymphocytes. We got benign bronchial epithelium. It should be noted in getting to these nodes when I pushed the entire node away was it was calcified. We got no significant bleeding from this. I then registered the patient's airways and then went down into the left upper lobe. I could not get closed than 2.1 cm from this mass and we were a bit off to the side. On the endobronchial ultrasound I could not get close to really see this on the ultrasound. I did several brushings of this area. I did not think the needle was in the proper orientation. I did not do a needle biopsy. It was very difficult to get up his airway, as it was in the medial left upper lobe. We did do washings in this area. We had very little in the way of any bleeding. She tolerated it well and I slowly withdrew the bronchoscope and as stated there was no significant bleeding. I attest to the content of the Intraoperative Record and any orders documented therein. Any exception s are noted below.
--- NOTE | 2017-04-01 10:45 | Anesthesiology Progress Note ---
Anesthesia Post Op Note Date & Time Apr 01, 2017 at 10:45 Vital Signs Pain Intensity: 0 Vital Signs Past 12 Hours Date Time Temp Pulse Resp B/P (MAP) Pulse Ox O2 Delivery O2 Flow Rate FiO2 04/01/17 10:35 83 16 123/57 94 Nasal Cannula 3 04/01/17 10:25 94 16 124/58 98 Nasal Cannula 3 04/01/17 10:15 94 20 132/66 100 Diffusion Mask 5 04/01/17 10:05 36.8 94 20 137/71 100 Diffusion Mask 5 04/01/17 09:55 94 20 134/82 99 Nasal Cannula 3 04/01/17 09:45 94 20 149/77 98 Nasal Cannula 3 04/01/17 09:41 90 18 99 Nasal Cannula 2.0 04/01/17 09:35 88 20 156/79 98 Nasal Cannula 3 04/01/17 09:25 36.3 94 16 147/72 98 Diffusion Mask 10 04/01/17 09:15 36.3 88 16 159/96 98 Diffusion Mask 10 04/01/17 09:07 88 16 161/62 95 Diffusion Mask 10 04/01/17 05:55 36.7 68 20 190/83 (118) 100 Room Air Notes Mental Status: alert / awake / arousable, participated in evaluation Pt Amnestic to Procedure: Yes Nausea / Vomiting: adequately controlled Pain: adequately controlled Airway Patency, RR, SpO2: stable & adequate BP & HR: stable & adequate Hydration State: stable & adequate Anesthetic Complications: no major complications apparent
[2017-04-01] MEDS ORDERED: ALBUT/IPRATROP 3MG/0.5MG NEB 3 ML VIAL INH PRN (14:00)
[2017-04-01] MEDS ORDERED: IV FLUIDS COMPLETED PRN (15:45)
[2017-04-01] MEDS ORDERED: ENOXAPARIN 40 MG/0.4 ML SYR SQ SCH (18:00)
[2017-04-01] MEDS ORDERED: NURSING DECISION MEDICATION ORDER SCH (19:15)
[2017-04-01] MEDS ORDERED: COUGH DROP (SUGAR FREE) LOZ 24 LOZ/1 BOX PO PRN (19:15)
[2017-04-01] MEDS: ACETAMINOPHEN 325 MG TAB PO PRN (19:17)
[2017-04-01] MEDS: POTASSIUM CHLORIDE 20 MEQ TABCR PO SCH (21:10)
[2017-04-01] MEDS: HYDROCORTISONE 10 MG TAB PO SCH (21:11)
[2017-04-01] MEDS: LORAZEPAM 0.5 MG TAB PO PRN (22:19)
[2017-04-02] VITALS (14 sets, daily range): BP systolic 126–188; BP diastolic 56–88; PULSE 69–102; TEMP 36.4–36.8; O2SAT 89–99
[2017-04-02] MEDS ORDERED: NURSING VERBAL MED ORDER STA (04:53)
[2017-04-02] MEDS ORDERED: HydrALAZINE HCL 20 MG/ML VIAL IV. STA (04:58)
[2017-04-02] MEDS: LEVOTHYROXINE 75 MCG TAB PO SCH ×2 (05:51→07:54)
--- NOTE | 2017-04-02 07:51 | DIAGNOSTIC IMAGING REPORT ---
CHEST ONE VIEW PORTABLE HISTORY: hypoxia COMPARISON: Chest 04/01/2017. FINDINGS: There is a small right pneumothorax with a maximal pleural gap of 2.6 cm. This previously demonstrated a pleural gap of 5 mm. Densely calcified mediastinal and hilar lymph nodes are again noted. The heart is stable in size. No pleural effusions. Improved aeration within the left lung with improvement in the diffuse interstitial thickening. S-shaped scoliosis of the thoracolumbar spine. IMPRESSION: 1. Increase in size in the small right pneumothorax. 2. Improved aeration within the left lung and the diffuse interstitial thickening. This may represent resolving pulmonary edema or post bronchoscopy changes. Electronically signed by: Saleem Flowers M.D. 04/02/2017 7:50 AM Dictated Date/Time: 04/02/2017 7:47 AM
[2017-04-02] MEDS ORDERED: KRILL OIL PO SCH (09:00)
[2017-04-02] MEDS ORDERED: NON-FORMULARY MEDICATION (Cranberry (Vaccinium Macrocarp (Cranberry) 500 MG) PO SCH (09:00)
[2017-04-02] MEDS: FUROSEMIDE 20 MG TAB PO SCH (09:00)
[2017-04-02] MEDS ORDERED: PHOSPHORUS PO SCH (09:00)
[2017-04-02] MEDS ORDERED: VITAMI PO SCH (09:00)
[2017-04-02] MEDS ORDERED: CALCIUM PO SCH (09:00)
--- NOTE | 2017-04-02 09:11 | SURGERY PROGRESS NOTE ---
DATE: 04/02/2017 SUBJECTIVE: Ms. Bennett was seen today on 04/02/2017. I performed an endobronchial ultrasound and a navigational bronchoscopy of the left upper lobe lesion yesterday. The patient was hypoxic and had an infiltrative pattern in her left lung, which I thought may be due to atelectasis or possible the copious irrigations were used. At any rate, today that has completely cleared. She is on room air. She is complaining of some chest pain. She had what appeared to be a tiny pneumothorax yesterday, which has gotten larger today on the right. I must say I did not expect that. I did biopsy of right level 4 node, but it was calcified and I really could not get into it. I spent most of my time biopsying on the left and if she were to develop a pneumothorax, I would have expected it on the left. At any rate, it is not large enough to place a tube. We are going to keep her on oxygen therapy and I will check a chest x-ray in the morning. She has had some pain overnight. Her lungs do not sound bad. As stated, her A-a gradient is improved. We are going to ambulate her in the hallway, continue Lovenox for DVT prophylaxis and we will see what her x-ray looks like in the morning. I had a long discussion with the patient at the bedside about this today. NINFA
[2017-04-02] MEDS: SPIRONOLACTONE 25 MG TAB PO SCH (09:12)
[2017-04-02] MEDS: ASPIRIN 81 MG ECTAB PO SCH (09:13)
[2017-04-02] MEDS: SODIUM CHLORIDE 1 GM TAB PO SCH (09:13)
[2017-04-02] MEDS: PANTOprazole SOD 40 MG TAB PO SCH (09:13)
[2017-04-02] MEDS: CHOLECALCIFEROL 1000 INTER.UNIT TAB PO SCH (09:14)
[2017-04-02] MEDS: HYDROCORTISONE 10 MG TAB PO SCH ×2 (09:15→20:57)
[2017-04-02] MEDS: DILTIAZEM HCL 300 MG CAPCR PO SCH (09:15)
[2017-04-02] MEDS: LOSARTAN POTASSIUM 50 MG TAB PO SCH (09:17)
[2017-04-02] MEDS: POTASSIUM CHLORIDE 20 MEQ TABCR PO SCH ×2 (09:18→20:57)
[2017-04-02] MEDS: MULTIVITAMIN TAB PO SCH (09:18)
[2017-04-02] MEDS: ACETAMINOPHEN 325 MG TAB PO PRN (10:21)
[2017-04-02] MEDS ORDERED: ENOXAPARIN 30 MG/0.3 ML SYR SQ SCH (18:00)
[2017-04-02] MEDS: LORAZEPAM 0.5 MG TAB PO PRN (22:29)
[2017-04-02] MEDS: TRAMADOL HCL 50 MG TAB PO PRN (22:29)
[2017-04-03] VITALS (7 sets, daily range): BP systolic 110–166; BP diastolic 56–70; PULSE 59–66; TEMP 36.5–36.7; O2SAT 94–100
[2017-04-03] MEDS: LEVOTHYROXINE 75 MCG TAB PO SCH (05:29)
--- NOTE | 2017-04-03 08:11 | DIAGNOSTIC IMAGING REPORT ---
SINGLE VIEW CHEST CLINICAL HISTORY: Follow-up pneumothorax. FINDINGS: An AP, portable, upright chest radiograph is compared to study dated 04/02/2017 and correlated with chest CT dated 03/03/2017. The examination is degraded by portable technique and patient rotation. The heart is enlarged and there is atherosclerotic calcification of the thoracic aorta. The pulmonary vasculature is noncongested. A hiatal hernia is observed. Large calcified mediastinal and hilar lymph nodes are similar to previous. Chronic interstitial thickening and left apical nodular airspace opacities are similar to previous. Additional smaller foci of nodularity are seen throughout both lungs. There is no evidence of superimposed airspace consolidation or pleural effusion. A small right apical pneumothorax is unchanged from yesterday. There is at least 2.5 cm of apical pleural separation. The skeletal structures are osteopenic. The bony thorax is grossly intact. There is moderate scoliosis and degenerative change noted in the thoracic spine. IMPRESSION: 1. A small right apical pneumothorax is unchanged from yesterday. 2. There is no airspace consolidation typical for pneumonia or pleural effusion. 3. Cardiomegaly without radiographic evidence of congestive failure. 4. Chronic parenchymal changes/nodularity at the left apex are similar to previous. Electronically signed by: Hemal Meza M.D. 04/03/2017 8:10 AM Dictated Date/Time: 04/03/2017 8:07 AM
[2017-04-03] MEDS: ASPIRIN 81 MG ECTAB PO SCH (09:33)
[2017-04-03] MEDS: MULTIVITAMIN TAB PO SCH (09:34)
[2017-04-03] MEDS: FUROSEMIDE 20 MG TAB PO SCH (09:34)
[2017-04-03] MEDS: HYDROCORTISONE 10 MG TAB PO SCH ×2 (09:35→21:27)
[2017-04-03] MEDS: LOSARTAN POTASSIUM 50 MG TAB PO SCH (09:35)
[2017-04-03] MEDS: DILTIAZEM HCL 300 MG CAPCR PO SCH (09:35)
[2017-04-03] MEDS: PANTOprazole SOD 40 MG TAB PO SCH (09:35)
[2017-04-03] MEDS: CHOLECALCIFEROL 1000 INTER.UNIT TAB PO SCH (09:36)
[2017-04-03] MEDS: SODIUM CHLORIDE 1 GM TAB PO SCH (09:36)
[2017-04-03] MEDS: SPIRONOLACTONE 25 MG TAB PO SCH (09:36)
[2017-04-03] MEDS: ACETAMINOPHEN 325 MG TAB PO PRN ×2 (09:37→21:32)
[2017-04-03] MEDS: POTASSIUM CHLORIDE 20 MEQ TABCR PO SCH ×2 (10:00→21:27)
--- NOTE | 2017-04-03 11:43 | SURGERY PROGRESS NOTE ---
DATE: 04/03/2017 Ms. Bennett was seen today. She looks better. She has a few complaints including a slight headache, which is improving. We do not have results back from pathology. The patient's chest x-ray was evaluated today and it appears to me the pneumothorax is smaller, especially along the base. I see no pleural effusion. I would like to continue her on oxygen therapy for 1 more day and if her x-ray looks good tomorrow, we can send her back to [place]. We will have occupational therapy and physical therapy evaluate her.
[2017-04-03] MEDS: HEPARIN SOD 5000 UNIT/0.5 ML CARP SQ SCH (21:33)
[2017-04-03] MEDS: LORAZEPAM 0.5 MG TAB PO PRN (23:31)
[2017-04-04] MEDS: LEVOTHYROXINE 75 MCG TAB PO SCH (05:37)
[2017-04-04 06:48] LABS: HEMATOCRIT 27.5 % (37-47); MEAN CELL VOLUME 94.8 fL (80-100); MEAN CORPUSCULAR HEMOGLOBIN 31.4 pg (25-34); MEAN CORPUSCULAR HGB CONC 33.1 g/dl (32-36); MEAN PLATELET VOLUME 8.5 fL (7.4-10.4); PLATELET COUNT 230 K/uL (130-400); WHITE BLOOD COUNT 10.35 K/uL (4.8-10.8)
[2017-04-04 07:23] LABS: CREATININE 0.8 mg/dl (0.60-1.20)
--- NOTE | 2017-04-04 07:54 | Anesthesiology Progress Note ---
Anesthesia Post Op Note Date & Time Apr 04, 2017 at 07:54 Vital Signs Vital Signs Past 12 Hours Date Time Temp Pulse Resp B/P (MAP) Pulse Ox O2 Delivery O2 Flow Rate FiO2 04/04/17 01:10 Nasal Cannula 3.0 Humidified Oxygen 04/03/17 23:02 36.7 65 16 125/70 (88) 99 Nasal Cannula 3.0 04/03/17 21:29 60 162/69 (100) Notes Mental Status: alert / awake / arousable, participated in evaluation Pt Amnestic to Procedure: Yes Nausea / Vomiting: adequately controlled Pain: adequately controlled Airway Patency, RR, SpO2: stable & adequate BP & HR: stable & adequate Hydration State: stable & adequate Anesthetic Complications: no major complications apparent
[2017-04-04 08:06] VITALS: BP 151/54; PULSE 69; TEMP 36.8; O2SAT 100
--- NOTE | 2017-04-04 09:17 | DIAGNOSTIC IMAGING REPORT ---
SINGLE VIEW CHEST CLINICAL HISTORY: Follow-up pneumothorax. FINDINGS: An AP, portable, upright chest radiograph is compared to study dated 04/03/2017 and correlated with chest CT dated 03/03/2017. The examination is degraded by portable technique and patient rotation. The heart is enlarged and there is atherosclerotic calcification of the thoracic aorta. The pulmonary vasculature is noncongested. A hiatal hernia is observed. Large calcified mediastinal and hilar lymph nodes are similar to previous. Chronic interstitial thickening and left apical nodular airspace opacities are similar to previous. Additional smaller foci of nodularity are seen throughout both lungs. There are questionable developing airspace opacities at the right lung base. No large pleural effusion is identified. A small right apical pneumothorax is unchanged from yesterday. There is at least 2.5 cm of apical pleural separation. The skeletal structures are osteopenic. The bony thorax is grossly intact. There is moderate scoliosis and degenerative change noted in the thoracic spine. IMPRESSION: 1. A small right apical pneumothorax is unchanged from yesterday. 2. Question developing airspace opacities at the right lung base. This may represent artifact versus atelectasis or developing consolidation. Clinical correlation will be required. No large pleural effusion is seen. 3. Cardiomegaly without radiographic evidence of congestive failure. 4. Chronic parenchymal changes/nodularity at the left apex are similar to previous. Electronically signed by: Hemal Meza M.D. 04/04/2017 9:16 AM Dictated Date/Time: 04/04/2017 9:14 AM
[2017-04-04] MEDS: MULTIVITAMIN TAB PO SCH (09:24)
[2017-04-04] MEDS: HYDROCORTISONE 10 MG TAB PO SCH ×2 (09:24→21:18)
[2017-04-04] MEDS: SODIUM CHLORIDE 1 GM TAB PO SCH (09:24)
[2017-04-04] MEDS: SPIRONOLACTONE 25 MG TAB PO SCH (09:24)
[2017-04-04] MEDS: CHOLECALCIFEROL 1000 INTER.UNIT TAB PO SCH (09:25)
[2017-04-04] MEDS: PANTOprazole SOD 40 MG TAB PO SCH (09:25)
[2017-04-04] MEDS: LOSARTAN POTASSIUM 50 MG TAB PO SCH (09:25)
[2017-04-04] MEDS: FUROSEMIDE 20 MG TAB PO SCH (09:25)
[2017-04-04] MEDS: POTASSIUM CHLORIDE 20 MEQ TABCR PO SCH ×2 (09:26→21:19)
[2017-04-04] MEDS: ASPIRIN 81 MG ECTAB PO SCH (09:26)
[2017-04-04] MEDS: DILTIAZEM HCL 300 MG CAPCR PO SCH (09:26)
[2017-04-04] MEDS: HEPARIN SOD 5000 UNIT/0.5 ML CARP SQ SCH ×2 (09:28→21:21)
[2017-04-04] MEDS: ACETAMINOPHEN 325 MG TAB PO PRN (14:05)
[2017-04-04 14:55] VITALS: BP 118/55; PULSE 65; TEMP 36.7; O2SAT 100
[2017-04-04 16:30] VITALS: PULSE 66; O2SAT 100
[2017-04-04 21:15] VITALS: BP 124/58; PULSE 69
[2017-04-04] MEDS: TRAMADOL HCL 50 MG TAB PO PRN (21:24)
[2017-04-04] MEDS: LORAZEPAM 0.5 MG TAB PO PRN (22:14)
[2017-04-04 23:10] VITALS: BP 145/73; PULSE 69; TEMP 36.8; O2SAT 100
[2017-04-05] MEDS: LEVOTHYROXINE 75 MCG TAB PO SCH (05:27)
[2017-04-05] MEDS: TRAMADOL HCL 50 MG TAB PO PRN ×2 (05:32→21:29)
[2017-04-05 07:30] VITALS: BP 130/58; PULSE 64; TEMP 36.6; O2SAT 100
[2017-04-05 08:26] VITALS: O2SAT 100
[2017-04-05] MEDS: SPIRONOLACTONE 25 MG TAB PO SCH (08:52)
[2017-04-05] MEDS: DILTIAZEM HCL 300 MG CAPCR PO SCH (08:54)
[2017-04-05] MEDS: HYDROCORTISONE 10 MG TAB PO SCH ×2 (08:55→21:12)
[2017-04-05] MEDS: ASPIRIN 81 MG ECTAB PO SCH (08:56)
[2017-04-05] MEDS: LOSARTAN POTASSIUM 50 MG TAB PO SCH (08:56)
[2017-04-05] MEDS: POTASSIUM CHLORIDE 20 MEQ TABCR PO SCH ×2 (08:57→21:12)
[2017-04-05] MEDS: FUROSEMIDE 20 MG TAB PO SCH (08:57)
[2017-04-05] MEDS: MULTIVITAMIN TAB PO SCH (08:57)
[2017-04-05] MEDS: PANTOprazole SOD 40 MG TAB PO SCH (08:58)
[2017-04-05] MEDS: SODIUM CHLORIDE 1 GM TAB PO SCH (08:58)
[2017-04-05] MEDS: CHOLECALCIFEROL 1000 INTER.UNIT TAB PO SCH (08:59)
[2017-04-05] MEDS: HEPARIN SOD 5000 UNIT/0.5 ML CARP SQ SCH ×2 (09:03→21:25)
--- NOTE | 2017-04-05 10:53 | SURGERY PROGRESS NOTE ---
DATE: 04/04/2017 Ms. Bennett was seen today. Her night was much better. She has developed some diarrhea. She has no abdominal pain or nausea. Her pneumothorax is almost completely resolved. We have stopped her oxygen today as her saturations are quite good. She is going to be evaluated by occupational therapy and physical therapy and we are going to try and get her back to the rehabilitation portion of [facility].
[2017-04-05 15:18] VITALS: BP 112/57; PULSE 64; TEMP 36.6; O2SAT 100
[2017-04-05 21:23] VITALS: BP 113/64; PULSE 66
[2017-04-05] MEDS: LORAZEPAM 0.5 MG TAB PO PRN (21:29)
[2017-04-05 23:15] VITALS: BP 132/67; PULSE 66; TEMP 36.8; O2SAT 94
[2017-04-06] MEDS: LEVOTHYROXINE 75 MCG TAB PO SCH (05:57)
[2017-04-06 07:30] VITALS: BP 120/60; PULSE 69; TEMP 36.9; O2SAT 93
[2017-04-06 08:11] VITALS: O2SAT 93
--- NOTE | 2017-04-06 09:02 | SURGERY PROGRESS NOTE ---
DATE: 04/05/2017 DATE: 04/05/2017. Ms. Bennett was seen today on 04/05/2017. She is scheduled to go back to [place]. I am hopeful they will take her in the rehab unit. We are waiting for insurance clearance for that. Otherwise, she looks good. She is on room air and she is ambulating. She is having diarrhea, but only had a few episodes. At this point, I would not treat this as her C. diff is negative. Hopefully, we will get her out of the hospital today.
--- NOTE | 2017-04-06 09:04 | Discharge Instructions ---
Discharge Instructions Date of Service Apr 06, 2017. Admission Reason for Admission: Left Lung Mass Discharge Discharge Diagnosis / Problem: Left Lung Mass Discharge Goals Goal(s): Learn about illness Activity Recommendations Activity Limitations: resume your previous activity Lifting Limitations: none Shower/Bathe: no limitations . Instructions / Follow-Up Instructions / Follow-Up 1. You may cancel you previous appointment with Dr. Gee. You will need to see him in office in May, with a CT scan of your chest. Office will set up CT scan and call you with date and time of appointment for CT scan and follow-up appointment. Current Hospital Diet Patient's current hospital diet: Regular Diet Discharge Diet Recommended Diet: Regular Diet Procedures Procedures Performed: Navigational Bronchoscopy with Biopsies; Endobronchial Ultrasound Pending Studies Studies pending at discharge: no Medical Emergencies . Who to Call and When: Medical Emergencies: If at any time you feel your situation is an emergency, please call 911 immediately. . Non-Emergent Contact Non-Emergency issues call your: Primary Care Provider Call Non-Emergent contact if: you have a fever . "Provider Documentation" section prepared by Connor Feldman. . Transfer Specialist Recommendations Transfer Specialist Recommendations: 1. Physical therapy and occupational therapy recommended upon return to personal halfway. VTE Core Measure Inpt VTE Proph given/why not?: Unfractionated heparin SQ
[2017-04-06] MEDS: HEPARIN SOD 5000 UNIT/0.5 ML CARP SQ SCH (09:19)
[2017-04-06 09:20] VITALS: BP 125/62; PULSE 73
[2017-04-06] MEDS: SPIRONOLACTONE 25 MG TAB PO SCH (09:20)
[2017-04-06] MEDS: DILTIAZEM HCL 300 MG CAPCR PO SCH (09:20)
[2017-04-06] MEDS: HYDROCORTISONE 10 MG TAB PO SCH (09:22)
[2017-04-06] MEDS: LOSARTAN POTASSIUM 50 MG TAB PO SCH (09:23)
[2017-04-06] MEDS: ASPIRIN 81 MG ECTAB PO SCH (09:23)
[2017-04-06] MEDS: POTASSIUM CHLORIDE 20 MEQ TABCR PO SCH (09:23)
[2017-04-06] MEDS: SODIUM CHLORIDE 1 GM TAB PO SCH (09:24)
[2017-04-06] MEDS: FUROSEMIDE 20 MG TAB PO SCH (09:24)
[2017-04-06] MEDS: PANTOprazole SOD 40 MG TAB PO SCH (09:24)
[2017-04-06] MEDS: MULTIVITAMIN TAB PO SCH (09:24)
[2017-04-06] MEDS: CHOLECALCIFEROL 1000 INTER.UNIT TAB PO SCH (09:25)
[2017-04-06 10:34] VITALS: BP 125/62; PULSE 73; TEMP 36.9; O2SAT 93
--- NOTE | 2017-04-06 11:11 | DISCHARGE SUMMARY ---
DISCHARGE DIAGNOSES: 1. Iatrogenic right pneumothorax. 2. Left upper lobe mass. 3. History of sarcoidosis. HOSPITAL COURSE: Ms. Bennett is a 71-year-old female who is in [place] for personal care who has a history of sarcoidosis with markedly enlarged calcified nodes in her mediastinum. She has a new left upper lobe process. It was felt that this may be sarcoidosis, but I was concerned enough that we set her up for a navigational bronchoscopy and an endobronchial ultrasound. We really did not get much in the way of lymphatic tissue. I was hitting calcified nodes. We attempted this on the right level 4 and level 7 nodes. We did get some lymphocytes. At any rate, I elected to go ahead and do navigational bronch. I had a very difficult time getting in to this mass. It certainly did not have an airway going in to it and the medial left upper lobe was very technically difficult. I did do brushings nearby and also did washings. Interesting that this showed some lymphocytes, but no evidence of malignancy. We got the patient ready to go; however, she was a bit hypoxic and then I elected to admit her overnight as she is quite frail. The next morning, I was surprised to see that the RIGHT chest had a pneumothorax. I kept her in the hospital, kept her on oxygen and I did not think she needed a chest tube and on the following day, this was improved. We got her off the oxygen, had her ambulating. She developed some loose stools with a C. difficile titer was negative. In addition, she improved from a physical activity standpoint, and was ambulating in the hallway with a walker. She is eating well, in good spirits and is weaned off of oxygen. We then got into some disposition problems. The patient was evaluated by physical therapy and occupational therapy and felt to be a candidate for rehabilitation; however, her insurance company did not authorize this. We are waiting to send her back to [place] for rehabilitation; however, as it was refused we then sent her back on postop day 5 to the personal care side of [place]. I will see her back in the office in [address] scan. NINFA
--- NOTE | 2017-04-07 12:54 | EDITING REQUIRED CODING QUERY ---
PATHOLOGY To promote full compliance with coding requirements relating to patient care, physician participation is requested in all cases of clearance diver uncertainty. Please assist us with the question(s) below: Please review the Pathology report and please document any relevant diagnosis(es) below. Thank you. DIANA Castañeda [facility] Diagnosis(es):
== END 2017-04-06 11:30 | disposition home or self-care (01) | DRG 167 ==
LOC: C.ACU 04:55 → C.MSW 13:37 → ENRESERV 14:00 → OBSVTOIN 04-02 08:57
PROVIDERS: ADMIT Surgery; ATTEND Surgery
PROC: 0B9G8ZX Drainage of Left Upper Lung Lobe, Via Natural or Artificial Opening Endoscopic, Diagnostic (ICD-10-PCS; principal; 2017-04-01 07:15)
PROC: 07B74ZX Excision of Thorax Lymphatic, Percutaneous Endoscopic Approach, Diagnostic (ICD-10-PCS; principal; 2017-04-01 07:15)
DX: J98.4 Other disorders of lung (principal); E27.40 Unspecified adrenocortical insufficiency; J95.811 Postprocedural pneumothorax; D86.9 Sarcoidosis, unspecified; I89.8 Other specified noninfective disorders of lymphatic vessels and lymph nodes; M19.90 Unspecified osteoarthritis, unspecified site; F32.9 Major depressive disorder, single episode, unspecified; E11.9 Type 2 diabetes mellitus without complications; K21.9 Gastro-esophageal reflux disease without esophagitis; I10 Essential (primary) hypertension; G20 Parkinson's disease; Z83.3 Family history of diabetes mellitus; Z79.82 Long term (current) use of aspirin; Y83.8 Other surgical procedures as the cause of abnormal reaction of the patient, or of later complication, without mention of misadventure at the time of the procedure; Y92.239 Unspecified place in hospital as the place of occurrence of the external cause

== ENCOUNTER → 2017-04-15 | Outpatient (CLI) | payer BC, OTHER ==
[~2017-04-15] MED LIST changes: +TRAM-10 PO
[2017-04-15 15:03] LABS: BLOOD UREA NITROGEN 15 mg/dl (7-18); BUN/CREATININE RATIO 13.5 (10-20); CARBON DIOXIDE 30 mmol/L (21-32); CHLORIDE 95 mmol/L (98-107); GLUCOSE 110 mg/dl (70-99); MAGNESIUM 2.1 mg/dl (1.8-2.4); POTASSIUM 4.1 mmol/L (3.5-5.1); SODIUM 134 mmol/L (136-145)
[2017-04-15 17:28] LABS: CALCIUM 9.2 mg/dl (8.5-10.1)
== END | disposition home or self-care (01) ==
LOC: C.LAB1850 13:32
PROVIDERS: ATTEND Internal Medicine Endocrinology, Diabetes & Metabolism
DX: E03.9 Hypothyroidism, unspecified (principal); M81.0 Age-related osteoporosis without current pathological fracture; E87.1 Hypo-osmolality and hyponatremia

== ENCOUNTER → 2017-06-28 | Outpatient (CLI) | payer BC ==
[~2017-06-28] MED LIST changes: +CRDCD300 PO; -DILT300C64 PO
--- NOTE | 2017-06-28 10:20 | DIAGNOSTIC IMAGING REPORT ---
(CHEST) THORAX WITHOUT CT DOSE: 161.99 mGycm CLINICAL HISTORY: 71 years-old Female presents with lung nodule follow-up. TECHNIQUE: Multiaxial CT images of the chest were performed without contrast. A dose lowering technique was utilized adhering to the principles of ALARA. COMPARISON: CT chest 03/03/2017, CTA chest 01/03/2017. FINDINGS: No dominant thyroid nodule identified. Densely calcified large mediastinal and hilar lymph nodes are redemonstrated which may reflect prior granulomatous disease. Heart is mildly enlarged with coronary arterial and dense mitral annular calcifications. Mild atherosclerotic plaquing is present with tortuosity of the descending thoracic aorta. There is no pneumothorax or pleural effusion. 7 x 6 mm focal groundglass nodule of the superior segment lingula is noted on image 117 of the axial series which appears stable in size dating back to 01/03/2017. Calcifications with apparent linear suture material noted within the apical right upper lobe. There is mild biapical pleural parenchymal scarring. Mild bibasilar atelectasis is noted. Ill-defined groundglass opacities are present within the left lower lobe, also suggesting atelectasis. There are a few pleural-based subsegmental consolidative opacities within the right lower lobe with associated parenchymal calcification seen on image 128 of the axial series with some tree-in-bud nodularity suggesting bronchiolitis with scarring, slightly progressed. Mild tree-in-bud nodularity is present within the left upper lobe and superior segment left lower lobe. There is an indeterminate lobular mass of the left upper lobe apical posterior segment redemonstrated abutting the pleural surface, 3.6 x 2.6 x 4.4 cm, previously 3.5 x 2.7 cm when measured in a similar technique on image 46 of the previous study. Scattered internal calcifications are again seen along the margins of this lesion. Imaged upper abdominal structures are unremarkable. The bones are moderately demineralized. Sigmoidal scoliosis of the thoracolumbar spine is seen. Multilevel endplate degenerative changes are noted. IMPRESSION: 1. Stable size of the lobulated pleural-based mass of the apical posterior segment left upper lobe, measuring up to 3.6 cm. 2. Unchanged appearance of extensive mediastinal and hilar calcified adenopathy suggesting prior granulomatous disease. 3. Focal groundglass pulmonary nodule, 7 mm within the superior segment lingula appears unchanged in size dating back to 01/03/2017. Follow-up according to the Fleischner guidelines below recommended. 4. Mildly progressive consolidative and tree-in-bud opacities of the right lower lobe extending towards the pleural surface suggest admixture of scarring with bronchiolitis. Please refer to below summary of Fleischner criteria recommendations for follow-up of incidental CT nodules (Brandon Smith, Guidelines for management of small pulmonary nodules detected on CT scans: A statement from the Fleischner Society, Radiology 237: [id number].) Note: newly detected indeterminate nodule in persons 35 years of age or older. * Low risk patients: minimal or absent history of smoking and/or other known risk factors * high risk patients: history of smoking or of other known risk factors (e.g. first degree relative with lung cancer, or exposure to asbestos, radon, uranium) * if a nodule up to 8 mm is partly solid or is ground glass further follow-up is required after 24 months to exclude possible slow growing adenocarcinoma (VERONICA) SUBSOLID NODULES Solitary pure ground-glass nodule * nodule size <6 mm - no CT follow-up required * nodule size >=6 mm - follow-up CT at 6-12 months, then every 2 years until 5 years Solitary part-solid nodule * nodule size <6 mm - no CT follow-up required * nodule size >=6 mm - follow-up CT at 3-6 months. If unchanged, and solid component remains <6 mm, then annual follow-up for 5 years Multiple subsolid nodules * nodule size <6 mm - follow-up CT at 3-6 months, consider further follow-up at 2 and 4 years if stable * nodule size >=6 mm - follow-up CT at 3-6 months, subsequent management based on the most suspicious nodule(s) The above report was generated using voice recognition software. It may contain grammatical, syntax or spelling errors. Electronically signed by: Alex Ruff M.D. 06/28/2017 10:19 AM Dictated Date/Time: 06/28/2017 10:07 AM
== END | disposition home or self-care (01) ==
LOC: C.CTS 09:50
PROVIDERS: ATTEND Surgery
DX: R91.1 Solitary pulmonary nodule (principal)

== ENCOUNTER → 2018-03-23 | Outpatient (CLI) | payer BC ==
[~2018-03-23] MED LIST changes: -CRDCD300 PO; +DILT300C64 PO; +POTA-639 PO; -POTA20TA16 PO
[2018-03-23 15:38] LABS: BASO % 0.2 %; BASO ABS # 0.02 K/uL (0-0.2); EOS % 0.6 %; EOS ABS # 0.05 K/uL (0-0.5); HEMATOCRIT 28.6 % (37-47); HEMOGLOBIN 9.8 g/dL (12.0-16.0); IG# 0.04 K/uL (0.00-0.02); LYMPH % 13.2 %; LYMPH ABS # 1.13 K/uL (1.2-3.4); MEAN CELL VOLUME 89.4 fL (80-100); MEAN CORPUSCULAR HEMOGLOBIN 30.6 pg (25-34); MEAN CORPUSCULAR HGB CONC 34.3 g/dl (32-36); MEAN PLATELET VOLUME 8.6 fL (7.4-10.4); MONO % 8.7 %; MONO ABS # 0.74 K/uL (0.11-0.59); NEUT % 76.8 %; NEUT ABS # 6.57 K/uL (1.4-6.5); PLATELET COUNT 278 K/uL (130-400); RED CELL DISTRIBUTION WIDTH CV 14.2 % (11.5-14.5); RED CELL DISTRIBUTION WIDTH SD 46.5 fL (36.4-46.3); WHITE BLOOD COUNT 8.55 K/uL (4.8-10.8)
[2018-03-23 16:12] LABS: ALBUMIN 3.9 gm/dl (3.4-5.0); ALKALINE PHOSPHATASE 51 U/L (45-117); ALT/SGPT 6 U/L (12-78); AST/SGOT 15 U/L (15-37); BLOOD UREA NITROGEN 20 mg/dl (7-18); CALCIUM 8.8 mg/dl (8.5-10.1); CARBON DIOXIDE 30 mmol/L (21-32); CHOLESTEROL 190 mg/dl (0-200); CREATININE 1.52 mg/dl (0.60-1.20); GLUCOSE 102 mg/dl (70-99); LDL CHOLESTEROL CALCULATED 87 mg/dl; POTASSIUM 5.5 mmol/L (3.5-5.1); SODIUM 124 mmol/L (136-145); TOTAL PROTEIN 7.2 gm/dl (6.4-8.2)
[2018-03-24 06:56] LABS: HEMOGLOBIN A1C 5.9 % (4.5-5.6)
== END | disposition home or self-care (01) ==
LOC: C.LAB1850 14:16
PROVIDERS: ATTEND Internal Medicine Pulmonary Disease
DX: D86.9 Sarcoidosis, unspecified (principal); E11.9 Type 2 diabetes mellitus without complications; E03.9 Hypothyroidism, unspecified; E27.40 Unspecified adrenocortical insufficiency; I10 Essential (primary) hypertension; R91.1 Solitary pulmonary nodule; S32.009D Unspecified fracture of unspecified lumbar vertebra, subsequent encounter for fracture with routine healing; X58.XXXD Exposure to other specified factors, subsequent encounter